=== PATIENT | male | born 1945 | race Caucasian/White ===

== ENCOUNTER → 2017-07-03 08:58 | Outpatient (CLI) | payer MEDICARE, OTHER, SELFPAY | PROVIDERS: Visit Provider Urology | DX: C61 Malignant neoplasm of prostate (principal) | CPT/HCPCS: 36415; 84153 ==

== ENCOUNTER → 2018-01-08 09:19 | Outpatient (CLI) | payer MEDICARE, OTHER, SELFPAY | PROVIDERS: Family Provider Family Medicine; PCP Family Medicine; Visit Provider Urology | DX: C61 Malignant neoplasm of prostate (principal) | CPT/HCPCS: 36415; 84153 ==

== ENCOUNTER → 2018-07-16 08:57 | Outpatient (CLI) | payer MEDICARE, OTHER, SELFPAY ==
[2018-07-16 11:37] LABS: Prostate Specific Antigen 10.9 ng/mL (0.10-4.00)
== END ==
PROVIDERS: Family Provider Family Medicine; PCP Family Medicine; Visit Provider Urology
DX: C61 Malignant neoplasm of prostate (principal)
CPT/HCPCS: 36415; 84153

== ENCOUNTER → 2018-08-25 14:41 | Outpatient (CLI) | payer MEDICARE, OTHER, SELFPAY ==
--- NOTE | 2018-08-25 14:43 | DI.RAD.S_ITS ---
PROCEDURE: XR HIP W PEL IF DONE RT 2V INDICATIONS: right hip/low back pain TECHNIQUE: AP pelvis with lateral view(s) of the right hip(s). COMPARISON: None. FINDINGS: Bones: No fractures or dislocations. Pelvic ring appears intact. No suspicious bony lesions. Scattered degenerative subchondral sclerosis and spurring. Lower lumbar spondylosis Soft tissues: The visualized bowel gas pattern is normal. No suspicious soft tissue calcifications. IMPRESSION: Bilateral mild hip joint degeneration. Lower lumbar spondylosis Dictated by: Misbah Guillaume M.D. on 08/25/2018 at 16:01 Approved by: Misbah Guillaume M.D. on 08/25/2018 at 16:03
--- NOTE | 2018-08-25 14:43 | DI.RAD.S_ITS ---
PROCEDURE: XR LUMBAR SPINE 2-3V INDICATIONS: right hip/low back pain TECHNIQUE: 3 views of the lumbar spine were acquired. COMPARISON: None. FINDINGS: Bones: No fracture or focal osseous destruction. Grade 1 retrolisthesis of L3 on L4. Multilevel degenerative endplate sclerosis and spurring. Diffuse facet arthropathy. Mild narrowing of the L3-L4 disc space. Remaining disc space is grossly preserved. Levocurvature centered at L3. Soft tissues: Overlying bowel gas pattern is normal. No suspicious soft tissue calcifications. IMPRESSION: Mild L3-L4 disc degeneration and diffuse facet arthropathy. Grade 1 retrolisthesis of L3 on L4. Dictated by: Misbah Guillaume M.D. on 08/25/2018 at 15:29 Approved by: Msibah Guilalume M.D. on 08/25/2018 at 15:31
== END ==
PROVIDERS: PCP Family Medicine; Visit Provider Family Medicine
DX: M54.5 Low back pain (principal); M25.551 Pain in right hip; M16.0 Bilateral primary osteoarthritis of hip; M51.36 Other intervertebral disc degeneration, lumbar region; M47.816 Spondylosis without myelopathy or radiculopathy, lumbar region; M43.16 Spondylolisthesis, lumbar region
CPT/HCPCS: 72100; 73502

== ENCOUNTER → 2019-01-13 08:48 | Outpatient (CLI) | payer MEDICARE, OTHER, SELFPAY ==
[2019-01-13 09:52] LABS: Cholesterol 230 mg/dL (140-199); Glucose 95 mg/dL (80-110); HDL Cholesterol 43 mg/dL (40-60); LDL Cholesterol Calculated 109 mg/dL (<100); Triglycerides 389 mg/dL (35-150)
[2019-01-14 14:05] LABS: Prostate Specific Antigen Scrn 13.5 ng/mL (0.1-4.0)
== END ==
PROVIDERS: PCP Family Medicine; Visit Provider Family Medicine
DX: Z13.1 Encounter for screening for diabetes mellitus (principal); Z13.220 Encounter for screening for lipoid disorders; C61 Malignant neoplasm of prostate; Z12.5 Encounter for screening for malignant neoplasm of prostate
CPT/HCPCS: 36415; 80061; 82947; G0103

== ENCOUNTER → 2019-02-05 08:54 | Outpatient (CLI) | payer MEDICARE, OTHER, SELFPAY ==
[2019-02-05 11:50] LABS: Prostate Specific Antigen 12.2 ng/mL (0.10-4.00)
== END ==
PROVIDERS: Family Provider Family Medicine; PCP Family Medicine; Visit Provider Urology
DX: C61 Malignant neoplasm of prostate (principal)
CPT/HCPCS: 36415; 84153

== ENCOUNTER 2019-03-30 09:00 | Outpatient (RCR) | payer MEDICARE, OTHER, SELFPAY ==
--- NOTE | 2018-09-27 17:35 | PT.OIE ---
Current Diagnoses Pain in right hip (09/27/18) Past Medical History (Last Reviewed 03/12/18 @ 17:19 by Jeane Boss MD) Sleep apnea (Chronic ~2007) Erectile dysfunction (Chronic ~2014) Prostate cancer (Chronic ~2014) Benign familial tremor (Chronic) Cataracts, bilateral (Chronic ~2006) Elevated PSA (Chronic ~2013) Folliculitis (Chronic ~2006) Hearing deficit (Chronic) Hearing loss (Chronic ~2001) Hemorrhoid (Chronic ~1966) Neuroma (Chronic ~1968) Post traumatic stress disorder (PTSD) (Chronic) Tinnitus (Chronic ~1968) Vision disorder (Chronic) Chicken pox (Resolved ~1953) Fractures (Resolved ~1992) Measles (Resolved ~1957) Past Surgical History (Last Reviewed 03/12/18 @ 17:19 by Jeane Boss MD) Anesthesia (Resolved) History of biopsy (Resolved) History of tonsillectomy (Resolved ~1949) History of vasectomy (Resolved ~1980) Male circumcision (Resolved ~1946) Plantar warts (Resolved ~1962) [place] teeth extracted (Resolved) Provider Visit Care Team Role Provider Type Jeane Boss MD Attending Provider Physician Primary Care Provider Specialty: [facility] Practice Address: [address] [place] [address] Email: [email or web address] Physical Therapy Initial Evaluation PT-OP-A Visit Information Start: 09/27/18 10:27 Freq: Status: Active Protocol: Document 09/27/18 17:21 EA (Rec: 09/27/18 17:34 EA [id number]) Out-Patient Physical Therapy Visit Information Visit Information Visit Type Initial Evaluation Visit Start Time 09:45 Visit Stop Time 10:30 Total Visit Minutes 40 Visit Number 1 Evaluation Information Evaluation Date 09/27/18 PT-OP-B Current Condition Start: 09/27/18 10:27 Freq: Status: Active Protocol: Document 09/27/18 17:21 EA (Rec: 09/27/18 17:34 EA [id number]) Current Condition History of Current Condition Onset Date 2 months ago History of Current Condition Pt reports right hip pain onset after actively worked on home renovation 2 months ago. Significant history of hip limitation with formal PT years ago per patient. 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 He reports weight bearing or single leg squat to right hip aggravated condition. He reports compliant with previous HEP and as well regular gym exercises prior to current condition but has to stop physical exercises due to increasing pain. Prior Treatments and Tests Formal PT with same hip years ago with good results X-rays to low back and hips a month ago. Future Testing and Treatments Planned None reported Treatment Goals Patient/Caregiver Goals 1. Daily 5-6 miles ambulation 2. 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 Current Functional Impairments (Reported) Functional Limitations- ADL's Independent with moderate difficulty Functional Limitations- Mobility/Gait Indep with moderate difficulty to > 1 mile distance Functional Limitations- Work/School Retired Functional Limitations- Recreation/ Moderate difficulty to all Hobbies previous physical activities PT-OP-C Subjective Start: 09/27/18 10:27 Freq: Status: Active Protocol: Document 09/27/18 17:35 EA (Rec: 09/28/18 10:06 EA [id number]) OP-PT Subjective Patient Comments Patient Comments Pt states some days worst than the others; states prolonged walks increased pain intensity. Patient Reported Progress Worse Patient Questionnaires Lower Extremity Functional Scale LEFS Score 56 LEFS Impairment 20 to 39% Impaired (Score 48- 62) OP-PT Pain Assessment Pain Assessment Grid Paper Pain Assessment Grid Completed Yes Home Pain Medication Use Pain Medications Used Yes Pain Behaviors Pain Behaviors Wincing PT-OP-G Mobility & Gait Start: 09/27/18 10:27 Freq: Status: Active Protocol: Document 09/27/18 17:35 EA (Rec: 09/28/18 10:02 EA [id number]) OP Gait Assessment Gait Gait Assistance Required: Independent Comments Gait Comments Ambulates indep with no AD; noted slight pelvic dropped to right with slight antalgic gait. PT-OP-J Posture/Palpation/Skin Start: 09/27/18 10:27 Freq: Status: Active Protocol: Document 09/27/18 17:35 EA (Rec: 09/28/18 10:02 EA [id number]) Posture Evaluation Comments Posture Comments Minimal fwd head with protruded abdominal and increased lumbar lordosis/ APT Palpation Assessment Location One Palpation Location Right hip ERotators, greater trochanter region, upper gluteals. Palpation Findings Soft Tissue Tightness Tenderness PT-OP-K Range of Motion Start: 09/27/18 10:27 Freq: Status: Active Protocol: Document 09/27/18 17:35 EA (Rec: 09/28/18 10:02 EA [id number]) Hip Goniometric Range of Motion Hip Left Active Hip ROM WFL Yes Testing Position Supine Right Active Hip ROM WFL Yes Testing Position Supine Knee Goniometric Range of Motion Knee Right Knee ROM WFL Yes Left Knee ROM WFL Yes PT-OP-L Special Tests Start: 09/27/18 10:27 Freq: Status: Active Protocol: Document 09/27/18 17:35 EA (Rec: 09/28/18 10:02 EA [id number]) Special Tests Hip Special Tests Trendelenberg Test Results - Scour Test Test Results - Rudy Test Results + Piriformis Test Results Sensitive Dolores's Test Test Results tightness + JENNIFER Test Results - Knee Special Tests Smitha's Test Test Results tight both ITB PT-OP-M Strength Start: 09/27/18 10:27 Freq: Status: Active Protocol: Document 09/27/18 17:35 EA (Rec: 09/28/18 10:02 EA [id number]) Hip Strength Hip Manual Muscle Testing Right Flexion (L2) 4 Good Extension (S1) 4 Good Abduction 4 Good Adduction 4 Good External Rotation 4 Good Internal Rotation 4 Good Left Flexion (L2) 5 Normal Extension (S1) 5 Normal Abduction 5 Normal Adduction 5 Normal External Rotation 5 Normal Internal Rotation 5 Normal Knee Strength Knee Manual Muscle Testing Right Reason Not Measured WFL Left Reason Not Measured WFL PT-OP-Q Treatments Start: 09/27/18 10:27 Freq: Status: Active Protocol: Document 09/27/18 17:21 EA (Rec: 09/27/18 17:34 EA [id number]) Therapeutic Exercises Supine Exercises 1 Supine Exercise Name Piriformis stretch Reps/Minutes x 30SH x 2 Sidelying Exercises 2 Sidelying Exercise Name Clamshell Reps/Minutes x 15 reps x 2 1 Sidelying Exercise Name hip ABD Side right Reps/Minutes x 125 reps x 2 Self-Care/Home Management Treatment Education Patient Education Home Exercise Program Pain Management PT-OP-T Assessment and Plan Start: 09/27/18 10:27 Freq: Status: Active Protocol: Document 09/27/18 17:21 RYAN (Rec: 09/27/18 17:34 EA [id number]) Physical Therapy Assessment Rehab Potential Rehabilitation Potential Good Evaluation Complexity Number of Personal Factors/Comorbidities 1-2 Number of Body Systems Impaired 1-2 Clinical Presentation at Evaluation Stable Impairments Impairments Activity Tolerance Functional Mobility Gait Posture Soft Tissue Mobility Goals Three Impairment Unable to get back to fitness exercises Fpc Goal (LTG) Patient will get back to previous level of fitness exercises in the gym safely 2- 3x/wk LTG Duration 5 wks Two Impairment Limited distance ambulation Icing Machine Operator Goal (LTG) Pt will walk > 3 miles per day with no increase of symptoms LTG Duration 4 wks One Impairment LEFS score 55/80 Icing Machine Operator Goal (LTG) LEFS score > 65 to enhance quality of life LTG Duration 5 wks Assessment Summary Assessment Pleasant 72/ y/o M patient with a referring diagnosis of right hip pain. Today patient presented with slight gait abnormality and tenderness to palpate at right mid posterior gluteal region and greater trochanter area. MMT and hip ROM reveals WFL except with functional single leg squat which patients shows very difficult to right side. Both hip and knees muscular excursion reveals tightness to both hip flexors, hamstrings, and quads. Other tests and assessment reveals an impression of right hip bursitis and right hip external rotators trigger points. Patient would benefit with skilled PT addressing above mentioned hip dysfunction. Patient showed high motivation and will likely reach functional goals. Physical Therapy Plan Frequency and Duration Frequency of Treatment 2x/Week Duration of Treatment 8 wks Plan of Care Start Date 09/27/18 Plan of Care End Date 11/22/18 Therapeutic Interventions Therapeutic Interventions Home Exercise Program Joint Mobilizations Manual Therapy Patient/Caregiver Education Self-Care/Home Management Taping Therapeutic Exercises Next Visit Focus/Plan Next Note Type Treatment Note Next Visit Plan Manual therapy, flexibility, functional RLE strengthening exercises.
--- NOTE | 2018-09-27 17:35 | PT.OPPOC ---
Current Diagnoses Pain in right hip (09/27/18) Provider Visit Care Team Role Provider Type Jeane Boss MD Attending Provider Physician Primary Care Provider Specialty: Family Practice Address: [address] [place] [address], [facility] Email: [email or web address] Plan Of Care PT-OP-T Assessment and Plan Start: 09/27/18 10:27 Freq: Status: Active Protocol: Document 09/27/18 17:21 EA (Rec: 09/27/18 17:34 EA [id number]) Physical Therapy Assessment Rehab Potential Rehabilitation Potential Good Evaluation Complexity Number of Personal Factors/Comorbidities 1-2 Number of Body Systems Impaired 1-2 Clinical Presentation at Evaluation Stable Impairments Impairments Activity Tolerance Functional Mobility Gait Posture Soft Tissue Mobility Goals Three Impairment Unable to get back to fitness exercises Gourmet Coffee Attendant Goal (LTG) Patient will get back to previous level of fitness exercises in the gym safely 2- 3x/wk LTG Duration 5 wks Two Impairment Limited distance ambulation Gourmet Coffee Attendant Goal (LTG) Pt will walk > 3 miles per day with no increase of symptoms LTG Duration 4 wks One Impairment LEFS score 55/80 Custodial Goal (LTG) LEFS score > 65 to enhance quality of life LTG Duration 5 wks Assessment Summary Assessment Pleasant 72/ y/o M patient with a referring diagnosis of right hip pain. Today patient presented with slight gait abnormality and tenderness to palpate at right mid posterior gluteal region and greater trochanter area. MMT and hip ROM reveals WFL except with functional single leg squat which patients shows very difficult to right side. Both hip and knees muscular excursion reveals tightness to both hip flexors, hamstrings, and quads. Other tests and assessment reveals an impression of right hip bursitis and right hip external rotators trigger points. Patient would benefit with skilled PT addressing above mentioned hip dysfunction. Patient showed high motivation and will likely reach functional goals. Physical Therapy Plan Frequency and Duration Frequency of Treatment 2x/Week Duration of Treatment 8 wks Plan of Care Start Date 09/27/18 Plan of Care End Date 11/22/18 Therapeutic Interventions Therapeutic Interventions Home Exercise Program Joint Mobilizations Manual Therapy Patient/Caregiver Education Self-Care/Home Management Taping Therapeutic Exercises Next Visit Focus/Plan Next Note Type Treatment Note Next Visit Plan Manual therapy, flexibility, functional RLE strengthening exercises. Plan of Care Dates Plan of Care Start Date 09/27/18 Plan of Care End Date 11/22/18 Please Sign and Return: I have reviewed this Plan of Care and certify that the skilled therapy services above are required to meet the patient?s needs. Physician Signature Date Printed Name and Credentials Clinical Instructor Signature Printed Name and Credentials
--- NOTE | 2018-09-29 16:01 | PT.OTN ---
Current Diagnoses Pain in right hip (09/29/18) Physical Therapy Treatment Note PT-OP-A Visit Information Start: 09/27/18 10:27 Freq: Status: Active Protocol: Document 09/29/18 15:54 EA (Rec: 09/29/18 16:00 EA [id number]) Out-Patient Physical Therapy Visit Information Visit Information Visit Type Treatment Note Visit Start Time 09:45 Visit Stop Time 10:30 Total Visit Minutes 45 Visit Number 2 PT-OP-B Current Condition Start: 09/27/18 10:27 Freq: Status: Active Protocol: Document 09/27/18 17:21 EA (Rec: 09/27/18 17:34 EA [id number]) Current Condition History of Current Condition Onset Date 2 months ago History of Current Condition Pt reports right hip pain onset after actively worked on home renovation 2 months ago. Significant history of hip limitation with formal PT years ago per patient. 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 He reports weight bearing or single leg squat to right hip aggravated condition. He reports compliant with previos HEP and as well regular gym exercises prior to current condition but has to stop physical exercises due to increasing pain. Prior Treatments and Tests Formal PT with same hip years ago with good results X-rays to low back and hips a month ago. Future Testing and Treatments Planned None reported Treatment Goals Patient/Caregiver Goals 1. Daily 5-6 miles ambulation 2. 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 Current Functional Impairments (Reported) Functional Limitations- ADL's Independent with moderate difficulty Functional Limitations- Mobility/Gait Indep with moderate difficulty to > 1 mile distance Functional Limitations- Work/School Retired Functional Limitations- Recreation/ Moderate difficulty to all Hobbies previous physical activities PT-OP-C Subjective Start: 09/27/18 10:27 Freq: Status: Active Protocol: Document 09/29/18 15:54 EA (Rec: 09/29/18 16:00 EA [id number]) OP-PT Subjective Patient Comments Patient Comments No new complaint; states compliant with HEP. PT-OP-G Mobility & Gait Start: 09/27/18 10:27 Freq: Status: Active Protocol: Document 09/27/18 17:35 EA (Rec: 09/28/18 10:02 EA [id number]) OP Gait Assessment Gait Gait Assistance Required: Independent Comments Gait Comments Ambulates indep with no AD; noted slight pelvic dropped to right with slight antalgic gait. PT-OP-J Posture/Palpation/Skin Start: 09/27/18 10:27 Freq: Status: Active Protocol: Document 09/27/18 17:35 EA (Rec: 09/28/18 10:02 EA [id number]) Posture Evaluation Comments Posture Comments Minimal fwd head with protruded abdominal and increased lumbar lordosis/ APT Palpation Assessment Location One Palpation Location Right hip ERotators, greater trochanter region, upper gluteals. Palpation Findings Soft Tissue Tightness Tenderness PT-OP-K Range of Motion Start: 09/27/18 10:27 Freq: Status: Active Protocol: Document 09/27/18 17:35 EA (Rec: 09/28/18 10:02 EA [id number]) Hip Goniometric Range of Motion Hip Left Active Hip ROM WFL Yes Testing Position Supine Right Active Hip ROM WFL Yes Testing Position Supine Knee Goniometric Range of Motion Knee Right Knee ROM WFL Yes Left Knee ROM WFL Yes PT-OP-L Special Tests Start: 09/27/18 10:27 Freq: Status: Active Protocol: Document 09/27/18 17:35 EA (Rec: 09/28/18 10:02 EA [id number]) Special Tests Hip Special Tests Trendelenberg Test Results - Scour Test Test Results - Rudy Test Results + Piriformis Test Results Sensitive Dolores's Test Test Results tightness + JENNIFER Test Results - Knee Special Tests Smitha's Test Test Results tight both ITB PT-OP-M Strength Start: 09/27/18 10:27 Freq: Status: Active Protocol: Document 09/27/18 17:35 EA (Rec: 09/28/18 10:02 EA [id number]) Hip Strength Hip Manual Muscle Testing Right Flexion (L2) 4 Good Extension (S1) 4 Good Abduction 4 Good Adduction 4 Good External Rotation 4 Good Internal Rotation 4 Good Left Flexion (L2) 5 Normal Extension (S1) 5 Normal Abduction 5 Normal Adduction 5 Normal External Rotation 5 Normal Internal Rotation 5 Normal Knee Strength Knee Manual Muscle Testing Right Reason Not Measured WFL Left Reason Not Measured WFL PT-OP-Q Treatments Start: 09/27/18 10:27 Freq: Status: Active Protocol: Document 09/29/18 15:54 EA (Rec: 09/29/18 16:00 EA [id number]) Cardio Equipment Recumbent Bicycle Duration (Minutes) 5 Resistance 2 Therapeutic Exercises Supine Exercises 1 Supine Exercise Name Piriformis stretch Reps/Minutes x 30SH x 2 Sidelying Exercises 3 Sidelying Exercise Name ITB stretch Reps/Minutes x30SH x 2 reps 2 Sidelying Exercise Name Clamshell Reps/Minutes x 15 reps x 2 1 Sidelying Exercise Name hip ABD Side right Reps/Minutes x 15 reps x 2 Manual Therapy Treatment Soft Tissue Mobilization 1 Body Location Right gluteals Mobilization Type Myofascial Release Strumming Sustained Pressure Trigger Point Release Intensity/Depth Moderate Body Position Sidelying PT-OP-R Modalities Start: 09/27/18 10:27 Freq: Status: Active Protocol: Document 09/29/18 16:00 EA (Rec: 09/29/18 16:01 EA [id number]) Electric Stimulation Electric Stimulation Interferential Current (IFC) Body Location right gluteals Duration (Minutes) 15 Intensity 15 Contraction Type Normal Combined With Heat/Cold Hot Pack PT-OP-T Assessment and Plan Start: 09/27/18 10:27 Freq: Status: Active Protocol: Document 09/29/18 15:54 EA (Rec: 09/29/18 16:00 EA [id number]) Physical Therapy Assessment Assessment Summary Assessment Tolerated treatment well. HEP with images given and showed good understanding. Physical Therapy Plan Next Visit Focus/Plan Next Note Type Treatment Note Next Visit Plan Manual therapy, flexibility, functional RLE strengthening exercises.
--- NOTE | 2018-10-04 16:00 | PT.OTN ---
Current Diagnoses Pain in right hip (10/04/18) Physical Therapy Treatment Note PT-OP-A Visit Information Start: 09/27/18 10:27 Freq: Status: Active Protocol: Document 10/04/18 15:57 EA (Rec: 10/04/18 16:01 EA [id number]) Out-Patient Physical Therapy Visit Information Visit Information Visit Type Treatment Note Visit Start Time 14:30 Visit Stop Time 15:20 Total Visit Minutes 50 PT-OP-B Current Condition Start: 09/27/18 10:27 Freq: Status: Active Protocol: Document 09/27/18 17:21 EA (Rec: 09/27/18 17:34 EA [id number]) Current Condition History of Current Condition Onset Date 2 months ago History of Current Condition Pt reports right hip pain onset after actively worked on home renovation 2 months ago. Significant history of hip limitation with formal PT years ago per patient. 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 He reports weight bearing or single leg squat to right hip aggravated condition. He reports compliant with previos HEP and as well regular gym exercises prior to current condition but has to stop physical exercises due to increasing pain. Prior Treatments and Tests Formal PT with same hip years ago with good results X-rays to low back and hips a month ago. Future Testing and Treatments Planned None reported Treatment Goals Patient/Caregiver Goals 1. Daily 5-6 miles ambulation 2. 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 Current Functional Impairments (Reported) Functional Limitations- ADL's Independent with moderate difficulty Functional Limitations- Mobility/Gait Indep with moderate difficulty to > 1 mile distance Functional Limitations- Work/School Retired Functional Limitations- Recreation/ Moderate difficulty to all Hobbies previous physical activities PT-OP-C Subjective Start: 09/27/18 10:27 Freq: Status: Active Protocol: Document 10/04/18 15:57 EA (Rec: 10/04/18 16:01 EA [id number]) OP-PT Subjective Patient Comments Patient Comments Pt reports very less frequent pain at this time; states he is progressing very compliant with HEP. PT-OP-G Mobility & Gait Start: 09/27/18 10:27 Freq: Status: Active Protocol: Document 09/27/18 17:35 EA (Rec: 09/28/18 10:02 EA [id number]) OP Gait Assessment Gait Gait Assistance Required: Independent Comments Gait Comments Ambulates indep with no AD; noted slight pelvic dropped to right with slight antalgic gait. PT-OP-J Posture/Palpation/Skin Start: 09/27/18 10:27 Freq: Status: Active Protocol: Document 09/27/18 17:35 EA (Rec: 09/28/18 10:02 EA [id number]) Posture Evaluation Comments Posture Comments Minimal fwd head with protruded abdominal and increased lumbar lordosis/ APT Palpation Assessment Location One Palpation Location Right hip ERotators, greater trochanter region, upper gluteals. Palpation Findings Soft Tissue Tightness Tenderness PT-OP-K Range of Motion Start: 09/27/18 10:27 Freq: Status: Active Protocol: Document 09/27/18 17:35 EA (Rec: 09/28/18 10:02 EA [id number]) Hip Goniometric Range of Motion Hip Left Active Hip ROM WFL Yes Testing Position Supine Right Active Hip ROM WFL Yes Testing Position Supine Knee Goniometric Range of Motion Knee Right Knee ROM WFL Yes Left Knee ROM WFL Yes PT-OP-L Special Tests Start: 09/27/18 10:27 Freq: Status: Active Protocol: Document 09/27/18 17:35 EA (Rec: 09/28/18 10:02 EA [id number]) Special Tests Hip Special Tests Trendelenberg Test Results - Scour Test Test Results - Rudy Test Results + Piriformis Test Results Sensitive Dolores's Test Test Results tightness + JENNIFER Test Results - Knee Special Tests Smitha's Test Test Results tight both ITB PT-OP-M Strength Start: 09/27/18 10:27 Freq: Status: Active Protocol: Document 09/27/18 17:35 EA (Rec: 09/28/18 10:02 EA [id number]) Hip Strength Hip Manual Muscle Testing Right Flexion (L2) 4 Good Extension (S1) 4 Good Abduction 4 Good Adduction 4 Good External Rotation 4 Good Internal Rotation 4 Good Left Flexion (L2) 5 Normal Extension (S1) 5 Normal Abduction 5 Normal Adduction 5 Normal External Rotation 5 Normal Internal Rotation 5 Normal Knee Strength Knee Manual Muscle Testing Right Reason Not Measured WFL Left Reason Not Measured WFL PT-OP-Q Treatments Start: 09/27/18 10:27 Freq: Status: Active Protocol: Document 10/04/18 15:57 EA (Rec: 10/04/18 16:01 EA [id number]) Cardio Equipment Recumbent Bicycle Duration (Minutes) 5 Resistance 2 Therapeutic Exercises Supine Exercises 2 Supine Exercise Name Bridge with isomet hip abd Reps/Minutes x 15 reps x 2 1 Supine Exercise Name Piriformis stretch Reps/Minutes x 30SH x 2 Sidelying Exercises 3 Sidelying Exercise Name ITB stretch Reps/Minutes x30SH x 2 reps 2 Sidelying Exercise Name Clamshell Reps/Minutes x 15 reps x 2 1 Sidelying Exercise Name hip ABD Side right Reps/Minutes x 15 reps x 2 Manual Therapy Treatment Soft Tissue Mobilization 1 Body Location Right gluteals Mobilization Type Myofascial Release Strumming Sustained Pressure Trigger Point Release Intensity/Depth Moderate Body Position Sidelying PT-OP-R Modalities Start: 09/27/18 10:27 Freq: Status: Active Protocol: Document 10/04/18 15:57 EA (Rec: 10/04/18 16:01 EA [id number]) Electric Stimulation Electric Stimulation Interferential Current (IFC) Body Location right gluteals Duration (Minutes) 15 Intensity 15 Contraction Type Normal Combined With Heat/Cold Hot Pack Ultrasound Therapy Treatment Right Lateral Hip Treatment Duration (minutes) 5 Patient Position Sidelying Frequency Setting (mHz) 1 Intensity Setting (w/cm2) 1.5 PT-OP-T Assessment and Plan Start: 09/27/18 10:27 Freq: Status: Active Protocol: Document 10/04/18 15:57 EA (Rec: 10/04/18 16:01 EA [id number]) Physical Therapy Assessment Assessment Summary Assessment Patient tolerated treament well; no discomfort noted during manual therapy. Patient is progressing well.
--- NOTE | 2018-10-07 17:20 | PT.OTN ---
Current Diagnoses Pain in right hip (10/07/18) Physical Therapy Treatment Note PT-OP-A Visit Information Start: 09/27/18 10:27 Freq: Status: Active Protocol: Document 10/07/18 15:59 EA (Rec: 10/07/18 16:02 EA [id number]) Out-Patient Physical Therapy Visit Information Visit Information Visit Type Treatment Note Visit Start Time 14:30 Visit Stop Time 15:23 Total Visit Minutes 53 PT-OP-B Current Condition Start: 09/27/18 10:27 Freq: Status: Active Protocol: Document 09/27/18 17:21 EA (Rec: 09/27/18 17:34 EA [id number]) Current Condition History of Current Condition Onset Date 2 months ago History of Current Condition Pt reports right hip pain onset after actively worked on home renovation 2 months ago. Significant history of hip limitation with formal PT years ago per patient. 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 He reports weight bearing or single leg squat to right hip aggravated condition. He reports compliant with previos HEP and as well regular gym exercises prior to current condition but has to stop physical exercises due to increasing pain. Prior Treatments and Tests Formal PT with same hip years ago with good results X-rays to low back and hips a month ago. Future Testing and Treatments Planned None reported Treatment Goals Patient/Caregiver Goals 1. Daily 5-6 miles ambulation 2. 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 Current Functional Impairments (Reported) Functional Limitations- ADL's Independent with moderate difficulty Functional Limitations- Mobility/Gait Indep with moderate difficulty to > 1 mile distance Functional Limitations- Work/School Retired Functional Limitations- Recreation/ Moderate difficulty to all Hobbies previous physical activities PT-OP-C Subjective Start: 09/27/18 10:27 Freq: Status: Active Protocol: Document 10/07/18 15:59 EA (Rec: 10/07/18 16:02 EA [id number]) OP-PT Subjective Patient Comments Patient Comments Pt reports he is much improved since before. Patient Reported Progress Improving PT-OP-G Mobility & Gait Start: 09/27/18 10:27 Freq: Status: Active Protocol: Document 09/27/18 17:35 EA (Rec: 09/28/18 10:02 EA [id number]) OP Gait Assessment Gait Gait Assistance Required: Independent Comments Gait Comments Ambulates indep with no AD; noted slight pelvic dropped to right with slight antalgic gait. PT-OP-J Posture/Palpation/Skin Start: 09/27/18 10:27 Freq: Status: Active Protocol: Document 09/27/18 17:35 EA (Rec: 09/28/18 10:02 EA [id number]) Posture Evaluation Comments Posture Comments Minimal fwd head with protruded abdominal and increased lumbar lordosis/ APT Palpation Assessment Location One Palpation Location Right hip ERotators, greater trochanter region, upper gluteals. Palpation Findings Soft Tissue Tightness Tenderness PT-OP-K Range of Motion Start: 09/27/18 10:27 Freq: Status: Active Protocol: Document 09/27/18 17:35 EA (Rec: 09/28/18 10:02 EA [id number]) Hip Goniometric Range of Motion Hip Left Active Hip ROM WFL Yes Testing Position Supine Right Active Hip ROM WFL Yes Testing Position Supine Knee Goniometric Range of Motion Knee Right Knee ROM WFL Yes Left Knee ROM WFL Yes PT-OP-L Special Tests Start: 09/27/18 10:27 Freq: Status: Active Protocol: Document 09/27/18 17:35 EA (Rec: 09/28/18 10:02 EA [id number]) Special Tests Hip Special Tests Trendelenberg Test Results - Scour Test Test Results - Rudy Test Results + Piriformis Test Results Sensitive Dolores's Test Test Results tightness + JENNIFER Test Results - Knee Special Tests Smitha's Test Test Results tight both ITB PT-OP-M Strength Start: 09/27/18 10:27 Freq: Status: Active Protocol: Document 09/27/18 17:35 EA (Rec: 09/28/18 10:02 EA [id number]) Hip Strength Hip Manual Muscle Testing Right Flexion (L2) 4 Good Extension (S1) 4 Good Abduction 4 Good Adduction 4 Good External Rotation 4 Good Internal Rotation 4 Good Left Flexion (L2) 5 Normal Extension (S1) 5 Normal Abduction 5 Normal Adduction 5 Normal External Rotation 5 Normal Internal Rotation 5 Normal Knee Strength Knee Manual Muscle Testing Right Reason Not Measured WFL Left Reason Not Measured WFL PT-OP-Q Treatments Start: 09/27/18 10:27 Freq: Status: Active Protocol: Document 10/07/18 15:59 EA (Rec: 10/07/18 16:02 EA [id number]) Gym Equipment Shuttle Recovery Unilateral Squats Resistance 3cords Reps/Time x15 reps x 2 Therapeutic Exercises Supine Exercises 2 Supine Exercise Name Bridge with isomet hip abd Reps/Minutes x 15 reps x 2 1 Supine Exercise Name Piriformis stretch Reps/Minutes x 30SH x 2 Sidelying Exercises 3 Sidelying Exercise Name ITB stretch Reps/Minutes x30SH x 2 reps 2 Sidelying Exercise Name Clamshell Reps/Minutes x 15 reps x 2 1 Sidelying Exercise Name hip ABD Side right Reps/Minutes x 15 reps x 2 Standing Exercises 1 Standing Exercise Name Side step squat Resistance YTB Reps/Minutes x 12 ft x 2 laps Manual Therapy Treatment Soft Tissue Mobilization 1 Body Location Right gluteals Mobilization Type Myofascial Release Strumming Sustained Pressure Trigger Point Release Intensity/Depth Moderate Body Position Sidelying PT-OP-R Modalities Start: 09/27/18 10:27 Freq: Status: Active Protocol: Document 10/07/18 15:59 EA (Rec: 10/07/18 16:02 EA [id number]) Electric Stimulation Electric Stimulation Interferential Current (IFC) Body Location right gluteals Duration (Minutes) 15 Intensity 15 Contraction Type Normal Combined With Heat/Cold Hot Pack PT-OP-T Assessment and Plan Start: 09/27/18 10:27 Freq: Status: Active Protocol: Document 10/07/18 15:59 EA (Rec: 10/07/18 16:02 EA [id number]) Physical Therapy Assessment Assessment Summary Assessment Improve exercises tolerance with no discomfort during and after. Overall patient is progressing well. Physical Therapy Plan Next Visit Focus/Plan Next Note Type Treatment Note Next Visit Plan Manual therapy, flexibility, functional RLE strengthening exercises.
--- NOTE | 2018-10-11 12:09 | PT.OTN ---
Current Diagnoses Pain in right hip (10/11/18) Physical Therapy Treatment Note PT-OP-A Visit Information Start: 09/27/18 10:27 Freq: Status: Active Protocol: Document 10/11/18 09:50 EA (Rec: 10/11/18 09:52 EA [id number]) Out-Patient Physical Therapy Visit Information Visit Information Visit Type Treatment Note Visit Start Time 09:45 Visit Stop Time 10:38 Total Visit Minutes 53 Visit Number 5 PT-OP-B Current Condition Start: 09/27/18 10:27 Freq: Status: Active Protocol: Document 09/27/18 17:21 EA (Rec: 09/27/18 17:34 EA [id number]) Current Condition History of Current Condition Onset Date 2 months ago History of Current Condition Pt reports right hip pain onset after actively worked on home renovation 2 months ago. Significant history of hip limitation with formal PT years ago per patient. 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 He reports weight bearing or single leg squat to right hip aggravated condition. He reports compliant with previos HEP and as well regular gym exercises prior to current condition but has to stop physical exercises due to increasing pain. Prior Treatments and Tests Formal PT with same hip years ago with good results X-rays to low back and hips a month ago. Future Testing and Treatments Planned None reported Treatment Goals Patient/Caregiver Goals 1. Daily 5-6 miles ambulation 2. 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 Current Functional Impairments (Reported) Functional Limitations- ADL's Independent with moderate difficulty Functional Limitations- Mobility/Gait Indep with moderate difficulty to > 1 mile distance Functional Limitations- Work/School Retired Functional Limitations- Recreation/ Moderate difficulty to all Hobbies previous physical activities PT-OP-C Subjective Start: 09/27/18 10:27 Freq: Status: Active Protocol: Document 10/11/18 09:50 EA (Rec: 10/11/18 09:52 EA [id number]) OP-PT Subjective Patient Comments Patient Comments Pt reports pain is getting better and better; states little ache but not as severe as it was. PT-OP-G Mobility & Gait Start: 09/27/18 10:27 Freq: Status: Active Protocol: Document 09/27/18 17:35 EA (Rec: 09/28/18 10:02 EA [id number]) OP Gait Assessment Gait Gait Assistance Required: Independent Comments Gait Comments Ambulates indep with no AD; noted slight pelvic dropped to right with slight antalgic gait. PT-OP-J Posture/Palpation/Skin Start: 09/27/18 10:27 Freq: Status: Active Protocol: Document 09/27/18 17:35 EA (Rec: 09/28/18 10:02 EA [id number]) Posture Evaluation Comments Posture Comments Minimal fwd head with protruded abdominal and increased lumbar lordosis/ APT Palpation Assessment Location One Palpation Location Right hip ERotators, greater trochanter region, upper gluteals. Palpation Findings Soft Tissue Tightness Tenderness PT-OP-K Range of Motion Start: 09/27/18 10:27 Freq: Status: Active Protocol: Document 09/27/18 17:35 EA (Rec: 09/28/18 10:02 EA [id number]) Hip Goniometric Range of Motion Hip Left Active Hip ROM WFL Yes Testing Position Supine Right Active Hip ROM WFL Yes Testing Position Supine Knee Goniometric Range of Motion Knee Right Knee ROM WFL Yes Left Knee ROM WFL Yes PT-OP-L Special Tests Start: 09/27/18 10:27 Freq: Status: Active Protocol: Document 09/27/18 17:35 EA (Rec: 09/28/18 10:02 EA [id number]) Special Tests Hip Special Tests Trendelenberg Test Results - Scour Test Test Results - Rudy Test Results + Piriformis Test Results Sensitive Dolores's Test Test Results tightness + JENNIFER Test Results - Knee Special Tests Smitha's Test Test Results tight both ITB PT-OP-M Strength Start: 09/27/18 10:27 Freq: Status: Active Protocol: Document 09/27/18 17:35 EA (Rec: 09/28/18 10:02 EA [id number]) Hip Strength Hip Manual Muscle Testing Right Flexion (L2) 4 Good Extension (S1) 4 Good Abduction 4 Good Adduction 4 Good External Rotation 4 Good Internal Rotation 4 Good Left Flexion (L2) 5 Normal Extension (S1) 5 Normal Abduction 5 Normal Adduction 5 Normal External Rotation 5 Normal Internal Rotation 5 Normal Knee Strength Knee Manual Muscle Testing Right Reason Not Measured WFL Left Reason Not Measured WFL PT-OP-Q Treatments Start: 09/27/18 10:27 Freq: Status: Active Protocol: Document 10/11/18 09:50 EA (Rec: 10/11/18 09:52 EA [id number]) Cardio Equipment Recumbent Bicycle Duration (Minutes) 5 Resistance 5 Gym Equipment Shuttle Recovery Unilateral Squats Resistance 3cords Reps/Time x15 reps x 2 Therapeutic Exercises Supine Exercises 2 Supine Exercise Name Bridge with isomet hip abd Reps/Minutes x 15 reps x 2 1 Supine Exercise Name Piriformis stretch Reps/Minutes x 30SH x 2 Sidelying Exercises 3 Sidelying Exercise Name ITB stretch Reps/Minutes x30SH x 2 reps 1 Sidelying Exercise Name hip ABD Side right Reps/Minutes x 15 reps x 2 Standing Exercises 1 Standing Exercise Name Side step squat Resistance YTB Reps/Minutes x 12 ft x 2 laps Manual Therapy Treatment Soft Tissue Mobilization 1 Body Location Right gluteals Mobilization Type Myofascial Release Strumming Sustained Pressure Trigger Point Release Intensity/Depth Moderate Body Position Sidelying PT-OP-R Modalities Start: 09/27/18 10:27 Freq: Status: Active Protocol: Document 10/11/18 11:13 EA (Rec: 10/11/18 11:14 EA [id number]) Electric Stimulation Electric Stimulation Interferential Current (IFC) Body Location right gluteals Duration (Minutes) 15 Intensity 15 Contraction Type Normal Combined With Heat/Cold Hot Pack PT-OP-T Assessment and Plan Start: 09/27/18 10:27 Freq: Status: Active Protocol: Document 10/11/18 11:13 EA (Rec: 10/11/18 11:14 EA [id number]) Physical Therapy Assessment Assessment Summary Assessment Patient shows functional mobility exercises very well with slight discomfort during fwd lunges. Advised patient to cont. HEP with addition of squatting and sitted stretch. Patient agreeable to reduce session to once a week. Physical Therapy Plan Next Visit Focus/Plan Next Note Type Treatment Note Next Visit Plan advance as tolerated
--- NOTE | 2018-10-13 12:10 | PT.OTN ---
Current Diagnoses Pain in right hip (10/13/18) Physical Therapy Treatment Note PT-OP-A Visit Information Start: 09/27/18 10:27 Freq: Status: Active Protocol: Document 10/13/18 12:05 EA (Rec: 10/13/18 12:09 EA [id number]) Out-Patient Physical Therapy Visit Information Visit Information Visit Type Treatment Note Visit Start Time 09:45 Visit Stop Time 10:38 Total Visit Minutes 53 Visit Number 6 PT-OP-B Current Condition Start: 09/27/18 10:27 Freq: Status: Active Protocol: Document 09/27/18 17:21 EA (Rec: 09/27/18 17:34 EA [id number]) Current Condition History of Current Condition Onset Date 2 months ago History of Current Condition Pt reports right hip pain onset after actively worked on home renovation 2 months ago. Significant history of hip limitation with formal PT years ago per patient. 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 He reports weight bearing or single leg squat to right hip aggravated condition. He reports compliant with previos HEP and as well regular gym exercises prior to current condition but has to stop physical exercises due to increasing pain. Prior Treatments and Tests Formal PT with same hip years ago with good results X-rays to low back and hips a month ago. Future Testing and Treatments Planned None reported Treatment Goals Patient/Caregiver Goals 1. Daily 5-6 miles ambulation 2. 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 Current Functional Impairments (Reported) Functional Limitations- ADL's Independent with moderate difficulty Functional Limitations- Mobility/Gait Indep with moderate difficulty to > 1 mile distance Functional Limitations- Work/School Retired Functional Limitations- Recreation/ Moderate difficulty to all Hobbies previous physical activities PT-OP-C Subjective Start: 09/27/18 10:27 Freq: Status: Active Protocol: Document 10/13/18 12:05 EA (Rec: 10/13/18 12:09 EA [id number]) OP-PT Subjective Patient Comments Patient Comments Patient reports right hip is sore after doing lots of home construction yesterday. Patient Reported Progress Improving PT-OP-G Mobility & Gait Start: 09/27/18 10:27 Freq: Status: Active Protocol: Document 09/27/18 17:35 EA (Rec: 09/28/18 10:02 EA [id number]) OP Gait Assessment Gait Gait Assistance Required: Independent Comments Gait Comments Ambulates indep with no AD; noted slight pelvic dropped to right with slight antalgic gait. PT-OP-J Posture/Palpation/Skin Start: 09/27/18 10:27 Freq: Status: Active Protocol: Document 09/27/18 17:35 EA (Rec: 09/28/18 10:02 EA [id number]) Posture Evaluation Comments Posture Comments Minimal fwd head with protruded abdominal and increased lumbar lordosis/ APT Palpation Assessment Location One Palpation Location Right hip ERotators, greater trochanter region, upper gluteals. Palpation Findings Soft Tissue Tightness Tenderness PT-OP-K Range of Motion Start: 09/27/18 10:27 Freq: Status: Active Protocol: Document 09/27/18 17:35 EA (Rec: 09/28/18 10:02 EA [id number]) Hip Goniometric Range of Motion Hip Left Active Hip ROM WFL Yes Testing Position Supine Right Active Hip ROM WFL Yes Testing Position Supine Knee Goniometric Range of Motion Knee Right Knee ROM WFL Yes Left Knee ROM WFL Yes PT-OP-L Special Tests Start: 09/27/18 10:27 Freq: Status: Active Protocol: Document 09/27/18 17:35 EA (Rec: 09/28/18 10:02 EA [id number]) Special Tests Hip Special Tests Trendelenberg Test Results - Scour Test Test Results - Rudy Test Results + Piriformis Test Results Sensitive Dolores's Test Test Results tightness + JENNIFER Test Results - Knee Special Tests Smitha's Test Test Results tight both ITB PT-OP-M Strength Start: 09/27/18 10:27 Freq: Status: Active Protocol: Document 09/27/18 17:35 EA (Rec: 09/28/18 10:02 EA [id number]) Hip Strength Hip Manual Muscle Testing Right Flexion (L2) 4 Good Extension (S1) 4 Good Abduction 4 Good Adduction 4 Good External Rotation 4 Good Internal Rotation 4 Good Left Flexion (L2) 5 Normal Extension (S1) 5 Normal Abduction 5 Normal Adduction 5 Normal External Rotation 5 Normal Internal Rotation 5 Normal Knee Strength Knee Manual Muscle Testing Right Reason Not Measured WFL Left Reason Not Measured WFL PT-OP-Q Treatments Start: 09/27/18 10:27 Freq: Status: Active Protocol: Document 10/13/18 12:05 EA (Rec: 10/13/18 12:09 EA [id number]) Cardio Equipment Recumbent Bicycle Duration (Minutes) 5 Resistance 5 Gym Equipment Shuttle Recovery Unilateral Squats Resistance 4.5 cords Reps/Time x15 reps x 2 Therapeutic Exercises Supine Exercises 2 Supine Exercise Name Bridge with isomet hip abd Reps/Minutes x 15 reps x 2 1 Supine Exercise Name Piriformis stretch Reps/Minutes x 30SH x 2 Sidelying Exercises 3 Sidelying Exercise Name ITB stretch Reps/Minutes x30SH x 2 reps 2 Sidelying Exercise Name Clamshell Resistance GTB Reps/Minutes x 15 reps x 2 1 Sidelying Exercise Name hip ABD Side right Reps/Minutes x 15 reps x 2 Sitting Exercises 1 Sitting Exercise Name hip ER Side right Equipment Used GTB Reps/Minutes x 12 reps x 2 Standing Exercises 1 Standing Exercise Name Side step squat Resistance YTB Reps/Minutes x 12 ft x 3 laps Manual Therapy Treatment Soft Tissue Mobilization 1 Body Location Right gluteals Mobilization Type Myofascial Release Strumming Sustained Pressure Trigger Point Release Intensity/Depth Moderate Body Position Sidelying PT-OP-R Modalities Start: 09/27/18 10:27 Freq: Status: Active Protocol: Document 10/13/18 12:05 EA (Rec: 10/13/18 12:09 EA [id number]) Electric Stimulation Electric Stimulation Interferential Current (IFC) Body Location right gluteals Duration (Minutes) 15 Intensity 15 Contraction Type Normal Combined With Heat/Cold Cold Pack PT-OP-T Assessment and Plan Start: 09/27/18 10:27 Freq: Status: Active Protocol: Document 10/13/18 12:05 EA (Rec: 10/13/18 12:09 EA [id number]) Physical Therapy Assessment Assessment Summary Assessment Tolerated treatment well with minor discomfort during side steps squat. Physical Therapy Plan Next Visit Focus/Plan Next Note Type Treatment Note Next Visit Plan advance as tolerated
--- NOTE | 2018-10-19 12:35 | PT.OTN ---
Current Diagnoses Pain in right hip (10/19/18) Physical Therapy Treatment Note PT-OP-A Visit Information Start: 09/27/18 10:27 Freq: Status: Active Protocol: Document 10/19/18 10:15 GGD (Rec: 10/19/18 12:35 GGD [id number]) Out-Patient Physical Therapy Visit Information Visit Information Visit Type Treatment Note Visit Start Time 11:15 Visit Stop Time 12:10 Total Visit Minutes 55 Visit Number 7 Number of DIRECTOR PROCESS Visits 1 PT-OP-B Current Condition Start: 09/27/18 10:27 Freq: Status: Active Protocol: Document 09/27/18 17:21 EA (Rec: 09/27/18 17:34 EA [id number]) Current Condition History of Current Condition Onset Date 2 months ago History of Current Condition Pt reports right hip pain onset after actively worked on home renovation 2 months ago. Significant history of hip limitation with formal PT years ago per patient. 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 He reports weight bearing or single leg squat to right hip aggravated condition. He reports compliant with previos HEP and as well regular gym exercises prior to current condition but has to stop physical exercises due to increasing pain. Prior Treatments and Tests Formal PT with same hip years ago with good results X-rays to low back and hips a month ago. Future Testing and Treatments Planned None reported Treatment Goals Patient/Caregiver Goals 1. Daily 5-6 miles ambulation 2. 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 Current Functional Impairments (Reported) Functional Limitations- ADL's Independent with moderate difficulty Functional Limitations- Mobility/Gait Indep with moderate difficulty to > 1 mile distance Functional Limitations- Work/School Retired Functional Limitations- Recreation/ Moderate difficulty to all Hobbies previous physical activities PT-OP-C Subjective Start: 09/27/18 10:27 Freq: Status: Active Protocol: Document 10/19/18 10:15 GGD (Rec: 10/19/18 12:35 GGD [id number]) OP-PT Subjective Patient Comments Patient Comments Pt states he was able to play golf without increase in pain. He does have pain with lifting leg in and out of car. PT-OP-G Mobility & Gait Start: 09/27/18 10:27 Freq: Status: Active Protocol: Document 09/27/18 17:35 EA (Rec: 09/28/18 10:02 EA [id number]) OP Gait Assessment Gait Gait Assistance Required: Independent Comments Gait Comments Ambulates indep with no AD; noted slight pelvic dropped to right with slight antalgic gait. PT-OP-J Posture/Palpation/Skin Start: 09/27/18 10:27 Freq: Status: Active Protocol: Document 09/27/18 17:35 EA (Rec: 09/28/18 10:02 EA [id number]) Posture Evaluation Comments Posture Comments Minimal fwd head with protruded abdominal and increased lumbar lordosis/ APT Palpation Assessment Location One Palpation Location Right hip ERotators, greater trochanter region, upper gluteals. Palpation Findings Soft Tissue Tightness Tenderness PT-OP-K Range of Motion Start: 09/27/18 10:27 Freq: Status: Active Protocol: Document 09/27/18 17:35 EA (Rec: 09/28/18 10:02 EA [id number]) Hip Goniometric Range of Motion Hip Left Active Hip ROM WFL Yes Testing Position Supine Right Active Hip ROM WFL Yes Testing Position Supine Knee Goniometric Range of Motion Knee Right Knee ROM WFL Yes Left Knee ROM WFL Yes PT-OP-L Special Tests Start: 09/27/18 10:27 Freq: Status: Active Protocol: Document 09/27/18 17:35 EA (Rec: 09/28/18 10:02 EA [id number]) Special Tests Hip Special Tests Trendelenberg Test Results - Scour Test Test Results - Rudy Test Results + Piriformis Test Results Sensitive Dolores's Test Test Results tightness + JENNIFER Test Results - Knee Special Tests Smitha's Test Test Results tight both ITB PT-OP-M Strength Start: 09/27/18 10:27 Freq: Status: Active Protocol: Document 09/27/18 17:35 EA (Rec: 09/28/18 10:02 EA [id number]) Hip Strength Hip Manual Muscle Testing Right Flexion (L2) 4 Good Extension (S1) 4 Good Abduction 4 Good Adduction 4 Good External Rotation 4 Good Internal Rotation 4 Good Left Flexion (L2) 5 Normal Extension (S1) 5 Normal Abduction 5 Normal Adduction 5 Normal External Rotation 5 Normal Internal Rotation 5 Normal Knee Strength Knee Manual Muscle Testing Right Reason Not Measured WFL Left Reason Not Measured WFL PT-OP-Q Treatments Start: 09/27/18 10:27 Freq: Status: Active Protocol: Document 10/19/18 10:15 GGD (Rec: 10/19/18 12:35 GGD [id number]) Gym Equipment Shuttle Recovery Unilateral Squats Resistance 4.5 cords Reps/Time x15 reps x 2 Therapeutic Exercises Supine Exercises 1 Supine Exercise Name Piriformis stretch Reps/Minutes x 30SH x 2 Sidelying Exercises 3 Sidelying Exercise Name ITB stretch Reps/Minutes x30SH x 2 reps Standing Exercises 2 Standing Exercise Name Lunges Side bilateral Reps/Minutes 10 1 Standing Exercise Name Side step squat Resistance YTB Reps/Minutes x 12 ft x 3 laps Manual Therapy Treatment Soft Tissue Mobilization 1 Body Location Right gluteals Mobilization Type Myofascial Release Strumming Sustained Pressure Trigger Point Release Intensity/Depth Moderate Body Position Sidelying PT-OP-R Modalities Start: 09/27/18 10:27 Freq: Status: Active Protocol: Document 10/19/18 10:15 GGD (Rec: 10/19/18 12:35 GGD [id number]) Electric Stimulation Electric Stimulation Interferential Current (IFC) Body Location right gluteals Duration (Minutes) 15 Intensity 15 Contraction Type Normal Combined With Heat/Cold Cold Pack PT-OP-T Assessment and Plan Start: 09/27/18 10:27 Freq: Status: Active Protocol: Document 10/19/18 10:15 GGD (Rec: 10/19/18 12:35 GGD [id number]) Physical Therapy Assessment Goals Three Impairment Unable to get back to fitness exercises Usp Goal (LTG) Patient will get back to previous level of fitness exercises in the gym safely 2- 3x/wk LTG Duration 5 wks Two Impairment Limited distance ambulation [employer] Goal (LTG) Pt will walk > 3 miles per day with no increase of symptoms LTG Duration 4 wks One Impairment LEFS score 55/80 Usp Goal (LTG) LEFS score > 65 to enhance quality of life LTG Duration 5 wks Assessment Summary Assessment Pt improved tolerance to squats. He had decrease tenderness with palpation to glutes. Physical Therapy Plan Next Visit Focus/Plan Next Note Type Treatment Note Next Visit Plan advance as tolerated
--- NOTE | 2018-10-26 15:15 | PT.OTN ---
Current Diagnoses Pain in right hip (10/26/18) Physical Therapy Treatment Note PT-OP-A Visit Information Start: 09/27/18 10:27 Freq: Status: Active Protocol: Document 10/26/18 15:07 EA (Rec: 10/26/18 15:15 EA [id number]) Out-Patient Physical Therapy Visit Information Visit Information Visit Type Treatment Note Visit Start Time 14:30 Visit Stop Time 15:15 Total Visit Minutes 45 Visit Number 8 Number of TECHNICAL SPECIALIST Visits 1 PT-OP-B Current Condition Start: 09/27/18 10:27 Freq: Status: Active Protocol: Document 09/27/18 17:21 EA (Rec: 09/27/18 17:34 EA [id number]) Current Condition History of Current Condition Onset Date 2 months ago History of Current Condition Pt reports right hip pain onset after actively worked on home renovation 2 months ago. Significant history of hip limitation with formal PT years ago per patient. 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 He reports weight bearing or single leg squat to right hip aggravated condition. He reports compliant with previos HEP and as well regular gym exercises prior to current condition but has to stop physical exercises due to increasing pain. Prior Treatments and Tests Formal PT with same hip years ago with good results X-rays to low back and hips a month ago. Future Testing and Treatments Planned None reported Treatment Goals Patient/Caregiver Goals 1. Daily 5-6 miles ambulation 2. 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 Current Functional Impairments (Reported) Functional Limitations- ADL's Independent with moderate difficulty Functional Limitations- Mobility/Gait Indep with moderate difficulty to > 1 mile distance Functional Limitations- Work/School Retired Functional Limitations- Recreation/ Moderate difficulty to all Hobbies previous physical activities PT-OP-C Subjective Start: 09/27/18 10:27 Freq: Status: Active Protocol: Document 10/26/18 15:07 EA (Rec: 10/26/18 15:15 EA [id number]) OP-PT Subjective Patient Comments Patient Comments Pt reports conditions is improving a lot; states playing golf and had no problem. He stated that very less frequent pain at this time and believes few more ssession he would be ready for discharge. PT-OP-G Mobility & Gait Start: 09/27/18 10:27 Freq: Status: Active Protocol: Document 09/27/18 17:35 EA (Rec: 09/28/18 10:02 EA [id number]) OP Gait Assessment Gait Gait Assistance Required: Independent Comments Gait Comments Ambulates indep with no AD; noted slight pelvic dropped to right with slight antalgic gait. PT-OP-J Posture/Palpation/Skin Start: 09/27/18 10:27 Freq: Status: Active Protocol: Document 09/27/18 17:35 EA (Rec: 09/28/18 10:02 EA [id number]) Posture Evaluation Comments Posture Comments Minimal fwd head with protruded abdominal and increased lumbar lordosis/ APT Palpation Assessment Location One Palpation Location Right hip ERotators, greater trochanter region, upper gluteals. Palpation Findings Soft Tissue Tightness Tenderness PT-OP-K Range of Motion Start: 09/27/18 10:27 Freq: Status: Active Protocol: Document 09/27/18 17:35 EA (Rec: 09/28/18 10:02 EA [id number]) Hip Goniometric Range of Motion Hip Left Active Hip ROM WFL Yes Testing Position Supine Right Active Hip ROM WFL Yes Testing Position Supine Knee Goniometric Range of Motion Knee Right Knee ROM WFL Yes Left Knee ROM WFL Yes PT-OP-L Special Tests Start: 09/27/18 10:27 Freq: Status: Active Protocol: Document 09/27/18 17:35 EA (Rec: 09/28/18 10:02 EA [id number]) Special Tests Hip Special Tests Trendelenberg Test Results - Scour Test Test Results - Rudy Test Results + Piriformis Test Results Sensitive Dolores's Test Test Results tightness + JENNIFER Test Results - Knee Special Tests Smitha's Test Test Results tight both ITB PT-OP-M Strength Start: 09/27/18 10:27 Freq: Status: Active Protocol: Document 09/27/18 17:35 EA (Rec: 09/28/18 10:02 EA [id number]) Hip Strength Hip Manual Muscle Testing Right Flexion (L2) 4 Good Extension (S1) 4 Good Abduction 4 Good Adduction 4 Good External Rotation 4 Good Internal Rotation 4 Good Left Flexion (L2) 5 Normal Extension (S1) 5 Normal Abduction 5 Normal Adduction 5 Normal External Rotation 5 Normal Internal Rotation 5 Normal Knee Strength Knee Manual Muscle Testing Right Reason Not Measured WFL Left Reason Not Measured WFL PT-OP-Q Treatments Start: 09/27/18 10:27 Freq: Status: Active Protocol: Document 10/26/18 15:07 EA (Rec: 10/26/18 15:15 EA [id number]) Cardio Equipment Recumbent Bicycle Duration (Minutes) 5 Resistance 5 Therapeutic Exercises Supine Exercises 2 Supine Exercise Name Bridge with isomet hip abd Reps/Minutes x 15 reps x 2 1 Supine Exercise Name Piriformis stretch Reps/Minutes x 30SH x 2 Sidelying Exercises 3 Sidelying Exercise Name ITB stretch Reps/Minutes x30SH x 2 reps 2 Sidelying Exercise Name Clamshell Resistance GTB Reps/Minutes x 15 reps x 2 1 Sidelying Exercise Name hip ABD Side right Reps/Minutes x 15 reps x 2 Standing Exercises 1 Standing Exercise Name Side step squat Resistance YTB Reps/Minutes x 12 ft x 3 laps Manual Therapy Treatment Soft Tissue Mobilization 1 Body Location Right gluteals Mobilization Type Myofascial Release Strumming Sustained Pressure Trigger Point Release Intensity/Depth Moderate Body Position Sidelying PT-OP-R Modalities Start: 09/27/18 10:27 Freq: Status: Active Protocol: Document 10/26/18 15:07 EA (Rec: 10/26/18 15:15 EA [id number]) Electric Stimulation Electric Stimulation Interferential Current (IFC) Body Location right gluteals Duration (Minutes) 15 Intensity 15 Contraction Type Normal Combined With Heat/Cold Cold Pack PT-OP-T Assessment and Plan Start: 09/27/18 10:27 Freq: Status: Active Protocol: Document 10/26/18 15:07 EA (Rec: 10/26/18 15:15 EA [id number]) Physical Therapy Assessment Assessment Summary Assessment Pt continue to show functional movement exercises improvement and discomfort and pain during stretch and manual is very less at this time. Patient cont. to benefit with skilled PT. Physical Therapy Plan Next Visit Focus/Plan Next Note Type Treatment Note Next Visit Plan advance as tolerated
--- NOTE | 2018-11-05 16:36 | PT.OTN ---
Current Diagnoses Pain in right hip (11/05/18) Physical Therapy Treatment Note PT-OP-A Visit Information Start: 09/27/18 10:27 Freq: Status: Active Protocol: Document 11/05/18 08:15 AMB (Rec: 11/05/18 08:21 AMB [id number]) Out-Patient Physical Therapy Visit Information Visit Information Visit Type Treatment Note Visit Start Time 08:15 Visit Stop Time 09:00 Total Visit Minutes 45 Visit Number 9 Number of LIVESTOCK AGENT Visits 0 PT-OP-B Current Condition Start: 09/27/18 10:27 Freq: Status: Active Protocol: Document 09/27/18 17:21 EA (Rec: 09/27/18 17:34 EA [id number]) Current Condition History of Current Condition Onset Date 2 months ago History of Current Condition Pt reports right hip pain onset after actively worked on home renovation 2 months ago. Significant history of hip limitation with formal PT years ago per patient. 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 He reports weight bearing or single leg squat to right hip aggravated condition. He reports compliant with previos HEP and as well regular gym exercises prior to current condition but has to stop physical exercises due to increasing pain. Prior Treatments and Tests Formal PT with same hip years ago with good results X-rays to low back and hips a month ago. Future Testing and Treatments Planned None reported Treatment Goals Patient/Caregiver Goals 1. Daily 5-6 miles ambulation 2. 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 Current Functional Impairments (Reported) Functional Limitations- ADL's Independent with moderate difficulty Functional Limitations- Mobility/Gait Indep with moderate difficulty to > 1 mile distance Functional Limitations- Work/School Retired Functional Limitations- Recreation/ Moderate difficulty to all Hobbies previous physical activities PT-OP-C Subjective Start: 09/27/18 10:27 Freq: Status: Active Protocol: Document 11/05/18 08:15 AMB (Rec: 11/05/18 08:21 AMB [id number]) OP-PT Subjective Patient Comments Patient Comments Pt feels pain is a lot better, but it is starting to platuea , rotating out is painful intermittently. PT-OP-G Mobility & Gait Start: 09/27/18 10:27 Freq: Status: Active Protocol: Document 09/27/18 17:35 EA (Rec: 09/28/18 10:02 EA [id number]) OP Gait Assessment Gait Gait Assistance Required: Independent Comments Gait Comments Ambulates indep with no AD; noted slight pelvic dropped to right with slight antalgic gait. PT-OP-J Posture/Palpation/Skin Start: 09/27/18 10:27 Freq: Status: Active Protocol: Document 09/27/18 17:35 EA (Rec: 09/28/18 10:02 EA [id number]) Posture Evaluation Comments Posture Comments Minimal fwd head with protruded abdominal and increased lumbar lordosis/ APT Palpation Assessment Location One Palpation Location Right hip ERotators, greater trochanter region, upper gluteals. Palpation Findings Soft Tissue Tightness, Tenderness PT-OP-K Range of Motion Start: 09/27/18 10:27 Freq: Status: Active Protocol: Document 09/27/18 17:35 EA (Rec: 09/28/18 10:02 EA [id number]) Hip Goniometric Range of Motion Hip Left Active Hip ROM WFL Yes Testing Position Supine Right Active Hip ROM WFL Yes Testing Position Supine Knee Goniometric Range of Motion Knee Right Knee ROM WFL Yes Left Knee ROM WFL Yes PT-OP-L Special Tests Start: 09/27/18 10:27 Freq: Status: Active Protocol: Document 09/27/18 17:35 EA (Rec: 09/28/18 10:02 EA [id number]) Special Tests Hip Special Tests Trendelenberg Test Results - Scour Test Test Results - Rudy Test Results + Piriformis Test Results Sensitive Dolores's Test Test Results tightness + JENNIFER Test Results - Knee Special Tests Smitha's Test Test Results tight both ITB PT-OP-M Strength Start: 09/27/18 10:27 Freq: Status: Active Protocol: Document 09/27/18 17:35 EA (Rec: 09/28/18 10:02 EA [id number]) Hip Strength Hip Manual Muscle Testing Right Flexion (L2) 4 Good Extension (S1) 4 Good Abduction 4 Good Adduction 4 Good External Rotation 4 Good Internal Rotation 4 Good Left Flexion (L2) 5 Normal Extension (S1) 5 Normal Abduction 5 Normal Adduction 5 Normal External Rotation 5 Normal Internal Rotation 5 Normal Knee Strength Knee Manual Muscle Testing Right Reason Not Measured WFL Left Reason Not Measured WFL PT-OP-Q Treatments Start: 09/27/18 10:27 Freq: Status: Active Protocol: Document 11/05/18 08:15 AMB (Rec: 11/05/18 16:35 AMB [id number]) Cardio Equipment Recumbent Bicycle Duration (Minutes) 5 Resistance 5 Therapeutic Exercises Supine Exercises 1 Supine Exercise Name Piriformis stretch Reps/Minutes x 30SH x 2 Sidelying Exercises 3 Sidelying Exercise Name ITB stretch Reps/Minutes x30SH x 2 reps 2 Sidelying Exercise Name Clamshell Resistance GTB Reps/Minutes x 15 reps x 2 1 Sidelying Exercise Name hip ABD Side right Reps/Minutes x 15 reps x 2 Standing Exercises 2 Standing Exercise Name Lunges Side bilateral Reps/Minutes 10 Comments fwd and lat 1 Standing Exercise Name Side step squat Resistance YTB Reps/Minutes x 12 ft x 3 laps Manual Therapy Treatment Soft Tissue Mobilization 1 Body Location Right gluteals Mobilization Type Myofascial Release,Strumming, Sustained Pressure,Trigger Point Release Intensity/Depth Moderate Body Position Sidelying PT-OP-R Modalities Start: 09/27/18 10:27 Freq: Status: Active Protocol: Document 11/05/18 08:15 AMB (Rec: 11/05/18 16:35 AMB [id number]) Electric Stimulation Electric Stimulation Interferential Current (IFC) Body Location right gluteals Duration (Minutes) 15 Intensity 15 Contraction Type Normal Combined With Heat/Cold Cold Pack PT-OP-T Assessment and Plan Start: 09/27/18 10:27 Freq: Status: Active Protocol: Document 11/05/18 08:15 AMB (Rec: 11/05/18 16:35 AMB [id number]) Physical Therapy Assessment Assessment Summary Assessment Pt with continued R piriformis pain with deep palpation but does appear to be improving. Will likely need to continue to strengthen for a few more weeks to really see maximum change. Physical Therapy Plan Next Visit Focus/Plan Next Note Type Treatment Note Next Visit Plan advance as tolerated
--- NOTE | 2018-11-09 10:13 | PT.OTN ---
Current Diagnoses Pain in right hip (11/09/18) Physical Therapy Treatment Note PT-OP-A Visit Information Start: 09/27/18 10:27 Freq: Status: Active Protocol: Document 11/09/18 09:06 SAK (Rec: 11/09/18 10:13 SAK [id number]) Out-Patient Physical Therapy Visit Information Visit Information Visit Type Treatment Note Visit Start Time 08:15 Visit Stop Time 09:08 Total Visit Minutes 53 Visit Number 9 Number of RUBBER BOOTS AND SHOES REPAIRER Visits 0 PT-OP-B Current Condition Start: 09/27/18 10:27 Freq: Status: Active Protocol: Document 09/27/18 17:21 EA (Rec: 09/27/18 17:34 EA [id number]) Current Condition History of Current Condition Onset Date 2 months ago History of Current Condition Pt reports right hip pain onset after actively worked on home renovation 2 months ago. Significant history of hip limitation with formal PT years ago per patient. 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 He reports weight bearing or single leg squat to right hip aggravated condition. He reports compliant with previos HEP and as well regular gym exercises prior to current condition but has to stop physical exercises due to increasing pain. Prior Treatments and Tests Formal PT with same hip years ago with good results X-rays to low back and hips a month ago. Future Testing and Treatments Planned None reported Treatment Goals Patient/Caregiver Goals 1. Daily 5-6 miles ambulation 2. 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 Current Functional Impairments (Reported) Functional Limitations- ADL's Independent with moderate difficulty Functional Limitations- Mobility/Gait Indep with moderate difficulty to > 1 mile distance Functional Limitations- Work/School Retired Functional Limitations- Recreation/ Moderate difficulty to all Hobbies previous physical activities PT-OP-C Subjective Start: 09/27/18 10:27 Freq: Status: Active Protocol: Document 11/09/18 09:06 SAK (Rec: 11/09/18 10:13 SAK [id number]) OP-PT Subjective Patient Comments Patient Comments Lifting and turning leg (ie in and out of truck) still painful; better than when he started PT Thinks he overdid it with clamshell ex a couple days ago , more soreness PT-OP-G Mobility & Gait Start: 09/27/18 10:27 Freq: Status: Active Protocol: Document 09/27/18 17:35 EA (Rec: 09/28/18 10:02 EA [id number]) OP Gait Assessment Gait Gait Assistance Required: Independent Comments Gait Comments Ambulates indep with no AD; noted slight pelvic dropped to right with slight antalgic gait. PT-OP-J Posture/Palpation/Skin Start: 09/27/18 10:27 Freq: Status: Active Protocol: Document 09/27/18 17:35 EA (Rec: 09/28/18 10:02 EA [id number]) Posture Evaluation Comments Posture Comments Minimal fwd head with protruded abdominal and increased lumbar lordosis/ APT Palpation Assessment Location One Palpation Location Right hip ERotators, greater trochanter region, upper gluteals. Palpation Findings Soft Tissue Tightness, Tenderness PT-OP-K Range of Motion Start: 09/27/18 10:27 Freq: Status: Active Protocol: Document 09/27/18 17:35 EA (Rec: 09/28/18 10:02 EA [id number]) Hip Goniometric Range of Motion Hip Left Active Hip ROM WFL Yes Testing Position Supine Right Active Hip ROM WFL Yes Testing Position Supine Knee Goniometric Range of Motion Knee Right Knee ROM WFL Yes Left Knee ROM WFL Yes PT-OP-L Special Tests Start: 09/27/18 10:27 Freq: Status: Active Protocol: Document 09/27/18 17:35 EA (Rec: 09/28/18 10:02 EA [id number]) Special Tests Hip Special Tests Trendelenberg Test Results - Scour Test Test Results - Rudy Test Results + Piriformis Test Results Sensitive Dolores's Test Test Results tightness + JENNIFER Test Results - Knee Special Tests Smitha's Test Test Results tight both ITB PT-OP-M Strength Start: 09/27/18 10:27 Freq: Status: Active Protocol: Document 09/27/18 17:35 EA (Rec: 09/28/18 10:02 EA [id number]) Hip Strength Hip Manual Muscle Testing Right Flexion (L2) 4 Good Extension (S1) 4 Good Abduction 4 Good Adduction 4 Good External Rotation 4 Good Internal Rotation 4 Good Left Flexion (L2) 5 Normal Extension (S1) 5 Normal Abduction 5 Normal Adduction 5 Normal External Rotation 5 Normal Internal Rotation 5 Normal Knee Strength Knee Manual Muscle Testing Right Reason Not Measured WFL Left Reason Not Measured WFL PT-OP-Q Treatments Start: 09/27/18 10:27 Freq: Status: Active Protocol: Document 11/09/18 09:06 [facility] (Rec: 11/09/18 10:13 [facility] [id number]) Cardio Equipment Recumbent Bicycle Duration (Minutes) 5 Resistance 5 Gym Equipment Shuttle Balance chains blue Details EO, EC balance Comments fwd, side Sport Cord side step-up Exercise Details 4 box Cord/Resistance green Reps/Duration 10x ea side Comments emphasis on LE positioning, hip stability forward Cord/Resistance green Reps/Duration 3x Comments emphasis on gluteal activation and hip stability Therapeutic Exercises Supine Exercises LTR Equipment Used 65 cm ball Reps/Minutes 5x Comments painful midrange of ER to right 2 Supine Exercise Name bridge Equipment Used 65 cm therapy ball Reps/Minutes 10x 1 Supine Exercise Name Piriformis stretch Reps/Minutes x 30SH x 2 Manual Therapy Treatment Soft Tissue Mobilization 1 Body Location Right gluteals Mobilization Type Myofascial Release,Strumming, Sustained Pressure,Trigger Point Release Intensity/Depth Moderate Body Position Sidelying Self-Care/Home Management Treatment Education Other Education use of tennis ball for self massage PT-OP-R Modalities Start: 09/27/18 10:27 Freq: Status: Active Protocol: Document 11/09/18 09:06 [facility] (Rec: 11/09/18 10:13 [facility] [id number]) Electric Stimulation Electric Stimulation Interferential Current (IFC) Body Location right gluteals Duration (Minutes) 15 Intensity 15 Contraction Type Normal Combined With Heat/Cold Cold Pack PT-OP-T Assessment and Plan Start: 09/27/18 10:27 Freq: Status: Active Protocol: Document 11/09/18 09:06 [facility] (Rec: 11/09/18 10:13 [facility] [id number]) Physical Therapy Assessment Goals Three Impairment Unable to get back to fitness exercises Intermediate Goal (LTG) Patient will get back to previous level of fitness exercises in the gym safely 2- 3x/wk LTG Duration 5 wks Two Impairment Limited distance ambulation Chain Hoist Operator Goal (LTG) Pt will walk > 3 miles per day with no increase of symptoms LTG Duration 4 wks One Impairment LEFS score 55/80 Chain Hoist Operator Goal (LTG) LEFS score > 65 to enhance quality of life LTG Duration 5 wks Assessment Summary Assessment Emphasis on neural LE alignment with functional sidestep exercise to simulate getting into truck; less pain with decreased ER. May want to problem-solve with patient next session at his truck. Shown use of tennis ball for deep tissue massage. Physical Therapy Plan Next Visit Focus/Plan Next Note Type Treatment Note Next Visit Plan Work on truck transfer. Assess pelvic alignment, continue PT for flexibility and strengthening, pain management.
--- NOTE | 2018-11-16 15:51 | PT.OTN ---
Current Diagnoses Pain in right hip (11/16/18) Physical Therapy Treatment Note PT-OP-A Visit Information Start: 09/27/18 10:27 Freq: Status: Active Protocol: Document 11/16/18 15:45 GGD (Rec: 11/16/18 15:51 GGD [id number]) Out-Patient Physical Therapy Visit Information Visit Information Visit Type Treatment Note Visit Start Time 08:15 Visit Stop Time 09:10 Total Visit Minutes 53 Visit Number 11 Number of AUDIO VISUAL PROJECT MANAGER Visits 1 PT-OP-B Current Condition Start: 09/27/18 10:27 Freq: Status: Active Protocol: Document 09/27/18 17:21 EA (Rec: 09/27/18 17:34 EA [id number]) Current Condition History of Current Condition Onset Date 2 months ago History of Current Condition Pt reports right hip pain onset after actively worked on home renovation 2 months ago. Significant history of hip limitation with formal PT years ago per patient. 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 He reports weight bearing or single leg squat to right hip aggravated condition. He reports compliant with previos HEP and as well regular gym exercises prior to current condition but has to stop physical exercises due to increasing pain. Prior Treatments and Tests Formal PT with same hip years ago with good results X-rays to low back and hips a month ago. Future Testing and Treatments Planned None reported Treatment Goals Patient/Caregiver Goals 1. Daily 5-6 miles ambulation 2. 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 Current Functional Impairments (Reported) Functional Limitations- ADL's Independent with moderate difficulty Functional Limitations- Mobility/Gait Indep with moderate difficulty to > 1 mile distance Functional Limitations- Work/School Retired Functional Limitations- Recreation/ Moderate difficulty to all Hobbies previous physical activities PT-OP-C Subjective Start: 09/27/18 10:27 Freq: Status: Active Protocol: Document 11/16/18 15:45 GGD (Rec: 11/16/18 15:51 GGD [id number]) OP-PT Subjective Patient Comments Patient Comments Pt states he having less pain, but still with turning. PT-OP-G Mobility & Gait Start: 07/29/19 10:27 Freq: Status: Active Protocol: Document 09/27/18 17:35 EA (Rec: 09/28/18 10:02 EA [id number]) OP Gait Assessment Gait Gait Assistance Required: Independent Comments Gait Comments Ambulates indep with no AD; noted slight pelvic dropped to right with slight antalgic gait. PT-OP-J Posture/Palpation/Skin Start: 09/27/18 10:27 Freq: Status: Active Protocol: Document 09/27/18 17:35 EA (Rec: 09/28/18 10:02 EA [id number]) Posture Evaluation Comments Posture Comments Minimal fwd head with protruded abdominal and increased lumbar lordosis/ APT Palpation Assessment Location One Palpation Location Right hip ERotators, greater trochanter region, upper gluteals. Palpation Findings Soft Tissue Tightness, Tenderness PT-OP-K Range of Motion Start: 09/27/18 10:27 Freq: Status: Active Protocol: Document 09/27/18 17:35 EA (Rec: 09/28/18 10:02 EA [id number]) Hip Goniometric Range of Motion Hip Left Active Hip ROM WFL Yes Testing Position Supine Right Active Hip ROM WFL Yes Testing Position Supine Knee Goniometric Range of Motion Knee Right Knee ROM WFL Yes Left Knee ROM WFL Yes PT-OP-L Special Tests Start: 09/27/18 10:27 Freq: Status: Active Protocol: Document 09/27/18 17:35 EA (Rec: 09/28/18 10:02 EA [id number]) Special Tests Hip Special Tests Trendelenberg Test Results - Scour Test Test Results - Rudy Test Results + Piriformis Test Results Sensitive Dolores's Test Test Results tightness + JENNIFER Test Results - Knee Special Tests Smitha's Test Test Results tight both ITB PT-OP-M Strength Start: 09/27/18 10:27 Freq: Status: Active Protocol: Document 09/27/18 17:35 EA (Rec: 09/28/18 10:02 EA [id number]) Hip Strength Hip Manual Muscle Testing Right Flexion (L2) 4 Good Extension (S1) 4 Good Abduction 4 Good Adduction 4 Good External Rotation 4 Good Internal Rotation 4 Good Left Flexion (L2) 5 Normal Extension (S1) 5 Normal Abduction 5 Normal Adduction 5 Normal External Rotation 5 Normal Internal Rotation 5 Normal Knee Strength Knee Manual Muscle Testing Right Reason Not Measured WFL Left Reason Not Measured WFL PT-OP-Q Treatments Start: 09/27/18 10:27 Freq: Status: Active Protocol: Document 11/16/18 15:45 GGD (Rec: 11/16/18 15:51 GGD [id number]) Therapeutic Exercises Supine Exercises LTR Equipment Used 65 cm ball Reps/Minutes 5x Comments painful midrange of ER to right 2 Supine Exercise Name bridge Equipment Used 65 cm therapy ball Reps/Minutes 10x 1 Supine Exercise Name Piriformis stretch Reps/Minutes x 30SH x 2 Manual Therapy Treatment Soft Tissue Mobilization 1 Body Location Right gluteals Mobilization Type Myofascial Release,Strumming, Sustained Pressure,Trigger Point Release Intensity/Depth Moderate Body Position Sidelying PT-OP-R Modalities Start: 09/27/18 10:27 Freq: Status: Active Protocol: Document 11/16/18 15:45 GGD (Rec: 11/16/18 15:51 GGD [email or web address]) Electric Stimulation Electric Stimulation Interferential Current (IFC) Body Location right gluteals Duration (Minutes) 15 Intensity 15 Contraction Type Normal Combined With Heat/Cold Cold Pack PT-OP-T Assessment and Plan Start: 09/27/18 10:27 Freq: Status: Active Protocol: Document 11/16/18 15:45 GGD (Rec: 11/16/18 15:51 GGD [id number]) Physical Therapy Assessment Goals Three Impairment Unable to get back to fitness exercises Life Consultant Goal (LTG) Patient will get back to previous level of fitness exercises in the gym safely 2- 3x/wk LTG Duration 5 wks Two Impairment Limited distance ambulation Life Consultant Goal (LTG) Pt will walk > 3 miles per day with no increase of symptoms LTG Duration 4 wks One Impairment LEFS score 55/80 Life Consultant Goal (LTG) LEFS score > 65 to enhance quality of life LTG Duration 5 wks Assessment Summary Assessment Pt had improved ER ROM with decrease in pain with treatment. He is improving overall with ROM and strength. Physical Therapy Plan Frequency and Duration Frequency of Treatment 2x/Week Duration of Treatment 8 wks Plan of Care Start Date 09/27/18 Plan of Care End Date 11/22/18 Next Visit Focus/Plan Next Note Type Progress Note Next Visit Plan Assess pelvic alignment, continue PT for flexibility and strengthening, pain management.
--- NOTE | 2018-11-23 14:31 | PT.OTN ---
Current Diagnoses Pain in right hip (11/23/18) Physical Therapy Treatment Note PT-OP-A Visit Information Start: 09/27/18 10:27 Freq: Status: Active Protocol: Document 11/23/18 13:31 GGD (Rec: 11/23/18 14:30 GGD [email or web address]) Out-Patient Physical Therapy Visit Information Visit Information Visit Type Treatment Note Visit Start Time 09:45 Visit Stop Time 10:37 Total Visit Minutes 53 Visit Number 12 Number of AUTO GLASS TECHNICIAN Visits 2 Evaluation Information Evaluation Date 09/27/18 PT-OP-B Current Condition Start: 09/27/18 10:27 Freq: Status: Active Protocol: Document 09/27/18 17:21 EA (Rec: 09/27/18 17:34 EA [id number]) Current Condition History of Current Condition Onset Date 2 months ago History of Current Condition Pt reports right hip pain onset after actively worked on home renovation 2 months ago. Significant history of hip limitation with formal PT years ago per patient. 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 He reports weight bearing or single leg squat to right hip aggravated condition. He reports compliant with previos HEP and as well regular gym exercises prior to current condition but has to stop physical exercises due to increasing pain. Prior Treatments and Tests Formal PT with same hip years ago with good results X-rays to low back and hips a month ago. Future Testing and Treatments Planned None reported Treatment Goals Patient/Caregiver Goals 1. Daily 5-6 miles ambulation 2. 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 Current Functional Impairments (Reported) Functional Limitations- ADL's Independent with moderate difficulty Functional Limitations- Mobility/Gait Indep with moderate difficulty to > 1 mile distance Functional Limitations- Work/School Retired Functional Limitations- Recreation/ Moderate difficulty to all Hobbies previous physical activities PT-OP-C Subjective Start: 09/27/18 10:27 Freq: Status: Active Protocol: Document 11/23/18 13:31 GGD (Rec: 11/23/18 14:30 GGD [email or web address]) OP-PT Subjective Patient Comments Patient Comments Pt states he still needs to work on balance, pain is slowly improving. He states he will be out of town for about three weeks. Patient Questionnaires Lower Extremity Functional Scale LEFS Score 62 LEFS Impairment 20 to 39% Impaired (Score 48- 62) PT-OP-G Mobility & Gait Start: 09/27/18 10:27 Freq: Status: Active Protocol: Document 09/27/18 17:35 EA (Rec: 09/28/18 10:02 EA [id number]) OP Gait Assessment Gait Gait Assistance Required: Independent Comments Gait Comments Ambulates indep with no AD; noted slight pelvic dropped to right with slight antalgic gait. PT-OP-J Posture/Palpation/Skin Start: 09/27/18 10:27 Freq: Status: Active Protocol: Document 09/27/18 17:35 EA (Rec: 09/28/18 10:02 EA [id number]) Posture Evaluation Comments Posture Comments Minimal fwd head with protruded abdominal and increased lumbar lordosis/ APT Palpation Assessment Location One Palpation Location Right hip ERotators, greater trochanter region, upper gluteals. Palpation Findings Soft Tissue Tightness, Tenderness PT-OP-K Range of Motion Start: 09/27/18 10:27 Freq: Status: Active Protocol: Document 09/27/18 17:35 EA (Rec: 09/28/18 10:02 EA [id number]) Hip Goniometric Range of Motion Hip Left Active Hip ROM WFL Yes Testing Position Supine Right Active Hip ROM WFL Yes Testing Position Supine Knee Goniometric Range of Motion Knee Right Knee ROM WFL Yes Left Knee ROM WFL Yes PT-OP-L Special Tests Start: 09/27/18 10:27 Freq: Status: Active Protocol: Document 09/27/18 17:35 EA (Rec: 09/28/18 10:02 EA [id number]) Special Tests Hip Special Tests Trendelenberg Test Results - Scour Test Test Results - Rudy Test Results + Piriformis Test Results Sensitive Dolores's Test Test Results tightness + JENNIFER Test Results - Knee Special Tests Smitha's Test Test Results tight both ITB PT-OP-M Strength Start: 09/27/18 10:27 Freq: Status: Active Protocol: Document 09/27/18 17:35 EA (Rec: 09/28/18 10:02 EA [id number]) Hip Strength Hip Manual Muscle Testing Right Flexion (L2) 4 Good Extension (S1) 4 Good Abduction 4 Good Adduction 4 Good External Rotation 4 Good Internal Rotation 4 Good Left Flexion (L2) 5 Normal Extension (S1) 5 Normal Abduction 5 Normal Adduction 5 Normal External Rotation 5 Normal Internal Rotation 5 Normal Knee Strength Knee Manual Muscle Testing Right Reason Not Measured WFL Left Reason Not Measured WFL PT-OP-Q Treatments Start: 09/27/18 10:27 Freq: Status: Active Protocol: Document 11/23/18 13:31 GGD (Rec: 11/23/18 14:30 GGD [email or web address]) Cardio Equipment Recumbent Bicycle Duration (Minutes) 5 Resistance 5 Gym Equipment Shuttle Balance chains blue Details EO, EC balance Comments fwd, side Therapeutic Exercises Supine Exercises LTR Equipment Used 65 cm ball Reps/Minutes 5x Comments painful midrange of ER to right 2 Supine Exercise Name bridge Equipment Used 65 cm therapy ball Reps/Minutes 10x 1 Supine Exercise Name Piriformis stretch Reps/Minutes x 30SH x 2 Manual Therapy Treatment Soft Tissue Mobilization 1 Body Location Right gluteals Mobilization Type Myofascial Release,Strumming, Sustained Pressure,Trigger Point Release Intensity/Depth Moderate Body Position Sidelying PT-OP-R Modalities Start: 09/27/18 10:27 Freq: Status: Active Protocol: Document 11/23/18 13:31 GGD (Rec: 11/23/18 14:30 GGD [email or web address]) Electric Stimulation Electric Stimulation Interferential Current (IFC) Body Location right gluteals Duration (Minutes) 15 Intensity 15 Contraction Type Normal Combined With Heat/Cold Cold Pack PT-OP-T Assessment and Plan Start: 09/27/18 10:27 Freq: Status: Active Protocol: Document 11/23/18 13:31 GGD (Rec: 11/23/18 14:30 GGD [email or web address]) Physical Therapy Assessment Goals Three Impairment Unable to get back to fitness exercises Supervisory Forester Goal (LTG) Patient will get back to previous level of fitness exercises in the gym safely 2- 3x/wk 11-23-18 Pt exercising at gym 2 -3x/week with modifications LTG Duration 5 wks Two Impairment Limited distance ambulation Assisted Goal (LTG) Pt will walk > 3 miles per day with no increase of symptoms LTG Duration 4 wks One Impairment LEFS score 55/80 Assisted Goal (LTG) LEFS score > 65 to enhance quality of life 11-23-18 62 LTG Duration 5 wks Assessment Summary Assessment Pt improving with ROM and decrease in pain. Decrease C/O tenderness with palpation to right hip. Physical Therapy Plan Frequency and Duration Frequency of Treatment 2x/Week Duration of Treatment 8 wks Plan of Care Start Date 11/23/18 Plan of Care End Date 01/22/19 Next Visit Focus/Plan Next Note Type Treatment Note Next Visit Plan Continue PT for flexibility and strengthening, pain management.
--- NOTE | 2018-11-23 16:48 | PT.OTRE ---
Current Diagnoses Pain in right hip (11/23/18) Past Medical History (Last Reviewed 03/12/18 @ 17:19 by Jeane Boss MD) Benign familial tremor (Chronic) Cataracts, bilateral (Chronic ~2006) Chicken pox (Resolved ~1953) Elevated PSA (Chronic ~2013) Erectile dysfunction (Chronic ~2014) Folliculitis (Chronic ~2006) Fractures (Resolved ~1992) Hearing deficit (Chronic) Hearing loss (Chronic ~2001) Hemorrhoid (Chronic ~1966) Measles (Resolved ~1957) Neuroma (Chronic ~1968) Post traumatic stress disorder (PTSD) (Chronic) Prostate cancer (Chronic ~2014) Sleep apnea (Chronic ~2007) Tinnitus (Chronic ~1968) Vision disorder (Chronic) Surgical History (Last Reviewed 03/12/18 @ 17:19 by Jeane Boss MD) Anesthesia (Resolved) History of biopsy (Resolved) History of tonsillectomy (Resolved ~1949) History of vasectomy (Resolved ~1980) Male circumcision (Resolved ~1946) Plantar warts (Resolved ~1962) [place] teeth extracted (Resolved) Visit Care Team Role Provider Type Jeane Boss MD Attending Provider Physician Primary Care Provider Specialty: [facility] Address: [address] [place] [address], [facility] Email: [email or web address] Physical Therapy Re-Evaluation PT-OP-A Visit Information Start: 09/27/18 10:27 Freq: Status: Active Protocol: Document 11/23/18 13:31 GGD (Rec: 11/23/18 14:30 GGD [email or web address]) Out-Patient Physical Therapy Visit Information Visit Information Visit Type Treatment Note Visit Start Time 09:45 Visit Stop Time 10:37 Total Visit Minutes 53 Visit Number 12 Number of MANAGER ADMINISTRATION Visits 2 Evaluation Information Evaluation Date 09/27/18 PT-OP-B Current Condition Start: 09/27/18 10:27 Freq: Status: Active Protocol: Document 09/27/18 17:21 EA (Rec: 09/27/18 17:34 EA [id number]) Current Condition History of Current Condition Onset Date 2 months ago History of Current Condition Pt reports right hip pain onset after actively worked on home renovation 2 months ago. Significant history of hip limitation with formal PT years ago per patient. 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 He reports weight bearing or single leg squat to right hip aggravated condition. He reports compliant with previos HEP and as well regular gym exercises prior to current condition but has to stop physical exercises due to increasing pain. Prior Treatments and Tests Formal PT with same hip years ago with good results X-rays to low back and hips a month ago. Future Testing and Treatments Planned None reported Treatment Goals Patient/Caregiver Goals 1. Daily 5-6 miles ambulation 2. 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 Current Functional Impairments (Reported) Functional Limitations- ADL's Independent with moderate difficulty Functional Limitations- Mobility/Gait Indep with moderate difficulty to > 1 mile distance Functional Limitations- Work/School Retired Functional Limitations- Recreation/ Moderate difficulty to all Hobbies previous physical activities PT-OP-C Subjective Start: 09/27/18 10:27 Freq: Status: Active Protocol: Document 11/23/18 13:31 GGD (Rec: 11/23/18 14:30 GGD [email or web address]) OP-PT Subjective Patient Comments Patient Comments Pt states he still needs to work on balance, pain is slowly improving. He states he will be out of town for about three weeks. Patient Questionnaires Lower Extremity Functional Scale LEFS Score 62 LEFS Impairment 20 to 39% Impaired (Score 48- 62) PT-OP-G Mobility & Gait Start: 09/27/18 10:27 Freq: Status: Active Protocol: Document 09/27/18 17:35 EA (Rec: 09/28/18 10:02 EA [id number]) OP Gait Assessment Gait Gait Assistance Required: Independent Comments Gait Comments Ambulates indep with no AD; noted slight pelvic dropped to right with slight antalgic gait. PT-OP-J Posture/Palpation/Skin Start: 09/27/18 10:27 Freq: Status: Active Protocol: Document 09/27/18 17:35 EA (Rec: 09/28/18 10:02 EA [id number]) Posture Evaluation Comments Posture Comments Minimal fwd head with protruded abdominal and increased lumbar lordosis/ APT Palpation Assessment Location One Palpation Location Right hip ERotators, greater trochanter region, upper gluteals. Palpation Findings Soft Tissue Tightness, Tenderness PT-OP-K Range of Motion Start: 09/27/18 10:27 Freq: Status: Active Protocol: Document 09/27/18 17:35 EA (Rec: 09/28/18 10:02 EA [id number]) Hip Goniometric Range of Motion Hip Measured in Degrees Left Active Hip ROM WFL Yes Testing Position Supine Right Active Hip ROM WFL Yes Testing Position Supine Knee Goniometric Range of Motion Knee Measured in Degrees Right Knee ROM WFL Yes Left Knee ROM WFL Yes PT-OP-L Special Tests Start: 09/27/18 10:27 Freq: Status: Active Protocol: Document 09/27/18 17:35 EA (Rec: 09/28/18 10:02 EA [id number]) Special Tests Hip Special Tests Trendelenberg Test Results - Scour Test Test Results - Rudy Test Results + Piriformis Test Results Sensitive Dolores's Test Test Results tightness + JENNIFER Test Results - Knee Special Tests Smitha's Test Test Results tight both ITB PT-OP-M Strength Start: 09/27/18 10:27 Freq: Status: Active Protocol: Document 09/27/18 17:35 EA (Rec: 09/28/18 10:02 EA [id number]) Hip Strength Hip Manual Muscle Testing Right Flexion (L2) 4 Good Extension (S1) 4 Good Abduction 4 Good Adduction 4 Good External Rotation 4 Good Internal Rotation 4 Good Left Flexion (L2) 5 Normal Extension (S1) 5 Normal Abduction 5 Normal Adduction 5 Normal External Rotation 5 Normal Internal Rotation 5 Normal Knee Strength Knee Manual Muscle Testing Right Reason Not Measured WFL Left Reason Not Measured WFL PT-OP-Q Treatments Start: 09/27/18 10:27 Freq: Status: Active Protocol: Document 11/23/18 13:31 GGD (Rec: 11/23/18 14:30 GGD [email or web address]) Cardio Equipment Recumbent Bicycle Duration (Minutes) 5 Resistance 5 Gym Equipment Shuttle Balance chains blue Details EO, EC balance Comments fwd, side Therapeutic Exercises Supine Exercises LTR Equipment Used 65 cm ball Reps/Minutes 5x Comments painful midrange of ER to right 2 Supine Exercise Name bridge Equipment Used 65 cm therapy ball Reps/Minutes 10x 1 Supine Exercise Name Piriformis stretch Reps/Minutes x 30SH x 2 Manual Therapy Treatment Soft Tissue Mobilization 1 Body Location Right gluteals Mobilization Type Myofascial Release,Strumming, Sustained Pressure,Trigger Point Release Intensity/Depth Moderate Body Position Sidelying PT-OP-R Modalities Start: 09/27/18 10:27 Freq: Status: Active Protocol: Document 11/23/18 13:31 GGD (Rec: 11/23/18 14:30 GGD [email or web address]) Electric Stimulation Electric Stimulation Interferential Current (IFC) Body Location right gluteals Duration (Minutes) 15 Intensity 15 Contraction Type Normal Combined With Heat/Cold Cold Pack PT-OP-T Assessment and Plan Start: 09/27/18 10:27 Freq: Status: Active Protocol: Document 11/23/18 13:31 GGD (Rec: 11/23/18 14:30 GGD [email or web address]) Physical Therapy Assessment Goals Three Impairment Unable to get back to fitness exercises Health Psychologist Goal (LTG) Patient will get back to previous level of fitness exercises in the gym safely 2- 3x/wk 11-23-18 Pt exercising at gym 2 -3x/week with modifications LTG Duration 5 wks Two Impairment Limited distance ambulation Usp Goal (LTG) Pt will walk > 3 miles per day with no increase of symptoms LTG Duration 4 wks One Impairment LEFS score 55/80 Usp Goal (LTG) LEFS score > 65 to enhance quality of life 11-23-18 62 LTG Duration 5 wks Assessment Summary Assessment Pt improving with ROM and decrease in pain. Decrease C/O tenderness with palpation to right hip. Physical Therapy Plan Frequency and Duration Frequency of Treatment 2x/Week Duration of Treatment 8 wks Plan of Care Start Date 11/23/18 Plan of Care End Date 01/22/19 Next Visit Focus/Plan Next Note Type Treatment Note Next Visit Plan Continue PT for flexibility and strengthening, pain management.
--- NOTE | 2018-11-23 16:49 | PT.OPPOC ---
Current Diagnoses Pain in right hip (11/23/18) Visit Care Team Role Provider Type Jeane Boss MD Attending Provider Physician Primary Care Provider Specialty: [facility] Address: [facility], [place], [address] Email: [email or web address] Plan Of Care PT-OP-T Assessment and Plan Start: 09/27/18 10:27 Freq: Status: Active Protocol: Document 11/23/18 13:31 GGD (Rec: 11/23/18 14:30 GGD [email or web address]) Physical Therapy Assessment Goals Three Impairment Unable to get back to fitness exercises Detention Goal (LTG) Patient will get back to previous level of fitness exercises in the gym safely 2- 3x/wk 11-23-18 Pt exercising at gym 2 -3x/week with modifications LTG Duration 5 wks Two Impairment Limited distance ambulation Detention Goal (LTG) Pt will walk > 3 miles per day with no increase of symptoms LTG Duration 4 wks One Impairment LEFS score 55/80 Warehouse Handler Goal (LTG) LEFS score > 65 to enhance quality of life 11-23-18 62 LTG Duration 5 wks Assessment Summary Assessment Pt improving with ROM and decrease in pain. Decrease C/O tenderness with palpation to right hip. Physical Therapy Plan Frequency and Duration Frequency of Treatment 2x/Week Duration of Treatment 8 wks Plan of Care Start Date 11/23/18 Plan of Care End Date 01/22/19 Next Visit Focus/Plan Next Note Type Treatment Note Next Visit Plan Continue PT for flexibility and strengthening, pain management. Plan of Care Dates Plan of Care Start Date 11/23/18 Plan of Care End Date 01/22/19
--- NOTE | 2018-12-14 15:10 | PT.OTN ---
Current Diagnoses Pain in right hip (12/14/18) Physical Therapy Treatment Note PT-OP-A Visit Information Start: 09/27/18 10:27 Freq: Status: Active Protocol: Document 12/14/18 15:02 GGD (Rec: 12/14/18 15:10 GGD [email or web address]) Out-Patient Physical Therapy Visit Information Visit Information Visit Type Treatment Note Visit Start Time 09:00 Visit Stop Time 09:45 Total Visit Minutes 45 Visit Number 13 Number of RADIATION THERAPIST Visits 3 Evaluation Information Evaluation Date 09/27/18 PT-OP-B Current Condition Start: 09/27/18 10:27 Freq: Status: Active Protocol: Document 09/27/18 17:21 EA (Rec: 09/27/18 17:34 EA [id number]) Current Condition History of Current Condition Onset Date 2 months ago History of Current Condition Pt reports right hip pain onset after actively worked on home renovation 2 months ago. Significant history of hip limitation with formal PT years ago per patient. 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 He reports weight bearing or single leg squat to right hip aggravated condition. He reports compliant with previos HEP and as well regular gym exercises prior to current condition but has to stop physical exercises due to increasing pain. Prior Treatments and Tests Formal PT with same hip years ago with good results X-rays to low back and hips a month ago. Future Testing and Treatments Planned None reported Treatment Goals Patient/Caregiver Goals 1. Daily 5-6 miles ambulation 2. 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 Current Functional Impairments (Reported) Functional Limitations- ADL's Independent with moderate difficulty Functional Limitations- Mobility/Gait Indep with moderate difficulty to > 1 mile distance Functional Limitations- Work/School Retired Functional Limitations- Recreation/ Moderate difficulty to all Hobbies previous physical activities PT-OP-C Subjective Start: 09/27/18 10:27 Freq: Status: Active Protocol: Document 12/14/18 15:02 GGD (Rec: 12/14/18 15:10 GGD [email or web address]) OP-PT Subjective Patient Comments Patient Comments Pt states he had decrease in pain. PT-OP-G Mobility & Gait Start: 09/27/18 10:27 Freq: Status: Active Protocol: Document 09/27/18 17:35 EA (Rec: 09/28/18 10:02 EA [id number]) OP Gait Assessment Gait Gait Assistance Required: Independent Comments Gait Comments Ambulates indep with no AD; noted slight pelvic dropped to right with slight antalgic gait. PT-OP-J Posture/Palpation/Skin Start: 09/27/18 10:27 Freq: Status: Active Protocol: Document 09/27/18 17:35 EA (Rec: 09/28/18 10:02 EA [id number]) Posture Evaluation Comments Posture Comments Minimal fwd head with protruded abdominal and increased lumbar lordosis/ APT Palpation Assessment Location One Palpation Location Right hip ERotators, greater trochanter region, upper gluteals. Palpation Findings Soft Tissue Tightness, Tenderness PT-OP-K Range of Motion Start: 09/27/18 10:27 Freq: Status: Active Protocol: Document 09/27/18 17:35 EA (Rec: 09/28/18 10:02 EA [id number]) Hip Goniometric Range of Motion Hip Left Active Hip ROM WFL Yes Testing Position Supine Right Active Hip ROM WFL Yes Testing Position Supine Knee Goniometric Range of Motion Knee Right Knee ROM WFL Yes Left Knee ROM WFL Yes PT-OP-L Special Tests Start: 09/27/18 10:27 Freq: Status: Active Protocol: Document 09/27/18 17:35 EA (Rec: 09/28/18 10:02 EA [id number]) Special Tests Hip Special Tests Trendelenberg Test Results - Scour Test Test Results - Rudy Test Results + Piriformis Test Results Sensitive Dolores's Test Test Results tightness + JENNIFER Test Results - Knee Special Tests Smitha's Test Test Results tight both ITB PT-OP-M Strength Start: 09/27/18 10:27 Freq: Status: Active Protocol: Document 09/27/18 17:35 EA (Rec: 09/28/18 10:02 EA [id number]) Hip Strength Hip Manual Muscle Testing Right Flexion (L2) 4 Good Extension (S1) 4 Good Abduction 4 Good Adduction 4 Good External Rotation 4 Good Internal Rotation 4 Good Left Flexion (L2) 5 Normal Extension (S1) 5 Normal Abduction 5 Normal Adduction 5 Normal External Rotation 5 Normal Internal Rotation 5 Normal Knee Strength Knee Manual Muscle Testing Right Reason Not Measured WFL Left Reason Not Measured WFL PT-OP-Q Treatments Start: 09/27/18 10:27 Freq: Status: Active Protocol: Document 12/14/18 15:02 GGD (Rec: 12/14/18 15:10 GGD [email or web address]) Cardio Equipment Recumbent Bicycle Duration (Minutes) 5 Resistance 5 Gym Equipment Shuttle Balance chains blue Details EO, EC balance Reps/Duration Red chains. Comments fwd, side Therapeutic Exercises Supine Exercises LTR Equipment Used 65 cm ball Reps/Minutes 5x 2 Supine Exercise Name bridge Equipment Used 65 cm therapy ball Reps/Minutes 10x 1 Supine Exercise Name Piriformis stretch Reps/Minutes x 30SH x 2 Manual Therapy Treatment Soft Tissue Mobilization 1 Body Location Right gluteals/ QL Mobilization Type Myofascial Release,Strumming, Sustained Pressure,Trigger Point Release Intensity/Depth Moderate Body Position Sidelying PT-OP-T Assessment and Plan Start: 09/27/18 10:27 Freq: Status: Active Protocol: Document 12/14/18 15:02 GGD (Rec: 12/14/18 15:10 GGD [email or web address]) Physical Therapy Assessment Assessment Summary Assessment Pt improving with ROM and decrease in pain. He had improved ROM with no C/O pain after manual treatment. Physical Therapy Plan Frequency and Duration Frequency of Treatment 2x/Week Duration of Treatment 8 wks Plan of Care Start Date 11/23/18 Plan of Care End Date 01/22/19 Next Visit Focus/Plan Next Note Type Treatment Note Next Visit Plan Continue PT for flexibility and strengthening, pain management.
--- NOTE | 2018-12-16 15:03 | PT.OTN ---
Current Diagnoses Pain in right hip (12/16/18) Physical Therapy Treatment Note PT-OP-A Visit Information Start: 09/27/18 10:27 Freq: Status: Active Protocol: Document 12/16/18 14:56 GGD (Rec: 12/16/18 15:03 GGD [email or web address]) Out-Patient Physical Therapy Visit Information Visit Information Visit Type Treatment Note Visit Start Time 09:00 Visit Stop Time 09:45 Total Visit Minutes 45 Visit Number 14 Number of MESH MAN Visits 4 Evaluation Information Evaluation Date 09/27/18 PT-OP-B Current Condition Start: 09/27/18 10:27 Freq: Status: Active Protocol: Document 09/27/18 17:21 EA (Rec: 09/27/18 17:34 EA [id number]) Current Condition History of Current Condition Onset Date 2 months ago History of Current Condition Pt reports right hip pain onset after actively worked on home renovation 2 months ago. Significant history of hip limitation with formal PT years ago per patient. 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 He reports weight bearing or single leg squat to right hip aggravated condition. He reports compliant with previos HEP and as well regular gym exercises prior to current condition but has to stop physical exercises due to increasing pain. Prior Treatments and Tests Formal PT with same hip years ago with good results X-rays to low back and hips a month ago. Future Testing and Treatments Planned None reported Treatment Goals Patient/Caregiver Goals 1. Daily 5-6 miles ambulation 2. 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 Current Functional Impairments (Reported) Functional Limitations- ADL's Independent with moderate difficulty Functional Limitations- Mobility/Gait Indep with moderate difficulty to > 1 mile distance Functional Limitations- Work/School Retired Functional Limitations- Recreation/ Moderate difficulty to all Hobbies previous physical activities PT-OP-C Subjective Start: 09/27/18 10:27 Freq: Status: Active Protocol: Document 12/16/18 14:56 GGD (Rec: 12/16/18 15:03 GGD [email or web address]) OP-PT Subjective Patient Comments Patient Comments Pt states pain decreasing, mild ache with moving leg in and out of car. PT-OP-G Mobility & Gait Start: 09/27/18 10:27 Freq: Status: Active Protocol: Document 09/27/18 17:35 EA (Rec: 09/28/18 10:02 EA [id number]) OP Gait Assessment Gait Gait Assistance Required: Independent Comments Gait Comments Ambulates indep with no AD; noted slight pelvic dropped to right with slight antalgic gait. PT-OP-J Posture/Palpation/Skin Start: 09/27/18 10:27 Freq: Status: Active Protocol: Document 09/27/18 17:35 EA (Rec: 09/28/18 10:02 EA [id number]) Posture Evaluation Comments Posture Comments Minimal fwd head with protruded abdominal and increased lumbar lordosis/ APT Palpation Assessment Location One Palpation Location Right hip ERotators, greater trochanter region, upper gluteals. Palpation Findings Soft Tissue Tightness, Tenderness PT-OP-K Range of Motion Start: 09/27/18 10:27 Freq: Status: Active Protocol: Document 09/27/18 17:35 EA (Rec: 09/28/18 10:02 EA [id number]) Hip Goniometric Range of Motion Hip Left Active Hip ROM WFL Yes Testing Position Supine Right Active Hip ROM WFL Yes Testing Position Supine Knee Goniometric Range of Motion Knee Right Knee ROM WFL Yes Left Knee ROM WFL Yes PT-OP-L Special Tests Start: 09/27/18 10:27 Freq: Status: Active Protocol: Document 09/27/18 17:35 EA (Rec: 09/28/18 10:02 EA [id number]) Special Tests Hip Special Tests Trendelenberg Test Results - Scour Test Test Results - Rudy Test Results + Piriformis Test Results Sensitive Dolores's Test Test Results tightness + JENNIFER Test Results - Knee Special Tests Smitha's Test Test Results tight both ITB PT-OP-M Strength Start: 09/27/18 10:27 Freq: Status: Active Protocol: Document 09/27/18 17:35 EA (Rec: 09/28/18 10:02 EA [id number]) Hip Strength Hip Manual Muscle Testing Right Flexion (L2) 4 Good Extension (S1) 4 Good Abduction 4 Good Adduction 4 Good External Rotation 4 Good Internal Rotation 4 Good Left Flexion (L2) 5 Normal Extension (S1) 5 Normal Abduction 5 Normal Adduction 5 Normal External Rotation 5 Normal Internal Rotation 5 Normal Knee Strength Knee Manual Muscle Testing Right Reason Not Measured WFL Left Reason Not Measured WFL PT-OP-Q Treatments Start: 09/27/18 10:27 Freq: Status: Active Protocol: Document 12/16/18 14:56 GGD (Rec: 12/16/18 15:03 GGD [email or web address]) Cardio Equipment Recumbent Bicycle Duration (Minutes) 5 Resistance 5 Gym Equipment Shuttle Balance chains blue Details EO, EC balance Reps/Duration Red chains. Comments fwd, side Therapeutic Exercises Supine Exercises LTR Equipment Used 65 cm ball Reps/Minutes 5x 1 Supine Exercise Name Piriformis stretch Reps/Minutes x 30SH x 2 Standing Exercises 2 Standing Exercise Name Lunges Side bilateral Reps/Minutes 10 1 Standing Exercise Name squat Reps/Minutes 15 Manual Therapy Treatment Soft Tissue Mobilization 1 Body Location Right gluteals/ QL Mobilization Type Myofascial Release,Strumming, Sustained Pressure,Trigger Point Release Intensity/Depth Moderate Body Position Sidelying Joint Mobilizations 1 Joint right hip Direction distration, lat Grade III Body Position Hooklying PT-OP-R Modalities Start: 09/27/18 10:27 Freq: Status: Active Protocol: Document 11/23/18 13:31 GGD (Rec: 11/23/18 14:30 GGD [email or web address]) Electric Stimulation Electric Stimulation Interferential Current (IFC) Body Location right gluteals Duration (Minutes) 15 Intensity 15 Contraction Type Normal Combined With Heat/Cold Cold Pack PT-OP-T Assessment and Plan Start: 09/27/18 10:27 Freq: Status: Active Protocol: Document 12/16/18 14:56 GGD (Rec: 12/16/18 15:03 GGD [email or web address]) Physical Therapy Assessment Goals Three Impairment Unable to get back to fitness exercises [employer] Principal Goal (LTG) Patient will get back to previous level of fitness exercises in the gym safely 2- 3x/wk 11-23-18 Pt exercising at gym 2 -3x/week with modifications LTG Duration 5 wks Two Impairment Limited distance ambulation Detention Goal (LTG) Pt will walk > 3 miles per day with no increase of symptoms LTG Duration 4 wks One Impairment LEFS score 55/80 Detention Goal (LTG) LEFS score > 65 to enhance quality of life 11-23-18 62 LTG Duration 5 wks Assessment Summary Assessment Pt improving with decrease pain after manual treatment. He fatigued quickly with strengthening. Physical Therapy Plan Frequency and Duration Frequency of Treatment 2x/Week Duration of Treatment 8 wks Plan of Care Start Date 11/23/18 Plan of Care End Date 01/22/19 Next Visit Focus/Plan Next Note Type Treatment Note Next Visit Plan Continue PT for flexibility and hip extension strengthening, pain management .
--- NOTE | 2018-12-20 16:59 | PT.OTN ---
Current Diagnoses Pain in right hip (12/20/18) Physical Therapy Treatment Note PT-OP-A Visit Information Start: 09/27/18 10:27 Freq: Status: Active Protocol: Document 12/20/18 13:00 AW (Rec: 12/20/18 16:58 AW [email or web address]) Out-Patient Physical Therapy Visit Information Visit Information Visit Type Treatment Note Visit Start Time 10:32 Visit Stop Time 11:13 Total Visit Minutes 41 Visit Number 15 Number of DISTRIBUTION LINEMAN Visits 0 PT-OP-B Current Condition Start: 09/27/18 10:27 Freq: Status: Active Protocol: Document 09/27/18 17:21 EA (Rec: 09/27/18 17:34 EA [id number]) Current Condition History of Current Condition Onset Date 2 months ago History of Current Condition Pt reports right hip pain onset after actively worked on home renovation 2 months ago. Significant history of hip limitation with formal PT years ago per patient. 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 He reports weight bearing or single leg squat to right hip aggravated condition. He reports compliant with previos HEP and as well regular gym exercises prior to current condition but has to stop physical exercises due to increasing pain. Prior Treatments and Tests Formal PT with same hip years ago with good results X-rays to low back and hips a month ago. Future Testing and Treatments Planned None reported Treatment Goals Patient/Caregiver Goals 1. Daily 5-6 miles ambulation 2. 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 Current Functional Impairments (Reported) Functional Limitations- ADL's Independent with moderate difficulty Functional Limitations- Mobility/Gait Indep with moderate difficulty to > 1 mile distance Functional Limitations- Work/School Retired Functional Limitations- Recreation/ Moderate difficulty to all Hobbies previous physical activities PT-OP-C Subjective Start: 09/27/18 10:27 Freq: Status: Active Protocol: Document 12/20/18 13:00 AW (Rec: 12/20/18 16:58 AW [email or web address]) OP-PT Subjective Patient Comments Patient Comments Pt reports his hip feels achier than usual today, but overall has made good progress . PT-OP-G Mobility & Gait Start: 09/27/18 10:27 Freq: Status: Active Protocol: Document 09/27/18 17:35 EA (Rec: 09/28/18 10:02 EA [id number]) OP Gait Assessment Gait Gait Assistance Required: Independent Comments Gait Comments Ambulates indep with no AD; noted slight pelvic dropped to right with slight antalgic gait. PT-OP-J Posture/Palpation/Skin Start: 09/27/18 10:27 Freq: Status: Active Protocol: Document 09/27/18 17:35 EA (Rec: 09/28/18 10:02 EA [id number]) Posture Evaluation Comments Posture Comments Minimal fwd head with protruded abdominal and increased lumbar lordosis/ APT Palpation Assessment Location One Palpation Location Right hip ERotators, greater trochanter region, upper gluteals. Palpation Findings Soft Tissue Tightness, Tenderness PT-OP-K Range of Motion Start: 09/27/18 10:27 Freq: Status: Active Protocol: Document 09/27/18 17:35 EA (Rec: 09/28/18 10:02 EA [id number]) Hip Goniometric Range of Motion Hip Left Active Hip ROM WFL Yes Testing Position Supine Right Active Hip ROM WFL Yes Testing Position Supine Knee Goniometric Range of Motion Knee Right Knee ROM WFL Yes Left Knee ROM WFL Yes PT-OP-L Special Tests Start: 09/27/18 10:27 Freq: Status: Active Protocol: Document 09/27/18 17:35 EA (Rec: 09/28/18 10:02 EA [id number]) Special Tests Hip Special Tests Trendelenberg Test Results - Scour Test Test Results - Rudy Test Results + Piriformis Test Results Sensitive Dolores's Test Test Results tightness + JENNIFER Test Results - Knee Special Tests Smitha's Test Test Results tight both ITB PT-OP-M Strength Start: 09/27/18 10:27 Freq: Status: Active Protocol: Document 09/27/18 17:35 EA (Rec: 09/28/18 10:02 EA [id number]) Hip Strength Hip Manual Muscle Testing Right Flexion (L2) 4 Good Extension (S1) 4 Good Abduction 4 Good Adduction 4 Good External Rotation 4 Good Internal Rotation 4 Good Left Flexion (L2) 5 Normal Extension (S1) 5 Normal Abduction 5 Normal Adduction 5 Normal External Rotation 5 Normal Internal Rotation 5 Normal Knee Strength Knee Manual Muscle Testing Right Reason Not Measured WFL Left Reason Not Measured WFL PT-OP-Q Treatments Start: 09/27/18 10:27 Freq: Status: Active Protocol: Document 12/20/18 13:00 AW (Rec: 12/20/18 16:58 AW [email or web address]) Cardio Equipment Recumbent Bicycle Duration (Minutes) 5 Resistance 5 Gym Equipment Shuttle Balance chains blue Details EO, EC, narrow stance, staggered stance Reps/Duration blue chains Comments Fwd, side. Pt unable to stand unsupported with red chains. Changed to blue and pt improved performance - able to stand without UE support ~20 seconds at a time. Sport Cord lateral Exercise Details lateral Cord/Resistance red Reps/Duration 3x each direction Comments emphasis on avoiding pelvic rotation for improved stability forward Exercise Details fwd/bwd Cord/Resistance red Reps/Duration 3x Comments emphasis on gluteal activation , hip stability, increasing step length, backward under control Therapeutic Exercises Standing Exercises 4 Standing Exercise Name forward T Side bilateral Equipment Used bilateral Clear Story Systemsing poles Reps/Minutes 3x10 each side Comments [address]. 1 set walking 3 Standing Exercise Name single leg squat Side bilateral Equipment Used // bars for support Reps/Minutes 2x8 reps 1 Standing Exercise Name squat Reps/Minutes 2x10 reps Manual Therapy Treatment Joint Mobilizations 1 Joint right hip Direction distration, lat, inferior Grade III Body Position Hooklying Reps/Duration 8 minutes Comments tolerated well PT-OP-R Modalities Start: 09/27/18 10:27 Freq: Status: Active Protocol: Document 11/23/18 13:31 GGD (Rec: 11/23/18 14:30 GGD [email or web address]) Electric Stimulation Electric Stimulation Interferential Current (IFC) Body Location right gluteals Duration (Minutes) 15 Intensity 15 Contraction Type Normal Combined With Heat/Cold Cold Pack PT-OP-T Assessment and Plan Start: 09/27/18 10:27 Freq: Status: Active Protocol: Document 12/20/18 13:00 AW (Rec: 12/20/18 16:58 AW [email or web address]) Physical Therapy Assessment Goals Three Impairment Unable to get back to fitness exercises Educational Assistant Goal (LTG) Patient will get back to previous level of fitness exercises in the gym safely 2- 3x/wk 11-23-18 Pt exercising at gym 2 -3x/week with modifications LTG Duration 5 wks Two Impairment Limited distance ambulation Educational Assistant Goal (LTG) Pt will walk > 3 miles per day with no increase of symptoms LTG Duration 4 wks One Impairment LEFS score 55/80 Educational Assistant Goal (LTG) LEFS score > 65 to enhance quality of life 11-23-18 62 LTG Duration 5 wks Assessment Summary Assessment Pt continues to report decreased pain. Improved tolerance with strengthening, even with increaed challenge in single-leg support Physical Therapy Plan Frequency and Duration Frequency of Treatment 2x/Week Duration of Treatment 8 wks Plan of Care Start Date 11/23/18 Plan of Care End Date 01/22/19 Next Visit Focus/Plan Next Note Type Treatment Note Next Visit Plan Continue PT for flexibility and hip extension strengthening, pain management .
--- NOTE | 2018-12-27 14:47 | PT.OTN ---
Current Diagnoses Pain in right hip (12/27/18) Physical Therapy Treatment Note PT-OP-A Visit Information Start: 09/27/18 10:27 Freq: Status: Active Protocol: Document 12/27/18 12:50 AW (Rec: 12/27/18 14:47 AW [email or web address]) Out-Patient Physical Therapy Visit Information Visit Information Visit Type Treatment Note Visit Start Time 10:31 Visit Stop Time 11:15 Total Visit Minutes 44 Visit Number 16 Number of CUT OUT MACHINE OPERATOR Visits 0 PT-OP-B Current Condition Start: 09/27/18 10:27 Freq: Status: Active Protocol: Document 09/27/18 17:21 EA (Rec: 09/27/18 17:34 EA [id number]) Current Condition History of Current Condition Onset Date 2 months ago History of Current Condition Pt reports right hip pain onset after actively worked on home renovation 2 months ago. Significant history of hip limitation with formal PT years ago per patient. 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 He reports weight bearing or single leg squat to right hip aggravated condition. He reports compliant with previos HEP and as well regular gym exercises prior to current condition but has to stop physical exercises due to increasing pain. Prior Treatments and Tests Formal PT with same hip years ago with good results X-rays to low back and hips a month ago. Future Testing and Treatments Planned None reported Treatment Goals Patient/Caregiver Goals 1. Daily 5-6 miles ambulation 2. 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 Patient Reported Progress Improving PT-OP-G Mobility & Gait Start: 09/27/18 10:27 Freq: Status: Active Protocol: Document 09/27/18 17:35 EA (Rec: 09/28/18 10:02 EA [id number]) OP Gait Assessment Gait Gait Assistance Required: Independent Comments Gait Comments Ambulates indep with no AD; noted slight pelvic dropped to right with slight antalgic gait. PT-OP-J Posture/Palpation/Skin Start: 09/27/18 10:27 Freq: Status: Active Protocol: Document 09/27/18 17:35 EA (Rec: 09/28/18 10:02 EA [id number]) Posture Evaluation Comments Posture Comments Minimal fwd head with protruded abdominal and increased lumbar lordosis/ APT Palpation Assessment Location One Palpation Location Right hip ERotators, greater trochanter region, upper gluteals. Palpation Findings Soft Tissue Tightness, Tenderness PT-OP-K Range of Motion Start: 09/27/18 10:27 Freq: Status: Active Protocol: Document 09/27/18 17:35 EA (Rec: 09/28/18 10:02 EA [id number]) Hip Goniometric Range of Motion Hip Left Active Hip ROM WFL Yes Testing Position Supine Right Active Hip ROM WFL Yes Testing Position Supine Knee Goniometric Range of Motion Knee Right Knee ROM WFL Yes Left Knee ROM WFL Yes PT-OP-L Special Tests Start: 09/27/18 10:27 Freq: Status: Active Protocol: Document 09/27/18 17:35 EA (Rec: 09/28/18 10:02 EA [id number]) Special Tests Hip Special Tests Trendelenberg Test Results - Scour Test Test Results - Rudy Test Results + Piriformis Test Results Sensitive Dolores's Test Test Results tightness + JENNIFER Test Results - Knee Special Tests Smitha's Test Test Results tight both ITB PT-OP-M Strength Start: 09/27/18 10:27 Freq: Status: Active Protocol: Document 09/27/18 17:35 EA (Rec: 09/28/18 10:02 EA [id number]) Hip Strength Hip Manual Muscle Testing Right Flexion (L2) 4 Good Extension (S1) 4 Good Abduction 4 Good Adduction 4 Good External Rotation 4 Good Internal Rotation 4 Good Left Flexion (L2) 5 Normal Extension (S1) 5 Normal Abduction 5 Normal Adduction 5 Normal External Rotation 5 Normal Internal Rotation 5 Normal Knee Strength Knee Manual Muscle Testing Right Reason Not Measured WFL Left Reason Not Measured WFL PT-OP-Q Treatments Start: 09/27/18 10:27 Freq: Status: Active Protocol: Document 12/27/18 12:50 AW (Rec: 12/27/18 14:47 AW [email or web address]) Cardio Equipment Recumbent Bicycle Duration (Minutes) 5 Resistance 5 Gym Equipment Shuttle Balance chains blue Details EO, mini squat Reps/Duration red chains Comments Fwd, side. Sideways to improve equal weightbearing. Mini squats in sideways position. Sport Cord forward Exercise Details fwd/bwd Cord/Resistance blue Reps/Duration 3x Comments emphasis on gluteal activation , hip stability, increasing step length, backward under control Therapeutic Exercises Supine Exercises 4 Supine Exercise Name HS stretch Side right Resistance manual Reps/Minutes 30 sec x 4 2 Supine Exercise Name bridge Side bilateral Reps/Minutes 2x10 reps 1 Supine Exercise Name Piriformis stretch Side right Resistance manual Reps/Minutes 30 sec x 3 Sidelying Exercises 2 Sidelying Exercise Name reverse clamshell Side bilateral Resistance level 1 Equipment Used Tb Reps/Minutes 1x10 reps bilat Standing Exercises 5 Standing Exercise Name deadlift Side bilateral Resistance 5# dumbbells Reps/Minutes 2x10 reps Comments cues for hip hinge, glute engagement 4 Standing Exercise Name forward T Side right Equipment Used unilateral trekking pole Reps/Minutes 2x10 Comments right stance; cues for level pelvis Manual Therapy Treatment Soft Tissue Mobilization 1 Body Location Right gluteals/ QL Mobilization Type Myofascial Release,Strumming, Sustained Pressure,Trigger Point Release Intensity/Depth Moderate Body Position Sidelying PT-OP-R Modalities Start: 09/27/18 10:27 Freq: Status: Active Protocol: Document 11/23/18 13:31 GGD (Rec: 11/23/18 14:30 GGD [email or web address]) Electric Stimulation Electric Stimulation Interferential Current (IFC) Body Location right gluteals Duration (Minutes) 15 Intensity 15 Contraction Type Normal Combined With Heat/Cold Cold Pack PT-OP-T Assessment and Plan Start: 09/27/18 10:27 Freq: Status: Active Protocol: Document 12/27/18 12:50 AW (Rec: 12/27/18 14:47 AW [email or web address]) Physical Therapy Assessment Goals Three Impairment Unable to get back to fitness exercises Principal Quality Engineer Goal (LTG) Patient will get back to previous level of fitness exercises in the gym safely 2- 3x/wk 11-23-18 Pt exercising at gym 2 -3x/week with modifications LTG Duration 5 wks Two Impairment Limited distance ambulation [facility] Goal (LTG) Pt will walk > 3 miles per day with no increase of symptoms LTG Duration 4 wks One Impairment LEFS score 55/80 [facility] Goal (LTG) LEFS score > 65 to enhance quality of life 11-23-18 62 LTG Duration 5 wks Assessment Summary Assessment Pt had increased achiness last week after moving heavy furniture. His irritability is low, however, with symptoms lasting less than a day. He continues to improve with right hip pain symptoms. Pt will benefit from further PT to improve hip stability and functional movements. Physical Therapy Plan Frequency and Duration Frequency of Treatment 2x/Week Duration of Treatment 8 wks Plan of Care Start Date 11/23/18 Plan of Care End Date 01/22/19 Next Visit Focus/Plan Next Note Type Treatment Note Next Visit Plan Continue PT for flexibility and hip extension strengthening, pain management . Introduce more functional movement/therapeutic activity.
--- NOTE | 2019-01-10 10:44 | PT.OTN ---
Current Diagnoses Pain in right hip (01/10/19) Physical Therapy Treatment Note PT-OP-A Visit Information Start: 09/27/18 10:27 Freq: Status: Active Protocol: Document 01/10/19 10:34 AW (Rec: 01/10/19 10:43 AW [email or web address]) Out-Patient Physical Therapy Visit Information Visit Information Visit Type Treatment Note Visit Start Time 09:45 Visit Stop Time 10:30 Total Visit Minutes 45 Visit Number 17 Number of POT PUSHER Visits 0 PT-OP-B Current Condition Start: 09/27/18 10:27 Freq: Status: Active Protocol: Document 09/27/18 17:21 EA (Rec: 09/27/18 17:34 EA [id number]) Current Condition History of Current Condition Onset Date 2 months ago History of Current Condition Pt reports right hip pain onset after actively worked on home renovation 2 months ago. Significant history of hip limitation with formal PT years ago per patient. 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 He reports weight bearing or single leg squat to right hip aggravated condition. He reports compliant with previos HEP and as well regular gym exercises prior to current condition but has to stop physical exercises due to increasing pain. Prior Treatments and Tests Formal PT with same hip years ago with good results X-rays to low back and hips a month ago. Future Testing and Treatments Planned None reported Treatment Goals Patient/Caregiver Goals 1. Daily 5-6 miles ambulation 2. 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 Current Functional Impairments (Reported) Functional Limitations- ADL's Independent with moderate difficulty Functional Limitations- Mobility/Gait Indep with moderate difficulty to > 1 mile distance Functional Limitations- Work/School Retired Functional Limitations- Recreation/ Moderate difficulty to all Hobbies previous physical activities PT-OP-C Subjective Start: 09/27/18 10:27 Freq: Status: Active Protocol: Document 01/10/19 10:34 AW (Rec: 01/10/19 10:43 AW [email or web address]) OP-PT Subjective Patient Comments Patient Comments Pt reports he still gets a slight twinge in his right hip occasioanally, but is happy with his progress so far . Patient Reported Progress Improving PT-OP-G Mobility & Gait Start: 09/27/18 10:27 Freq: Status: Active Protocol: Document 09/27/18 17:35 EA (Rec: 09/28/18 10:02 EA [id number]) OP Gait Assessment Gait Gait Assistance Required: Independent Comments Gait Comments Ambulates indep with no AD; noted slight pelvic dropped to right with slight antalgic gait. PT-OP-J Posture/Palpation/Skin Start: 09/27/18 10:27 Freq: Status: Active Protocol: Document 09/27/18 17:35 EA (Rec: 09/28/18 10:02 EA [id number]) Posture Evaluation Comments Posture Comments Minimal fwd head with protruded abdominal and increased lumbar lordosis/ APT Palpation Assessment Location One Palpation Location Right hip ERotators, greater trochanter region, upper gluteals. Palpation Findings Soft Tissue Tightness, Tenderness PT-OP-K Range of Motion Start: 09/27/18 10:27 Freq: Status: Active Protocol: Document 09/27/18 17:35 EA (Rec: 09/28/18 10:02 EA [id number]) Hip Goniometric Range of Motion Hip Left Active Hip ROM WFL Yes Testing Position Supine Right Active Hip ROM WFL Yes Testing Position Supine Knee Goniometric Range of Motion Knee Right Knee ROM WFL Yes Left Knee ROM WFL Yes PT-OP-L Special Tests Start: 09/27/18 10:27 Freq: Status: Active Protocol: Document 09/27/18 17:35 EA (Rec: 09/28/18 10:02 EA [id number]) Special Tests Hip Special Tests Trendelenberg Test Results - Scour Test Test Results - Rudy Test Results + Piriformis Test Results Sensitive Dolores's Test Test Results tightness + JENNIFER Test Results - Knee Special Tests Smitha's Test Test Results tight both ITB PT-OP-M Strength Start: 09/27/18 10:27 Freq: Status: Active Protocol: Document 09/27/18 17:35 EA (Rec: 09/28/18 10:02 EA [id number]) Hip Strength Hip Manual Muscle Testing Right Flexion (L2) 4 Good Extension (S1) 4 Good Abduction 4 Good Adduction 4 Good External Rotation 4 Good Internal Rotation 4 Good Left Flexion (L2) 5 Normal Extension (S1) 5 Normal Abduction 5 Normal Adduction 5 Normal External Rotation 5 Normal Internal Rotation 5 Normal Knee Strength Knee Manual Muscle Testing Right Reason Not Measured WFL Left Reason Not Measured WFL PT-OP-Q Treatments Start: 09/27/18 10:27 Freq: Status: Active Protocol: Document 01/10/19 10:34 AW (Rec: 01/10/19 10:43 AW [email or web address]) Cardio Equipment Recumbent Bicycle Duration (Minutes) 5 Resistance 5 Gym Equipment Shuttle Balance chains blue Details EO, EC, mini squat - RED chains Reps/Duration 12 minutes Comments Fwd, side. Sideways to improve equal weightbearing. Mini squats in sideways position. Sport Cord lateral Exercise Details lateral, fwd/bwd Cord/Resistance blue Reps/Duration 3x each direction Comments emphasis on gluteal activation , hip stability, increasing step length, backward under control Therapeutic Exercises Supine Exercises 4 Supine Exercise Name HS stretch Side right Resistance manual Reps/Minutes 30 sec x 4 1 Supine Exercise Name Piriformis stretch Side right Resistance manual Reps/Minutes 1 min x 2 Standing Exercises 9 Standing Exercise Name monster walk Side bilateral Resistance green Equipment Used T band Reps/Minutes length of rail x 2 Comments fwd/bwd 8 Standing Exercise Name backward step down Side bilateral Equipment Used 6 step Reps/Minutes 1x15 reps 7 Standing Exercise Name 3-way hip Side bilateral Equipment Used 6 step Reps/Minutes 1x15 Comments fwd,side,bwd 6 Standing Exercise Name hip hike Side bilateral Equipment Used 6 step Reps/Minutes 1x10 PT-OP-R Modalities Start: 09/27/18 10:27 Freq: Status: Active Protocol: Document 11/23/18 13:31 GGD (Rec: 11/23/18 14:30 GGD [email or web address]) Electric Stimulation Electric Stimulation Interferential Current (IFC) Body Location right gluteals Duration (Minutes) 15 Intensity 15 Contraction Type Normal Combined With Heat/Cold Cold Pack PT-OP-T Assessment and Plan Start: 09/27/18 10:27 Freq: Status: Active Protocol: Document 01/10/19 10:34 AW (Rec: 01/10/19 10:43 AW [email or web address]) Physical Therapy Assessment Goals Three Impairment Unable to get back to fitness exercises Conduit Installer Goal (LTG) Patient will get back to previous level of fitness exercises in the gym safely 2- 3x/wk 11-23-18 Pt exercising at gym 2 -3x/week with modifications LTG Duration 5 wks Two Impairment Limited distance ambulation Conduit Installer Goal (LTG) Pt will walk > 3 miles per day with no increase of symptoms LTG Duration 4 wks One Impairment LEFS score 55/80 Conduit Installer Goal (LTG) LEFS score > 65 to enhance quality of life 11-23-18 62 LTG Duration 5 wks Assessment Summary Assessment Pt approaching end of plan of care. He feels he has made good progress. Plan to assess goals and pt perception at next visit. Physical Therapy Plan Frequency and Duration Frequency of Treatment 2x/Week Duration of Treatment 8 wks Plan of Care Start Date 11/23/18 Plan of Care End Date 01/22/19 Next Visit Focus/Plan Next Note Type Treatment Note Next Visit Plan Introduce more functional movement/therapeutic activity. Assess goals and readiness for discharge.
--- NOTE | 2019-01-17 17:46 | PT.OPPN ---
Current Diagnoses Pain in right hip (01/17/19) Physical Therapy Progress Note PT-OP-A Visit Information Start: 09/27/18 10:27 Freq: Status: Active Protocol: Document 01/17/19 17:34 AW (Rec: 01/17/19 17:46 AW [email or web address]) Out-Patient Physical Therapy Visit Information Visit Information Visit Type Progress Note Visit Start Time 09:45 Visit Stop Time 10:30 Total Visit Minutes 45 Visit Number 18 PT-OP-B Current Condition Start: 09/27/18 10:27 Freq: Status: Active Protocol: Document 09/27/18 17:21 EA (Rec: 09/27/18 17:34 EA [id number]) Current Condition History of Current Condition Onset Date 2 months ago History of Current Condition Pt reports right hip pain onset after actively worked on home renovation 2 months ago. Significant history of hip limitation with formal PT years ago per patient. 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 He reports weight bearing or single leg squat to right hip aggravated condition. He reports compliant with previos HEP and as well regular gym exercises prior to current condition but has to stop physical exercises due to increasing pain. Prior Treatments and Tests Formal PT with same hip years ago with good results X-rays to low back and hips a month ago. Future Testing and Treatments Planned None reported Treatment Goals Patient/Caregiver Goals 1. Daily 5-6 miles ambulation 2. 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 Current Functional Impairments (Reported) Functional Limitations- ADL's Independent with moderate difficulty Functional Limitations- Mobility/Gait Indep with moderate difficulty to > 1 mile distance Functional Limitations- Work/School Retired Functional Limitations- Recreation/ Moderate difficulty to all Hobbies previous physical activities PT-OP-C Subjective Start: 09/27/18 10:27 Freq: Status: Active Protocol: Document 01/17/19 17:34 AW (Rec: 01/17/19 17:46 AW [email or web address]) OP-PT Subjective Patient Comments Patient Comments Pt has increased soreness today after tripping up a curb 4 days ago. He states he caught his right toe going up the curb and immediately felt increased pain in the right hip Patient Reported Progress Worse Patient Questionnaires Lower Extremity Functional Scale LEFS Score 66 LEFS Impairment 1 to 19% Impaired (Score 63-79 ) PT-OP-G Mobility & Gait Start: 09/27/18 10:27 Freq: Status: Active Protocol: Document 09/27/18 17:35 EA (Rec: 09/28/18 10:02 EA [id number]) OP Gait Assessment Gait Gait Assistance Required: Independent Comments Gait Comments Ambulates indep with no AD; noted slight pelvic dropped to right with slight antalgic gait. PT-OP-J Posture/Palpation/Skin Start: 09/27/18 10:27 Freq: Status: Active Protocol: Document 09/27/18 17:35 EA (Rec: 09/28/18 10:02 EA [id number]) Posture Evaluation Comments Posture Comments Minimal fwd head with protruded abdominal and increased lumbar lordosis/ APT Palpation Assessment Location One Palpation Location Right hip ERotators, greater trochanter region, upper gluteals. Palpation Findings Soft Tissue Tightness, Tenderness PT-OP-K Range of Motion Start: 09/27/18 10:27 Freq: Status: Active Protocol: Document 09/27/18 17:35 EA (Rec: 09/28/18 10:02 EA [id number]) Hip Goniometric Range of Motion Hip Measured in Degrees Left Active Hip ROM WFL Yes Testing Position Supine Right Active Hip ROM WFL Yes Testing Position Supine Knee Goniometric Range of Motion Knee Measured in Degrees Right Knee ROM WFL Yes Left Knee ROM WFL Yes PT-OP-L Special Tests Start: 09/27/18 10:27 Freq: Status: Active Protocol: Document 09/27/18 17:35 EA (Rec: 09/28/18 10:02 EA [id number]) Special Tests Hip Special Tests Trendelenberg Test Results - Scour Test Test Results - Rudy Test Results + Piriformis Test Results Sensitive Dolores's Test Test Results tightness + JENNIFER Test Results - Knee Special Tests Smitha's Test Test Results tight both ITB PT-OP-M Strength Start: 09/27/18 10:27 Freq: Status: Active Protocol: Document 09/27/18 17:35 EA (Rec: 09/28/18 10:02 EA [id number]) Hip Strength Hip Manual Muscle Testing Right Flexion (L2) 4 Good Extension (S1) 4 Good Abduction 4 Good Adduction 4 Good External Rotation 4 Good Internal Rotation 4 Good Left Flexion (L2) 5 Normal Extension (S1) 5 Normal Abduction 5 Normal Adduction 5 Normal External Rotation 5 Normal Internal Rotation 5 Normal Knee Strength Knee Manual Muscle Testing Right Reason Not Measured WFL Left Reason Not Measured WFL PT-OP-T Assessment and Plan Start: 09/27/18 10:27 Freq: Status: Active Protocol: Document 01/17/19 17:34 AW (Rec: 01/17/19 17:46 AW [email or web address]) Physical Therapy Assessment Rehab Potential Rehabilitation Potential Good Impairments Impairments Activity Tolerance,Functional Mobility,Gait,Posture,Soft Tissue Mobility Goals Three Impairment Unable to get back to fitness exercises Group Home Goal (LTG) Patient will get back to previous level of fitness exercises in the gym safely 2- 3x/wk 11-23-18 Pt exercising at gym 2 -3x/week with modifications LTG Duration 02/28/19 Two Impairment Limited distance ambulation Airframe Technical Officer Goal (LTG) Pt will walk > 3 miles per day with no increase of symptoms LTG Duration 02/28/19 One Impairment LEFS score 66/80 Group Home Goal (LTG) LEFS score > 72 to enhance quality of life LTG Duration 02/28/19 Assessment Summary Assessment Pt with increased hip pain today after near fall last week. Treatment today focused on manual therapy/STM of right upper gluteals and QL as well as gentle strengthening of right hip. Will extend plan of care to continue addressing global stability and balance. Physical Therapy Plan Frequency and Duration Frequency of Treatment 1-2 times per week Duration of Treatment 6 weeks Plan of Care Start Date 01/19/19 Plan of Care End Date 02/28/19 Next Visit Focus/Plan Next Note Type Treatment Note Next Visit Plan Introduce more functional movement/therapeutic activity. Assess DGI or FGA
--- NOTE | 2019-01-17 17:47 | PT.OPPOC ---
Current Diagnoses Pain in right hip (01/17/19) Visit Care Team Role Provider Type Jeane Boss MD Attending Provider Physician Primary Care Provider Specialty: Family Practice Address: [address] [place] [address], [facility], [place], [address] Email: [email or web address] Plan Of Care PT-OP-T Assessment and Plan Start: 09/27/18 10:27 Freq: Status: Active Protocol: Document 01/17/19 17:34 AW (Rec: 01/17/19 17:46 AW [email or web address]) Physical Therapy Assessment Rehab Potential Rehabilitation Potential Good Impairments Impairments Activity Tolerance,Functional Mobility,Gait,Posture,Soft Tissue Mobility Goals Three Impairment Unable to get back to fitness exercises [facility] Goal (LTG) Patient will get back to previous level of fitness exercises in the gym safely 2- 3x/wk 11-23-18 Pt exercising at gym 2 -3x/week with modifications LTG Duration 02/28/19 Two Impairment Limited distance ambulation [facility] Goal (LTG) Pt will walk > 3 miles per day with no increase of symptoms LTG Duration 02/28/19 One Impairment LEFS score 66/80 Protection Specialist Goal (LTG) LEFS score > 72 to enhance quality of life LTG Duration 02/28/19 Assessment Summary Assessment Pt with increased hip pain today after near fall last week. Treatment today focused on manual therapy/STM of right upper gluteals and QL as well as gentle strengthening of right hip. Will extend plan of care to continue addressing global stability and balance. Physical Therapy Plan Frequency and Duration Frequency of Treatment 1-2 times per week Duration of Treatment 6 weeks Plan of Care Start Date 01/19/19 Plan of Care End Date 02/28/19 Next Visit Focus/Plan Next Note Type Treatment Note Next Visit Plan Introduce more functional movement/therapeutic activity. Assess DGI or FGA Plan of Care Dates Plan of Care Start Date 01/19/19 Plan of Care End Date 02/28/19
--- NOTE | 2019-01-19 09:15 | PT.OTN ---
Current Diagnoses Pain in right hip (01/19/19) Physical Therapy Treatment Note PT-OP-A Visit Information Start: 09/27/18 10:27 Freq: Status: Active Protocol: Document 01/19/19 08:35 SP (Rec: 01/19/19 09:16 SP [id number]) Out-Patient Physical Therapy Visit Information Visit Information Visit Type Treatment Note Visit Start Time 08:35 Visit Stop Time 09:15 Total Visit Minutes 40 Visit Number 19 Number of AGENT TELEGRAPHER Visits 1 PT-OP-B Current Condition Start: 09/27/18 10:27 Freq: Status: Active Protocol: Document 09/27/18 17:21 EA (Rec: 09/27/18 17:34 EA [id number]) Current Condition History of Current Condition Onset Date 2 months ago History of Current Condition Pt reports right hip pain onset after actively worked on home renovation 2 months ago. Significant history of hip limitation with formal PT years ago per patient. 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 He reports weight bearing or single leg squat to right hip aggravated condition. He reports compliant with previos HEP and as well regular gym exercises prior to current condition but has to stop physical exercises due to increasing pain. Prior Treatments and Tests Formal PT with same hip years ago with good results X-rays to low back and hips a month ago. Future Testing and Treatments Planned None reported Treatment Goals Patient/Caregiver Goals 1. Daily 5-6 miles ambulation 2. 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 Current Functional Impairments (Reported) Functional Limitations- ADL's Independent with moderate difficulty Functional Limitations- Mobility/Gait Indep with moderate difficulty to > 1 mile distance Functional Limitations- Work/School Retired Functional Limitations- Recreation/ Moderate difficulty to all Hobbies previous physical activities PT-OP-C Subjective Start: 09/27/18 10:27 Freq: Status: Active Protocol: Document 01/19/19 08:35 SP (Rec: 01/19/19 09:16 SP [id number]) OP-PT Subjective Patient Comments Patient Comments Pt reported feeling pretty good today, no pain like had last tx. Was able to attend gym yesterday and perform recumbent bike warm up, hip abd/add/crunch/ LB machines and stretching with positive results. PT-OP-G Mobility & Gait Start: 09/27/18 10:27 Freq: Status: Active Protocol: Document 09/27/18 17:35 EA (Rec: 09/28/18 10:02 EA [id number]) OP Gait Assessment Gait Gait Assistance Required: Independent Comments Gait Comments Ambulates indep with no AD; noted slight pelvic dropped to right with slight antalgic gait. PT-OP-J Posture/Palpation/Skin Start: 09/27/18 10:27 Freq: Status: Active Protocol: Document 09/27/18 17:35 EA (Rec: 09/28/18 10:02 EA [id number]) Posture Evaluation Comments Posture Comments Minimal fwd head with protruded abdominal and increased lumbar lordosis/ APT Palpation Assessment Location One Palpation Location Right hip ERotators, greater trochanter region, upper gluteals. Palpation Findings Soft Tissue Tightness, Tenderness PT-OP-K Range of Motion Start: 09/27/18 10:27 Freq: Status: Active Protocol: Document 09/27/18 17:35 EA (Rec: 09/28/18 10:02 EA [id number]) Hip Goniometric Range of Motion Hip Left Active Hip ROM WFL Yes Testing Position Supine Right Active Hip ROM WFL Yes Testing Position Supine Knee Goniometric Range of Motion Knee Right Knee ROM WFL Yes Left Knee ROM WFL Yes PT-OP-L Special Tests Start: 09/27/18 10:27 Freq: Status: Active Protocol: Document 09/27/18 17:35 EA (Rec: 09/28/18 10:02 EA [id number]) Special Tests Hip Special Tests Trendelenberg Test Results - Scour Test Test Results - Rudy Test Results + Piriformis Test Results Sensitive Dolores's Test Test Results tightness + JENNIFER Test Results - Knee Special Tests Smitha's Test Test Results tight both ITB PT-OP-M Strength Start: 09/27/18 10:27 Freq: Status: Active Protocol: Document 09/27/18 17:35 EA (Rec: 09/28/18 10:02 EA [id number]) Hip Strength Hip Manual Muscle Testing Right Flexion (L2) 4 Good Extension (S1) 4 Good Abduction 4 Good Adduction 4 Good External Rotation 4 Good Internal Rotation 4 Good Left Flexion (L2) 5 Normal Extension (S1) 5 Normal Abduction 5 Normal Adduction 5 Normal External Rotation 5 Normal Internal Rotation 5 Normal Knee Strength Knee Manual Muscle Testing Right Reason Not Measured WFL Left Reason Not Measured WFL PT-OP-Q Treatments Start: 09/27/18 10:27 Freq: Status: Active Protocol: Document 01/19/19 08:35 SP (Rec: 01/19/19 09:16 SP [id number]) Cardio Equipment Recumbent Bicycle Duration (Minutes) 6 Resistance 6 Gym Equipment Cable Column (Body Solid) squat row Resistance 20# Reps/Time 2x8 hip abd/add Resistance 30# add, 40# add Reps/Time 3x10 each hs curls Details alternate BLE Resistance 30# Reps/Time 2x10 LE ext Details alternate BLE eccentric pace Resistance 50# x10, 40# x10 Shuttle Recovery Unilateral Squats Resistance 100 Shuttle Recovery Platform Stable Reps/Time 3x10 Therapeutic Exercises Supine Exercises 4 Supine Exercise Name HS stretch Side right Resistance manual Reps/Minutes 30 sec x 4 1 Supine Exercise Name Piriformis stretch Side right Resistance manual Reps/Minutes 1 min x 2 PT-OP-R Modalities Start: 09/27/18 10:27 Freq: Status: Active Protocol: Document 11/23/18 13:31 GGD (Rec: 11/23/18 14:30 GGD [email or web address]) Electric Stimulation Electric Stimulation Interferential Current (IFC) Body Location right gluteals Duration (Minutes) 15 Intensity 15 Contraction Type Normal Combined With Heat/Cold Cold Pack PT-OP-T Assessment and Plan Start: 09/27/18 10:27 Freq: Status: Active Protocol: Document 01/19/19 08:35 SP (Rec: 01/19/19 09:16 SP [id number]) Physical Therapy Assessment Goals Three Impairment Unable to get back to fitness exercises [facility] Goal (LTG) Patient will get back to previous level of fitness exercises in the gym safely 2- 3x/wk 11-23-18 Pt exercising at gym 2 -3x/week with modifications LTG Duration 02/28/19 Two Impairment Limited distance ambulation Grill Prep Cook Goal (LTG) Pt will walk > 3 miles per day with no increase of symptoms LTG Duration 02/28/19 One Impairment LEFS score 66/80 Grill Prep Cook Goal (LTG) LEFS score > 72 to enhance quality of life LTG Duration 02/28/19 Assessment Summary Assessment Tx today focused on gym equipment to set up gym HEP with positive feedback. Cued as needed for PPT core activation to provide support for LS stability. Cued and provided hand out for proper form hip hinge and COG over WILLY during squat row with improved demonstration. No adverse affects to tx today. Continue functional activities during tx, see Plan next tx. Physical Therapy Plan Frequency and Duration Frequency of Treatment 1-2 times per week Duration of Treatment 6 weeks Plan of Care Start Date 01/19/19 Plan of Care End Date 02/28/19 Therapeutic Interventions Therapeutic Interventions Home Exercise Program,Joint Mobilizations,Manual Therapy, Patient/Caregiver Education, Self-Care/Home Management, Taping,Therapeutic Exercises Next Visit Focus/Plan Next Note Type Treatment Note Next Visit Plan Assess added hs curl, leg ext, squat row added last tx, complete DGI and FGA. PT POC recommendations: Introduce more functional movement/ therapeutic activity. Assess DGI or FGA
--- NOTE | 2019-01-25 09:45 | PT.OTN ---
Current Diagnoses Pain in right hip (01/25/19) Physical Therapy Treatment Note PT-OP-A Visit Information Start: 09/27/18 10:27 Freq: Status: Active Protocol: Document 01/25/19 09:00 SP (Rec: 01/25/19 11:13 SP [id number]) Out-Patient Physical Therapy Visit Information Visit Information Visit Type Treatment Note Visit Start Time 09:00 Visit Stop Time 09:45 Total Visit Minutes 45 Visit Number 20 Number of DIGITAL MARKETING ASSOCIATE Visits 2 PT-OP-B Current Condition Start: 09/27/18 10:27 Freq: Status: Active Protocol: Document 09/27/18 17:21 EA (Rec: 09/27/18 17:34 EA [id number]) Current Condition History of Current Condition Onset Date 2 months ago History of Current Condition Pt reports right hip pain onset after actively worked on home renovation 2 months ago. Significant history of hip limitation with formal PT years ago per patient. 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 He reports weight bearing or single leg squat to right hip aggravated condition. He reports compliant with previos HEP and as well regular gym exercises prior to current condition but has to stop physical exercises due to increasing pain. Prior Treatments and Tests Formal PT with same hip years ago with good results X-rays to low back and hips a month ago. Future Testing and Treatments Planned None reported Treatment Goals Patient/Caregiver Goals 1. Daily 5-6 miles ambulation 2. 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 Current Functional Impairments (Reported) Functional Limitations- ADL's Independent with moderate difficulty Functional Limitations- Mobility/Gait Indep with moderate difficulty to > 1 mile distance Functional Limitations- Work/School Retired Functional Limitations- Recreation/ Moderate difficulty to all Hobbies previous physical activities PT-OP-C Subjective Start: 09/27/18 10:27 Freq: Status: Active Protocol: Document 01/25/19 09:00 SP (Rec: 01/25/19 11:13 SP [id number]) OP-PT Subjective Patient Comments Patient Comments Pt reported has been out of town but did go to the gym x1 prior to leaving last week and noted doing well. He stated little discomfort end range ABD on machine and going upstairs and eccentric knee flexion approx 70* but otherwise feels making gains. Discomfort isn't consistant, alot better than when first started. PT-OP-E Functional Tests Start: 09/27/18 10:27 Freq: Status: Active Protocol: Document 01/25/19 09:45 SP (Rec: 01/25/19 11:29 SP [id number]) Functional Tests Dynamic Gait Index (DGI) Score 24/24 DGI Impairment Rating 0% Impaired (Score 24) Functional Gait Assessment Score 29/30 Functional Gait Assessment Impairment 1 to <20% Impaired (Score 25- Rating 29) PT-OP-G Mobility & Gait Start: 09/27/18 10:27 Freq: Status: Active Protocol: Document 09/27/18 17:35 EA (Rec: 09/28/18 10:02 EA [id number]) OP Gait Assessment Gait Gait Assistance Required: Independent Comments Gait Comments Ambulates indep with no AD; noted slight pelvic dropped to right with slight antalgic gait. PT-OP-J Posture/Palpation/Skin Start: 09/27/18 10:27 Freq: Status: Active Protocol: Document 09/27/18 17:35 EA (Rec: 09/28/18 10:02 EA [id number]) Posture Evaluation Comments Posture Comments Minimal fwd head with protruded abdominal and increased lumbar lordosis/ APT Palpation Assessment Location One Palpation Location Right hip ERotators, greater trochanter region, upper gluteals. Palpation Findings Soft Tissue Tightness, Tenderness PT-OP-K Range of Motion Start: 09/27/18 10:27 Freq: Status: Active Protocol: Document 09/27/18 17:35 EA (Rec: 09/28/18 10:02 EA [id number]) Hip Goniometric Range of Motion Hip Left Active Hip ROM WFL Yes Testing Position Supine Right Active Hip ROM WFL Yes Testing Position Supine Knee Goniometric Range of Motion Knee Right Knee ROM WFL Yes Left Knee ROM WFL Yes PT-OP-L Special Tests Start: 09/27/18 10:27 Freq: Status: Active Protocol: Document 09/27/18 17:35 EA (Rec: 09/28/18 10:02 EA [id number]) Special Tests Hip Special Tests Trendelenberg Test Results - Scour Test Test Results - Rudy Test Results + Piriformis Test Results Sensitive Dolores's Test Test Results tightness + JENNIFER Test Results - Knee Special Tests Smitha's Test Test Results tight both ITB PT-OP-M Strength Start: 09/27/18 10:27 Freq: Status: Active Protocol: Document 09/27/18 17:35 EA (Rec: 09/28/18 10:02 EA [id number]) Hip Strength Hip Manual Muscle Testing Right Flexion (L2) 4 Good Extension (S1) 4 Good Abduction 4 Good Adduction 4 Good External Rotation 4 Good Internal Rotation 4 Good Left Flexion (L2) 5 Normal Extension (S1) 5 Normal Abduction 5 Normal Adduction 5 Normal External Rotation 5 Normal Internal Rotation 5 Normal Knee Strength Knee Manual Muscle Testing Right Reason Not Measured WFL Left Reason Not Measured WFL PT-OP-Q Treatments Start: 09/27/18 10:27 Freq: Status: Active Protocol: Document 01/25/19 09:00 SP (Rec: 01/25/19 11:13 SP [id number]) Cardio Equipment Recumbent Bicycle Duration (Minutes) 8 Resistance 7 Gym Equipment Cable Column (Body Solid) squat row Resistance 20# Reps/Time 2x8 hip abd/add Resistance 30# abd, 40# add Reps/Time 3x10 each hs curls Details single HS curl alternate BLE Resistance 30# Reps/Time 2x10 LE ext Details alternate BLE eccentric pace Resistance 50# x10, 40# x10 Reps/Time 3x10 Therapeutic Exercises Supine Exercises 2 Supine Exercise Name Rudy stretch Side bilateral Reps/Minutes 30 x3 Standing Exercises 1 Standing Exercise Name adductor stretch Side right Reps/Minutes 30 x3 Manual Therapy Treatment Soft Tissue Mobilization foam roll Body Location ITB, lateral and distal quad Mobilization Type Rolling Intensity/Depth Moderate Body Position Prone Comments self instructed foam roll R>L ITB, lateral and distal quad prone/sidelying over foam roller: cued BUE and opposite LE support to provide tolerance to decrease tightness ball roll hip Body Location Glut med/PF ball roll Mobilization Type Rolling Intensity/Depth Moderate Body Position Standing Comments at wall quad/ITB Body Location L distal lateral quad Mobilization Type Rolling,Strumming Intensity/Depth Moderate Body Position Sitting Joint Mobilizations 1 Joint L Patella mobe Direction inf/sup/med Grade III Body Position Sitting Reps/Duration several reps PT-OP-R Modalities Start: 09/27/18 10:27 Freq: Status: Active Protocol: Document 11/23/18 13:31 GGD (Rec: 11/23/18 14:30 GGD [id number]) Electric Stimulation Electric Stimulation Interferential Current (IFC) Body Location right gluteals Duration (Minutes) 15 Intensity 15 Contraction Type Normal Combined With Heat/Cold Cold Pack PT-OP-T Assessment and Plan Start: 09/27/18 10:27 Freq: Status: Active Protocol: Document 01/25/19 09:00 SP (Rec: 01/25/19 11:13 SP [id number]) Physical Therapy Assessment Goals Three Impairment Unable to get back to fitness exercises Hub Lead Goal (LTG) Patient will get back to previous level of fitness exercises in the gym safely 2- 3x/wk 11-23-18 Pt exercising at gym 2 -3x/week with modifications LTG Duration 02/28/19 Two Impairment Limited distance ambulation Hub Lead Goal (LTG) Pt will walk > 3 miles per day with no increase of symptoms LTG Duration 02/28/19 One Impairment LEFS score 66/80 Hub Lead Goal (LTG) LEFS score > 72 to enhance quality of life LTG Duration 02/28/19 Assessment Summary Assessment Tx today focused on gym HEP with report of 1-2/10 pain superior and lateral L patella (distal quad) during eccentric k nee flexion on machine, tolerable but annoying sometimes improves at gym with reps but not today. Cued for limiting ROM to 70* but minimal improvement. PT stated foam rolling and ball rolling posterolateral hip and distal quad was a helpful tool. Provided hand outs for recall and proper form. Cued for proper sequencing review of squat rows (UE foward during squat and row cable into standing) with improvement demonstrated. Completed DGI and FGA. Physical Therapy Plan Frequency and Duration Frequency of Treatment 1-2 times per week Duration of Treatment 6 weeks Plan of Care Start Date 01/19/19 Plan of Care End Date 02/28/19 Therapeutic Interventions Therapeutic Interventions Home Exercise Program,Joint Mobilizations,Manual Therapy, Patient/Caregiver Education, Self-Care/Home Management, Taping,Therapeutic Exercises Next Visit Focus/Plan Next Note Type Treatment Note Next Visit Plan Review squat row with cables for proper form and response after tx with added Adductor and rudy stretch to assist ABD discomfort end range. PT POC recommendations: Introduce more functional movement/ therapeutic activity. Assess DGI or FGA
--- NOTE | 2019-01-25 09:45 | PT.OTN ---
Current Diagnoses Pain in right hip (01/25/19) Physical Therapy Treatment Note PT-OP-A Visit Information Start: 09/27/18 10:27 Freq: Status: Active Protocol: Document 01/25/19 09:00 SP (Rec: 01/25/19 11:13 SP [id number]) Out-Patient Physical Therapy Visit Information Visit Information Visit Type Treatment Note Visit Start Time 09:00 Visit Stop Time 09:45 Total Visit Minutes 45 Visit Number 20 Number of VARNISH SUPERVISOR Visits 2 PT-OP-B Current Condition Start: 09/27/18 10:27 Freq: Status: Active Protocol: Document 09/27/18 17:21 EA (Rec: 09/27/18 17:34 EA [id number]) Current Condition History of Current Condition Onset Date 2 months ago History of Current Condition Pt reports right hip pain onset after actively worked on home renovation 2 months ago. Significant history of hip limitation with formal PT years ago per patient. 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 He reports weight bearing or single leg squat to right hip aggravated condition. He reports compliant with previos HEP and as well regular gym exercises prior to current condition but has to stop physical exercises due to increasing pain. Prior Treatments and Tests Formal PT with same hip years ago with good results X-rays to low back and hips a month ago. Future Testing and Treatments Planned None reported Treatment Goals Patient/Caregiver Goals 1. Daily 5-6 miles ambulation 2. 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 Current Functional Impairments (Reported) Functional Limitations- ADL's Independent with moderate difficulty Functional Limitations- Mobility/Gait Indep with moderate difficulty to > 1 mile distance Functional Limitations- Work/School Retired Functional Limitations- Recreation/ Moderate difficulty to all Hobbies previous physical activities PT-OP-C Subjective Start: 09/27/18 10:27 Freq: Status: Active Protocol: Document 01/25/19 09:00 SP (Rec: 01/25/19 11:13 SP [id number]) OP-PT Subjective Patient Comments Patient Comments Pt reported has been out of town but did go to the gym x1 prior to leaving last week and noted doing well. He stated little discomfort end range ABD on machine and going upstairs and eccentric knee flexion approx 70* but otherwise feels making gains. Discomfort isn't consistant, alot better than when first started. PT-OP-G Mobility & Gait Start: 09/27/18 10:27 Freq: Status: Active Protocol: Document 09/27/18 17:35 EA (Rec: 09/28/18 10:02 EA [id number]) OP Gait Assessment Gait Gait Assistance Required: Independent Comments Gait Comments Ambulates indep with no AD; noted slight pelvic dropped to right with slight antalgic gait. PT-OP-J Posture/Palpation/Skin Start: 09/27/18 10:27 Freq: Status: Active Protocol: Document 09/27/18 17:35 EA (Rec: 09/28/18 10:02 EA [id number]) Posture Evaluation Comments Posture Comments Minimal fwd head with protruded abdominal and increased lumbar lordosis/ APT Palpation Assessment Location One Palpation Location Right hip ERotators, greater trochanter region, upper gluteals. Palpation Findings Soft Tissue Tightness, Tenderness PT-OP-K Range of Motion Start: 09/27/18 10:27 Freq: Status: Active Protocol: Document 09/27/18 17:35 EA (Rec: 09/28/18 10:02 EA [id number]) Hip Goniometric Range of Motion Hip Left Active Hip ROM WFL Yes Testing Position Supine Right Active Hip ROM WFL Yes Testing Position Supine Knee Goniometric Range of Motion Knee Right Knee ROM WFL Yes Left Knee ROM WFL Yes PT-OP-L Special Tests Start: 09/27/18 10:27 Freq: Status: Active Protocol: Document 09/27/18 17:35 EA (Rec: 09/28/18 10:02 EA [id number]) Special Tests Hip Special Tests Trendelenberg Test Results - Scour Test Test Results - Rudy Test Results + Piriformis Test Results Sensitive Dolores's Test Test Results tightness + JENNIFER Test Results - Knee Special Tests Smitha's Test Test Results tight both ITB PT-OP-M Strength Start: 09/27/18 10:27 Freq: Status: Active Protocol: Document 09/27/18 17:35 EA (Rec: 09/28/18 10:02 EA [id number]) Hip Strength Hip Manual Muscle Testing Right Flexion (L2) 4 Good Extension (S1) 4 Good Abduction 4 Good Adduction 4 Good External Rotation 4 Good Internal Rotation 4 Good Left Flexion (L2) 5 Normal Extension (S1) 5 Normal Abduction 5 Normal Adduction 5 Normal External Rotation 5 Normal Internal Rotation 5 Normal Knee Strength Knee Manual Muscle Testing Right Reason Not Measured WFL Left Reason Not Measured WFL PT-OP-Q Treatments Start: 09/27/18 10:27 Freq: Status: Active Protocol: Document 01/25/19 09:00 SP (Rec: 01/25/19 11:13 SP [id number]) Cardio Equipment Recumbent Bicycle Duration (Minutes) 8 Resistance 7 Gym Equipment Cable Column (Body Solid) squat row Resistance 20# Reps/Time 2x8 hip abd/add Resistance 30# abd, 40# add Reps/Time 3x10 each hs curls Details single HS curl alternate BLE Resistance 30# Reps/Time 2x10 LE ext Details alternate BLE eccentric pace Resistance 50# x10, 40# x10 Reps/Time 3x10 Therapeutic Exercises Supine Exercises 2 Supine Exercise Name Rudy stretch Side bilateral Reps/Minutes 30 x3 Standing Exercises 1 Standing Exercise Name adductor stretch Side right Reps/Minutes 30 x3 Manual Therapy Treatment Soft Tissue Mobilization foam roll Body Location ITB, lateral and distal quad Mobilization Type Rolling Intensity/Depth Moderate Body Position Prone Comments self instructed foam roll R>L ITB, lateral and distal quad prone/sidelying over foam roller: cued BUE and opposite LE support to provide tolerance to decrease tightness ball roll hip Body Location Glut med/PF ball roll Mobilization Type Rolling Intensity/Depth Moderate Body Position Standing Comments at wall quad/ITB Body Location L distal lateral quad Mobilization Type Rolling,Strumming Intensity/Depth Moderate Body Position Sitting Joint Mobilizations 1 Joint L Patella mobe Direction inf/sup/med Grade III Body Position Sitting Reps/Duration several reps PT-OP-R Modalities Start: 09/27/18 10:27 Freq: Status: Active Protocol: Document 11/23/18 13:31 GGD (Rec: 11/23/18 14:30 GGD [id number]) Electric Stimulation Electric Stimulation Interferential Current (IFC) Body Location right gluteals Duration (Minutes) 15 Intensity 15 Contraction Type Normal Combined With Heat/Cold Cold Pack PT-OP-T Assessment and Plan Start: 09/27/18 10:27 Freq: Status: Active Protocol: Document 01/25/19 09:00 SP (Rec: 01/25/19 11:13 SP [id number]) Physical Therapy Assessment Goals Three Impairment Unable to get back to fitness exercises Skilled Nursing Goal (LTG) Patient will get back to previous level of fitness exercises in the gym safely 2- 3x/wk 11-23-18 Pt exercising at gym 2 -3x/week with modifications LTG Duration 02/28/19 Two Impairment Limited distance ambulation Audio Visual Facilities Engineer Goal (LTG) Pt will walk > 3 miles per day with no increase of symptoms LTG Duration 02/28/19 One Impairment LEFS score 66/80 Skilled Nursing Goal (LTG) LEFS score > 72 to enhance quality of life LTG Duration 02/28/19 Assessment Summary Assessment Tx today focused on gym HEP with report of 1-2/10 pain superior and lateral L patella (distal quad) during eccentric k nee flexion on machine, tolerable but annoying sometimes improves at gym with reps but not today. Cued for limiting ROM to 70* but minimal improvement. PT stated foam rolling and ball rolling posterolateral hip and distal quad was a helpful tool. Provided hand outs for recall and proper form. Cued for proper sequencing review of squat rows (UE foward during squat and row cable into standing) with improvement demonstrated. Completed DGI and FGA. Physical Therapy Plan Frequency and Duration Frequency of Treatment 1-2 times per week Duration of Treatment 6 weeks Plan of Care Start Date 01/19/19 Plan of Care End Date 02/28/19 Therapeutic Interventions Therapeutic Interventions Home Exercise Program,Joint Mobilizations,Manual Therapy, Patient/Caregiver Education, Self-Care/Home Management, Taping,Therapeutic Exercises Next Visit Focus/Plan Next Note Type Treatment Note Next Visit Plan Review squat row with cables for proper form and response after tx with added Adductor and rudy stretch to assist ABD discomfort end range. PT POC recommendations: Introduce more functional movement/ therapeutic activity. Assess DGI or FGA
--- NOTE | 2019-02-04 09:00 | PT.OTN ---
Current Diagnoses Pain in right hip (02/04/19) Physical Therapy Treatment Note PT-OP-A Visit Information Start: 09/27/18 10:27 Freq: Status: Active Protocol: Document 02/04/19 08:18 SP (Rec: 02/04/19 09:06 SP [id number]) Out-Patient Physical Therapy Visit Information Visit Information Visit Type Treatment Note Visit Start Time 08:18 Visit Stop Time 09:00 Total Visit Minutes 42 Visit Number 21 Number of PROFESSOR OF PUBLIC ADMINISTRATION Visits 3 PT-OP-B Current Condition Start: 09/27/18 10:27 Freq: Status: Active Protocol: Document 09/27/18 17:21 EA (Rec: 09/27/18 17:34 EA [id number]) Current Condition History of Current Condition Onset Date 2 months ago History of Current Condition Pt reports right hip pain onset after actively worked on home renovation 2 months ago. Significant history of hip limitation with formal PT years ago per patient. 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 He reports weight bearing or single leg squat to right hip aggravated condition. He reports compliant with previos HEP and as well regular gym exercises prior to current condition but has to stop physical exercises due to increasing pain. Prior Treatments and Tests Formal PT with same hip years ago with good results X-rays to low back and hips a month ago. Future Testing and Treatments Planned None reported Treatment Goals Patient/Caregiver Goals 1. Daily 5-6 miles ambulation 2. 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 Current Functional Impairments (Reported) Functional Limitations- ADL's Independent with moderate difficulty Functional Limitations- Mobility/Gait Indep with moderate difficulty to > 1 mile distance Functional Limitations- Work/School Retired Functional Limitations- Recreation/ Moderate difficulty to all Hobbies previous physical activities PT-OP-C Subjective Start: 09/27/18 10:27 Freq: Status: Active Protocol: Document 02/04/19 08:18 SP (Rec: 02/04/19 09:06 SP [id number]) OP-PT Subjective Patient Comments Patient Comments Pt stated no pain pre PT but still end range hip abd on machine and hip abd TB bridge. Sometimes hard to tell if its pain or increased stretch tolerated. Little stiff/ tightness R lateral waist area . PT-OP-E Functional Tests Start: 09/27/18 10:27 Freq: Status: Active Protocol: Document 01/25/19 09:45 SP (Rec: 01/25/19 11:29 SP [id number]) Functional Tests Dynamic Gait Index (DGI) Score 24/24 DGI Impairment Rating 0% Impaired (Score 24) Functional Gait Assessment Score 29/30 Functional Gait Assessment Impairment 1 to <20% Impaired (Score 25- Rating 29) PT-OP-G Mobility & Gait Start: 09/27/18 10:27 Freq: Status: Active Protocol: Document 09/27/18 17:35 EA (Rec: 09/28/18 10:02 EA [id number]) OP Gait Assessment Gait Gait Assistance Required: Independent Comments Gait Comments Ambulates indep with no AD; noted slight pelvic dropped to right with slight antalgic gait. PT-OP-J Posture/Palpation/Skin Start: 09/27/18 10:27 Freq: Status: Active Protocol: Document 09/27/18 17:35 EA (Rec: 09/28/18 10:02 EA [id number]) Posture Evaluation Comments Posture Comments Minimal fwd head with protruded abdominal and increased lumbar lordosis/ APT Palpation Assessment Location One Palpation Location Right hip ERotators, greater trochanter region, upper gluteals. Palpation Findings Soft Tissue Tightness, Tenderness PT-OP-K Range of Motion Start: 09/27/18 10:27 Freq: Status: Active Protocol: Document 09/27/18 17:35 EA (Rec: 09/28/18 10:02 EA [id number]) Hip Goniometric Range of Motion Hip Left Active Hip ROM WFL Yes Testing Position Supine Right Active Hip ROM WFL Yes Testing Position Supine Knee Goniometric Range of Motion Knee Right Knee ROM WFL Yes Left Knee ROM WFL Yes PT-OP-L Special Tests Start: 09/27/18 10:27 Freq: Status: Active Protocol: Document 09/27/18 17:35 EA (Rec: 09/28/18 10:02 EA [id number]) Special Tests Hip Special Tests Trendelenberg Test Results - Scour Test Test Results - Rudy Test Results + Piriformis Test Results Sensitive Dolores's Test Test Results tightness + JENNIFER Test Results - Knee Special Tests Smitha's Test Test Results tight both ITB PT-OP-M Strength Start: 09/27/18 10:27 Freq: Status: Active Protocol: Document 09/27/18 17:35 EA (Rec: 09/28/18 10:02 EA [id number]) Hip Strength Hip Manual Muscle Testing Right Flexion (L2) 4 Good Extension (S1) 4 Good Abduction 4 Good Adduction 4 Good External Rotation 4 Good Internal Rotation 4 Good Left Flexion (L2) 5 Normal Extension (S1) 5 Normal Abduction 5 Normal Adduction 5 Normal External Rotation 5 Normal Internal Rotation 5 Normal Knee Strength Knee Manual Muscle Testing Right Reason Not Measured WFL Left Reason Not Measured WFL PT-OP-Q Treatments Start: 09/27/18 10:27 Freq: Status: Active Protocol: Document 02/04/19 08:18 SP (Rec: 02/04/19 09:06 SP [id number]) Cardio Equipment Bicycle (Upright) Duration (Minutes) 10 Resistance 8 Seat Position 5 Therapeutic Exercises Sitting Exercises 1 Sitting Exercise Name Ql stretch Side right Reps/Minutes 30 x3 Standing Exercises [address] hip (ext, flex, abd, add ) Side bilateral Equipment Used Tb #1 Reps/Minutes 2x10 each direction Comments slow pacing mid range 4 Standing Exercise Name eccentric step down Reps/Minutes 2x10 Comments glut activation, cued posterior chain emphasis Knee with and behind toes PT-OP-R Modalities Start: 09/27/18 10:27 Freq: Status: Active Protocol: Document 11/23/18 13:31 GGD (Rec: 11/23/18 14:30 GGD [id number]) Electric Stimulation Electric Stimulation Interferential Current (IFC) Body Location right gluteals Duration (Minutes) 15 Intensity 15 Contraction Type Normal Combined With Heat/Cold Cold Pack PT-OP-T Assessment and Plan Start: 09/27/18 10:27 Freq: Status: Active Protocol: Document 02/04/19 08:18 SP (Rec: 02/04/19 09:06 SP [id number]) Physical Therapy Assessment Goals Three Impairment Unable to get back to fitness exercises Residential Goal (LTG) Patient will get back to previous level of fitness exercises in the gym safely 2- 3x/wk 11-23-18 Pt exercising at gym 2 -3x/week with modifications LTG Duration 02/28/19 Two Impairment Limited distance ambulation Web Support Engineer Goal (LTG) Pt will walk > 3 miles per day with no increase of symptoms LTG Duration 02/28/19 One Impairment LEFS score 66/80 Web Support Engineer Goal (LTG) LEFS score > 72 to enhance quality of life LTG Duration 02/28/19 Assessment Summary Assessment Tx focused on added standing hip strengthening can perform at gym using cable/TB as substite to ab/add machine with positive tiring feedback. Cued for small mid range duirng 4 way hip muscle tiring . Cued for proper form with hip ext, patient reported challenging bal on L stationary leg when RLe hip ext but improved with slow pace small range. Added R QL stretch to assist Lateral tightness when arrived with feeling alot better end of tx. Continued to incorporate functional ther ex to use at gym for HEP with cuing as needed for proper form. Physical Therapy Plan Frequency and Duration Frequency of Treatment 1-2 times per week Duration of Treatment 6 weeks Plan of Care Start Date 01/19/19 Plan of Care End Date 02/28/19 Therapeutic Interventions Therapeutic Interventions Home Exercise Program,Joint Mobilizations,Manual Therapy, Patient/Caregiver Education, Self-Care/Home Management, Taping,Therapeutic Exercises Next Visit Focus/Plan Next Note Type Treatment Note Next Visit Plan Review squat row with cables for proper from continue and response to added 4 way hip low resistance TB added last tx. PT POC recommendations: Introduce more functional movement/therapeutic activity. Assess DGI or FGA
--- NOTE | 2019-02-07 10:30 | PT.OTN ---
Current Diagnoses Pain in right hip (02/07/19) Physical Therapy Treatment Note PT-OP-A Visit Information Start: 09/27/18 10:27 Freq: Status: Active Protocol: Document 02/07/19 09:51 SP (Rec: 02/07/19 11:39 SP [id number]) Out-Patient Physical Therapy Visit Information Visit Information Visit Type Treatment Note Visit Start Time 09:51 Visit Stop Time 10:30 Total Visit Minutes 39 Visit Number 22 Number of EATING DISORDER SPECIALIST Visits 4 PT-OP-B Current Condition Start: 09/27/18 10:27 Freq: Status: Active Protocol: Document 09/27/18 17:21 EA (Rec: 09/27/18 17:34 EA [id number]) Current Condition History of Current Condition Onset Date 2 months ago History of Current Condition Pt reports right hip pain onset after actively worked on home renovation 2 months ago. Significant history of hip limitation with formal PT years ago per patient. 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 He reports weight bearing or single leg squat to right hip aggravated condition. He reports compliant with previos HEP and as well regular gym exercises prior to current condition but has to stop physical exercises due to increasing pain. Prior Treatments and Tests Formal PT with same hip years ago with good results X-rays to low back and hips a month ago. Future Testing and Treatments Planned None reported Treatment Goals Patient/Caregiver Goals 1. Daily 5-6 miles ambulation 2. 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 Current Functional Impairments (Reported) Functional Limitations- ADL's Independent with moderate difficulty Functional Limitations- Mobility/Gait Indep with moderate difficulty to > 1 mile distance Functional Limitations- Work/School Retired Functional Limitations- Recreation/ Moderate difficulty to all Hobbies previous physical activities PT-OP-C Subjective Start: 09/27/18 10:27 Freq: Status: Active Protocol: Document 02/07/19 09:51 SP (Rec: 02/07/19 11:39 SP [id number]) OP-PT Subjective Patient Comments Patient Comments Pt stated no adverse affects to last tx, stationary LE during 4 way hip felt more of a work out needing rest breaks , incorporated at gym. PT-OP-E Functional Tests Start: 09/27/18 10:27 Freq: Status: Active Protocol: Document 01/25/19 09:45 SP (Rec: 01/25/19 11:29 SP [id number]) Functional Tests Dynamic Gait Index (DGI) Score 24/24 DGI Impairment Rating 0% Impaired (Score 24) Functional Gait Assessment Score 29/30 Functional Gait Assessment Impairment 1 to <20% Impaired (Score 25- Rating 29) PT-OP-G Mobility & Gait Start: 09/27/18 10:27 Freq: Status: Active Protocol: Document 09/27/18 17:35 EA (Rec: 09/28/18 10:02 EA [id number]) OP Gait Assessment Gait Gait Assistance Required: Independent Comments Gait Comments Ambulates indep with no AD; noted slight pelvic dropped to right with slight antalgic gait. PT-OP-J Posture/Palpation/Skin Start: 09/27/18 10:27 Freq: Status: Active Protocol: Document 09/27/18 17:35 EA (Rec: 09/28/18 10:02 EA [id number]) Posture Evaluation Comments Posture Comments Minimal fwd head with protruded abdominal and increased lumbar lordosis/ APT Palpation Assessment Location One Palpation Location Right hip ERotators, greater trochanter region, upper gluteals. Palpation Findings Soft Tissue Tightness, Tenderness PT-OP-K Range of Motion Start: 09/27/18 10:27 Freq: Status: Active Protocol: Document 09/27/18 17:35 EA (Rec: 09/28/18 10:02 EA [id number]) Hip Goniometric Range of Motion Hip Left Active Hip ROM WFL Yes Testing Position Supine Right Active Hip ROM WFL Yes Testing Position Supine Knee Goniometric Range of Motion Knee Right Knee ROM WFL Yes Left Knee ROM WFL Yes PT-OP-L Special Tests Start: 09/27/18 10:27 Freq: Status: Active Protocol: Document 09/27/18 17:35 EA (Rec: 09/28/18 10:02 EA [id number]) Special Tests Hip Special Tests Trendelenberg Test Results - Scour Test Test Results - Rudy Test Results + Piriformis Test Results Sensitive Dolores's Test Test Results tightness + JENNIFER Test Results - Knee Special Tests Smitha's Test Test Results tight both ITB PT-OP-M Strength Start: 09/27/18 10:27 Freq: Status: Active Protocol: Document 09/27/18 17:35 EA (Rec: 09/28/18 10:02 EA [id number]) Hip Strength Hip Manual Muscle Testing Right Flexion (L2) 4 Good Extension (S1) 4 Good Abduction 4 Good Adduction 4 Good External Rotation 4 Good Internal Rotation 4 Good Left Flexion (L2) 5 Normal Extension (S1) 5 Normal Abduction 5 Normal Adduction 5 Normal External Rotation 5 Normal Internal Rotation 5 Normal Knee Strength Knee Manual Muscle Testing Right Reason Not Measured WFL Left Reason Not Measured WFL PT-OP-Q Treatments Start: 09/27/18 10:27 Freq: Status: Active Protocol: Document 02/07/19 09:51 SP (Rec: 02/07/19 11:39 SP [id number]) Cardio Equipment Recumbent Bicycle Duration (Minutes) 8 Resistance 8 Gym Equipment Cable Column (Body Solid) squat row Resistance 20# Reps/Time 2x8 hs curls Details single HS curl alternate BLE Resistance 30# Reps/Time 2x10 LE ext Details alternate single LE eccentric pace Resistance 40# 2x10, 50 # x10 Reps/Time 3x10 Shuttle Recovery Unilateral Squats Resistance 75# Shuttle Recovery Platform Stable Reps/Time 2x15 Therapeutic Exercises Standing Exercises [address] hip (ext, flex, abd, add ) Side bilateral Equipment Used [place] tubing Reps/Minutes x10 each direction Comments slow pacing small range with COg over foot triangle PT-OP-R Modalities Start: 09/27/18 10:27 Freq: Status: Active Protocol: Document 11/23/18 13:31 GGD (Rec: 11/23/18 14:30 GGD [id number]) Electric Stimulation Electric Stimulation Interferential Current (IFC) Body Location right gluteals Duration (Minutes) 15 Intensity 15 Contraction Type Normal Combined With Heat/Cold Cold Pack PT-OP-T Assessment and Plan Start: 09/27/18 10:27 Freq: Status: Active Protocol: Document 02/07/19 09:51 SP (Rec: 02/07/19 11:39 SP [id number]) Physical Therapy Assessment Goals Three Impairment Unable to get back to fitness exercises Fdc Goal (LTG) Patient will get back to previous level of fitness exercises in the gym safely 2- 3x/wk 11-23-18 Pt exercising at gym 2 -3x/week with modifications LTG Duration 02/28/19 Two Impairment Limited distance ambulation Fdc Goal (LTG) Pt will walk > 3 miles per day with no increase of symptoms LTG Duration 02/28/19 One Impairment LEFS score 66/80 Coastal Tug Mate Goal (LTG) LEFS score > 72 to enhance quality of life LTG Duration 02/28/19 Assessment Summary Assessment Pt was able to tolerate increased resistance with machines today, reported little lateral and superior patella L knee discomfort 1.5/ 10 during shuttle press and squat rows but improved as reps progressed, cued for mindful of decreased end range flexion for tolerance and stability. Challenged with 4 way hip, noted WB over lateral foot improvement with cuing for hip hinge trunk over foot triangle with slow pacing. NO pain end of tx, cued >90* knee flexion with positive feedback. Physical Therapy Plan Frequency and Duration Frequency of Treatment 1-2 times per week Duration of Treatment 6 weeks Plan of Care Start Date 01/19/19 Plan of Care End Date 02/28/19 Therapeutic Interventions Therapeutic Interventions Home Exercise Program,Joint Mobilizations,Manual Therapy, Patient/Caregiver Education, Self-Care/Home Management, Taping,Therapeutic Exercises Next Visit Focus/Plan Next Note Type Treatment Note Next Visit Plan Assess response to increase resistance to leg extension and tubing for 4 way. Continued cue x1 for proper form with squat row. PT POC recommendations: Introduce more functional movement/therapeutic activity.
--- NOTE | 2019-02-11 15:46 | PT.OTN ---
Current Diagnoses Pain in right hip (02/11/19) Physical Therapy Treatment Note PT-OP-A Visit Information Start: 09/27/18 10:27 Freq: Status: Active Protocol: Document 02/11/19 08:15 AMB (Rec: 02/11/19 08:49 AMB [id number]) Out-Patient Physical Therapy Visit Information Visit Information Visit Type Treatment Note Visit Start Time 08:17 Visit Stop Time 09:00 Total Visit Minutes 43 Visit Number 23 Number of DIRECTOR OF ACCOUNTING Visits 0 PT-OP-B Current Condition Start: 09/27/18 10:27 Freq: Status: Active Protocol: Document 09/27/18 17:21 EA (Rec: 09/27/18 17:34 EA [id number]) Current Condition History of Current Condition Onset Date 2 months ago History of Current Condition Pt reports right hip pain onset after actively worked on home renovation 2 months ago. Significant history of hip limitation with formal PT years ago per patient. 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 He reports weight bearing or single leg squat to right hip aggravated condition. He reports compliant with previos HEP and as well regular gym exercises prior to current condition but has to stop physical exercises due to increasing pain. Prior Treatments and Tests Formal PT with same hip years ago with good results X-rays to low back and hips a month ago. Future Testing and Treatments Planned None reported Treatment Goals Patient/Caregiver Goals 1. Daily 5-6 miles ambulation 2. 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 Current Functional Impairments (Reported) Functional Limitations- ADL's Independent with moderate difficulty Functional Limitations- Mobility/Gait Indep with moderate difficulty to > 1 mile distance Functional Limitations- Work/School Retired Functional Limitations- Recreation/ Moderate difficulty to all Hobbies previous physical activities PT-OP-C Subjective Start: 09/27/18 10:27 Freq: Status: Active Protocol: Document 02/11/19 08:15 AMB (Rec: 02/11/19 08:49 AMB [id number]) OP-PT Subjective Patient Comments Patient Comments Pt states tolerated increase in resistance from last session well, no increase in soreness. Did do the rowing machine at the gym for 20 minutes for the first time since his injury and that went well. PT-OP-E Functional Tests Start: 09/27/18 10:27 Freq: Status: Active Protocol: Document 01/25/19 09:45 SP (Rec: 01/25/19 11:29 SP [email or web address]) Functional Tests Dynamic Gait Index (DGI) Score 24/24 DGI Impairment Rating 0% Impaired (Score 24) Functional Gait Assessment Score 29/30 Functional Gait Assessment Impairment 1 to <20% Impaired (Score 25- Rating 29) PT-OP-G Mobility & Gait Start: 09/27/18 10:27 Freq: Status: Active Protocol: Document 09/27/18 17:35 EA (Rec: 09/28/18 10:02 EA [id number]) OP Gait Assessment Gait Gait Assistance Required: Independent Comments Gait Comments Ambulates indep with no AD; noted slight pelvic dropped to right with slight antalgic gait. PT-OP-J Posture/Palpation/Skin Start: 09/27/18 10:27 Freq: Status: Active Protocol: Document 09/27/18 17:35 EA (Rec: 09/28/18 10:02 EA [id number]) Posture Evaluation Comments Posture Comments Minimal fwd head with protruded abdominal and increased lumbar lordosis/ APT Palpation Assessment Location One Palpation Location Right hip ERotators, greater trochanter region, upper gluteals. Palpation Findings Soft Tissue Tightness, Tenderness PT-OP-K Range of Motion Start: 09/27/18 10:27 Freq: Status: Active Protocol: Document 09/27/18 17:35 EA (Rec: 09/28/18 10:02 EA [id number]) Hip Goniometric Range of Motion Hip Left Active Hip ROM WFL Yes Testing Position Supine Right Active Hip ROM WFL Yes Testing Position Supine Knee Goniometric Range of Motion Knee Right Knee ROM WFL Yes Left Knee ROM WFL Yes PT-OP-L Special Tests Start: 09/27/18 10:27 Freq: Status: Active Protocol: Document 09/27/18 17:35 EA (Rec: 09/28/18 10:02 EA [id number]) Special Tests Hip Special Tests Trendelenberg Test Results - Scour Test Test Results - Rudy Test Results + Piriformis Test Results Sensitive Dolores's Test Test Results tightness + JENNIFER Test Results - Knee Special Tests Smitha's Test Test Results tight both ITB PT-OP-M Strength Start: 09/27/18 10:27 Freq: Status: Active Protocol: Document 09/27/18 17:35 EA (Rec: 09/28/18 10:02 EA [id number]) Hip Strength Hip Manual Muscle Testing Right Flexion (L2) 4 Good Extension (S1) 4 Good Abduction 4 Good Adduction 4 Good External Rotation 4 Good Internal Rotation 4 Good Left Flexion (L2) 5 Normal Extension (S1) 5 Normal Abduction 5 Normal Adduction 5 Normal External Rotation 5 Normal Internal Rotation 5 Normal Knee Strength Knee Manual Muscle Testing Right Reason Not Measured WFL Left Reason Not Measured WFL PT-OP-Q Treatments Start: 09/27/18 10:27 Freq: Status: Active Protocol: Document 02/11/19 08:15 AMB (Rec: 02/11/19 13:01 AMB [id number]) Cardio Equipment Recumbent Bicycle Duration (Minutes) 8 Resistance 8 Gym Equipment Cable Column (Body Solid) squat row Resistance 20# Reps/Time 2x10 LE ext Details alternate single LE eccentric pace Resistance 40# 1x10, 50 # 2x10 Reps/Time 3x10 Shuttle Recovery Unilateral Squats Resistance 75# Shuttle Recovery Platform Stable Reps/Time 2x15 Therapeutic Exercises Standing Exercises 5 [address] Exercise Name 4 [address] hip (ext, flex, abd, add ) Side bilateral Equipment Used [place] tubing Reps/Minutes x10 each direction Comments slow pacing small range with COg over foot triangle 4 Standing Exercise Name eccentric step down/ fwd, lateral Reps/Minutes 2x10 Comments glut activation, cued posterior chain emphasis Knee with and behind toes PT-OP-R Modalities Start: 09/27/18 10:27 Freq: Status: Active Protocol: Document 11/23/18 13:31 GGD (Rec: 11/23/18 14:30 GGD [email or web address]) Electric Stimulation Electric Stimulation Interferential Current (IFC) Body Location right gluteals Duration (Minutes) 15 Intensity 15 Contraction Type Normal Combined With Heat/Cold Cold Pack PT-OP-T Assessment and Plan Start: 09/27/18 10:27 Freq: Status: Active Protocol: Document 02/11/19 08:15 AMB (Rec: 02/11/19 08:49 AMB [id number]) Physical Therapy Assessment Goals Three Impairment Unable to get back to fitness exercises Skilled Nursing Goal (LTG) Patient will get back to previous level of fitness exercises in the gym safely 2- 3x/wk 11-23-18 Pt exercising at gym 2 -3x/week with modifications LTG Duration 02/28/19 Two Impairment Limited distance ambulation Coconut Candy Maker Goal (LTG) Pt will walk > 3 miles per day with no increase of symptoms LTG Duration 02/28/19 One Impairment LEFS score 66/80 Coconut Candy Maker Goal (LTG) LEFS score > 72 to enhance quality of life LTG Duration 02/28/19 Assessment Summary Assessment Pt tolerated exercises well, does have a little left knee discomfort with squats at times, but reports it was not bad today. Physical Therapy Plan Next Visit Focus/Plan Next Note Type Treatment Note Next Visit Plan Follow up on stair exercises, encourage continued improvement in squat form.
--- NOTE | 2019-02-14 10:30 | PT.OTN ---
Current Diagnoses Pain in right hip (02/14/19) Physical Therapy Treatment Note PT-OP-A Visit Information Start: 09/27/18 10:27 Freq: Status: Active Protocol: Document 02/14/19 09:46 SP (Rec: 02/14/19 10:34 SP [id number]) Out-Patient Physical Therapy Visit Information Visit Information Visit Type Treatment Note Visit Start Time 09:45 Visit Stop Time 10:30 Total Visit Minutes 45 Visit Number 24 Number of DAG SPRAYER Visits 1 PT-OP-B Current Condition Start: 09/27/18 10:27 Freq: Status: Active Protocol: Document 09/27/18 17:21 EA (Rec: 09/27/18 17:34 EA [id number]) Current Condition History of Current Condition Onset Date 2 months ago History of Current Condition Pt reports right hip pain onset after actively worked on home renovation 2 months ago. Significant history of hip limitation with formal PT years ago per patient. 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 He reports weight bearing or single leg squat to right hip aggravated condition. He reports compliant with previos HEP and as well regular gym exercises prior to current condition but has to stop physical exercises due to increasing pain. Prior Treatments and Tests Formal PT with same hip years ago with good results X-rays to low back and hips a month ago. Future Testing and Treatments Planned None reported Treatment Goals Patient/Caregiver Goals 1. Daily 5-6 miles ambulation 2. 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 Current Functional Impairments (Reported) Functional Limitations- ADL's Independent with moderate difficulty Functional Limitations- Mobility/Gait Indep with moderate difficulty to > 1 mile distance Functional Limitations- Work/School Retired Functional Limitations- Recreation/ Moderate difficulty to all Hobbies previous physical activities PT-OP-C Subjective Start: 09/27/18 10:27 Freq: Status: Active Protocol: Document 02/14/19 09:46 SP (Rec: 02/14/19 10:34 SP [id number]) OP-PT Subjective Patient Comments Patient Comments Pt reported doing well, haven 't performed end range hip abd of which was an irritant before. Has been incorporating gym equip but not doing weight on leg press did prior, just the weight doing in PT at gym. PT-OP-E Functional Tests Start: 09/27/18 10:27 Freq: Status: Active Protocol: Document 01/25/19 09:45 SP (Rec: 01/25/19 11:29 SP [id number]) Functional Tests Dynamic Gait Index (DGI) Score 24/24 DGI Impairment Rating 0% Impaired (Score 24) Functional Gait Assessment Score 29/30 Functional Gait Assessment Impairment 1 to <20% Impaired (Score 25- Rating 29) PT-OP-G Mobility & Gait Start: 09/27/18 10:27 Freq: Status: Active Protocol: Document 09/27/18 17:35 EA (Rec: 09/28/18 10:02 EA [id number]) OP Gait Assessment Gait Gait Assistance Required: Independent Comments Gait Comments Ambulates indep with no AD; noted slight pelvic dropped to right with slight antalgic gait. PT-OP-J Posture/Palpation/Skin Start: 09/27/18 10:27 Freq: Status: Active Protocol: Document 09/27/18 17:35 EA (Rec: 09/28/18 10:02 EA [id number]) Posture Evaluation Comments Posture Comments Minimal fwd head with protruded abdominal and increased lumbar lordosis/ APT Palpation Assessment Location One Palpation Location Right hip ERotators, greater trochanter region, upper gluteals. Palpation Findings Soft Tissue Tightness, Tenderness PT-OP-K Range of Motion Start: 09/27/18 10:27 Freq: Status: Active Protocol: Document 09/27/18 17:35 EA (Rec: 09/28/18 10:02 EA [id number]) Hip Goniometric Range of Motion Hip Left Active Hip ROM WFL Yes Testing Position Supine Right Active Hip ROM WFL Yes Testing Position Supine Knee Goniometric Range of Motion Knee Right Knee ROM WFL Yes Left Knee ROM WFL Yes PT-OP-L Special Tests Start: 09/27/18 10:27 Freq: Status: Active Protocol: Document 09/27/18 17:35 EA (Rec: 09/28/18 10:02 EA [id number]) Special Tests Hip Special Tests Trendelenberg Test Results - Scour Test Test Results - Rudy Test Results + Piriformis Test Results Sensitive Dolores's Test Test Results tightness + JENNIFER Test Results - Knee Special Tests Smitha's Test Test Results tight both ITB PT-OP-M Strength Start: 09/27/18 10:27 Freq: Status: Active Protocol: Document 09/27/18 17:35 EA (Rec: 09/28/18 10:02 EA [id number]) Hip Strength Hip Manual Muscle Testing Right Flexion (L2) 4 Good Extension (S1) 4 Good Abduction 4 Good Adduction 4 Good External Rotation 4 Good Internal Rotation 4 Good Left Flexion (L2) 5 Normal Extension (S1) 5 Normal Abduction 5 Normal Adduction 5 Normal External Rotation 5 Normal Internal Rotation 5 Normal Knee Strength Knee Manual Muscle Testing Right Reason Not Measured WFL Left Reason Not Measured WFL PT-OP-Q Treatments Start: 09/27/18 10:27 Freq: Status: Active Protocol: Document 02/14/19 09:46 SP (Rec: 02/14/19 10:34 SP [id number]) Cardio Equipment Bicycle (Upright) Duration (Minutes) 10 Resistance 8 Seat Position 5 Gym Equipment Shuttle Recovery Unilateral Squats Resistance 100# Shuttle Recovery Platform Stable Reps/Time 2x15 Therapeutic Exercises Sitting Exercises 1 Sitting Exercise Name glut, QL, HS Reps/Minutes 30 x2 Standing Exercises 9 Standing Exercise Name calf stretch Reps/Minutes 30x2 4 Standing Exercise Name eccentric step down lateral and retro Side bilateral Equipment Used 4 step x10, BOSU 2x10 Reps/Minutes 2x10 Comments glut activation, cued posterior chain emphasis Knee with and behind toes 3 Standing Exercise Name lift Resistance 10# DB 2x10, 30# DB Equipment Used mirror PT-OP-R Modalities Start: 09/27/18 10:27 Freq: Status: Active Protocol: Document 11/23/18 13:31 GGD (Rec: 11/23/18 14:30 GGD [email or web address]) Electric Stimulation Electric Stimulation Interferential Current (IFC) Body Location right gluteals Duration (Minutes) 15 Intensity 15 Contraction Type Normal Combined With Heat/Cold Cold Pack PT-OP-T Assessment and Plan Start: 09/27/18 10:27 Freq: Status: Active Protocol: Document 02/14/19 09:46 SP (Rec: 02/14/19 10:34 SP [id number]) Physical Therapy Assessment Goals Three Impairment Unable to get back to fitness exercises Detention Goal (LTG) Patient will get back to previous level of fitness exercises in the gym safely 2- 3x/wk 11-23-18 Pt exercising at gym 2 -3x/week with modifications LTG Duration 02/28/19 Two Impairment Limited distance ambulation Filament Shaper Goal (LTG) Pt will walk > 3 miles per day with no increase of symptoms LTG Duration 02/28/19 One Impairment LEFS score 66/80 Detention Goal (LTG) LEFS score > 72 to enhance quality of life LTG Duration 02/28/19 Assessment Summary Assessment Trialed increased weight during SL shuttle recovery to assess tolerance for progressing to weight prior at gym and lift with DBs positive results, little LB tension but improved post cue for PPT awarness and core activation. introduced BOSU durign step down today with no adverse affect, cued for knee alignment behind and with toes and awareness of heel press to facilitation glut activation strengthening positive results. GOod form with LE stretching. Physical Therapy Plan Frequency and Duration Frequency of Treatment 1-2 times per week Duration of Treatment 6 weeks Plan of Care Start Date 01/19/19 Plan of Care End Date 02/28/19 Therapeutic Interventions Therapeutic Interventions Home Exercise Program,Joint Mobilizations,Manual Therapy, Patient/Caregiver Education, Self-Care/Home Management, Taping,Therapeutic Exercises Next Visit Focus/Plan Next Note Type Treatment Note Next Visit Plan Assess later day respose to added increased 100# SL squat shuttle recovery and deadlift DBs after last tx. Add foam rolling LE next appt. Follow up on stair exercises, encourage continued improvement in squat form.
--- NOTE | 2019-02-16 17:24 | PT.OTN ---
Current Diagnoses Pain in right hip (02/16/19) Physical Therapy Treatment Note PT-OP-A Visit Information Start: 09/27/18 10:27 Freq: Status: Active Protocol: Document 02/16/19 17:14 AW (Rec: 02/16/19 17:24 AW [email or web address]) Out-Patient Physical Therapy Visit Information Visit Information Visit Type Treatment Note Visit Start Time 11:17 Visit Stop Time 11:59 Total Visit Minutes 42 Visit Number 25 Number of PROFESSIONAL DEVELOPMENT DIRECTOR Visits 0 PT-OP-B Current Condition Start: 09/27/18 10:27 Freq: Status: Active Protocol: Document 09/27/18 17:21 EA (Rec: 09/27/18 17:34 EA [id number]) Current Condition History of Current Condition Onset Date 2 months ago History of Current Condition Pt reports right hip pain onset after actively worked on home renovation 2 months ago. Significant history of hip limitation with formal PT years ago per patient. 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 He reports weight bearing or single leg squat to right hip aggravated condition. He reports compliant with previos HEP and as well regular gym exercises prior to current condition but has to stop physical exercises due to increasing pain. Prior Treatments and Tests Formal PT with same hip years ago with good results X-rays to low back and hips a month ago. Future Testing and Treatments Planned None reported Treatment Goals Patient/Caregiver Goals 1. Daily 5-6 miles ambulation 2. 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 Current Functional Impairments (Reported) Functional Limitations- ADL's Independent with moderate difficulty Functional Limitations- Mobility/Gait Indep with moderate difficulty to > 1 mile distance Functional Limitations- Work/School Retired Functional Limitations- Recreation/ Moderate difficulty to all Hobbies previous physical activities PT-OP-C Subjective Start: 09/27/18 10:27 Freq: Status: Active Protocol: Document 02/16/19 17:14 AW (Rec: 02/16/19 17:24 AW [email or web address]) OP-PT Subjective Patient Comments Patient Comments Pt continues to avoid end- range hip abduction but clarified that simple abduction is not painful; rather, pain is provoked during abduction with hip flexion >90 degrees PT-OP-E Functional Tests Start: 09/27/18 10:27 Freq: Status: Active Protocol: Document 01/25/19 09:45 SP (Rec: 01/25/19 11:29 SP [email or web address]) Functional Tests Dynamic Gait Index (DGI) Score 24/24 DGI Impairment Rating 0% Impaired (Score 24) Functional Gait Assessment Score 29/30 Functional Gait Assessment Impairment 1 to <20% Impaired (Score 25- Rating 29) PT-OP-G Mobility & Gait Start: 09/27/18 10:27 Freq: Status: Active Protocol: Document 09/27/18 17:35 EA (Rec: 09/28/18 10:02 EA [id number]) OP Gait Assessment Gait Gait Assistance Required: Independent Comments Gait Comments Ambulates indep with no AD; noted slight pelvic dropped to right with slight antalgic gait. PT-OP-J Posture/Palpation/Skin Start: 09/27/18 10:27 Freq: Status: Active Protocol: Document 09/27/18 17:35 EA (Rec: 09/28/18 10:02 EA [id number]) Posture Evaluation Comments Posture Comments Minimal fwd head with protruded abdominal and increased lumbar lordosis/ APT Palpation Assessment Location One Palpation Location Right hip ERotators, greater trochanter region, upper gluteals. Palpation Findings Soft Tissue Tightness, Tenderness PT-OP-K Range of Motion Start: 09/27/18 10:27 Freq: Status: Active Protocol: Document 09/27/18 17:35 EA (Rec: 09/28/18 10:02 EA [id number]) Hip Goniometric Range of Motion Hip Left Active Hip ROM WFL Yes Testing Position Supine Right Active Hip ROM WFL Yes Testing Position Supine Knee Goniometric Range of Motion Knee Right Knee ROM WFL Yes Left Knee ROM WFL Yes PT-OP-L Special Tests Start: 09/27/18 10:27 Freq: Status: Active Protocol: Document 09/27/18 17:35 EA (Rec: 09/28/18 10:02 EA [id number]) Special Tests Hip Special Tests Trendelenberg Test Results - Scour Test Test Results - Rudy Test Results + Piriformis Test Results Sensitive Dolores's Test Test Results tightness + JENNIFER Test Results - Knee Special Tests Smitha's Test Test Results tight both ITB PT-OP-M Strength Start: 09/27/18 10:27 Freq: Status: Active Protocol: Document 09/27/18 17:35 EA (Rec: 09/28/18 10:02 EA [id number]) Hip Strength Hip Manual Muscle Testing Right Flexion (L2) 4 Good Extension (S1) 4 Good Abduction 4 Good Adduction 4 Good External Rotation 4 Good Internal Rotation 4 Good Left Flexion (L2) 5 Normal Extension (S1) 5 Normal Abduction 5 Normal Adduction 5 Normal External Rotation 5 Normal Internal Rotation 5 Normal Knee Strength Knee Manual Muscle Testing Right Reason Not Measured WFL Left Reason Not Measured WFL PT-OP-Q Treatments Start: 09/27/18 10:27 Freq: Status: Active Protocol: Document 02/16/19 17:14 AW (Rec: 02/16/19 17:24 AW [email or web address]) Cardio Equipment Bicycle (Upright) Duration (Minutes) 7 Resistance 8 Seat Position 5 Gym Equipment Shuttle Recovery unilateral squats unstable Details right leg Resistance 87 Shuttle Recovery Platform Unstable Reps/Time 2x10 reps Unilateral Squats Resistance 100# Shuttle Recovery Platform Stable Reps/Time 2x15 Therapeutic Exercises Supine Exercises 1 Supine Exercise Name Piriformis stretch Side right Resistance manual Reps/Minutes 1 min x 2 Standing Exercises 9 Standing Exercise Name calf stretch Reps/Minutes 30x2 [address] 4 [address] hip (ext, flex, abd, add ) Side bilateral Equipment Used Hayes tubing Reps/Minutes x10 each direction Comments slow pacing small range with COG over foot triangle 3 Standing Exercise Name lift Resistance 10# DB 2x20 Equipment Used mirror Comments cues for hip hinge/glut drive; cues for neutral cervical posture Manual Therapy Treatment Joint Mobilizations hip Joint hip Direction lateral and inferior Grade III Body Position Hooklying Reps/Duration 10 minutes PT-OP-R Modalities Start: 09/27/18 10:27 Freq: Status: Active Protocol: Document 11/23/18 13:31 GGD (Rec: 11/23/18 14:30 GGD [email or web address]) Electric Stimulation Electric Stimulation Interferential Current (IFC) Body Location right gluteals Duration (Minutes) 15 Intensity 15 Contraction Type Normal Combined With Heat/Cold Cold Pack PT-OP-T Assessment and Plan Start: 09/27/18 10:27 Freq: Status: Active Protocol: Document 02/16/19 17:14 AW (Rec: 12/18/19 17:24 AW [email or web address]) Physical Therapy Assessment Goals Three Impairment Unable to get back to fitness exercises Custodial Goal (LTG) Patient will get back to previous level of fitness exercises in the gym safely 2- 3x/wk 11-23-18 Pt exercising at gym 2 -3x/week with modifications LTG Duration 02/28/19 Two Impairment Limited distance ambulation Assembler Fluorescent Lights Goal (LTG) Pt will walk > 3 miles per day with no increase of symptoms LTG Duration 02/28/19 One Impairment LEFS score 66/80 Custodial Goal (LTG) LEFS score > 72 to enhance quality of life LTG Duration 02/28/19 Assessment Summary Assessment Pt tolerated increased weight for shuttle balance during last session. Maintained weight this date with addition of unstable surface. Deadlift form is good with proper glute drive in response to cues for weight through heels. Physical Therapy Plan Frequency and Duration Frequency of Treatment 1-2 times per week Duration of Treatment 6 weeks Plan of Care Start Date 01/19/19 Plan of Care End Date 02/28/19 Therapeutic Interventions Therapeutic Interventions Home Exercise Program,Joint Mobilizations,Manual Therapy, Patient/Caregiver Education, Self-Care/Home Management, Taping,Therapeutic Exercises Next Visit Focus/Plan Next Note Type Treatment Note Next Visit Plan Add foam rolling LE next appt. Follow up on stair exercises, encourage continued improvement in squat form.
--- NOTE | 2019-02-21 11:20 | PT.OTN ---
Current Diagnoses Pain in right hip (02/21/19) Physical Therapy Treatment Note PT-OP-A Visit Information Start: 09/27/18 10:27 Freq: Status: Active Protocol: Document 02/21/19 10:35 SP (Rec: 02/21/19 11:50 SP [id number]) Out-Patient Physical Therapy Visit Information Visit Information Visit Type Treatment Note Visit Start Time 10:35 Visit Stop Time 11:20 Total Visit Minutes 45 Visit Number 26 Number of FIELD REPRESENTATIVE Visits 1 PT-OP-B Current Condition Start: 09/27/18 10:27 Freq: Status: Active Protocol: Document 09/27/18 17:21 EA (Rec: 09/27/18 17:34 EA [id number]) Current Condition History of Current Condition Onset Date 2 months ago History of Current Condition Pt reports right hip pain onset after actively worked on home renovation 2 months ago. Significant history of hip limitation with formal PT years ago per patient. 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 He reports weight bearing or single leg squat to right hip aggravated condition. He reports compliant with previos HEP and as well regular gym exercises prior to current condition but has to stop physical exercises due to increasing pain. Prior Treatments and Tests Formal PT with same hip years ago with good results X-rays to low back and hips a month ago. Future Testing and Treatments Planned None reported Treatment Goals Patient/Caregiver Goals 1. Daily 5-6 miles ambulation 2. 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 Current Functional Impairments (Reported) Functional Limitations- ADL's Independent with moderate difficulty Functional Limitations- Mobility/Gait Indep with moderate difficulty to > 1 mile distance Functional Limitations- Work/School Retired Functional Limitations- Recreation/ Moderate difficulty to all Hobbies previous physical activities PT-OP-C Subjective Start: 09/27/18 10:27 Freq: Status: Active Protocol: Document 02/21/19 10:35 SP (Rec: 02/21/19 11:50 SP [id number]) OP-PT Subjective Patient Comments Patient Comments Pt reported R hip still discomfort at end range flexion and ER motion. The manual did last tx did help but not long lasting. Overall is alot better than when started. PT-OP-E Functional Tests Start: 09/27/18 10:27 Freq: Status: Active Protocol: Document 01/25/19 09:45 SP (Rec: 01/25/19 11:29 SP [id number]) Functional Tests Dynamic Gait Index (DGI) Score 24/24 DGI Impairment Rating 0% Impaired (Score 24) Functional Gait Assessment Score 29/30 Functional Gait Assessment Impairment 1 to <20% Impaired (Score 25- Rating 29) PT-OP-G Mobility & Gait Start: 09/27/18 10:27 Freq: Status: Active Protocol: Document 09/27/18 17:35 EA (Rec: 09/28/18 10:02 EA [id number]) OP Gait Assessment Gait Gait Assistance Required: Independent Comments Gait Comments Ambulates indep with no AD; noted slight pelvic dropped to right with slight antalgic gait. PT-OP-J Posture/Palpation/Skin Start: 09/27/18 10:27 Freq: Status: Active Protocol: Document 09/27/18 17:35 EA (Rec: 09/28/18 10:02 EA [id number]) Posture Evaluation Comments Posture Comments Minimal fwd head with protruded abdominal and increased lumbar lordosis/ APT Palpation Assessment Location One Palpation Location Right hip ERotators, greater trochanter region, upper gluteals. Palpation Findings Soft Tissue Tightness, Tenderness PT-OP-K Range of Motion Start: 09/27/18 10:27 Freq: Status: Active Protocol: Document 09/27/18 17:35 EA (Rec: 09/28/18 10:02 EA [id number]) Hip Goniometric Range of Motion Hip Left Active Hip ROM WFL Yes Testing Position Supine Right Active Hip ROM WFL Yes Testing Position Supine Knee Goniometric Range of Motion Knee Right Knee ROM WFL Yes Left Knee ROM WFL Yes PT-OP-L Special Tests Start: 09/27/18 10:27 Freq: Status: Active Protocol: Document 09/27/18 17:35 EA (Rec: 09/28/18 10:02 EA [id number]) Special Tests Hip Special Tests Trendelenberg Test Results - Scour Test Test Results - Rudy Test Results + Piriformis Test Results Sensitive Dolores's Test Test Results tightness + JENNIFER Test Results - Knee Special Tests Smitha's Test Test Results tight both ITB PT-OP-M Strength Start: 09/27/18 10:27 Freq: Status: Active Protocol: Document 09/27/18 17:35 EA (Rec: 09/28/18 10:02 EA [id number]) Hip Strength Hip Manual Muscle Testing Right Flexion (L2) 4 Good Extension (S1) 4 Good Abduction 4 Good Adduction 4 Good External Rotation 4 Good Internal Rotation 4 Good Left Flexion (L2) 5 Normal Extension (S1) 5 Normal Abduction 5 Normal Adduction 5 Normal External Rotation 5 Normal Internal Rotation 5 Normal Knee Strength Knee Manual Muscle Testing Right Reason Not Measured WFL Left Reason Not Measured WFL PT-OP-Q Treatments Start: 09/27/18 10:27 Freq: Status: Active Protocol: Document 02/21/19 10:35 SP (Rec: 02/21/19 11:50 SP [id number]) Therapeutic Exercises Supine Exercises 4 Supine Exercise Name Rudy stretch Side right Reps/Minutes 30 x2 Standing Exercises lunge OH raise Reps/Minutes 10 ft x2 laps 3# DB Comments cued upright posture glut facilitation 7 Standing Exercise Name TFL stretch Side right Reps/Minutes 30 x2 Comments cued allow heel lift and neutral pelvis 6 Standing Exercise Name step ups with opposite hip abd Side bilateral Resistance ROM Reps/Minutes x10 Comments cued posterior chain to decrease anterior knee discomfort recruitment 3 Standing Exercise Name lift Resistance 10# DB 2x20 Equipment Used mirror, 20 box target Comments cues for hip hinge/glut drive; cues for neutral cervical posture Manual Therapy Treatment Soft Tissue Mobilization foam roll Body Location self ITB, PF/glut Comments cued sustain pressure and tolerable small range rolls 1 Body Location R PF (prone), TFL & prox quad (supine) Mobilization Type Cross-Friction,Myofascial Release,Sustained Pressure, Trigger Point Release Intensity/Depth Moderate Body Position Supine Joint Mobilizations hip Joint hip Direction lateral and inferior Grade III Body Position Hooklying Reps/Duration 10 minutes PT-OP-R Modalities Start: 09/27/18 10:27 Freq: Status: Active Protocol: Document 11/23/18 13:31 GGD (Rec: 11/23/18 14:30 GGD [id number]) Electric Stimulation Electric Stimulation Interferential Current (IFC) Body Location right gluteals Duration (Minutes) 15 Intensity 15 Contraction Type Normal Combined With Heat/Cold Cold Pack PT-OP-T Assessment and Plan Start: 09/27/18 10:27 Freq: Status: Active Protocol: Document 02/21/19 10:35 SP (Rec: 02/21/19 11:50 SP [id number]) Physical Therapy Assessment Goals Three Impairment Unable to get back to fitness exercises Skilled Nursing Goal (LTG) Patient will get back to previous level of fitness exercises in the gym safely 2- 3x/wk 11-23-18 Pt exercising at gym 2 -3x/week with modifications LTG Duration 02/28/19 Two Impairment Limited distance ambulation Skilled Nursing Goal (LTG) Pt will walk > 3 miles per day with no increase of symptoms LTG Duration 02/28/19 One Impairment LEFS score 66/80 Potato Chip Maker Goal (LTG) LEFS score > 72 to enhance quality of life LTG Duration 02/28/19 Assessment Summary Assessment Pt tolerated ther ex well, no increased pain but still tension anterior R hip. Responded well to manual STMs and was able to perform self using foam roller and ball, self stretches supine and standing found beneficial to R hip tightness. Cued for proper form during added lunge ex and TFL stretch today. Added more appts including POC reassessment with PTs feedback decrease to 1x/wk in Mar. Physical Therapy Plan Frequency and Duration Frequency of Treatment 1-2 times per week Duration of Treatment 6 weeks Plan of Care Start Date 01/19/19 Plan of Care End Date 02/28/19 Therapeutic Interventions Therapeutic Interventions Home Exercise Program,Joint Mobilizations,Manual Therapy, Patient/Caregiver Education, Self-Care/Home Management, Taping,Therapeutic Exercises Next Visit Focus/Plan Next Note Type Treatment Note Next Visit Plan Assess tolerance to foam roller R ITB and glut for benefits of flexibility for hip ROM and decreased tightness experiences. Added lunges last tx. Continue per POC: Introduce more functional movement/therapeutic activity, stair exercises, encourage continued improvement in squat form.
--- NOTE | 2019-02-25 13:00 | PT.OTN ---
Current Diagnoses Pain in right hip (02/25/19) Physical Therapy Treatment Note PT-OP-A Visit Information Start: 09/27/18 10:27 Freq: Status: Active Protocol: Document 02/25/19 12:17 SP (Rec: 02/25/19 13:03 SP [id number]) Out-Patient Physical Therapy Visit Information Visit Information Visit Type Treatment Note Visit Start Time 12:17 Visit Stop Time 13:00 Total Visit Minutes 43 Visit Number 27 Number of MOBILE GAME ENGINEER Visits 2 PT-OP-B Current Condition Start: 09/27/18 10:27 Freq: Status: Active Protocol: Document 09/27/18 17:21 EA (Rec: 09/27/18 17:34 EA [id number]) Current Condition History of Current Condition Onset Date 2 months ago History of Current Condition Pt reports right hip pain onset after actively worked on home renovation 2 months ago. Significant history of hip limitation with formal PT years ago per patient. 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 He reports weight bearing or single leg squat to right hip aggravated condition. He reports compliant with previos HEP and as well regular gym exercises prior to current condition but has to stop physical exercises due to increasing pain. Prior Treatments and Tests Formal PT with same hip years ago with good results X-rays to low back and hips a month ago. Future Testing and Treatments Planned None reported Treatment Goals Patient/Caregiver Goals 1. Daily 5-6 miles ambulation 2. 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 Current Functional Impairments (Reported) Functional Limitations- ADL's Independent with moderate difficulty Functional Limitations- Mobility/Gait Indep with moderate difficulty to > 1 mile distance Functional Limitations- Work/School Retired Functional Limitations- Recreation/ Moderate difficulty to all Hobbies previous physical activities PT-OP-C Subjective Start: 09/27/18 10:27 Freq: Status: Active Protocol: Document 02/25/19 12:17 SP (Rec: 02/25/19 13:03 SP [id number]) OP-PT Subjective Patient Comments Patient Comments Pt reported R hip tightness over TFL anterior R hip during hip flexion/abd still, the pain orginially over R posterior hip gone. Was able lift leg press same weight use to double leg 3-45# plates both sides at gym. PT-OP-E Functional Tests Start: 09/27/18 10:27 Freq: Status: Active Protocol: Document 01/25/19 09:45 SP (Rec: 01/25/19 11:29 SP [email or web address]) Functional Tests Dynamic Gait Index (DGI) Score 24/24 DGI Impairment Rating 0% Impaired (Score 24) Functional Gait Assessment Score 29/30 Functional Gait Assessment Impairment 1 to <20% Impaired (Score 25- Rating 29) PT-OP-G Mobility & Gait Start: 09/27/18 10:27 Freq: Status: Active Protocol: Document 09/27/18 17:35 EA (Rec: 09/28/18 10:02 EA [id number]) OP Gait Assessment Gait Gait Assistance Required: Independent Comments Gait Comments Ambulates indep with no AD; noted slight pelvic dropped to right with slight antalgic gait. PT-OP-J Posture/Palpation/Skin Start: 09/27/18 10:27 Freq: Status: Active Protocol: Document 09/27/18 17:35 EA (Rec: 09/28/18 10:02 EA [id number]) Posture Evaluation Comments Posture Comments Minimal fwd head with protruded abdominal and increased lumbar lordosis/ APT Palpation Assessment Location One Palpation Location Right hip ERotators, greater trochanter region, upper gluteals. Palpation Findings Soft Tissue Tightness, Tenderness PT-OP-K Range of Motion Start: 09/27/18 10:27 Freq: Status: Active Protocol: Document 09/27/18 17:35 EA (Rec: 09/28/18 10:02 EA [id number]) Hip Goniometric Range of Motion Hip Left Active Hip ROM WFL Yes Testing Position Supine Right Active Hip ROM WFL Yes Testing Position Supine Knee Goniometric Range of Motion Knee Right Knee ROM WFL Yes Left Knee ROM WFL Yes PT-OP-L Special Tests Start: 09/27/18 10:27 Freq: Status: Active Protocol: Document 09/27/18 17:35 EA (Rec: 09/28/18 10:02 EA [id number]) Special Tests Hip Special Tests Trendelenberg Test Results - Scour Test Test Results - Rudy Test Results + Piriformis Test Results Sensitive Dolores's Test Test Results tightness + JENNIFER Test Results - Knee Special Tests Smitha's Test Test Results tight both ITB PT-OP-M Strength Start: 09/27/18 10:27 Freq: Status: Active Protocol: Document 09/27/18 17:35 EA (Rec: 09/28/18 10:02 EA [id number]) Hip Strength Hip Manual Muscle Testing Right Flexion (L2) 4 Good Extension (S1) 4 Good Abduction 4 Good Adduction 4 Good External Rotation 4 Good Internal Rotation 4 Good Left Flexion (L2) 5 Normal Extension (S1) 5 Normal Abduction 5 Normal Adduction 5 Normal External Rotation 5 Normal Internal Rotation 5 Normal Knee Strength Knee Manual Muscle Testing Right Reason Not Measured WFL Left Reason Not Measured WFL PT-OP-Q Treatments Start: 09/27/18 10:27 Freq: Status: Active Protocol: Document 02/25/19 12:17 SP (Rec: 02/25/19 13:03 SP [id number]) Therapeutic Exercises Standing Exercises 5 Standing Exercise Name R hip add, ext, abd, added hip flex with eccentric ext Side bilateral Equipment Used orange, foam roller contact support Reps/Minutes x15 each direction Comments cued slow pacing to allow for stability and level pelvis 3 Standing Exercise Name lift Resistance 10# DB 2x20 Equipment Used 18 chair Comments cues for hip hinge/glut drive; cues for neutral cervical posture Other Exercises bridge over SB Hip abd Other Exercise Name bridge (upper body on ball) hip abd TB Resistance green theraloop Equipment Used tajik ball Reps/Minutes 2x10 Manual Therapy Treatment Soft Tissue Mobilization 1 Body Location R glut medTFL & prox quad ( supine) Mobilization Type Cross-Friction,Myofascial Release,Sustained Pressure, Trigger Point Release Intensity/Depth Moderate Body Position Supine Joint Mobilizations hip Joint hip Direction lateral and inferior Grade III Body Position Hooklying Reps/Duration 10 minutes PT-OP-R Modalities Start: 09/27/18 10:27 Freq: Status: Active Protocol: Document 11/23/18 13:31 GGD (Rec: 11/23/18 14:30 GGD [email or web address]) Electric Stimulation Electric Stimulation Interferential Current (IFC) Body Location right gluteals Duration (Minutes) 15 Intensity 15 Contraction Type Normal Combined With Heat/Cold Cold Pack PT-OP-T Assessment and Plan Start: 09/27/18 10:27 Freq: Status: Active Protocol: Document 02/25/19 12:17 SP (Rec: 02/25/19 13:03 SP [id number]) Physical Therapy Assessment Goals Three Impairment Unable to get back to fitness exercises Data Support Analyst Goal (LTG) Patient will get back to previous level of fitness exercises in the gym safely 2- 3x/wk 11-23-18 Pt exercising at gym 2 -3x/week with modifications LTG Duration 02/28/19 Two Impairment Limited distance ambulation Fdc Goal (LTG) Pt will walk > 3 miles per day with no increase of symptoms LTG Duration 02/28/19 One Impairment LEFS score 66/80 Data Support Analyst Goal (LTG) LEFS score > 72 to enhance quality of life LTG Duration 02/28/19 Assessment Summary Assessment Tx focused on hip ext and abd to decrease anterior hip tightness reports during hip flex/abd exercises. Responded well to ther ex today muscle tiring in hips. No significant improvement post manual in anterior hip during lift squat with DBs. Physical Therapy Plan Frequency and Duration Frequency of Treatment 1-2 times per week Duration of Treatment 6 weeks Plan of Care Start Date 01/19/19 Plan of Care End Date 02/28/19 Therapeutic Interventions Therapeutic Interventions Home Exercise Program,Joint Mobilizations,Manual Therapy, Patient/Caregiver Education, Self-Care/Home Management, Taping,Therapeutic Exercises Next Visit Focus/Plan Next Note Type Treatment Note Next Visit Plan Assess response to manual and eccentric hip flexion ex last tx for decreased anterior tightness experiences. Continue per POC: Introduce more functional movement/therapeutic activity, stair exercises, encourage continued improvement in squat form.
--- NOTE | 2019-02-28 16:28 | PT.OTRE ---
Current Diagnoses Pain in right hip (02/28/19) Past Medical History (Last Reviewed 03/12/18 @ 17:19 by Jeane Boss MD) Benign familial tremor (Chronic) Cataracts, bilateral (Chronic ~2006) Chicken pox (Resolved ~1953) Elevated PSA (Chronic ~2013) Erectile dysfunction (Chronic ~2014) Folliculitis (Chronic ~2006) Fractures (Resolved ~1992) Hearing deficit (Chronic) Hearing loss (Chronic ~2001) Hemorrhoid (Chronic ~1966) Measles (Resolved ~1957) Neuroma (Chronic ~1968) Post traumatic stress disorder (PTSD) (Chronic) Prostate cancer (Chronic ~2014) Sleep apnea (Chronic ~2007) Tinnitus (Chronic ~1968) Vision disorder (Chronic) Surgical History (Last Reviewed 03/12/18 @ 17:19 by Jeane Boss MD) Anesthesia (Resolved) History of biopsy (Resolved) History of tonsillectomy (Resolved ~1949) History of vasectomy (Resolved ~1980) Male circumcision (Resolved ~1946) Plantar warts (Resolved ~1962) [place] teeth extracted (Resolved) Visit Care Team Role Provider Type Jeane Boss MD Attending Provider Physician Primary Care Provider Specialty: [facility] Address: [address] [place] [address], [facility] Email: [email or web address] Physical Therapy Re-Evaluation PT-OP-A Visit Information Start: 09/27/18 10:27 Freq: Status: Active Protocol: Document 02/28/19 15:15 SAK (Rec: 02/28/19 16:14 SAK [id number]) Out-Patient Physical Therapy Visit Information Visit Information Visit Type Re-Evaluation Visit Start Time 15:15 Visit Stop Time 16:00 Total Visit Minutes 45 Visit Number 28 Number of TRIM OPERATOR Visits 0 PT-OP-B Current Condition Start: 09/27/18 10:27 Freq: Status: Active Protocol: Document 09/27/18 17:21 EA (Rec: 09/27/18 17:34 EA [id number]) Current Condition History of Current Condition Onset Date 2 months ago History of Current Condition Pt reports right hip pain onset after actively worked on home renovation 2 months ago. Significant history of hip limitation with formal PT years ago per patient. 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 He reports weight bearing or single leg squat to right hip aggravated condition. He reports compliant with previos HEP and as well regular gym exercises prior to current condition but has to stop physical exercises due to increasing pain. Prior Treatments and Tests Formal PT with same hip years ago with good results X-rays to low back and hips a month ago. Future Testing and Treatments Planned None reported Treatment Goals Patient/Caregiver Goals 1. Daily 5-6 miles ambulation 2. 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 Current Functional Impairments (Reported) Functional Limitations- ADL's Independent with moderate difficulty Functional Limitations- Mobility/Gait Indep with moderate difficulty to > 1 mile distance Functional Limitations- Work/School Retired Functional Limitations- Recreation/ Moderate difficulty to all Hobbies previous physical activities PT-OP-C Subjective Start: 09/27/18 10:27 Freq: Status: Active Protocol: Document 02/28/19 15:15 SAK (Rec: 02/28/19 16:14 SAK [id number]) OP-PT Subjective Patient Comments Patient Comments 90% better, seem to take 2 steps forward, one back. States therapy helpful. Doing HEP, using foam roller, tennis ball. Feels manual therapy most helpful for him at this time. Stiff and sore in am if sleeps on right side not if sleeps on left. Too restless to keep pillow between knees. Thinks he needs a new mattress. Not able to do full workout on rowing machine because starts to feel pain right posterior hip. Still feels more tightness right anterior and lateral hip , pain with hip ER stretch. Patient Reported Progress Improving PT-OP-E Functional Tests Start: 09/27/18 10:27 Freq: Status: Active Protocol: Document 01/25/19 09:45 SP (Rec: 01/25/19 11:29 SP [id number]) Functional Tests Dynamic Gait Index (DGI) Score 24/24 DGI Impairment Rating 0% Impaired (Score 24) Functional Gait Assessment Score 29/30 Functional Gait Assessment Impairment 1 to <20% Impaired (Score 25- Rating 29) PT-OP-G Mobility & Gait Start: 09/27/18 10:27 Freq: Status: Active Protocol: Document 09/27/18 17:35 EA (Rec: 09/28/18 10:02 EA [id number]) OP Gait Assessment Gait Gait Assistance Required: Independent Comments Gait Comments Ambulates indep with no AD; noted slight pelvic dropped to right with slight antalgic gait. PT-OP-J Posture/Palpation/Skin Start: 09/27/18 10:27 Freq: Status: Active Protocol: Document 09/27/18 17:35 EA (Rec: 09/28/18 10:02 EA [id number]) Posture Evaluation Comments Posture Comments Minimal fwd head with protruded abdominal and increased lumbar lordosis/ APT Palpation Assessment Location One Palpation Location Right hip ERotators, greater trochanter region, upper gluteals. Palpation Findings Soft Tissue Tightness, Tenderness PT-OP-K Range of Motion Start: 09/27/18 10:27 Freq: Status: Active Protocol: Document 09/27/18 17:35 EA (Rec: 09/28/18 10:02 EA [id number]) Hip Goniometric Range of Motion Hip Measured in Degrees Left Active Hip ROM WFL Yes Testing Position Supine Right Active Hip ROM WFL Yes Testing Position Supine Knee Goniometric Range of Motion Knee Measured in Degrees Right Knee ROM WFL Yes Left Knee ROM WFL Yes PT-OP-L Special Tests Start: 09/27/18 10:27 Freq: Status: Active Protocol: Document 09/27/18 17:35 EA (Rec: 09/28/18 10:02 EA [id number]) Special Tests Hip Special Tests Trendelenberg Test Results - Scour Test Test Results - Rudy Test Results + Piriformis Test Results Sensitive Dolores's Test Test Results tightness + JENNIFER Test Results - Knee Special Tests Smitha's Test Test Results tight both ITB PT-OP-M Strength Start: 09/27/18 10:27 Freq: Status: Active Protocol: Document 09/27/18 17:35 EA (Rec: 09/28/18 10:02 EA [id number]) Hip Strength Hip Manual Muscle Testing Right Flexion (L2) 4 Good Extension (S1) 4 Good Abduction 4 Good Adduction 4 Good External Rotation 4 Good Internal Rotation 4 Good Left Flexion (L2) 5 Normal Extension (S1) 5 Normal Abduction 5 Normal Adduction 5 Normal External Rotation 5 Normal Internal Rotation 5 Normal Knee Strength Knee Manual Muscle Testing Right Reason Not Measured WFL Left Reason Not Measured WFL PT-OP-Q Treatments Start: 09/27/18 10:27 Freq: Status: Active Protocol: Document 02/28/19 15:15 SAK (Rec: 02/28/19 16:14 SAK [id number]) Cardio Equipment Bicycle (Upright) Duration (Minutes) 7 Resistance 8 Seat Position 5 Therapeutic Exercises Supine Exercises 4 Supine Exercise Name Rudy stretch Side right Reps/Minutes 30 x2 Comments end of table, manual correction of LE alignment Manual Therapy Treatment Soft Tissue Mobilization 1 Body Location R glut medTFL & prox quad ( supine) Mobilization Type Cross-Friction,Myofascial Release,Sustained Pressure, Trigger Point Release Intensity/Depth Moderate Body Position Supine Joint Mobilizations hip Joint hip Direction lateral and inferior Grade III Body Position Hooklying Reps/Duration 5 minutes Other Other Manual Treatments reassessment, ROM and strength LE's Neuro Re-Education Treatment Movement Re-Education Movement Re-education Activities gluteal activation with walking level and on stairs Self-Care/Home Management Treatment Education Other Education self-assessment for habitual positions and movements resume doing clamshells due to hip ER weakness right tape left bunion as previosly shown by transition advisor but not recently done PT-OP-R Modalities Start: 09/27/18 10:27 Freq: Status: Active Protocol: Document 11/23/18 13:31 GGD (Rec: 11/23/18 14:30 GGD [id number]) Electric Stimulation Electric Stimulation Interferential Current (IFC) Body Location right gluteals Duration (Minutes) 15 Intensity 15 Contraction Type Normal Combined With Heat/Cold Cold Pack PT-OP-T Assessment and Plan Start: 09/27/18 10:27 Freq: Status: Active Protocol: Document 02/28/19 15:15 [id number] (Rec: 02/28/19 16:14 SAK [id number]) Physical Therapy Assessment Goals Five Impairment Squatting causes increase in pain right hip Documentation Clerk Goal (LTG) Patient able to do squatting movement for activities in the home and with gym exercises without an increase in pain LTG Duration 03/30/19 Four Impairment weakness right hip ER 4-/5 Documentation Clerk Goal (LTG) Improve right hip ER to 4+/5 LTG Duration 03/30/19 Three Impairment Unable to get back to fitness exercises Detention Goal (LTG) Patient will get back to previous level of fitness exercises in the gym safely 2- 3x/wk 11-23-18 Pt exercising at gym 2 -3x/week with modifications 02/28/19: continues to improve but still some modifications LTG Duration 03/30/19 Two Impairment Limited distance ambulation Detention Goal (LTG) Pt will walk > 3 miles per day with no increase of symptoms 02/28/19: still some increase in symptoms, though improving LTG Duration 03/30/19 One Impairment LEFS score 66/80 Documentation Clerk Goal (LTG) LEFS score > 72 to enhance quality of life 02/28/19: score increased to 80 LTG Duration MET Assessment Summary Assessment Reassessment today reveals weakness right hip rotators ER >IR, weakness left hip abductors, hip tightness throughout including rectus femoris. Feel left great toe bunion may be contributing to biomechanical asymmetry and encouraged him to tape toe as previously shown by transition advisor . Would benefit from 4 more PT visits to help him to fully regain his prior function as above. Physical Therapy Plan Frequency and Duration Frequency of Treatment 1 times per week Duration of Treatment 4 wks Plan of Care Start Date 02/28/19 Plan of Care End Date 03/30/19 Therapeutic Interventions Therapeutic Interventions Home Exercise Program,Joint Mobilizations,Manual Therapy, Patient/Caregiver Education, Self-Care/Home Management, Taping,Therapeutic Exercises Next Visit Focus/Plan Next Note Type Treatment Note Next Visit Plan Review clamshell for proper performance at home. Discuss any habitual positioning or movements patient may have self-assessed. Ask if has tried taping left bunion as discussed today for improved LE mechanics. Further work on squat form. Continue per POC: Introduce more functional movement/therapeutic activity, stair exercises, encourage continued improvement in squat form.
--- NOTE | 2019-02-28 16:28 | PT.OPPOC ---
Current Diagnoses Pain in right hip (02/28/19) Visit Care Team Role Provider Type Jeane Boss MD Attending Provider Physician Primary Care Provider Specialty: [facility] Address: [address] [place] [address], [facility], [place], [address] Email: [email or web address] Plan Of Care PT-OP-T Assessment and Plan Start: 09/27/18 10:27 Freq: Status: Active Protocol: Document 02/28/19 15:15 SAK (Rec: 02/28/19 16:14 SAK [id number]) Physical Therapy Assessment Goals Five Impairment Squatting causes increase in pain right hip Jail Goal (LTG) Patient able to do squatting movement for activities in the home and with gym exercises without an increase in pain LTG Duration 03/30/19 Four Impairment weakness right hip ER 4-/5 Jail Goal (LTG) Improve right hip ER to 4+/5 LTG Duration 03/30/19 Three Impairment Unable to get back to fitness exercises Packing Machine Can Feeder Goal (LTG) Patient will get back to previous level of fitness exercises in the gym safely 2- 3x/wk 11-23-18 Pt exercising at gym 2 -3x/week with modifications 02/28/19: continues to improve but still some modifications LTG Duration 03/30/19 Two Impairment Limited distance ambulation Packing Machine Can Feeder Goal (LTG) Pt will walk > 3 miles per day with no increase of symptoms 02/28/19: still some increase in symptoms, though improving LTG Duration 03/30/19 One Impairment LEFS score 66/80 Packing Machine Can Feeder Goal (LTG) LEFS score > 72 to enhance quality of life 02/28/19: score increased to 80 LTG Duration MET Assessment Summary Assessment Reassessment today reveals weakness right hip rotators ER >IR, weakness left hip abductors, hip tightness throughout including rectus femoris. Feel left great toe bunion may be contributing to biomechanical asymmetry and encouraged him to tape toe as previously shown by circle beveler . Would benefit from 4 more PT visits to help him to fully regain his prior function as above. Physical Therapy Plan Frequency and Duration Frequency of Treatment 1 times per week Duration of Treatment 4 wks Plan of Care Start Date 02/28/19 Plan of Care End Date 03/30/19 Therapeutic Interventions Therapeutic Interventions Home Exercise Program,Joint Mobilizations,Manual Therapy, Patient/Caregiver Education, Self-Care/Home Management, Taping,Therapeutic Exercises Next Visit Focus/Plan Next Note Type Treatment Note Next Visit Plan Review clamshell for proper performance at home. Discuss any habitual positioning or movements patient may have self-assessed. Ask if has tried taping left bunion as discussed today for improved LE mechanics. Further work on squat form. Continue per POC: Introduce more functional movement/therapeutic activity, stair exercises, encourage continued improvement in squat form. Plan of Care Dates Plan of Care Start Date 02/28/19 Plan of Care End Date 03/30/19
--- NOTE | 2019-03-04 09:57 | PT.OTN ---
Current Diagnoses Pain in right hip (03/04/19) Physical Therapy Treatment Note PT-OP-A Visit Information Start: 09/27/18 10:27 Freq: Status: Active Protocol: Document 03/04/19 09:12 SP (Rec: 03/04/19 10:14 SP [id number]) Out-Patient Physical Therapy Visit Information Visit Information Visit Type Treatment Note Visit Start Time 09:12 Visit Stop Time 09:57 Total Visit Minutes 45 Visit Number 28 Number of CLERK SUPERVISOR Visits 1 PT-OP-B Current Condition Start: 09/27/18 10:27 Freq: Status: Active Protocol: Document 09/27/18 17:21 EA (Rec: 09/27/18 17:34 EA [id number]) Current Condition History of Current Condition Onset Date 2 months ago History of Current Condition Pt reports right hip pain onset after actively worked on home renovation 2 months ago. Significant history of hip limitation with formal PT years ago per patient. 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 He reports weight bearing or single leg squat to right hip aggravated condition. He reports compliant with previos HEP and as well regular gym exercises prior to current condition but has to stop physical exercises due to increasing pain. Prior Treatments and Tests Formal PT with same hip years ago with good results X-rays to low back and hips a month ago. Future Testing and Treatments Planned None reported Treatment Goals Patient/Caregiver Goals 1. Daily 5-6 miles ambulation 2. 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 Current Functional Impairments (Reported) Functional Limitations- ADL's Independent with moderate difficulty Functional Limitations- Mobility/Gait Indep with moderate difficulty to > 1 mile distance Functional Limitations- Work/School Retired Functional Limitations- Recreation/ Moderate difficulty to all Hobbies previous physical activities PT-OP-C Subjective Start: 09/27/18 10:27 Freq: Status: Active Protocol: Document 03/04/19 09:12 SP (Rec: 03/04/19 10:14 SP [id number]) OP-PT Subjective Patient Comments Patient Comments Pt sore after last tx over posterolateral R hip, still getting pain over anterolateral R hip with flexion/abd. Pt stated noticed hip flexor recruitment during seated ab flexion ex at gym, how can I do more core focused and less anterior R hip. Patient Reported Progress Improving PT-OP-E Functional Tests Start: 09/27/18 10:27 Freq: Status: Active Protocol: Document 01/25/19 09:45 SP (Rec: 01/25/19 11:29 SP [id number]) Functional Tests Dynamic Gait Index (DGI) Score 24/24 DGI Impairment Rating 0% Impaired (Score 24) Functional Gait Assessment Score 29/30 Functional Gait Assessment Impairment 1 to <20% Impaired (Score 25- Rating 29) PT-OP-G Mobility & Gait Start: 09/27/18 10:27 Freq: Status: Active Protocol: Document 09/27/18 17:35 EA (Rec: 09/28/18 10:02 EA [id number]) OP Gait Assessment Gait Gait Assistance Required: Independent Comments Gait Comments Ambulates indep with no AD; noted slight pelvic dropped to right with slight antalgic gait. PT-OP-J Posture/Palpation/Skin Start: 09/27/18 10:27 Freq: Status: Active Protocol: Document 09/27/18 17:35 EA (Rec: 09/28/18 10:02 EA [id number]) Posture Evaluation Comments Posture Comments Minimal fwd head with protruded abdominal and increased lumbar lordosis/ APT Palpation Assessment Location One Palpation Location Right hip ERotators, greater trochanter region, upper gluteals. Palpation Findings Soft Tissue Tightness, Tenderness PT-OP-K Range of Motion Start: 09/27/18 10:27 Freq: Status: Active Protocol: Document 09/27/18 17:35 EA (Rec: 09/28/18 10:02 EA [id number]) Hip Goniometric Range of Motion Hip Left Active Hip ROM WFL Yes Testing Position Supine Right Active Hip ROM WFL Yes Testing Position Supine Knee Goniometric Range of Motion Knee Right Knee ROM WFL Yes Left Knee ROM WFL Yes PT-OP-L Special Tests Start: 09/27/18 10:27 Freq: Status: Active Protocol: Document 09/27/18 17:35 EA (Rec: 09/28/18 10:02 EA [id number]) Special Tests Hip Special Tests Trendelenberg Test Results - Scour Test Test Results - Rudy Test Results + Piriformis Test Results Sensitive Dolores's Test Test Results tightness + JENNIFER Test Results - Knee Special Tests Smitha's Test Test Results tight both ITB PT-OP-M Strength Start: 09/27/18 10:27 Freq: Status: Active Protocol: Document 09/27/18 17:35 EA (Rec: 09/28/18 10:02 EA [id number]) Hip Strength Hip Manual Muscle Testing Right Flexion (L2) 4 Good Extension (S1) 4 Good Abduction 4 Good Adduction 4 Good External Rotation 4 Good Internal Rotation 4 Good Left Flexion (L2) 5 Normal Extension (S1) 5 Normal Abduction 5 Normal Adduction 5 Normal External Rotation 5 Normal Internal Rotation 5 Normal Knee Strength Knee Manual Muscle Testing Right Reason Not Measured WFL Left Reason Not Measured WFL PT-OP-Q Treatments Start: 09/27/18 10:27 Freq: Status: Active Protocol: Document 03/04/19 09:12 SP (Rec: 03/04/19 10:14 SP [id number]) Therapeutic Exercises Supine Exercises single leg bridge Side bilateral Reps/Minutes 3x10 Comments cued PPT and allowable range and glut facilitation Sidelying Exercises clamshell Side bilateral Resistance red TB loop (# 2 HEP) Reps/Minutes 3x10 R and L Sitting Exercises core pull down Sitting Exercise Name reclined seated SB pull down ( upper ab facilitation) Resistance somali ball Equipment Used Tb #2 Reps/Minutes 3x10 Comments cued chest lift, wt into heel to decrease hip flexor recruitment Other Exercises 1/2 knee TFL/Quad stretch Other Exercise Name 1/2 knee OH raise (see chart HO) Side right Equipment Used foam pad/bench Reps/Minutes 30-60 x3 Comments to isolate TFL: back leg/ hip IR and pelvic press foward PT-OP-R Modalities Start: 09/27/18 10:27 Freq: Status: Active Protocol: Document 03/04/19 09:12 SP (Rec: 03/04/19 10:14 SP [id number]) Hot Pack/Cold Pack Treatment MHP Location R anterolateral hip Patient Position Sidelying Treatment Duration (minutes) 10 Patient Tolerance Good PT-OP-T Assessment and Plan Start: 09/27/18 10:27 Freq: Status: Active Protocol: Document 03/04/19 09:12 SP (Rec: 03/04/19 10:14 SP [id number]) Physical Therapy Assessment Goals Five Impairment Squatting causes increase in pain right hip Air Crew Supervisor Goal (LTG) Patient able to do squatting movement for activities in the home and with gym exercises without an increase in pain LTG Duration 03/30/19 Four Impairment weakness right hip ER 4-/5 Air Crew Supervisor Goal (LTG) Improve right hip ER to 4+/5 LTG Duration 03/30/19 Three Impairment Unable to get back to fitness exercises Air Crew Supervisor Goal (LTG) Patient will get back to previous level of fitness exercises in the gym safely 2- 3x/wk 11-23-18 Pt exercising at gym 2 -3x/week with modifications 02/28/19: continues to improve but still some modifications LTG Duration 03/30/19 Two Impairment Limited distance ambulation Air Crew Supervisor Goal (LTG) Pt will walk > 3 miles per day with no increase of symptoms 02/28/19: still some increase in symptoms, though improving LTG Duration 03/30/19 One Impairment LEFS score 66/80 Air Crew Supervisor Goal (LTG) LEFS score > 72 to enhance quality of life 02/28/19: score increased to 80 LTG Duration MET Assessment Summary Assessment Tx focused on hip ERs, glut med strengthening. HEP review clamshell form sidelying, added single leg bridge and isolated 1/2 kneel psoas/ prox quad/TFL stretch to decrease tightness gets when tries figure 4 hip ER pinching anterior R hip. Encouraged balll of TFL at wall as given previous tx. Physical Therapy Plan Frequency and Duration Frequency of Treatment 1 times per week Duration of Treatment 4 wks Plan of Care Start Date 02/28/19 Plan of Care End Date 03/30/19 Therapeutic Interventions Therapeutic Interventions Home Exercise Program,Joint Mobilizations,Manual Therapy, Patient/Caregiver Education, Self-Care/Home Management, Taping,Therapeutic Exercises Next Visit Focus/Plan Next Note Type Treatment Note Next Visit Plan Assess hip ER and glut exercises and TFL/Quad stretching last tx. Continue per PT POC: Discuss any habitual positioning or movements patient may have self-assessed. Ask if has tried taping left bunion as discussed today for improved LE mechanics. Further work on squat form. Continue per POC: Introduce more functional movement/therapeutic activity, stair exercises, encourage continued improvement in squat form.
--- NOTE | 2019-03-13 13:31 | PT.OTN ---
Current Diagnoses Pain in right hip (03/09/19) Physical Therapy Treatment Note PT-OP-A Visit Information Start: 09/27/18 10:27 Freq: Status: Active Protocol: Document 03/13/19 13:01 AW (Rec: 03/13/19 13:31 AW [id number]) Out-Patient Physical Therapy Visit Information Visit Information Visit Type Treatment Note Visit Start Time 09:00 Visit Stop Time 09:45 Total Visit Minutes 45 Visit Number 30 Number of BEAM DYER RECESSED VAT Visits 0 Evaluation Information Evaluation Date 09/27/18 PT-OP-B Current Condition Start: 09/27/18 10:27 Freq: Status: Active Protocol: Document 09/27/18 17:21 EA (Rec: 09/27/18 17:34 EA [id number]) Current Condition History of Current Condition Onset Date 2 months ago History of Current Condition Pt reports right hip pain onset after actively worked on home renovation 2 months ago. Significant history of hip limitation with formal PT years ago per patient. 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 He reports weight bearing or single leg squat to right hip aggravated condition. He reports compliant with previos HEP and as well regular gym exercises prior to current condition but has to stop physical exercises due to increasing pain. Prior Treatments and Tests Formal PT with same hip years ago with good results X-rays to low back and hips a month ago. Future Testing and Treatments Planned None reported Treatment Goals Patient/Caregiver Goals 1. Daily 5-6 miles ambulation 2. 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 Current Functional Impairments (Reported) Functional Limitations- ADL's Independent with moderate difficulty Functional Limitations- Mobility/Gait Indep with moderate difficulty to > 1 mile distance Functional Limitations- Work/School Retired Functional Limitations- Recreation/ Moderate difficulty to all Hobbies previous physical activities PT-OP-C Subjective Start: 09/27/18 10:27 Freq: Status: Active Protocol: Document 03/13/19 13:01 AW (Rec: 03/13/19 13:31 AW [id number]) OP-PT Subjective Patient Comments Patient Comments Pt reports less pain with flexion + abduction, stating pain is localizing more to his groin. He has been able to increase his rowing and biking time at the gym to 30 minutes , but starts to experience hip pain around the 20th minute. He is using less ibuprofen than before. Patient Reported Progress Improving PT-OP-E Functional Tests Start: 09/27/18 10:27 Freq: Status: Active Protocol: Document 01/25/19 09:45 SP (Rec: 01/25/19 11:29 SP [id number]) Functional Tests Dynamic Gait Index (DGI) Score 24/24 DGI Impairment Rating 0% Impaired (Score 24) Functional Gait Assessment Score 29/30 Functional Gait Assessment Impairment 1 to <20% Impaired (Score 25- Rating 29) PT-OP-G Mobility & Gait Start: 09/27/18 10:27 Freq: Status: Active Protocol: Document 09/27/18 17:35 EA (Rec: 09/28/18 10:02 EA [id number]) OP Gait Assessment Gait Gait Assistance Required: Independent Comments Gait Comments Ambulates indep with no AD; noted slight pelvic dropped to right with slight antalgic gait. PT-OP-J Posture/Palpation/Skin Start: 09/27/18 10:27 Freq: Status: Active Protocol: Document 09/27/18 17:35 EA (Rec: 09/28/18 10:02 EA [id number]) Posture Evaluation Comments Posture Comments Minimal fwd head with protruded abdominal and increased lumbar lordosis/ APT Palpation Assessment Location One Palpation Location Right hip ERotators, greater trochanter region, upper gluteals. Palpation Findings Soft Tissue Tightness, Tenderness PT-OP-K Range of Motion Start: 09/27/18 10:27 Freq: Status: Active Protocol: Document 09/27/18 17:35 EA (Rec: 09/28/18 10:02 EA [id number]) Hip Goniometric Range of Motion Hip Left Active Hip ROM WFL Yes Testing Position Supine Right Active Hip ROM WFL Yes Testing Position Supine Knee Goniometric Range of Motion Knee Right Knee ROM WFL Yes Left Knee ROM WFL Yes PT-OP-L Special Tests Start: 09/27/18 10:27 Freq: Status: Active Protocol: Document 09/27/18 17:35 EA (Rec: 09/28/18 10:02 EA [id number]) Special Tests Hip Special Tests Trendelenberg Test Results - Scour Test Test Results - Rudy Test Results + Piriformis Test Results Sensitive Dolores's Test Test Results tightness + JENNIFER Test Results - Knee Special Tests Smitha's Test Test Results tight both ITB PT-OP-M Strength Start: 09/27/18 10:27 Freq: Status: Active Protocol: Document 09/27/18 17:35 EA (Rec: 09/28/18 10:02 EA [id number]) Hip Strength Hip Manual Muscle Testing Right Flexion (L2) 4 Good Extension (S1) 4 Good Abduction 4 Good Adduction 4 Good External Rotation 4 Good Internal Rotation 4 Good Left Flexion (L2) 5 Normal Extension (S1) 5 Normal Abduction 5 Normal Adduction 5 Normal External Rotation 5 Normal Internal Rotation 5 Normal Knee Strength Knee Manual Muscle Testing Right Reason Not Measured WFL Left Reason Not Measured WFL PT-OP-Q Treatments Start: 09/27/18 10:27 Freq: Status: Active Protocol: Document 03/13/19 13:01 AW (Rec: 03/13/19 13:31 AW [id number]) Therapeutic Exercises Supine Exercises HS stretch Supine Exercise Name HS stretch Side bilateral Resistance manual Reps/Minutes 60 sec x 2 bilat Comments contract/relax single leg bridge Supine Exercise Name SL bridge Side bilateral Reps/Minutes 3x10 Comments cued PPT and allowable range and glut facilitation 4 Supine Exercise Name Rudy stretch Side right Reps/Minutes 30 x2 Comments end of table, manual correction of LE alignment Sidelying Exercises reverse clamshell Sidelying Exercise Name reverse clamshell Side bilateral Resistance level 2 TB clamshell Side bilateral Resistance Level 2 TB Reps/Minutes 2x10 R and L Sitting Exercises seated eccentric abd lean back Sitting Exercise Name seated eccentric abd lean back Reps/Minutes 2x10 reps Comments seated edge of chair, cued slow controlled lean back seated abd press into mongolian ball Sitting Exercise Name seated abd press into mongolian ball Equipment Used 45 cm ball Reps/Minutes 2x10 reps Standing Exercises squat with weighted press Standing Exercise Name squat with weighted press Equipment Used 10# ball Reps/Minutes 4x10 reps Comments 2 sets OH press; 2 sets fwd press isometric glute med wall push Standing Exercise Name isometric glute med wall push Side bilateral Reps/Minutes 10 reps bilat Comments cues for neutral trunk alignment hip hike Standing Exercise Name hip hike Side bilateral Equipment Used 6 step, rail for support Reps/Minutes 2x10 reps bilat Comments cued for frontal plane movement only 9 Standing Exercise Name calf stretch Reps/Minutes 30x2 PT-OP-R Modalities Start: 09/27/18 10:27 Freq: Status: Active Protocol: Document 03/04/19 09:12 SP (Rec: 03/04/19 10:14 SP [id number]) Hot Pack/Cold Pack Treatment MHP Location R anterolateral hip Patient Position Sidelying Treatment Duration (minutes) 10 Patient Tolerance Good PT-OP-T Assessment and Plan Start: 09/27/18 10:27 Freq: Status: Active Protocol: Document 03/13/19 13:01 AW (Rec: 03/13/19 13:31 AW [id number]) Physical Therapy Assessment Goals Five Impairment Squatting causes increase in pain right hip Shelter Goal (LTG) Patient able to do squatting movement for activities in the home and with gym exercises without an increase in pain LTG Duration 03/30/19 Four Impairment weakness right hip ER 4-/5 Shelter Goal (LTG) Improve right hip ER to 4+/5 LTG Duration 03/30/19 Three Impairment Unable to get back to fitness exercises Shelter Goal (LTG) Patient will get back to previous level of fitness exercises in the gym safely 2- 3x/wk 11-23-18 Pt exercising at gym 2 -3x/week with modifications 02/28/19: continues to improve but still some modifications LTG Duration 03/30/19 Two Impairment Limited distance ambulation Meat Butcher Goal (LTG) Pt will walk > 3 miles per day with no increase of symptoms 02/28/19: still some increase in symptoms, though improving LTG Duration 03/30/19 One Impairment LEFS score 66/80 Shelter Goal (LTG) LEFS score > 72 to enhance quality of life 02/28/19: score increased to 80 LTG Duration MET Progress Towards Goals Progress Towards Goals Progressing Toward Goals Assessment Summary Assessment Focused treatment on hip strengthening, hip flexor length, and squat form. Pt tolerated deep squats with internal perturbations without report of increased pain. Physical Therapy Plan Frequency and Duration Frequency of Treatment 1 times per week Duration of Treatment 4 wks Plan of Care Start Date 02/28/19 Plan of Care End Date 03/30/19 Therapeutic Interventions Therapeutic Interventions Home Exercise Program,Joint Mobilizations,Manual Therapy, Patient/Caregiver Education, Self-Care/Home Management, Taping,Therapeutic Exercises Next Visit Focus/Plan Next Note Type Treatment Note Next Visit Plan Continue per PT POC: Discuss any habitual positioning or movements patient may have self-assessed. Ask if has tried taping left bunion as discussed today for improved LE mechanics. Further work on squat form. Continue per POC: Introduce more functional movement/therapeutic activity, stair exercises, encourage continued improvement in squat form.
--- NOTE | 2019-03-23 09:56 | PT.OTN ---
Current Diagnoses Pain in right hip (03/23/19) Physical Therapy Treatment Note PT-OP-A Visit Information Start: 09/27/18 10:27 Freq: Status: Active Protocol: Document 03/23/19 09:44 AW (Rec: 03/23/19 09:56 AW [email or web address]) Out-Patient Physical Therapy Visit Information Visit Information Visit Type Treatment Note Visit Start Time 09:00 Visit Stop Time 09:55 Total Visit Minutes 55 Visit Number 31 Number of CHARTER DRIVER Visits 0 Evaluation Information Evaluation Date 09/27/18 PT-OP-B Current Condition Start: 09/27/18 10:27 Freq: Status: Active Protocol: Document 09/27/18 17:21 EA (Rec: 09/27/18 17:34 EA [id number]) Current Condition History of Current Condition Onset Date 2 months ago History of Current Condition Pt reports right hip pain onset after actively worked on home renovation 2 months ago. Significant history of hip limitation with formal PT years ago per patient. 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 He reports weight bearing or single leg squat to right hip aggravated condition. He reports compliant with previos HEP and as well regular gym exercises prior to current condition but has to stop physical exercises due to increasing pain. Prior Treatments and Tests Formal PT with same hip years ago with good results X-rays to low back and hips a month ago. Future Testing and Treatments Planned None reported Treatment Goals Patient/Caregiver Goals 1. Daily 5-6 miles ambulation 2. 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 Current Functional Impairments (Reported) Functional Limitations- ADL's Independent with moderate difficulty Functional Limitations- Mobility/Gait Indep with moderate difficulty to > 1 mile distance Functional Limitations- Work/School Retired Functional Limitations- Recreation/ Moderate difficulty to all Hobbies previous physical activities PT-OP-C Subjective Start: 09/27/18 10:27 Freq: Status: Active Protocol: Document 03/23/19 09:44 AW (Rec: 03/23/19 09:56 AW [id number]) OP-PT Subjective Patient Comments Patient Comments Pt notices much less pain getting in and out of his truck. He feels fatigue is more of a deficit than strength at this point. Patient Reported Progress Improving PT-OP-E Functional Tests Start: 09/27/18 10:27 Freq: Status: Active Protocol: Document 01/25/19 09:45 SP (Rec: 01/25/19 11:29 SP [email or web address]) Functional Tests Dynamic Gait Index (DGI) Score 24/24 DGI Impairment Rating 0% Impaired (Score 24) Functional Gait Assessment Score 29/30 Functional Gait Assessment Impairment 1 to <20% Impaired (Score 25- Rating 29) PT-OP-G Mobility & Gait Start: 09/27/18 10:27 Freq: Status: Active Protocol: Document 09/27/18 17:35 EA (Rec: 09/28/18 10:02 EA [id number]) OP Gait Assessment Gait Gait Assistance Required: Independent Comments Gait Comments Ambulates indep with no AD; noted slight pelvic dropped to right with slight antalgic gait. PT-OP-J Posture/Palpation/Skin Start: 09/27/18 10:27 Freq: Status: Active Protocol: Document 09/27/18 17:35 EA (Rec: 09/28/18 10:02 EA [id number]) Posture Evaluation Comments Posture Comments Minimal fwd head with protruded abdominal and increased lumbar lordosis/ APT Palpation Assessment Location One Palpation Location Right hip ERotators, greater trochanter region, upper gluteals. Palpation Findings Soft Tissue Tightness, Tenderness PT-OP-K Range of Motion Start: 09/27/18 10:27 Freq: Status: Active Protocol: Document 09/27/18 17:35 EA (Rec: 09/28/18 10:02 EA [id number]) Hip Goniometric Range of Motion Hip Left Active Hip ROM WFL Yes Testing Position Supine Right Active Hip ROM WFL Yes Testing Position Supine Knee Goniometric Range of Motion Knee Right Knee ROM WFL Yes Left Knee ROM WFL Yes PT-OP-L Special Tests Start: 09/27/18 10:27 Freq: Status: Active Protocol: Document 09/27/18 17:35 EA (Rec: 09/28/18 10:02 EA [id number]) Special Tests Hip Special Tests Trendelenberg Test Results - Scour Test Test Results - Rudy Test Results + Piriformis Test Results Sensitive Dolores's Test Test Results tightness + JENNIFER Test Results - Knee Special Tests Smitha's Test Test Results tight both ITB PT-OP-M Strength Start: 09/27/18 10:27 Freq: Status: Active Protocol: Document 09/27/18 17:35 EA (Rec: 09/28/18 10:02 EA [id number]) Hip Strength Hip Manual Muscle Testing Right Flexion (L2) 4 Good Extension (S1) 4 Good Abduction 4 Good Adduction 4 Good External Rotation 4 Good Internal Rotation 4 Good Left Flexion (L2) 5 Normal Extension (S1) 5 Normal Abduction 5 Normal Adduction 5 Normal External Rotation 5 Normal Internal Rotation 5 Normal Knee Strength Knee Manual Muscle Testing Right Reason Not Measured WFL Left Reason Not Measured WFL PT-OP-Q Treatments Start: 09/27/18 10:27 Freq: Status: Active Protocol: Document 03/23/19 09:44 AW (Rec: 03/23/19 09:56 AW [id number]) Cardio Equipment Bicycle (Upright) Duration (Minutes) 5 Resistance 8 Seat Position 5 Gym Equipment Shuttle Balance chains blue Details red chains Reps/Duration 5 minutes Comments NBOS, single-leg stance, 1/4 squats Therapeutic Exercises Supine Exercises 4 Supine Exercise Name Rudy stretch Side bilateral Reps/Minutes 30 x2 Comments end of table; right rec fem and psoas, left rec fem involvement Sidelying Exercises reverse clamshell Sidelying Exercise Name reverse clamshell Side bilateral Resistance level 4 TB Reps/Minutes x20 reps clamshell Side bilateral Resistance Level 4 TB Reps/Minutes x20 reps Comments cues for stable pelvis Standing Exercises lateral step up Standing Exercise Name lateral step up Side bilateral Equipment Used 8 step Reps/Minutes x15 reps bilat Comments wide steps squat with weighted press Standing Exercise Name squat with weighted press Equipment Used 10# ball Reps/Minutes 2x15 reps Comments 1 set with alternating rotation; one set with chest press isometric glute med wall push Standing Exercise Name isometric glute med wall push Side bilateral Reps/Minutes 10 reps bilat Comments cues for neutral trunk alignment/level pelvis hip hike Standing Exercise Name hip hike Side bilateral Equipment Used 6 step, rail for support Reps/Minutes 2x10 reps bilat Comments cued for frontal plane movement only PT-OP-R Modalities Start: 09/27/18 10:27 Freq: Status: Active Protocol: Document 03/23/19 09:44 AW (Rec: 03/23/19 09:56 AW [id number]) Hot Pack/Cold Pack Treatment MHP Location R anterolateral hip Patient Position Sidelying Treatment Duration (minutes) 10 Patient Tolerance Good PT-OP-T Assessment and Plan Start: 09/27/18 10:27 Freq: Status: Active Protocol: Document 03/23/19 09:44 AW (Rec: 03/23/19 09:56 AW [id number]) Physical Therapy Assessment Goals Five Impairment Squatting causes increase in pain right hip Thread Singer Goal (LTG) Patient able to do squatting movement for activities in the home and with gym exercises without an increase in pain LTG Duration 03/30/19 Four Impairment weakness right hip ER 4-/5 Thread Singer Goal (LTG) Improve right hip ER to 4+/5 LTG Duration 03/30/19 Three Impairment Unable to get back to fitness exercises Thread Singer Goal (LTG) Patient will get back to previous level of fitness exercises in the gym safely 2- 3x/wk 11-23-18 Pt exercising at gym 2 -3x/week with modifications 02/28/19: continues to improve but still some modifications LTG Duration 03/30/19 Two Impairment Limited distance ambulation Thread Singer Goal (LTG) Pt will walk > 3 miles per day with no increase of symptoms 02/28/19: still some increase in symptoms, though improving LTG Duration 03/30/19 One Impairment LEFS score 66/80 Thread Singer Goal (LTG) LEFS score > 72 to enhance quality of life 02/28/19: score increased to 80 LTG Duration MET Progress Towards Goals Progress Towards Goals Progressing Toward Goals Assessment Summary Assessment Continued focus on hip strength with added focus on endurance. Squat form is improving with pt able to perform multiple sets without report of hip irritation. Discussed avoidance of extreme flexion + abduction positioning in daily activities with pt expressing good understanding. Pt will be seen for one more visit and then likely discharge. Physical Therapy Plan Frequency and Duration Frequency of Treatment 1 times per week Duration of Treatment 4 wks Plan of Care Start Date 02/28/19 Plan of Care End Date 03/30/19 Therapeutic Interventions Therapeutic Interventions Home Exercise Program,Joint Mobilizations,Manual Therapy, Patient/Caregiver Education, Self-Care/Home Management, Taping,Therapeutic Exercises Modalities Cold Pack/Ice Massage Next Visit Focus/Plan Next Note Type Discharge Summary Next Visit Plan Assess goals
--- NOTE | 2019-03-30 10:44 | PT.OTN ---
Current Diagnoses Pain in right hip (03/30/19) Physical Therapy Treatment Note PT-OP-A Visit Information Start: 09/27/18 10:27 Freq: Status: Active Protocol: Document 03/30/19 10:28 AW (Rec: 03/30/19 10:44 AW [id number]) Out-Patient Physical Therapy Visit Information Visit Information Visit Type Discharge Summary Visit Start Time 09:00 Visit Stop Time 09:45 Total Visit Minutes 45 Visit Number 32 Evaluation Information Evaluation Date 09/27/18 PT-OP-B Current Condition Start: 09/27/18 10:27 Freq: Status: Active Protocol: Document 09/27/18 17:21 EA (Rec: 09/27/18 17:34 EA [id number]) Current Condition History of Current Condition Onset Date 2 months ago History of Current Condition Pt reports right hip pain onset after actively worked on home renovation 2 months ago. Significant history of hip limitation with formal PT years ago per patient. 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 He reports weight bearing or single leg squat to right hip aggravated condition. He reports compliant with previos HEP and as well regular gym exercises prior to current condition but has to stop physical exercises due to increasing pain. Prior Treatments and Tests Formal PT with same hip years ago with good results X-rays to low back and hips a month ago. Future Testing and Treatments Planned None reported Treatment Goals Patient/Caregiver Goals 1. Daily 5-6 miles ambulation 2. 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 Current Functional Impairments (Reported) Functional Limitations- ADL's Independent with moderate difficulty Functional Limitations- Mobility/Gait Indep with moderate difficulty to > 1 mile distance Functional Limitations- Work/School Retired Functional Limitations- Recreation/ Moderate difficulty to all Hobbies previous physical activities PT-OP-C Subjective Start: 09/27/18 10:27 Freq: Status: Active Protocol: Document 03/30/19 10:28 AW (Rec: 03/30/19 10:44 AW [id number]) OP-PT Subjective Patient Comments Patient Comments Pt is back to the gym with fewer modifications to his routine and has increased confidence in his right hip. Patient Reported Progress Improving Patient Questionnaires Lower Extremity Functional Scale LEFS Score 74 LEFS Impairment 1 to 19% Impaired (Score 63-79 ) PT-OP-E Functional Tests Start: 09/27/18 10:27 Freq: Status: Active Protocol: Document 01/25/19 09:45 SP (Rec: 01/25/19 11:29 SP [email or web address]) Functional Tests Dynamic Gait Index (DGI) Score 24/24 DGI Impairment Rating 0% Impaired (Score 24) Functional Gait Assessment Score 29/30 Functional Gait Assessment Impairment 1 to <20% Impaired (Score 25- Rating 29) PT-OP-G Mobility & Gait Start: 09/27/18 10:27 Freq: Status: Active Protocol: Document 09/27/18 17:35 EA (Rec: 09/28/18 10:02 EA [id number]) OP Gait Assessment Gait Gait Assistance Required: Independent Comments Gait Comments Ambulates indep with no AD; noted slight pelvic dropped to right with slight antalgic gait. PT-OP-J Posture/Palpation/Skin Start: 09/27/18 10:27 Freq: Status: Active Protocol: Document 09/27/18 17:35 EA (Rec: 09/28/18 10:02 EA [id number]) Posture Evaluation Comments Posture Comments Minimal fwd head with protruded abdominal and increased lumbar lordosis/ APT Palpation Assessment Location One Palpation Location Right hip ERotators, greater trochanter region, upper gluteals. Palpation Findings Soft Tissue Tightness, Tenderness PT-OP-K Range of Motion Start: 09/27/18 10:27 Freq: Status: Active Protocol: Document 09/27/18 17:35 EA (Rec: 09/28/18 10:02 EA [id number]) Hip Goniometric Range of Motion Hip Left Active Hip ROM WFL Yes Testing Position Supine Right Active Hip ROM WFL Yes Testing Position Supine Knee Goniometric Range of Motion Knee Right Knee ROM WFL Yes Left Knee ROM WFL Yes PT-OP-L Special Tests Start: 09/27/18 10:27 Freq: Status: Active Protocol: Document 09/27/18 17:35 EA (Rec: 09/28/18 10:02 EA [id number]) Special Tests Hip Special Tests Trendelenberg Test Results - Scour Test Test Results - Rudy Test Results + Piriformis Test Results Sensitive Dolores's Test Test Results tightness + JENNIFER Test Results - Knee Special Tests Smitha's Test Test Results tight both ITB PT-OP-M Strength Start: 09/27/18 10:27 Freq: Status: Active Protocol: Document 09/27/18 17:35 EA (Rec: 09/28/18 10:02 EA [id number]) Hip Strength Hip Manual Muscle Testing Right Flexion (L2) 4 Good Extension (S1) 4 Good Abduction 4 Good Adduction 4 Good External Rotation 4 Good Internal Rotation 4 Good Left Flexion (L2) 5 Normal Extension (S1) 5 Normal Abduction 5 Normal Adduction 5 Normal External Rotation 5 Normal Internal Rotation 5 Normal Knee Strength Knee Manual Muscle Testing Right Reason Not Measured WFL Left Reason Not Measured WFL PT-OP-Q Treatments Start: 09/27/18 10:27 Freq: Status: Active Protocol: Document 03/30/19 10:28 AW (Rec: 03/30/19 10:44 AW [id number]) Cardio Equipment Bicycle (Upright) Duration (Minutes) 5 Resistance 8 Seat Position 5 Therapeutic Exercises Sidelying Exercises reverse clamshell Sidelying Exercise Name reverse clamshell Side bilateral Resistance level 4 TB Reps/Minutes x20 reps clamshell Side bilateral Resistance Level 4 TB Reps/Minutes x20 reps Comments cues for stable pelvis Standing Exercises anti-rotation press Standing Exercise Name anti-rotation press Side bilateral Resistance level 4 Equipment Used TB Reps/Minutes 2x12 reps Comments cues for core engagement eccentric heel raise Standing Exercise Name eccentric heel raise Side bilateral Equipment Used 6 step Reps/Minutes 2x15 reps Comments cues for slow lowering squat jump Standing Exercise Name squat jump Reps/Minutes 2x10 reps Comments 1st set up to toes; 2nd set with controlled jump, cues for bent-knee warner bosu squat Standing Exercise Name bosu squat Equipment Used flat and round Reps/Minutes 2x15 reps Comments cues for decreased depth to maintain form lateral step up Standing Exercise Name lateral step up Side bilateral Equipment Used 12 step Reps/Minutes x15 reps bilat Comments wide steps squat with weighted press Standing Exercise Name squat with weighted press Equipment Used 10# ball Reps/Minutes 2x15 reps Comments with chest press hip hike Standing Exercise Name hip hike Side bilateral Equipment Used 6 step, rail for support Reps/Minutes 2x10 reps bilat Comments cued for frontal plane movement only 9 Standing Exercise Name calf stretch Equipment Used JENNIFER Reps/Minutes 30x4 Comments with active PF (contract/relax ) PT-OP-R Modalities Start: 09/27/18 10:27 Freq: Status: Active Protocol: Document 03/23/19 09:44 AW (Rec: 03/23/19 09:56 AW [email or web address]) Hot Pack/Cold Pack Treatment MHP Location R anterolateral hip Patient Position Sidelying Treatment Duration (minutes) 10 Patient Tolerance Good PT-OP-T Assessment and Plan Start: 09/27/18 10:27 Freq: Status: Active Protocol: Document 03/30/19 10:28 AW (Rec: 03/30/19 10:44 AW [id number]) Physical Therapy Assessment Goals Five Impairment Squatting causes increase in pain right hip Seat Installer Goal (LTG) Patient able to do squatting movement for activities in the home and with gym exercises without an increase in pain 03/30/19: MET LTG Duration 03/30/19 Four Impairment weakness right hip ER 4-/5 Seat Installer Goal (LTG) Improve right hip ER to 4+/5 03/30/19: MET LTG Duration 03/30/19 Three Impairment Unable to get back to fitness exercises Seat Installer Goal (LTG) Patient will get back to previous level of fitness exercises in the gym safely 2- 3x/wk 11-23-18 Pt exercising at gym 2 -3x/week with modifications 02/28/19: continues to improve but still some modifications 03/30/19: with fewer modifications, no sense of restriction LTG Duration 03/30/19 Two Impairment Limited distance ambulation Residential Goal (LTG) Pt will walk > 3 miles per day with no increase of symptoms 02/28/19: still some increase in symptoms, though improving 03/30/19: Pt has chosen to focus on rowing and cycling at the gym; has not attempted longer walks LTG Duration 03/30/19 One Impairment LEFS score 66/80 Residential Goal (LTG) LEFS score > 72 to enhance quality of life 03/30/19: MET LEFS 74/80 LTG Duration MET Progress Towards Goals Progress Towards Goals Goals Met Assessment Summary Assessment Harrison has met the goals of this plan of care and has increased confidence in his hip, reporting no pain with level of activity back to baseline. PT advised Harrison to continue his exercise program and to consider adding some plyometric activity as tolerated. He is appropriate for discharge. Physical Therapy Plan Discharge Physical Therapy Discharge Reasons Goals Met Discharge Comments Harrison has met the goals of this plan of care and has increased confidence in his hip, reporting no pain with level of activity back to baseline. PT advised Harrison to continue his exercise program and to consider adding some plyometric activity as tolerated. He is appropriate for discharge.
== END 2019-03-30 11:48 | disposition home or self-care (01) ==
LOC: PHYS 09:00
PROVIDERS: PCP Family Medicine; Visit Provider Family Medicine
DX: M25.551 Pain in right hip (principal)
CPT/HCPCS: 97010; 97014; 97110; 97112; 97116; 97140; 97161; 97535; G0283

== ENCOUNTER → 2019-08-05 09:31 | Outpatient (CLI) | payer MEDICARE, OTHER, SELFPAY ==
[2019-08-05 11:57] LABS: Prostate Specific Antigen 12.7 ng/mL (0.10-4.00)
== END ==
PROVIDERS: Family Provider Family Medicine; PCP Family Medicine; Referring Provider Family Medicine; Visit Provider Urology
DX: C61 Malignant neoplasm of prostate (principal)
CPT/HCPCS: 36415; 84153

== ENCOUNTER → 2019-08-25 08:30 | Outpatient (CLI) | payer MEDICARE, OTHER, SELFPAY ==
[2019-08-25 09:11] LABS: Cholesterol 197 mg/dL (140-199); HDL Cholesterol 51 mg/dL (40-60); LDL Cholesterol Calculated 103 mg/dL (<100); Triglycerides 213 mg/dL (35-150)
== END ==
PROVIDERS: Family Provider Family Medicine; PCP Family Medicine; Referring Provider Family Medicine; Visit Provider Family Medicine
DX: E78.5 Hyperlipidemia, unspecified (principal)
CPT/HCPCS: 36415; 80061

== ENCOUNTER 2019-11-17 08:15 | Outpatient (RCR) | payer MEDICARE, OTHER, SELFPAY ==
--- NOTE | 2019-09-08 18:24 | PT.OIE ---
Current Diagnoses Enthesopathy, unspecified (09/08/19) Past Medical History (Last Reviewed 03/28/19 @ 10:32 by Emery Jalloh MD) Benign familial tremor (Chronic) Cataracts, bilateral (Chronic ~2006) Chicken pox (Resolved ~1953) Elevated PSA (Chronic ~2013) Erectile dysfunction (Chronic ~2014) Folliculitis (Chronic ~2006) Fractures (Resolved ~1992) Hearing deficit (Chronic) Hearing loss (Chronic ~2001) Hemorrhoid (Chronic ~1966) Measles (Resolved ~1957) Neuroma (Chronic ~1968) Post traumatic stress disorder (PTSD) (Chronic) Prostate cancer (Chronic ~2014) Sleep apnea (Chronic ~2007) Tinnitus (Chronic ~1968) Vision disorder (Chronic) Past Surgical History (Last Reviewed 03/28/19 @ 10:32 by Emery Jalloh MD) Anesthesia (Resolved) History of biopsy (Resolved) History of tonsillectomy (Resolved ~1949) History of vasectomy (Resolved ~1980) Male circumcision (Resolved ~1946) Plantar warts (Resolved ~1962) [place] teeth extracted (Resolved) Visit Care Team Role Provider Type Jeane Boss MD Attending Provider Physician Family Provider Primary Care Provider Referring Provider Specialty: Family Practice Address: [address] [place] [address], [facility] Email: [email or web address] Physical Therapy Initial Evaluation PT-OP-A Visit Information Start: 09/08/19 17:33 Freq: Status: Active Protocol: Document 09/08/19 17:34 (Rec: 09/08/19 18:24 [email or web address]) Out-Patient Physical Therapy Visit Information Visit Information Visit Type Initial Evaluation Visit Start Time 09:45 Visit Stop Time 10:30 Total Visit Minutes 45 Visit Number 03/20 Number of SITE PROJECT MANAGER Visits 0 Evaluation Information Evaluation Date 09/08/19 PT-OP-B Current Condition Start: 09/08/19 17:33 Freq: Status: Active Protocol: Document 09/08/19 17:34 HH (Rec: 09/08/19 18:24 [email or web address]) Current Condition History of Current Condition Onset Date Since April, Current Complaints L elbow pain medial> lateral, difficulty with gripping motion History of Current Condition This is a 73yo active male here for persistent elbow pain . Pt reports having a hx of epicondylitis around 20 years ago and was treated with PT and Ot. Pt was able to fully recovered but did have recurrent episodes 2-3 times. He said ice and ibuprofen tends to help quickly. However , Pt has been having signifciant pain at the medial elbow but also new onset of pain at extensor muscles at the lateral elbow. He stated that his 4th and 5th fingers will go numb and tingly sometimes espeically holding the steering wheel while driving. Pt noticed weakness in the hand and symptoms tend to get worse when he moves hig arms after holding in one position for too long. He also noticed making a fist with supination also cause pain. Pt has been wearing an elbow brace which gives him stability, along with ice treatment and ibuprofen. Pt likes to play golf 1-2x/week and riding a bicyle regularly to keep himself physically active. Prior Treatments and Tests had PT for epicondylitis and received ultra sound tx which helps. Treatment Goals Patient/Caregiver Goals 1. to strengthen his forearm and compensation intern 2. to be pain free during sleep driving and exercises. PT-OP-C Subjective Start: 09/08/19 17:33 Freq: Status: Active Protocol: Document 09/08/19 17:34 (Rec: 09/08/19 18:24 [email or web address]) Patient Questionnaires Quick Dash- Upper Extremity Quick Dash UE Score 20.45 Quick Dash UE Impairment 20 to 39% Impaired (Score 20- 39) OP-PT Pain Assessment Location lateral epicondyle Intensity 1 Scale Used Numeric (0 - 10) Description Aching Frequency Frequent Pain Aggravating Factors ADL's,Activity,Exercise Pain Alleviating Factors Cold,Medication,Inactivity medial elbow Pain Location Details medial common flexor tendon Intensity 2 Scale Used Numeric (0 - 10) Description Aching Frequency Frequent Pain Aggravating Factors ADL's,Activity,Exercise Pain Alleviating Factors Cold,Medication,Inactivity PT-OP-E Functional Tests Start: 09/08/19 17:33 Freq: Status: Active Protocol: Document 09/08/19 17:34 HH (Rec: 09/08/19 18:24 [email or web address]) Functional Tests Apley's Scratch Test Action 3- Left center of T6 Action 3- Right center of T4 with pain at medial elbow PT-OP-F Manual Assessment Start: 09/08/19 17:33 Freq: Status: Active Protocol: Document 09/08/19 17:34 HH (Rec: 09/08/19 18:24 HH [email or web address]) Manual Assessments Soft Tissue Assessment Soft Tissue Mobility Assessment tenderness to pressure at common extensor tendon and medial epicondyle and common flexor tendon radiating tingling and numbness reproduced with pressure at medial epicondyle PT-OP-H Neuro Start: 09/08/19 17:33 Freq: Status: Active Protocol: Document 09/08/19 17:34 HH (Rec: 09/08/19 18:24 HH [email or web address]) Deep Tendon Reflex & Clonus Assessment Deep Tendon Reflex Bilateral Brachioradialis Deep Tendon Reflex 2+ Normal Bilateral Tricep Deep Tendon Reflex 2+ Normal Bilateral Bicep Deep Tendon Reflex 2+ Normal PT-OP-K Range of Motion Start: 09/08/19 17:33 Freq: Status: Active Protocol: Document 09/08/19 17:34 HH (Rec: 09/08/19 18:24 HH [email or web address]) Shoulder Goniometric Range of Motion Shoulder Right Active Shoulder ROM WFL Yes Left Active Shoulder ROM WFL Yes Elbow/Forearm Range of Motion Elbow/Forearm Right Active Elbow/Forearm ROM WFL Yes Left Active Elbow/Forearm ROM WFL Yes Elbow/Forearm ROM Limitations Elbow/Forearm ROM Limitations Pain Comments pain noted at end range supination on L Wrist Goniometric Range of Motion Wrist Left Wrist ROM WFL Yes ROM Limitations Wrist Limitations of Range of Motion Pain Comments pain noted with end range wrist extensor PT-OP-L Special Tests Start: 09/08/19 17:33 Freq: Status: Active Protocol: Document 09/08/19 17:34 HH (Rec: 09/08/19 18:24 HH [email or web address]) Special Tests Elbow Special Tests Varus- 25 Degrees Test Results +ve L Comments stretching pain at lateral epicondyle Valgus- 25 Degrees Test Results +Ve L Comments stretching pain at medial epicondyle Medial Epicondylitis Test Results +ve L Comments pain with end range supination Lateral Epicondylitis Flexed Test Results -ve L Lateral Epicondylitis Extended Test Results +ve L Comments pain at end range on wrist extension PT-OP-M Strength Start: 09/08/19 17:33 Freq: Status: Active Protocol: Document 09/08/19 17:34 HH (Rec: 09/08/19 18:24 HH [email or web address]) Shoulder Strength Shoulder Manual Muscle Testing Left Flexion 5 Normal Extension 5 Normal Abduction (C5) 5 Normal Adduction 5 Normal Right Flexion 5 Normal Extension 5 Normal Abduction (C5) 5 Normal Adduction 5 Normal Elbow/Forearm Strength Elbow and Forearm Manual Muscle Testing Right Flexion (C6) 5 Normal Extension (C7) 5 Normal Pronation 5 Normal Supination 5 Normal Left Flexion (C6) 5 Normal Extension (C7) 5 Normal Pronation 4+ Good+ Supination 4+ Good+ Reason Not Measured Pain Comments pain with pronation and supination Hand Director [facility]/Pinch Strength Hand Dominance Hand Dominance Right Hand Strength Left Comments Dynanometer L compensation intern: postion 1= 52lbs, position 2= 60lbs (pain started at 20), position 3= 64lbs (pain started at 20) R compensation intern: postion 1= 65lbs, position 2= 90lbs , position 3 = 80lbs PT-OP-Q Treatments Start: 09/08/19 17:33 Freq: Status: Active Protocol: Document 09/08/19 17:34 (Rec: 09/08/19 18:24 [email or web address]) Therapeutic Exercises Sitting Exercises wrist stretch Sitting Exercise Name full wrist flexion and extension Side left Equipment Used tennis ball Comments for HEP tennis ball release Sitting Exercise Name at common flexor tendon and extensor tendon Side left Equipment Used tennis ball Comments for HEP Manual Therapy Treatment Soft Tissue Mobilization common extensor tendon Mobilization Type Myofascial Release,Sustained Pressure,Trigger Point Release Body Position Sitting common flexor tendon Mobilization Type Myofascial Release,Sustained Pressure,Trigger Point Release Intensity/Depth Moderate Body Position Sitting PT-OP-T Assessment and Plan Start: 09/08/19 17:33 Freq: Status: Active Protocol: Document 09/08/19 17:34 (Rec: 09/08/19 18:24 [email or web address]) Physical Therapy Assessment Rehab Potential Rehabilitation Potential Excellent Evaluation Complexity Number of Personal Factors/Comorbidities 1-2 Number of Body Systems Impaired 1-2 Clinical Presentation at Evaluation Stable Impairments Impairments Functional Activities, Functional Mobility,Pain,Soft Tissue Mobility,Strength Goals activity tolerance Impairment tingling and numbness reported while driving Shelter Goal (LTG) pt will have no discomfort/ neuro signs while driving >1 hour LTG Duration 6 weeks compensation intern strength Impairment pt shows 20-30lbs less in compensation intern strength compared to R compensation intern Chisel Grinder Goal (LTG) Pt will reach 90% of R compensation intern strength from dynanometer for all positions so patient can play golf and ride his bicycle without discomfort LTG Duration 6 weeks Quickdash Impairment pt scores 20.45 for quickdash Chisel Grinder Goal (LTG) pt will score less than 10 on quickdash to improve his quality of life such as sleep quality and opening a tight jar without discomfort. LTG Duration 6 weeks Assessment Summary Assessment This is a low complexity evaluation for this 73yo active male here for persistent elbow pain. Pt presents both medial and lateral epicondylitis/ tendonopathy whose pain is consistent with active and resisted pronation, supination , extension and gripping motion. His compensation intern strength is approx 20-30 lbs less than R side but have full shoulder, elbow and wrist ROM with WFL strength. Pt also has possible ulnar nerve entrapment with reports of tingling and numbness to 4th and 5th finger upon pressure at common flexor tendon. Pt will benefit from skilled therapy to address aforementioned symptoms in order for him to sleep and participate his recreational activities in pain free. Physical Therapy Plan Frequency and Duration Frequency of Treatment 1x/Week Duration of Treatment 6 weeks Plan of Care Start Date 09/08/19 Plan of Care End Date 10/23/19 Therapeutic Interventions Therapeutic Interventions Home Exercise Program,Joint Mobilizations,Manual Therapy, Neuromuscular Re-education, Patient/Caregiver Education, Self-Care/Home Management,Soft Tissue Mobilization,Taping, Therapeutic Activities, Therapeutic Exercises Modalities Cold Pack/Ice Massage,Hot Packs,Infrared Therapy, Ultrasound Next Visit Focus/Plan Next Note Type Treatment Note Next Visit Plan antonio on both flexor and extensor tendon, can teach pt to use butter knife for home use wrist flexion and extension stretch, isometric compensation intern and wrist flexion extension strengthening concentric/ eccentric strength if pt can rhea
--- NOTE | 2019-09-08 18:24 | PT.OPPOC ---
Physical, Occupational & Speech Therapy At [facility] Current Diagnoses Enthesopathy, unspecified (09/08/19) Visit Care Team Role Provider Type Jeane Boss MD Attending Provider Physician Family Provider Primary Care Provider Referring Provider Specialty: Family Practice Address: [address] [place] [address], [place], [address] Email: [email or web address] Plan Of Care PT-OP-T Assessment and Plan Start: 09/08/19 17:33 Freq: Status: Active Protocol: Document 09/08/19 17:34 HH (Rec: 09/08/19 18:24 HH [email or web address]) Physical Therapy Assessment Rehab Potential Rehabilitation Potential Excellent Evaluation Complexity Number of Personal Factors/Comorbidities 1-2 Number of Body Systems Impaired 1-2 Clinical Presentation at Evaluation Stable Impairments Impairments Functional Activities, Functional Mobility,Pain,Soft Tissue Mobility,Strength Goals activity tolerance Impairment tingling and numbness reported while driving Halfway Goal (LTG) pt will have no discomfort/ neuro signs while driving >1 hour LTG Duration 6 weeks sail finisher hand strength Impairment pt shows 20-30lbs less in sail finisher hand strength compared to R sail finisher hand Atg Architect Goal (LTG) Pt will reach 90% of R sail finisher hand strength from dynanometer for all positions so patient can play golf and ride his bicycle without discomfort LTG Duration 6 weeks Quickdash Impairment pt scores 20.45 for quickdash Halfway Goal (LTG) pt will score less than 10 on quickdash to improve his quality of life such as sleep quality and opening a tight jar without discomfort. LTG Duration 6 weeks Assessment Summary Assessment This is a low complexity evaluation for this 73yo active male here for persistent elbow pain. Pt presents both medial and lateral epicondylitis/ tendonopathy whose pain is consistent with active and resisted pronation, supination , extension and gripping motion. His sail finisher hand strength is approx 20-30 lbs less than R side but have full shoulder, elbow and wrist ROM with WFL strength. Pt also has possible ulnar nerve entrapment with reports of tingling and numbness to 4th and 5th finger upon pressure at common flexor tendon. Pt will benefit from skilled therapy to address aforementioned symptoms in order for him to sleep and participate his recreational activities in pain free. Physical Therapy Plan Frequency and Duration Frequency of Treatment 1x/Week Duration of Treatment 6 weeks Plan of Care Start Date 09/08/19 Plan of Care End Date 10/23/19 Therapeutic Interventions Therapeutic Interventions Home Exercise Program,Joint Mobilizations,Manual Therapy, Neuromuscular Re-education, Patient/Caregiver Education, Self-Care/Home Management,Soft Tissue Mobilization,Taping, Therapeutic Activities, Therapeutic Exercises Modalities Cold Pack/Ice Massage,Hot Packs,Infrared Therapy, Ultrasound Next Visit Focus/Plan Next Note Type Treatment Note Next Visit Plan [place] on both flexor and extensor tendon, can teach pt to use butter knife for home use wrist flexion and extension stretch, isometric sail finisher hand and wrist flexion extension strengthening concentric/ eccentric strength if pt can rhea Plan of Care Dates Plan of Care Start Date 09/08/19 Plan of Care End Date 10/23/19 Electronically Signed by: Naz Abdalla, PT 09/08/19 [id number] Please Sign and Return: I have reviewed this Plan of Care and certify that the skilled therapy services above are required to meet the patient?s needs. Physician Signature Date Printed Name and Credentials Clinical Instructor Signature Printed Name and Credentials
--- NOTE | 2019-09-12 13:00 | PT.OTN ---
Current Diagnoses Enthesopathy, unspecified (09/12/19) Physical Therapy Treatment Note PT-OP-A Visit Information Start: 09/08/19 17:33 Freq: Status: Active Protocol: Document 09/12/19 12:09 SP (Rec: 09/12/19 13:13 SP [id number]) Out-Patient Physical Therapy Visit Information Visit Information Visit Type Treatment Note Visit Start Time 12:13 Visit Stop Time 13:00 Total Visit Minutes 47 Visit Number 2/ Number of BACK PAD INSPECTOR Visits 1 PT-OP-B Current Condition Start: 09/08/19 17:33 Freq: Status: Active Protocol: Document 09/08/19 17:34 HH (Rec: 09/08/19 18:24 HH [email or web address]) Current Condition History of Current Condition Onset Date Since April, Current Complaints L elbow pain medial> lateral, difficulty with gripping motion History of Current Condition This is a 73yo active male here for persistent elbow pain . Pt reports having a hx of epicondylitis around 20 years ago and was treated with PT and Ot. Pt was able to fully recovered but did have recurrent episodes 2-3 times. He said ice and ibuprofen tends to help quickly. However , Pt has been having signifciant pain at the medial elbow but also new onset of pain at extensor muscles at the lateral elbow. He stated that his 4th and 5th fingers will go numb and tingly sometimes espeically holding the steering wheel while driving. Pt noticed weakness in the hand and symptoms tend to get worse when he moves hig arms after holding in one position for too long. He also noticed making a fist with supination also cause pain. Pt has been wearing an elbow brace which gives him stability, along with ice treatment and ibuprofen. Pt likes to play golf 1-2x/week and riding a bicyle regularly to keep himself physically active. Prior Treatments and Tests had PT for epicondylitis and received ultra sound tx which helps. Treatment Goals Patient/Caregiver Goals 1. to strengthen his forearm and paunch trimmer 2. to be pain free during sleep driving and exercises. PT-OP-C Subjective Start: 09/08/19 17:33 Freq: Status: Active Protocol: Document 09/12/19 12:09 SP (Rec: 09/12/19 13:13 SP [id number]) OP-PT Subjective Patient Comments Patient Comments Pt stated L medial/lateral felt better abotu 2 days after last tx. Is ok if stretching taught and brace wearing but if leaves still for long period of time hurts with mobility. PT-OP-E Functional Tests Start: 09/08/19 17:33 Freq: Status: Active Protocol: Document 09/08/19 17:34 HH (Rec: 09/08/19 18:24 [email or web address]) Functional Tests Apley's Scratch Test Action 3- Left center of T6 Action 3- Right center of T4 with pain at medial elbow PT-OP-F Manual Assessment Start: 09/08/19 17:33 Freq: Status: Active Protocol: Document 09/08/19 17:34 HH (Rec: 09/08/19 18:24 [email or web address]) Manual Assessments Soft Tissue Assessment Soft Tissue Mobility Assessment tenderness to pressure at common extensor tendon and medial epicondyle and common flexor tendon radiating tingling and numbness reproduced with pressure at medial epicondyle PT-OP-H Neuro Start: 09/08/19 17:33 Freq: Status: Active Protocol: Document 09/08/19 17:34 HH (Rec: 09/08/19 18:24 [email or web address]) Deep Tendon Reflex & Clonus Assessment Deep Tendon Reflex Bilateral Brachioradialis Deep Tendon Reflex 2+ Normal Bilateral Tricep Deep Tendon Reflex 2+ Normal Bilateral Bicep Deep Tendon Reflex 2+ Normal PT-OP-K Range of Motion Start: 09/08/19 17:33 Freq: Status: Active Protocol: Document 09/08/19 17:34 HH (Rec: 09/08/19 18:24 [email or web address]) Shoulder Goniometric Range of Motion Shoulder Right Active Shoulder ROM WFL Yes Left Active Shoulder ROM WFL Yes Elbow/Forearm Range of Motion Elbow/Forearm Right Active Elbow/Forearm ROM WFL Yes Left Active Elbow/Forearm ROM WFL Yes Elbow/Forearm ROM Limitations Elbow/Forearm ROM Limitations Pain Comments pain noted at end range supination on L Wrist Goniometric Range of Motion Wrist Left Wrist ROM WFL Yes ROM Limitations Wrist Limitations of Range of Motion Pain Comments pain noted with end range wrist extensor PT-OP-L Special Tests Start: 09/08/19 17:33 Freq: Status: Active Protocol: Document 09/08/19 17:34 HH (Rec: 09/08/19 18:24 [email or web address]) Special Tests Elbow Special Tests Varus- 25 Degrees Test Results +ve L Comments stretching pain at lateral epicondyle Valgus- 25 Degrees Test Results +Ve L Comments stretching pain at medial epicondyle Medial Epicondylitis Test Results +ve L Comments pain with end range supination Lateral Epicondylitis Flexed Test Results -ve L Lateral Epicondylitis Extended Test Results +ve L Comments pain at end range on wrist extension PT-OP-M Strength Start: 09/08/19 17:33 Freq: Status: Active Protocol: Document 09/08/19 17:34 HH (Rec: 09/08/19 18:24 HH [email or web address]) Shoulder Strength Shoulder Manual Muscle Testing Left Flexion 5 Normal Extension 5 Normal Abduction (C5) 5 Normal Adduction 5 Normal Right Flexion 5 Normal Extension 5 Normal Abduction (C5) 5 Normal Adduction 5 Normal Elbow/Forearm Strength Elbow and Forearm Manual Muscle Testing Right Flexion (C6) 5 Normal Extension (C7) 5 Normal Pronation 5 Normal Supination 5 Normal Left Flexion (C6) 5 Normal Extension (C7) 5 Normal Pronation 4+ Good+ Supination 4+ Good+ Reason Not Measured Pain Comments pain with pronation and supination Hand Retrimmer/Pinch Strength Hand Dominance Hand Dominance Right Hand Strength Left Comments Dynanometer L paunch trimmer: postion 1= 52lbs, position 2= 60lbs (pain started at 20), position 3= 64lbs (pain started at 20) R paunch trimmer: postion 1= 65lbs, position 2= 90lbs , position 3 = 80lbs PT-OP-Q Treatments Start: 09/08/19 17:33 Freq: Status: Active Protocol: Document 09/12/19 12:09 SP (Rec: 09/12/19 13:13 SP [id number]) Therapeutic Exercises Sitting Exercises resisted wrist Sitting Exercise Name with eccentric Flex, ext, UD, RD, pron, sup Resistance L1 TB Reps/Minutes 10 each wrist stretch Sitting Exercise Name full wrist flexion and extension Side left Equipment Used tennis ball Comments for HEP tennis ball release Sitting Exercise Name pin with finger or tool w/ eccentric with eccentric Flex, ext, UD, RD, pron Side left Equipment Used finger/ tool Comments HEP Manual Therapy Treatment Soft Tissue Mobilization common extensor tendon Mobilization Type Cross-Friction,Strumming, Sustained Pressure Intensity/Depth Moderate Body Position Sitting common flexor tendon Mobilization Type Cross-Friction,Rolling, Sustained Pressure Intensity/Depth Moderate Body Position Sitting Nerve Glides ulnar nerve glide Details L Body Position Standing Reps/Duration \ PT-OP-T Assessment and Plan Start: 09/08/19 17:33 Freq: Status: Active Protocol: Document 09/12/19 12:09 SP (Rec: 09/12/19 13:13 SP [id number]) Physical Therapy Assessment Goals activity tolerance Impairment tingling and numbness reported while driving Farm Manager Goal (LTG) pt will have no discomfort/ neuro signs while driving >1 hour LTG Duration 6 weeks paunch trimmer strength Impairment pt shows 20-30lbs less in paunch trimmer strength compared to R paunch trimmer Farm Manager Goal (LTG) Pt will reach 90% of R paunch trimmer strength from dynanometer for all positions so patient can play golf and ride his bicycle without discomfort LTG Duration 6 weeks Quickdash Impairment pt scores 20.45 for quickdash Farm Manager Goal (LTG) pt will score less than 10 on quickdash to improve his quality of life such as sleep quality and opening a tight jar without discomfort. LTG Duration 6 weeks Five Impairment Squatting causes increase in pain right hip Alf Goal (LTG) Patient able to do squatting movement for activities in the home and with gym exercises without an increase in pain 03/30/19: MET LTG Duration 03/30/19 Four Impairment weakness right hip ER 4-/5 Farm Manager Goal (LTG) Improve right hip ER to 4+/5 03/30/19: MET LTG Duration 03/30/19 Three Impairment Unable to get back to fitness exercises Alf Goal (LTG) Patient will get back to previous level of fitness exercises in the gym safely 2- 3x/wk 11-23-18 Pt exercising at gym 2 -3x/week with modifications 02/28/19: continues to improve but still some modifications 03/30/19: with fewer modifications, no sense of restriction LTG Duration 03/30/19 Two Impairment Limited distance ambulation Alf Goal (LTG) Pt will walk > 3 miles per day with no increase of symptoms 02/28/19: still some increase in symptoms, though improving 03/30/19: Pt has chosen to focus on rowing and cycling at the gym; has not attempted longer walks LTG Duration 03/30/19 One Impairment LEFS score 66/80 Farm Manager Goal (LTG) LEFS score > 72 to enhance quality of life 03/30/19: MET LEFS 74/80 LTG Duration MET Assessment Summary Assessment Pt tolerated tx well, focused on manual and self STMs, intruduced eccentric wrist flex/ext with manual pinning muscle and TB lengthening with good feedback and continue stretching, added to HEP. Physical Therapy Plan Frequency and Duration Frequency of Treatment 1x/Week Duration of Treatment 6 weeks Plan of Care Start Date 09/08/19 Plan of Care End Date 10/23/19 Therapeutic Interventions Therapeutic Interventions Home Exercise Program,Joint Mobilizations,Manual Therapy, Neuromuscular Re-education, Patient/Caregiver Education, Self-Care/Home Management,Soft Tissue Mobilization,Taping, Therapeutic Activities, Therapeutic Exercises Modalities Cold Pack/Ice Massage,Hot Packs,Infrared Therapy, Ultrasound Next Visit Focus/Plan Next Note Type Treatment Note Next Visit Plan Next tx add standing eccentric wrist/elbow flex/ext. Continue per PT: wrist flexion and extension stretch, isometric paunch trimmer and wrist flexion extension strengthening concentric/ eccentric strength if pt can rhea
--- NOTE | 2019-09-22 08:15 | PT.OTN ---
Current Diagnoses Enthesopathy, unspecified (09/22/19) Physical Therapy Treatment Note PT-OP-A Visit Information Start: 09/08/19 17:33 Freq: Status: Active Protocol: Document 09/22/19 07:37 MB (Rec: 09/22/19 08:14 MB [id number]) Out-Patient Physical Therapy Visit Information Visit Information Visit Type Treatment Note Visit Note Pt arrives late to appointment Visit Start Time 07:37 Visit Stop Time 08:15 Total Visit Minutes 38 Visit Number 3 Number of DIRECTOR OF PHYSIOTHERAPY SERVICES Visits 0 PT-OP-B Current Condition Start: 09/08/19 17:33 Freq: Status: Active Protocol: Document 09/08/19 17:34 HH (Rec: 09/08/19 18:24 HH [email or web address]) Current Condition History of Current Condition Onset Date Since April, Current Complaints L elbow pain medial> lateral, difficulty with gripping motion History of Current Condition This is a 73yo active male here for persistent elbow pain . Pt reports having a hx of epicondylitis around 20 years ago and was treated with PT and Ot. Pt was able to fully recovered but did have recurrent episodes 2-3 times. He said ice and ibuprofen tends to help quickly. However , Pt has been having signifciant pain at the medial elbow but also new onset of pain at extensor muscles at the lateral elbow. He stated that his 4th and 5th fingers will go numb and tingly sometimes espeically holding the steering wheel while driving. Pt noticed weakness in the hand and symptoms tend to get worse when he moves hig arms after holding in one position for too long. He also noticed making a fist with supination also cause pain. Pt has been wearing an elbow brace which gives him stability, along with ice treatment and ibuprofen. Pt likes to play golf 1-2x/week and riding a bicyle regularly to keep himself physically active. Prior Treatments and Tests had PT for epicondylitis and received ultra sound tx which helps. Treatment Goals Patient/Caregiver Goals 1. to strengthen his forearm and warp hauler 2. to be pain free during sleep driving and exercises. PT-OP-C Subjective Start: 09/08/19 17:33 Freq: Status: Active Protocol: Document 09/22/19 07:37 MB (Rec: 09/22/19 08:14 MB [id number]) OP-PT Subjective Patient Comments Patient Comments Pt states that he still has some pain with turning exercises and demonstrates supination and pronation. He is taking ibuprofen. He is icing. He is performing ice massage. PT-OP-E Functional Tests Start: 09/08/19 17:33 Freq: Status: Active Protocol: Document 09/08/19 17:34 HH (Rec: 09/08/19 18:24 [email or web address]) Functional Tests Apley's Scratch Test Action 3- Left center of T6 Action 3- Right center of T4 with pain at medial elbow PT-OP-F Manual Assessment Start: 09/08/19 17:33 Freq: Status: Active Protocol: Document 09/08/19 17:34 HH (Rec: 09/08/19 18:24 [email or web address]) Manual Assessments Soft Tissue Assessment Soft Tissue Mobility Assessment tenderness to pressure at common extensor tendon and medial epicondyle and common flexor tendon radiating tingling and numbness reproduced with pressure at medial epicondyle PT-OP-H Neuro Start: 09/08/19 17:33 Freq: Status: Active Protocol: Document 09/08/19 17:34 HH (Rec: 09/08/19 18:24 [email or web address]) Deep Tendon Reflex & Clonus Assessment Deep Tendon Reflex Bilateral Brachioradialis Deep Tendon Reflex 2+ Normal Bilateral Tricep Deep Tendon Reflex 2+ Normal Bilateral Bicep Deep Tendon Reflex 2+ Normal PT-OP-K Range of Motion Start: 09/08/19 17:33 Freq: Status: Active Protocol: Document 09/08/19 17:34 HH (Rec: 09/08/19 18:24 [email or web address]) Shoulder Goniometric Range of Motion Shoulder Right Active Shoulder ROM WFL Yes Left Active Shoulder ROM WFL Yes Elbow/Forearm Range of Motion Elbow/Forearm Right Active Elbow/Forearm ROM WFL Yes Left Active Elbow/Forearm ROM WFL Yes Elbow/Forearm ROM Limitations Elbow/Forearm ROM Limitations Pain Comments pain noted at end range supination on L Wrist Goniometric Range of Motion Wrist Left Wrist ROM WFL Yes ROM Limitations Wrist Limitations of Range of Motion Pain Comments pain noted with end range wrist extensor PT-OP-L Special Tests Start: 09/08/19 17:33 Freq: Status: Active Protocol: Document 09/08/19 17:34 HH (Rec: 09/08/19 18:24 [email or web address]) Special Tests Elbow Special Tests Varus- 25 Degrees Test Results +ve L Comments stretching pain at lateral epicondyle Valgus- 25 Degrees Test Results +Ve L Comments stretching pain at medial epicondyle Medial Epicondylitis Test Results +ve L Comments pain with end range supination Lateral Epicondylitis Flexed Test Results -ve L Lateral Epicondylitis Extended Test Results +ve L Comments pain at end range on wrist extension PT-OP-M Strength Start: 09/08/19 17:33 Freq: Status: Active Protocol: Document 09/08/19 17:34 HH (Rec: 09/08/19 18:24 HH [email or web address]) Shoulder Strength Shoulder Manual Muscle Testing Left Flexion 5 Normal Extension 5 Normal Abduction (C5) 5 Normal Adduction 5 Normal Right Flexion 5 Normal Extension 5 Normal Abduction (C5) 5 Normal Adduction 5 Normal Elbow/Forearm Strength Elbow and Forearm Manual Muscle Testing Right Flexion (C6) 5 Normal Extension (C7) 5 Normal Pronation 5 Normal Supination 5 Normal Left Flexion (C6) 5 Normal Extension (C7) 5 Normal Pronation 4+ Good+ Supination 4+ Good+ Reason Not Measured Pain Comments pain with pronation and supination Hand Product Strategy Director/Pinch Strength Hand Dominance Hand Dominance Right Hand Strength Left Comments Dynanometer L warp hauler: postion 1= 52lbs, position 2= 60lbs (pain started at 20), position 3= 64lbs (pain started at 20) R warp hauler: postion 1= 65lbs, position 2= 90lbs , position 3 = 80lbs PT-OP-Q Treatments Start: 09/08/19 17:33 Freq: Status: Active Protocol: Document 09/22/19 07:37 MB (Rec: 09/22/19 08:14 MB [id number]) Therapeutic Exercises Standing Exercises 9 Standing Exercise Name Wax on and wax off with level 1 band Reps/Minutes 5 reps Comments 5 reps each side against wall, made video 8 Standing Exercise Name Instrascapular STM with racquet ball Comments B, against wall 7 Standing Exercise Name Triceps STM with racquet ball Comments MWM with arm extension, trigger point, video made 6 Standing Exercise Name STM and MWM for infraspinatus Comments Active shoulder ER and IR, left shoulder, added for HEP Self-Care/Home Management Treatment Activities Self-Care/Home Management Activities Proper sleeping position with pillow support between arms and use of brace, quick icing and PT quick ices pt and pt finishes up with it today, only perform exercises in pain -free range and reduce frequency PT-OP-T Assessment and Plan Start: 09/08/19 17:33 Freq: Status: Active Protocol: Document 09/22/19 07:37 MB (Rec: 09/22/19 08:14 MB [id number]) Physical Therapy Assessment Goals activity tolerance Impairment tingling and numbness reported while driving Longterm Goal (LTG) pt will have no discomfort/ neuro signs while driving >1 hour LTG Duration 6 weeks warp hauler strength Impairment pt shows 20-30lbs less in warp hauler strength compared to R warp hauler Websphere Developer Goal (LTG) Pt will reach 90% of R warp hauler strength from dynanometer for all positions so patient can play golf and ride his bicycle without discomfort LTG Duration 6 weeks Quickdash Impairment pt scores 20.45 for quickdash Websphere Developer Goal (LTG) pt will score less than 10 on quickdash to improve his quality of life such as sleep quality and opening a tight jar without discomfort. LTG Duration 6 weeks Five Impairment Squatting causes increase in pain right hip Longterm Goal (LTG) Patient able to do squatting movement for activities in the home and with gym exercises without an increase in pain 03/30/19: MET LTG Duration 03/30/19 Four Impairment weakness right hip ER 4-/5 Websphere Developer Goal (LTG) Improve right hip ER to 4+/5 03/30/19: MET LTG Duration 03/30/19 Three Impairment Unable to get back to fitness exercises Longterm Goal (LTG) Patient will get back to previous level of fitness exercises in the gym safely 2- 3x/wk 11-23-18 Pt exercising at gym 2 -3x/week with modifications 02/28/19: continues to improve but still some modifications 03/30/19: with fewer modifications, no sense of restriction LTG Duration 03/30/19 Two Impairment Limited distance ambulation Websphere Developer Goal (LTG) Pt will walk > 3 miles per day with no increase of symptoms 02/28/19: still some increase in symptoms, though improving 03/30/19: Pt has chosen to focus on rowing and cycling at the gym; has not attempted longer walks LTG Duration 03/30/19 One Impairment LEFS score 66/80 Longterm Goal (LTG) LEFS score > 72 to enhance quality of life 03/30/19: MET LEFS 74/80 LTG Duration MET Assessment Summary Assessment PT ed pt to only perform strengthening exercises every other day or 3x/wk, especially ones that caused pain. Initiated scapular and shoulder exercises today and self-STM with racquet ball to promote thoracic and fascial mobility. Con't thoracic mobility and shoulder and scapular strengthening. Physical Therapy Plan Frequency and Duration Frequency of Treatment 1x/Week Duration of Treatment 6 weeks Plan of Care Start Date 09/08/19 Plan of Care End Date 10/23/19 Therapeutic Interventions Therapeutic Interventions Home Exercise Program,Joint Mobilizations,Manual Therapy, Neuromuscular Re-education, Patient/Caregiver Education, Self-Care/Home Management,Soft Tissue Mobilization,Taping, Therapeutic Activities, Therapeutic Exercises Modalities Cold Pack/Ice Massage,Hot Packs,Infrared Therapy, Ultrasound Next Visit Focus/Plan Next Note Type Treatment Note Next Visit Plan Progress thoracic mobility and shoulder strengthening Continue per PT: wrist flexion and extension stretch, isometric warp hauler and wrist flexion extension strengthening concentric/ eccentric strength if pt can rhea
--- NOTE | 2019-09-30 10:33 | PT.OTN ---
Current Diagnoses Enthesopathy, unspecified (09/30/19) Physical Therapy Treatment Note PT-OP-A Visit Information Start: 09/08/19 17:33 Freq: Status: Active Protocol: Document 09/30/19 09:50 SP (Rec: 09/30/19 11:42 SP [id number]) Out-Patient Physical Therapy Visit Information Visit Information Visit Type Treatment Note Visit Start Time 09:50 Visit Stop Time 10:33 Total Visit Minutes 43 Visit Number 4 Number of RECORDIST CHIEF Visits 1 PT-OP-B Current Condition Start: 09/08/19 17:33 Freq: Status: Active Protocol: Document 09/08/19 17:34 HH (Rec: 09/08/19 18:24 HH [email or web address]) Current Condition History of Current Condition Onset Date Since April, Current Complaints L elbow pain medial> lateral, difficulty with gripping motion History of Current Condition This is a 73yo active male here for persistent elbow pain . Pt reports having a hx of epicondylitis around 20 years ago and was treated with PT and Ot. Pt was able to fully recovered but did have recurrent episodes 2-3 times. He said ice and ibuprofen tends to help quickly. However , Pt has been having signifciant pain at the medial elbow but also new onset of pain at extensor muscles at the lateral elbow. He stated that his 4th and 5th fingers will go numb and tingly sometimes espeically holding the steering wheel while driving. Pt noticed weakness in the hand and symptoms tend to get worse when he moves hig arms after holding in one position for too long. He also noticed making a fist with supination also cause pain. Pt has been wearing an elbow brace which gives him stability, along with ice treatment and ibuprofen. Pt likes to play golf 1-2x/week and riding a bicyle regularly to keep himself physically active. Prior Treatments and Tests had PT for epicondylitis and received ultra sound tx which helps. Treatment Goals Patient/Caregiver Goals 1. to strengthen his forearm and impregnator helper 2. to be pain free during sleep driving and exercises. PT-OP-C Subjective Start: 09/08/19 17:33 Freq: Status: Active Protocol: Document 09/30/19 09:50 SP (Rec: 09/30/19 11:42 SP [id number]) OP-PT Subjective Patient Comments Patient Comments Pt stated seeing improvement in decreased pain in L elbow. Still bothersome picking up and with twist objects, wrist supination end range and flexion end range over medial epicondyle. Ball rolling instructions for self STMs helped alot and noted no pain over distal tricep and less lateral scap. PT-OP-E Functional Tests Start: 09/08/19 17:33 Freq: Status: Active Protocol: Document 09/08/19 17:34 HH (Rec: 09/08/19 18:24 [email or web address]) Functional Tests Apley's Scratch Test Action 3- Left center of T6 Action 3- Right center of T4 with pain at medial elbow PT-OP-F Manual Assessment Start: 09/08/19 17:33 Freq: Status: Active Protocol: Document 09/08/19 17:34 HH (Rec: 09/08/19 18:24 [email or web address]) Manual Assessments Soft Tissue Assessment Soft Tissue Mobility Assessment tenderness to pressure at common extensor tendon and medial epicondyle and common flexor tendon radiating tingling and numbness reproduced with pressure at medial epicondyle PT-OP-H Neuro Start: 09/08/19 17:33 Freq: Status: Active Protocol: Document 09/08/19 17:34 HH (Rec: 09/08/19 18:24 [email or web address]) Deep Tendon Reflex & Clonus Assessment Deep Tendon Reflex Bilateral Brachioradialis Deep Tendon Reflex 2+ Normal Bilateral Tricep Deep Tendon Reflex 2+ Normal Bilateral Bicep Deep Tendon Reflex 2+ Normal PT-OP-K Range of Motion Start: 09/08/19 17:33 Freq: Status: Active Protocol: Document 09/08/19 17:34 HH (Rec: 09/08/19 18:24 [email or web address]) Shoulder Goniometric Range of Motion Shoulder Right Active Shoulder ROM WFL Yes Left Active Shoulder ROM WFL Yes Elbow/Forearm Range of Motion Elbow/Forearm Right Active Elbow/Forearm ROM WFL Yes Left Active Elbow/Forearm ROM WFL Yes Elbow/Forearm ROM Limitations Elbow/Forearm ROM Limitations Pain Comments pain noted at end range supination on L Wrist Goniometric Range of Motion Wrist Left Wrist ROM WFL Yes ROM Limitations Wrist Limitations of Range of Motion Pain Comments pain noted with end range wrist extensor PT-OP-L Special Tests Start: 09/08/19 17:33 Freq: Status: Active Protocol: Document 09/08/19 17:34 HH (Rec: 09/08/19 18:24 [email or web address]) Special Tests Elbow Special Tests Varus- 25 Degrees Test Results +ve L Comments stretching pain at lateral epicondyle Valgus- 25 Degrees Test Results +Ve L Comments stretching pain at medial epicondyle Medial Epicondylitis Test Results +ve L Comments pain with end range supination Lateral Epicondylitis Flexed Test Results -ve L Lateral Epicondylitis Extended Test Results +ve L Comments pain at end range on wrist extension PT-OP-M Strength Start: 09/08/19 17:33 Freq: Status: Active Protocol: Document 09/08/19 17:34 (Rec: 09/08/19 18:24 [email or web address]) Shoulder Strength Shoulder Manual Muscle Testing Left Flexion 5 Normal Extension 5 Normal Abduction (C5) 5 Normal Adduction 5 Normal Right Flexion 5 Normal Extension 5 Normal Abduction (C5) 5 Normal Adduction 5 Normal Elbow/Forearm Strength Elbow and Forearm Manual Muscle Testing Right Flexion (C6) 5 Normal Extension (C7) 5 Normal Pronation 5 Normal Supination 5 Normal Left Flexion (C6) 5 Normal Extension (C7) 5 Normal Pronation 4+ Good+ Supination 4+ Good+ Reason Not Measured Pain Comments pain with pronation and supination Hand Manager Core/Pinch Strength Hand Dominance Hand Dominance Right Hand Strength Left Comments Dynanometer L impregnator helper: postion 1= 52lbs, position 2= 60lbs (pain started at 20), position 3= 64lbs (pain started at 20) R impregnator helper: postion 1= 65lbs, position 2= 90lbs , position 3 = 80lbs PT-OP-Q Treatments Start: 09/08/19 17:33 Freq: Status: Active Protocol: Document 09/30/19 09:50 SP (Rec: 09/30/19 11:42 SP [id number]) Therapeutic Exercises Standing Exercises 9 Standing Exercise Name Wax on and wax off with level 1 band Equipment Used lv 1 band Reps/Minutes 5 repsx2 Comments 5 reps each side against wall, made video 7 Standing Exercise Name Triceps and latissimus STM with racquet ball Comments no more pain now, gone so not needing to do 6 Standing Exercise Name STM and MWM for infraspinatus Comments Active shoulder ER and IR, left shoulder, added for HEP Manual Therapy Treatment Joint Mobilizations medial/ lateral elbow glide Joint L humeral ulnar jt Direction med/ lat/ distraction inf glide Grade II Body Position Supine Comments 8 min PT-OP-T Assessment and Plan Start: 09/08/19 17:33 Freq: Status: Active Protocol: Document 09/30/19 09:50 SP (Rec: 09/30/19 11:42 SP [id number]) Physical Therapy Assessment Goals activity tolerance Impairment tingling and numbness reported while driving Residential Goal (LTG) pt will have no discomfort/ neuro signs while driving >1 hour LTG Duration 6 weeks impregnator helper strength Impairment pt shows 20-30lbs less in impregnator helper strength compared to R impregnator helper Pad Cutter Goal (LTG) Pt will reach 90% of R impregnator helper strength from dynanometer for all positions so patient can play golf and ride his bicycle without discomfort LTG Duration 6 weeks Quickdash Impairment pt scores 20.45 for quickdash Residential Goal (LTG) pt will score less than 10 on quickdash to improve his quality of life such as sleep quality and opening a tight jar without discomfort. LTG Duration 6 weeks Five Impairment Squatting causes increase in pain right hip Residential Goal (LTG) Patient able to do squatting movement for activities in the home and with gym exercises without an increase in pain 03/30/19: MET LTG Duration 03/30/19 Four Impairment weakness right hip ER 4-/5 Pad Cutter Goal (LTG) Improve right hip ER to 4+/5 03/30/19: MET LTG Duration 03/30/19 Three Impairment Unable to get back to fitness exercises Pad Cutter Goal (LTG) Patient will get back to previous level of fitness exercises in the gym safely 2- 3x/wk 11-23-18 Pt exercising at gym 2 -3x/week with modifications 02/28/19: continues to improve but still some modifications 03/30/19: with fewer modifications, no sense of restriction LTG Duration 03/30/19 Two Impairment Limited distance ambulation Residential Goal (LTG) Pt will walk > 3 miles per day with no increase of symptoms 02/28/19: still some increase in symptoms, though improving 03/30/19: Pt has chosen to focus on rowing and cycling at the gym; has not attempted longer walks LTG Duration 03/30/19 One Impairment LEFS score 66/80 Residential Goal (LTG) LEFS score > 72 to enhance quality of life 03/30/19: MET LEFS 74/80 LTG Duration MET Assessment Summary Assessment Tx focused on L elbow flexibility/ STMs of L scapula ,elbow/forearm and HEP review. Initiated manual L humeral- ulnar jt mob (mulligan techniques) with no significant improvement reported better. STMs performed primarily over L common extensor tendon per patient area of still discomfort with feedback is helpful- discussed and demonstrated self STMs hands, opposite end utensils or his tools if good results decresaed pain. Pt responded well little looser. Cued requiring for windshield wiper ex was given last tx, decreased range and hands little higher on wall (limited Wrist ext range so heels hands coming off wall) improved increase range as reps progresed and good self awareness of scap depression/ retraction stabilization demonstrated and self corrections. Physical Therapy Plan Frequency and Duration Frequency of Treatment 1x/Week Duration of Treatment 6 weeks Plan of Care Start Date 09/08/19 Plan of Care End Date 10/23/19 Therapeutic Interventions Therapeutic Interventions Home Exercise Program,Joint Mobilizations,Manual Therapy, Neuromuscular Re-education, Patient/Caregiver Education, Self-Care/Home Management,Soft Tissue Mobilization,Taping, Therapeutic Activities, Therapeutic Exercises Modalities Cold Pack/Ice Massage,Hot Packs,Infrared Therapy, Ultrasound Next Visit Focus/Plan Next Note Type Treatment Note Next Visit Plan Assess response to elbow med/ lat/inf mobs on L and MWM self STMs common extensor tendon and confidence with HEP PT Stacey initiated last tx. Assess elbow stretching next tx.Suggested possibly wearing elbow wrap with pillow over CFT to decrease pull while doing supinated/wrist flexion activities? Continue per PT POC: Progress thoracic mobility and shoulder strengthening, work into standing eccentric wrist/ elbow flex/ext. Continue per PT: isometric impregnator helper and wrist flexion extension strengthening concentric/ eccentric strength if pt can rhea
--- NOTE | 2019-10-06 15:09 | PT.OTN ---
Current Diagnoses Enthesopathy, unspecified (10/06/19) Physical Therapy Treatment Note PT-OP-A Visit Information Start: 09/08/19 17:33 Freq: Status: Active Protocol: Document 10/06/19 13:48 HH (Rec: 10/06/19 15:09 [id number]) Out-Patient Physical Therapy Visit Information Visit Information Visit Type Treatment Note Visit Start Time 13:48 Visit Stop Time 14:30 Total Visit Minutes 42 Visit Number 5 Number of EDGING MACHINE OPERATOR Visits 0 PT-OP-B Current Condition Start: 09/08/19 17:33 Freq: Status: Active Protocol: Document 09/08/19 17:34 HH (Rec: 09/08/19 18:24 HH [email or web address]) Current Condition History of Current Condition Onset Date Since April, Current Complaints L elbow pain medial> lateral, difficulty with gripping motion History of Current Condition This is a 73yo active male here for persistent elbow pain . Pt reports having a hx of epicondylitis around 20 years ago and was treated with PT and Ot. Pt was able to fully recovered but did have recurrent episodes 2-3 times. He said ice and ibuprofen tends to help quickly. However , Pt has been having signifciant pain at the medial elbow but also new onset of pain at extensor muscles at the lateral elbow. He stated that his 4th and 5th fingers will go numb and tingly sometimes espeically holding the steering wheel while driving. Pt noticed weakness in the hand and symptoms tend to get worse when he moves hig arms after holding in one position for too long. He also noticed making a fist with supination also cause pain. Pt has been wearing an elbow brace which gives him stability, along with ice treatment and ibuprofen. Pt likes to play golf 1-2x/week and riding a bicyle regularly to keep himself physically active. Prior Treatments and Tests had PT for epicondylitis and received ultra sound tx which helps. Treatment Goals Patient/Caregiver Goals 1. to strengthen his forearm and back padder 2. to be pain free during sleep driving and exercises. PT-OP-C Subjective Start: 09/08/19 17:33 Freq: Status: Active Protocol: Document 10/06/19 13:48 HH (Rec: 10/06/19 15:09 HH [id number]) OP-PT Subjective Patient Comments Patient Comments Pt still has discomfort on common extensor tendon and olecranon at end range active supination and flexion. He stated he is getting better with low grade 1/10 pain and able to play golf Patient Reported Progress Improving PT-OP-E Functional Tests Start: 09/08/19 17:33 Freq: Status: Active Protocol: Document 09/08/19 17:34 HH (Rec: 09/08/19 18:24 [email or web address]) Functional Tests Apley's Scratch Test Action 3- Left center of T6 Action 3- Right center of T4 with pain at medial elbow PT-OP-F Manual Assessment Start: 09/08/19 17:33 Freq: Status: Active Protocol: Document 09/08/19 17:34 HH (Rec: 09/08/19 18:24 [email or web address]) Manual Assessments Soft Tissue Assessment Soft Tissue Mobility Assessment tenderness to pressure at common extensor tendon and medial epicondyle and common flexor tendon radiating tingling and numbness reproduced with pressure at medial epicondyle PT-OP-H Neuro Start: 09/08/19 17:33 Freq: Status: Active Protocol: Document 09/08/19 17:34 HH (Rec: 09/08/19 18:24 [email or web address]) Deep Tendon Reflex & Clonus Assessment Deep Tendon Reflex Bilateral Brachioradialis Deep Tendon Reflex 2+ Normal Bilateral Tricep Deep Tendon Reflex 2+ Normal Bilateral Bicep Deep Tendon Reflex 2+ Normal PT-OP-K Range of Motion Start: 09/08/19 17:33 Freq: Status: Active Protocol: Document 09/08/19 17:34 HH (Rec: 09/08/19 18:24 [email or web address]) Shoulder Goniometric Range of Motion Shoulder Right Active Shoulder ROM WFL Yes Left Active Shoulder ROM WFL Yes Elbow/Forearm Range of Motion Elbow/Forearm Right Active Elbow/Forearm ROM WFL Yes Left Active Elbow/Forearm ROM WFL Yes Elbow/Forearm ROM Limitations Elbow/Forearm ROM Limitations Pain Comments pain noted at end range supination on L Wrist Goniometric Range of Motion Wrist Left Wrist ROM WFL Yes ROM Limitations Wrist Limitations of Range of Motion Pain Comments pain noted with end range wrist extensor PT-OP-L Special Tests Start: 09/08/19 17:33 Freq: Status: Active Protocol: Document 09/08/19 17:34 HH (Rec: 09/08/19 18:24 [email or web address]) Special Tests Elbow Special Tests Varus- 25 Degrees Test Results +ve L Comments stretching pain at lateral epicondyle Valgus- 25 Degrees Test Results +Ve L Comments stretching pain at medial epicondyle Medial Epicondylitis Test Results +ve L Comments pain with end range supination Lateral Epicondylitis Flexed Test Results -ve L Lateral Epicondylitis Extended Test Results +ve L Comments pain at end range on wrist extension PT-OP-M Strength Start: 09/08/19 17:33 Freq: Status: Active Protocol: Document 09/08/19 17:34 HH (Rec: 09/08/19 18:24 [email or web address]) Shoulder Strength Shoulder Manual Muscle Testing Left Flexion 5 Normal Extension 5 Normal Abduction (C5) 5 Normal Adduction 5 Normal Right Flexion 5 Normal Extension 5 Normal Abduction (C5) 5 Normal Adduction 5 Normal Elbow/Forearm Strength Elbow and Forearm Manual Muscle Testing Right Flexion (C6) 5 Normal Extension (C7) 5 Normal Pronation 5 Normal Supination 5 Normal Left Flexion (C6) 5 Normal Extension (C7) 5 Normal Pronation 4+ Good+ Supination 4+ Good+ Reason Not Measured Pain Comments pain with pronation and supination Hand Compo Caster/Pinch Strength Hand Dominance Hand Dominance Right Hand Strength Left Comments Dynanometer L back padder: postion 1= 52lbs, position 2= 60lbs (pain started at 20), position 3= 64lbs (pain started at 20) R back padder: postion 1= 65lbs, position 2= 90lbs , position 3 = 80lbs PT-OP-Q Treatments Start: 09/08/19 17:33 Freq: Status: Active Protocol: Document 10/06/19 13:48 HH (Rec: 10/06/19 15:09 [id number]) Therapeutic Exercises Sitting Exercises towel twisting Sitting Exercise Name towel in vertical position Side bilateral Reps/Minutes 8 x2 Comments for HEP wrist flexion and extension TB twisting bar Sitting Exercise Name for both flexion and extension Side bilateral Equipment Used TB red twisting bar Reps/Minutes 5 x 2for HEP Comments no discomfort with elbow at 90 degrees, but pain with arms straight out hammer Sitting Exercise Name start at the top of hammer then down to bottom Reps/Minutes 8x2, for HEP Comments focus on eccentric lowering, has pain initially but went away Standing Exercises self ball toss Standing Exercise Name yellow 2lbs ball Side left Reps/Minutes 1 mins Comments discomfort noted at common extensor tendon, ball toss Standing Exercise Name tennis ball, green and red weighted ball Side left Reps/Minutes 4 mins Comments ball toss with PT, (upper hand ) no discomfort noted Manual Therapy Treatment Soft Tissue Mobilization common extensor tendon Body Location common extensor tendon Mobilization Type Sustained Pressure,Trigger Point Release Intensity/Depth Moderate Body Position Supine Comments minimal discomfort noted. PT-OP-T Assessment and Plan Start: 09/08/19 17:33 Freq: Status: Active Protocol: Document 10/06/19 13:48 HH (Rec: 10/06/19 15:09 HH [id number]) Physical Therapy Assessment Goals activity tolerance Impairment tingling and numbness reported while driving Data Reduction Technician Goal (LTG) pt will have no discomfort/ neuro signs while driving >1 hour LTG Duration 6 weeks back padder strength Impairment pt shows 20-30lbs less in back padder strength compared to R back padder Longterm Goal (LTG) Pt will reach 90% of R back padder strength from dynanometer for all positions so patient can play golf and ride his bicycle without discomfort LTG Duration 6 weeks Quickdash Impairment pt scores 20.45 for quickdash Data Reduction Technician Goal (LTG) pt will score less than 10 on quickdash to improve his quality of life such as sleep quality and opening a tight jar without discomfort. LTG Duration 6 weeks Progress Towards Goals Progress Towards Goals Progressing Toward Goals Assessment Summary Assessment Pt progress very well with low grade 1/10 pain only. pt only has discomfort with end range active supination and wrist flexion. His discomfort decreased with repetition of his new ex including, hammer for sup and pronation, towel twisting for flexion extension , and self ball toss. Physical Therapy Plan Therapeutic Interventions Therapeutic Interventions Home Exercise Program,Joint Mobilizations,Manual Therapy, Neuromuscular Re-education, Patient/Caregiver Education, Self-Care/Home Management,Soft Tissue Mobilization,Taping, Therapeutic Activities, Therapeutic Exercises Modalities Cold Pack/Ice Massage,Hot Packs,Infrared Therapy, Ultrasound Next Visit Focus/Plan Next Note Type Treatment Note Next Visit Plan Assess response to elbow med/ lat/inf mobs on L and MWM self STMs common extensor tendon and confidence with HEP PT Stacey initiated last tx. Assess elbow stretching next tx. Continue per PT POC: Progress thoracic mobility and shoulder strengthening, work into standing eccentric wrist/ elbow flex/ext. Continue per PT: isometric back padder and wrist flexion extension strengthening concentric/ eccentric strength if pt can rhea
--- NOTE | 2019-10-13 14:32 | PT.OTN ---
Current Diagnoses Enthesopathy, unspecified (10/13/19) Physical Therapy Treatment Note PT-OP-A Visit Information Start: 09/08/19 17:33 Freq: Status: Active Protocol: Document 10/13/19 13:52 HH (Rec: 10/13/19 14:32 [id number]) Out-Patient Physical Therapy Visit Information Visit Information Visit Type Treatment Note Visit Start Time 13:47 Visit Stop Time 14:30 Total Visit Minutes 43 Visit Number 6 Number of PEDIGREE RESEARCHER Visits 0 PT-OP-B Current Condition Start: 09/08/19 17:33 Freq: Status: Active Protocol: Document 09/08/19 17:34 HH (Rec: 09/08/19 18:24 HH [email or web address]) Current Condition History of Current Condition Onset Date Since April, Current Complaints L elbow pain medial> lateral, difficulty with gripping motion History of Current Condition This is a 73yo active male here for persistent elbow pain . Pt reports having a hx of epicondylitis around 20 years ago and was treated with PT and Ot. Pt was able to fully recovered but did have recurrent episodes 2-3 times. He said ice and ibuprofen tends to help quickly. However , Pt has been having signifciant pain at the medial elbow but also new onset of pain at extensor muscles at the lateral elbow. He stated that his 4th and 5th fingers will go numb and tingly sometimes espeically holding the steering wheel while driving. Pt noticed weakness in the hand and symptoms tend to get worse when he moves hig arms after holding in one position for too long. He also noticed making a fist with supination also cause pain. Pt has been wearing an elbow brace which gives him stability, along with ice treatment and ibuprofen. Pt likes to play golf 1-2x/week and riding a bicyle regularly to keep himself physically active. Prior Treatments and Tests had PT for epicondylitis and received ultra sound tx which helps. Treatment Goals Patient/Caregiver Goals 1. to strengthen his forearm and manager data warehousing 2. to be pain free during sleep driving and exercises. PT-OP-C Subjective Start: 09/08/19 17:33 Freq: Status: Active Protocol: Document 10/13/19 13:52 HH (Rec: 10/13/19 14:32 HH [id number]) OP-PT Subjective Patient Comments Patient Comments I feel pretty good overall and i ve been doing all my exercises. And I mostly feel soreness but not pain. I did a lot of yard work lately so it did give me some soreness. Patient Reported Progress Improving PT-OP-E Functional Tests Start: 09/08/19 17:33 Freq: Status: Active Protocol: Document 09/08/19 17:34 HH (Rec: 09/08/19 18:24 [email or web address]) Functional Tests Apley's Scratch Test Action 3- Left center of T6 Action 3- Right center of T4 with pain at medial elbow PT-OP-F Manual Assessment Start: 09/08/19 17:33 Freq: Status: Active Protocol: Document 09/08/19 17:34 HH (Rec: 09/08/19 18:24 [email or web address]) Manual Assessments Soft Tissue Assessment Soft Tissue Mobility Assessment tenderness to pressure at common extensor tendon and medial epicondyle and common flexor tendon radiating tingling and numbness reproduced with pressure at medial epicondyle PT-OP-H Neuro Start: 09/08/19 17:33 Freq: Status: Active Protocol: Document 09/08/19 17:34 HH (Rec: 09/08/19 18:24 [email or web address]) Deep Tendon Reflex & Clonus Assessment Deep Tendon Reflex Bilateral Brachioradialis Deep Tendon Reflex 2+ Normal Bilateral Tricep Deep Tendon Reflex 2+ Normal Bilateral Bicep Deep Tendon Reflex 2+ Normal PT-OP-K Range of Motion Start: 09/08/19 17:33 Freq: Status: Active Protocol: Document 09/08/19 17:34 HH (Rec: 09/08/19 18:24 [email or web address]) Shoulder Goniometric Range of Motion Shoulder Right Active Shoulder ROM WFL Yes Left Active Shoulder ROM WFL Yes Elbow/Forearm Range of Motion Elbow/Forearm Right Active Elbow/Forearm ROM WFL Yes Left Active Elbow/Forearm ROM WFL Yes Elbow/Forearm ROM Limitations Elbow/Forearm ROM Limitations Pain Comments pain noted at end range supination on L Wrist Goniometric Range of Motion Wrist Left Wrist ROM WFL Yes ROM Limitations Wrist Limitations of Range of Motion Pain Comments pain noted with end range wrist extensor PT-OP-L Special Tests Start: 09/08/19 17:33 Freq: Status: Active Protocol: Document 09/08/19 17:34 HH (Rec: 09/08/19 18:24 [email or web address]) Special Tests Elbow Special Tests Varus- 25 Degrees Test Results +ve L Comments stretching pain at lateral epicondyle Valgus- 25 Degrees Test Results +Ve L Comments stretching pain at medial epicondyle Medial Epicondylitis Test Results +ve L Comments pain with end range supination Lateral Epicondylitis Flexed Test Results -ve L Lateral Epicondylitis Extended Test Results +ve L Comments pain at end range on wrist extension PT-OP-M Strength Start: 09/08/19 17:33 Freq: Status: Active Protocol: Document 09/08/19 17:34 HH (Rec: 09/08/19 18:24 [email or web address]) Shoulder Strength Shoulder Manual Muscle Testing Left Flexion 5 Normal Extension 5 Normal Abduction (C5) 5 Normal Adduction 5 Normal Right Flexion 5 Normal Extension 5 Normal Abduction (C5) 5 Normal Adduction 5 Normal Elbow/Forearm Strength Elbow and Forearm Manual Muscle Testing Right Flexion (C6) 5 Normal Extension (C7) 5 Normal Pronation 5 Normal Supination 5 Normal Left Flexion (C6) 5 Normal Extension (C7) 5 Normal Pronation 4+ Good+ Supination 4+ Good+ Reason Not Measured Pain Comments pain with pronation and supination Hand Senior Property Manager/Pinch Strength Hand Dominance Hand Dominance Right Hand Strength Left Comments Dynanometer L manager data warehousing: postion 1= 52lbs, position 2= 60lbs (pain started at 20), position 3= 64lbs (pain started at 20) R manager data warehousing: postion 1= 65lbs, position 2= 90lbs , position 3 = 80lbs PT-OP-Q Treatments Start: 09/08/19 17:33 Freq: Status: Active Protocol: Document 10/13/19 13:52 (Rec: 10/13/19 14:32 [id number]) Therapeutic Exercises Sitting Exercises shoulder fly Sitting Exercise Name with golf club Side left Reps/Minutes 8 x2 Comments minimal pain at shd abd 90 degrees scap row Sitting Exercise Name with supination Side bilateral Equipment Used yellow band Reps/Minutes 10 x2 Comments no discomfort shoulder pull apart Sitting Exercise Name supination and scap row Side bilateral Equipment Used yellow band Reps/Minutes 10 x2 towel twisting Sitting Exercise Name towel in vertical position Side bilateral Reps/Minutes 8 x2 Comments for HEP wrist flexion and extension TB twisting bar Sitting Exercise Name for both flexion and extension Side bilateral Equipment Used TB red twisting bar Reps/Minutes 5 x 2for HEP Comments no discomfort with elbow at 90 degrees, but pain with arms straight out hammer Sitting Exercise Name start at the top of hammer then down to bottom Side bilateral Reps/Minutes 10x2, for HEP Comments minimal discomfort at supination end range Standing Exercises self ball toss Standing Exercise Name yellow 2lbs ball Side left Reps/Minutes 1 mins Comments discomfort noted at common extensor tendon, PT-OP-T Assessment and Plan Start: 09/08/19 17:33 Freq: Status: Active Protocol: Document 10/13/19 13:52 HH (Rec: 10/13/19 14:32 [id number]) Physical Therapy Assessment Goals activity tolerance Impairment tingling and numbness reported while driving Mcfp Goal (LTG) pt will have no discomfort/ neuro signs while driving >1 hour LTG Duration 6 weeks manager data warehousing strength Impairment pt shows 20-30lbs less in manager data warehousing strength compared to R manager data warehousing Short Term Goal (STG) 10/13/19 L manager data warehousing strength: position 1= 65lbs, position 2= 84 lbs, 3= 76 lbs Mcfp Goal (LTG) Pt will reach 90% of R manager data warehousing strength from dynanometer for all positions so patient can play golf and ride his bicycle without discomfort LTG Duration 6 weeks Quickdash Impairment pt scores 20.45 for quickdash Cleaning And Maintenance Worker Goal (LTG) pt will score less than 10 on quickdash to improve his quality of life such as sleep quality and opening a tight jar without discomfort. LTG Duration 6 weeks Assessment Summary Assessment Pt shows close to baseline manager data warehousing strength with 5lbs less than R for positions 1-3. Pt only has minimal discomfort for end range supination strenthening. Physical Therapy Plan Next Visit Focus/Plan Next Note Type Treatment Note Next Visit Plan Assess response to elbow med/ lat/inf mobs on L and MWM self STMs common extensor tendon and confidence with HEP PT Stacey initiated last tx. Assess elbow stretching next tx. Continue per PT POC: Progress thoracic mobility and shoulder strengthening, work into standing eccentric wrist/ elbow flex/ext. Continue per PT: isometric manager data warehousing and wrist flexion extension strengthening concentric/ eccentric strength if pt can rhea
--- NOTE | 2019-10-18 16:32 | PT.OPPOC ---
Physical, Occupational & Speech Therapy At [facility] Current Diagnoses Enthesopathy, unspecified (10/18/19) Visit Care Team Role Provider Type Jeane Boss MD Attending Provider Physician Family Provider Primary Care Provider Referring Provider Specialty: Family Practice Address: [address] [place] [address], [id number] Email: [email or web address] Plan Of Care PT-OP-T Assessment and Plan Start: 09/08/19 17:33 Freq: Status: Active Protocol: Document 10/18/19 08:17 (Rec: 10/18/19 09:02 [id number]) Physical Therapy Assessment Goals activity tolerance Impairment tingling and numbness reported while driving Bench Manager Goal (LTG) pt will have no discomfort/ neuro signs while driving >1 hour LTG Duration 6 weeks youth support worker strength Impairment pt shows 20-30lbs less in youth support worker strength compared to R youth support worker Short Term Goal (STG) 10/13/19 L youth support worker strength: position 1= 65lbs, position 2= 84 lbs, 3= 76 lbs Bench Manager Goal (LTG) Pt will reach 90% of R youth support worker strength from dynanometer for all positions so patient can play golf and ride his bicycle without discomfort LTG Duration 6 weeks Quickdash Impairment pt scores 20.45 for quickdash Mcc Goal (LTG) pt will score less than 10 on quickdash to improve his quality of life such as sleep quality and opening a tight jar without discomfort. LTG Duration 6 weeks Assessment Summary Assessment Pt had a flare up after he woke up two days ago but subside after. Pt has good mobility but strength and endurance are progressing. Pt tends to have min discomfort with full youth support worker + supination. Pt will have one more visit in 2 weeks for f/u. Physical Therapy Plan Frequency and Duration Frequency of Treatment 1x/Week Duration of Treatment 4 weeks Plan of Care Start Date 10/18/19 Plan of Care End Date 11/18/19 Therapeutic Interventions Therapeutic Interventions Home Exercise Program,Joint Mobilizations,Manual Therapy, Neuromuscular Re-education, Patient/Caregiver Education, Self-Care/Home Management,Soft Tissue Mobilization,Taping, Therapeutic Activities, Therapeutic Exercises Modalities Cold Pack/Ice Massage,Electric Stimulation,Hot Packs, Infrared Therapy,Ultrasound Next Visit Focus/Plan Next Note Type Treatment Note Next Visit Plan Assess response to elbow med/ lat/inf mobs on L and MWM self STMs common extensor tendon and confidence with HEP PT Stacey initiated last tx. Assess elbow stretching next tx. Continue per PT POC: Progress thoracic mobility and shoulder strengthening, work into standing eccentric wrist/ elbow flex/ext. Continue per PT: isometric youth support worker and wrist flexion extension strengthening concentric/ eccentric strength if pt can rhea Plan of Care Dates Plan of Care Start Date 10/18/19 Plan of Care End Date 11/18/19 Electronically Signed by: Naz Abdalla, PT 10/18/19 [id number] Please Sign and Return: I have reviewed this Plan of Care and certify that the skilled therapy services above are required to meet the patient?s needs. Physician Signature Date Printed Name and Credentials Clinical Instructor Signature Printed Name and Credentials
--- NOTE | 2019-10-18 16:32 | PT.OTN ---
Current Diagnoses Enthesopathy, unspecified (10/18/19) Physical Therapy Treatment Note PT-OP-A Visit Information Start: 09/08/19 17:33 Freq: Status: Active Protocol: Document 10/18/19 08:17 HH (Rec: 10/18/19 09:02 [id number]) Out-Patient Physical Therapy Visit Information Visit Information Visit Type Treatment Note Visit Start Time 08:16 Visit Stop Time 09:00 Total Visit Minutes 44 Visit Number 7 Number of LOCOMOTIVE ELECTRICIAN Visits 0 PT-OP-B Current Condition Start: 09/08/19 17:33 Freq: Status: Active Protocol: Document 09/08/19 17:34 HH (Rec: 09/08/19 18:24 HH [email or web address]) Current Condition History of Current Condition Onset Date Since April, Current Complaints L elbow pain medial> lateral, difficulty with gripping motion History of Current Condition This is a 73yo active male here for persistent elbow pain . Pt reports having a hx of epicondylitis around 20 years ago and was treated with PT and Ot. Pt was able to fully recovered but did have recurrent episodes 2-3 times. He said ice and ibuprofen tends to help quickly. However , Pt has been having signifciant pain at the medial elbow but also new onset of pain at extensor muscles at the lateral elbow. He stated that his 4th and 5th fingers will go numb and tingly sometimes espeically holding the steering wheel while driving. Pt noticed weakness in the hand and symptoms tend to get worse when he moves hig arms after holding in one position for too long. He also noticed making a fist with supination also cause pain. Pt has been wearing an elbow brace which gives him stability, along with ice treatment and ibuprofen. Pt likes to play golf 1-2x/week and riding a bicyle regularly to keep himself physically active. Prior Treatments and Tests had PT for epicondylitis and received ultra sound tx which helps. Treatment Goals Patient/Caregiver Goals 1. to strengthen his forearm and owner consulting engineer 2. to be pain free during sleep driving and exercises. PT-OP-C Subjective Start: 09/08/19 17:33 Freq: Status: Active Protocol: Document 10/18/19 08:17 HH (Rec: 10/18/19 09:02 [id number]) OP-PT Subjective Patient Comments Patient Comments Im doing pretty good but i had a set back for a day during the weekend after i woke up one day. Patient Reported Progress Same PT-OP-E Functional Tests Start: 09/08/19 17:33 Freq: Status: Active Protocol: Document 09/08/19 17:34 HH (Rec: 09/08/19 18:24 [email or web address]) Functional Tests Apley's Scratch Test Action 3- Left center of T6 Action 3- Right center of T4 with pain at medial elbow PT-OP-F Manual Assessment Start: 09/08/19 17:33 Freq: Status: Active Protocol: Document 09/08/19 17:34 HH (Rec: 09/08/19 18:24 [email or web address]) Manual Assessments Soft Tissue Assessment Soft Tissue Mobility Assessment tenderness to pressure at common extensor tendon and medial epicondyle and common flexor tendon radiating tingling and numbness reproduced with pressure at medial epicondyle PT-OP-H Neuro Start: 09/08/19 17:33 Freq: Status: Active Protocol: Document 09/08/19 17:34 HH (Rec: 09/08/19 18:24 [email or web address]) Deep Tendon Reflex & Clonus Assessment Deep Tendon Reflex Bilateral Brachioradialis Deep Tendon Reflex 2+ Normal Bilateral Tricep Deep Tendon Reflex 2+ Normal Bilateral Bicep Deep Tendon Reflex 2+ Normal PT-OP-K Range of Motion Start: 09/08/19 17:33 Freq: Status: Active Protocol: Document 09/08/19 17:34 HH (Rec: 09/08/19 18:24 [email or web address]) Shoulder Goniometric Range of Motion Shoulder Right Active Shoulder ROM WFL Yes Left Active Shoulder ROM WFL Yes Elbow/Forearm Range of Motion Elbow/Forearm Right Active Elbow/Forearm ROM WFL Yes Left Active Elbow/Forearm ROM WFL Yes Elbow/Forearm ROM Limitations Elbow/Forearm ROM Limitations Pain Comments pain noted at end range supination on L Wrist Goniometric Range of Motion Wrist Left Wrist ROM WFL Yes ROM Limitations Wrist Limitations of Range of Motion Pain Comments pain noted with end range wrist extensor PT-OP-L Special Tests Start: 09/08/19 17:33 Freq: Status: Active Protocol: Document 09/08/19 17:34 HH (Rec: 09/08/19 18:24 [email or web address]) Special Tests Elbow Special Tests Varus- 25 Degrees Test Results +ve L Comments stretching pain at lateral epicondyle Valgus- 25 Degrees Test Results +Ve L Comments stretching pain at medial epicondyle Medial Epicondylitis Test Results +ve L Comments pain with end range supination Lateral Epicondylitis Flexed Test Results -ve L Lateral Epicondylitis Extended Test Results +ve L Comments pain at end range on wrist extension PT-OP-M Strength Start: 09/08/19 17:33 Freq: Status: Active Protocol: Document 09/08/19 17:34 (Rec: 09/08/19 18:24 [email or web address]) Shoulder Strength Shoulder Manual Muscle Testing Left Flexion 5 Normal Extension 5 Normal Abduction (C5) 5 Normal Adduction 5 Normal Right Flexion 5 Normal Extension 5 Normal Abduction (C5) 5 Normal Adduction 5 Normal Elbow/Forearm Strength Elbow and Forearm Manual Muscle Testing Right Flexion (C6) 5 Normal Extension (C7) 5 Normal Pronation 5 Normal Supination 5 Normal Left Flexion (C6) 5 Normal Extension (C7) 5 Normal Pronation 4+ Good+ Supination 4+ Good+ Reason Not Measured Pain Comments pain with pronation and supination Hand Audio Narrator/Pinch Strength Hand Dominance Hand Dominance Right Hand Strength Left Comments Dynanometer L owner consulting engineer: postion 1= 52lbs, position 2= 60lbs (pain started at 20), position 3= 64lbs (pain started at 20) R owner consulting engineer: postion 1= 65lbs, position 2= 90lbs , position 3 = 80lbs PT-OP-Q Treatments Start: 09/08/19 17:33 Freq: Status: Active Protocol: Document 10/18/19 08:17 (Rec: 10/18/19 09:02 [id number]) Cardio Equipment Upper Body Ergometer (UBE) Duration (Minutes) 5 Seat Position 14 Height 4 Other 30 s fwd then 30s bwd Therapeutic Exercises Sitting Exercises owner consulting engineer bar with sup/ pron Side bilateral Equipment Used oragne owner consulting engineer bar Reps/Minutes 10 sec x 3 sets Comments with sup and pron, pain with full owner consulting engineer and full supination, subside with owner consulting engineer bar Side bilateral Equipment Used orange owner consulting engineer bar Reps/Minutes 10 sec x3 sets scap row Sitting Exercise Name with supination and pronation Side bilateral Equipment Used pink Reps/Minutes 10 x2 Comments no discomfort TB twisting bar Sitting Exercise Name for both flexion and extension Side bilateral Equipment Used TB red & blue twisting bar Reps/Minutes 5 x 2for HEP Comments no discomfort with elbow at 90 degrees, but pain with arms straight out hammer Sitting Exercise Name start at the top of hammer then down to bottom Side bilateral Reps/Minutes 10x2, for HEP Comments no discomfort with loose owner consulting engineer, slight discomfort with full owner consulting engineer wrist stretch Sitting Exercise Name end range flexion and extension Side left Comments for warm up. Manual Therapy Treatment Soft Tissue Mobilization common extensor tendon Body Location common extensor tendon Mobilization Type Sustained Pressure,Trigger Point Release Intensity/Depth Deep Body Position Sitting Comments minimal discomfort noted. PT-OP-T Assessment and Plan Start: 09/08/19 17:33 Freq: Status: Active Protocol: Document 10/18/19 08:17 (Rec: 10/18/19 09:02 [id number]) Physical Therapy Assessment Goals activity tolerance Impairment tingling and numbness reported while driving Herb Digger Goal (LTG) pt will have no discomfort/ neuro signs while driving >1 hour LTG Duration 6 weeks owner consulting engineer strength Impairment pt shows 20-30lbs less in owner consulting engineer strength compared to R owner consulting engineer Short Term Goal (STG) 10/13/19 L owner consulting engineer strength: position 1= 65lbs, position 2= 84 lbs, 3= 76 lbs Herb Digger Goal (LTG) Pt will reach 90% of R owner consulting engineer strength from dynanometer for all positions so patient can play golf and ride his bicycle without discomfort LTG Duration 6 weeks Quickdash Impairment pt scores 20.45 for quickdash Herb Digger Goal (LTG) pt will score less than 10 on quickdash to improve his quality of life such as sleep quality and opening a tight jar without discomfort. LTG Duration 6 weeks Assessment Summary Assessment Pt had a flare up after he woke up two days ago but subside after. Pt has good mobility but strength and endurance are progressing. Pt tends to have min discomfort with full owner consulting engineer + supination. Pt will have one more visit in 2 weeks for f/u. Physical Therapy Plan Frequency and Duration Frequency of Treatment 1x/Week Duration of Treatment 4 weeks Plan of Care Start Date 10/18/19 Plan of Care End Date 11/18/19 Therapeutic Interventions Therapeutic Interventions Home Exercise Program,Joint Mobilizations,Manual Therapy, Neuromuscular Re-education, Patient/Caregiver Education, Self-Care/Home Management,Soft Tissue Mobilization,Taping, Therapeutic Activities, Therapeutic Exercises Modalities Cold Pack/Ice Massage,Electric Stimulation,Hot Packs, Infrared Therapy,Ultrasound Next Visit Focus/Plan Next Note Type Treatment Note Next Visit Plan Assess response to elbow med/ lat/inf mobs on L and MWM self STMs common extensor tendon and confidence with HEP PT Stacey initiated last tx. Assess elbow stretching next tx. Continue per PT POC: Progress thoracic mobility and shoulder strengthening, work into standing eccentric wrist/ elbow flex/ext. Continue per PT: isometric owner consulting engineer and wrist flexion extension strengthening concentric/ eccentric strength if pt can rhea
--- NOTE | 2019-11-17 09:01 | PT.OTN ---
Current Diagnoses Enthesopathy, unspecified (11/17/19) Physical Therapy Treatment Note PT-OP-A Visit Information Start: 09/08/19 17:33 Freq: Status: Active Protocol: Document 11/17/19 08:16 HH (Rec: 11/17/19 09:00 [id number]) Out-Patient Physical Therapy Visit Information Visit Information Visit Type Progress Note Visit Start Time 08:18 Visit Stop Time 08:58 Total Visit Minutes 40 Visit Number 8 Number of REVENUE INVESTIGATOR Visits 0 PT-OP-B Current Condition Start: 09/08/19 17:33 Freq: Status: Active Protocol: Document 09/08/19 17:34 HH (Rec: 09/08/19 18:24 HH [email or web address]) Current Condition History of Current Condition Onset Date Since April, Current Complaints L elbow pain medial> lateral, difficulty with gripping motion History of Current Condition This is a 73yo active male here for persistent elbow pain . Pt reports having a hx of epicondylitis around 20 years ago and was treated with PT and Ot. Pt was able to fully recovered but did have recurrent episodes 2-3 times. He said ice and ibuprofen tends to help quickly. However , Pt has been having signifciant pain at the medial elbow but also new onset of pain at extensor muscles at the lateral elbow. He stated that his 4th and 5th fingers will go numb and tingly sometimes espeically holding the steering wheel while driving. Pt noticed weakness in the hand and symptoms tend to get worse when he moves hig arms after holding in one position for too long. He also noticed making a fist with supination also cause pain. Pt has been wearing an elbow brace which gives him stability, along with ice treatment and ibuprofen. Pt likes to play golf 1-2x/week and riding a bicyle regularly to keep himself physically active. Prior Treatments and Tests had PT for epicondylitis and received ultra sound tx which helps. 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 to be pain free during sleep driving and exercises. PT-OP-C Subjective Start: 09/08/19 17:33 Freq: Status: Active Protocol: Document 11/17/19 08:16 HH (Rec: 11/17/19 09:00 HH [id number]) OP-PT Subjective Patient Comments Patient Comments Overall is getting better and the discomfort is very occasional. I noticed shoveling activity with constant lifting and rotating my forearm bothers me Patient Reported Progress Improving Patient Questionnaires Quick Dash- Upper Extremity Quick Dash UE Score 4.54 Quick Dash UE Impairment 1 to 19% Impaired (Score 1-19) PT-OP-E Functional Tests Start: 09/08/19 17:33 Freq: Status: Active Protocol: Document 09/08/19 17:34 HH (Rec: 09/08/19 18:24 [email or web address]) Functional Tests Apley's Scratch Test Action 3- Left center of T6 Action 3- Right center of T4 with pain at medial elbow PT-OP-F Manual Assessment Start: 09/08/19 17:33 Freq: Status: Active Protocol: Document 09/08/19 17:34 HH (Rec: 09/08/19 18:24 [email or web address]) Manual Assessments Soft Tissue Assessment Soft Tissue Mobility Assessment tenderness to pressure at common extensor tendon and medial epicondyle and common flexor tendon radiating tingling and numbness reproduced with pressure at medial epicondyle PT-OP-H Neuro Start: 09/08/19 17:33 Freq: Status: Active Protocol: Document 09/08/19 17:34 HH (Rec: 09/08/19 18:24 [email or web address]) Deep Tendon Reflex & Clonus Assessment Deep Tendon Reflex Bilateral Brachioradialis Deep Tendon Reflex 2+ Normal Bilateral Tricep Deep Tendon Reflex 2+ Normal Bilateral Bicep Deep Tendon Reflex 2+ Normal PT-OP-K Range of Motion Start: 09/08/19 17:33 Freq: Status: Active Protocol: Document 09/08/19 17:34 HH (Rec: 09/08/19 18:24 [email or web address]) Shoulder Goniometric Range of Motion Shoulder Right Active Shoulder ROM WFL Yes Left Active Shoulder ROM WFL Yes Elbow/Forearm Range of Motion Elbow/Forearm Right Active Elbow/Forearm ROM WFL Yes Left Active Elbow/Forearm ROM WFL Yes Elbow/Forearm ROM Limitations Elbow/Forearm ROM Limitations Pain Comments pain noted at end range supination on L Wrist Goniometric Range of Motion Wrist Left Wrist ROM WFL Yes ROM Limitations Wrist Limitations of Range of Motion Pain Comments pain noted with end range wrist extensor PT-OP-L Special Tests Start: 09/08/19 17:33 Freq: Status: Active Protocol: Document 09/08/19 17:34 HH (Rec: 09/08/19 18:24 [email or web address]) Special Tests Elbow Special Tests Varus- 25 Degrees Test Results +ve L Comments stretching pain at lateral epicondyle Valgus- 25 Degrees Test Results +Ve L Comments stretching pain at medial epicondyle Medial Epicondylitis Test Results +ve L Comments pain with end range supination Lateral Epicondylitis Flexed Test Results -ve L Lateral Epicondylitis Extended Test Results +ve L Comments pain at end range on wrist extension PT-OP-M Strength Start: 09/08/19 17:33 Freq: Status: Active Protocol: Document 09/08/19 17:34 HH (Rec: 09/08/19 18:24 [email or web address]) Shoulder Strength Shoulder Manual Muscle Testing Left Flexion 5 Normal Extension 5 Normal Abduction (C5) 5 Normal Adduction 5 Normal Right Flexion 5 Normal Extension 5 Normal Abduction (C5) 5 Normal Adduction 5 Normal Elbow/Forearm Strength Elbow and Forearm Manual Muscle Testing Right Flexion (C6) 5 Normal Extension (C7) 5 Normal Pronation 5 Normal Supination 5 Normal Left Flexion (C6) 5 Normal Extension (C7) 5 Normal Pronation 4+ Good+ Supination 4+ Good+ Reason Not Measured Pain Comments pain with pronation and supination Hand Speech Therapy Assistant/Pinch Strength Hand Dominance Hand Dominance Right Hand Strength Left Comments Dynanometer L bakery and deli sales manager: postion 1= 52lbs, position 2= 60lbs (pain started at 20), position 3= 64lbs (pain started at 20) R bakery and deli sales manager: postion 1= 65lbs, position 2= 90lbs , position 3 = 80lbs PT-OP-Q Treatments Start: 09/08/19 17:33 Freq: Status: Active Protocol: Document 11/17/19 08:16 (Rec: 11/17/19 09:00 [id number]) Therapeutic Exercises Sitting Exercises trap stretch Side left Comments for HEP TB twisting bar Sitting Exercise Name for both flexion and extension Side bilateral Equipment Used TB red & blue twisting bar Reps/Minutes 5 x 2for HEP Comments min discomfort with extended elbows. Standing Exercises D2 Standing Exercise Name for HEP Side left Equipment Used with level 2 band Comments R side is 20 % easier as he stated. Manual Therapy Treatment Nerve Glides ulnar nerve glide Nerve with full range , full median nerve stretch Body Position Standing Comments for HEP PT-OP-T Assessment and Plan Start: 09/08/19 17:33 Freq: Status: Active Protocol: Document 11/17/19 08:16 (Rec: 11/17/19 09:00 [id number]) Physical Therapy Assessment Goals activity tolerance Impairment tingling and numbness reported while driving Short Term Goal (STG) pt still has minimal discomfort by driving more than 1 hour Assisted Goal (LTG) pt will have no discomfort/ neuro signs while driving >1 hour LTG Duration 6 weeks bakery and deli sales manager strength Impairment pt shows 20-30lbs less in bakery and deli sales manager strength compared to R bakery and deli sales manager Short Term Goal (STG) 10/13/19 L bakery and deli sales manager strength: position 1= 65lbs, position 2= 84 lbs, 3= 76 lbs Assisted Goal (LTG) 11/16 bakery and deli sales manager 1=70lbs bakery and deli sales manager 2= 78lbs bakery and deli sales manager 3= 88 lbs pt reached full bakery and deli sales manager strength compared to R bakery and deli sales manager LTG Duration 6 weeks Quickdash Impairment pt scores 20.45 for quickdash Communications Planner Goal (LTG) 11/16 pt scores 4.54 on quickdash and only with discomfort on shoveling and recreational activities LTG Duration 6 weeks Progress Towards Goals Progress Towards Goals Progressing Toward Goals Assessment Summary Assessment Pt regained his full L bakery and deli sales manager strength but still have minimal discomfort with maximal exertion with supination, along with slight neural tension at L ulnar nerve. Added D2 resistive ex, ulnar nerve glide, trap stretch and TB bar with extended elbow. Expect pt to fully recover in 2-4 weeks. Will contact pt via phone regarding d/c planning in 2 weeks. Physical Therapy Plan Next Visit Focus/Plan Next Note Type Treatment Note Next Visit Plan assess progress in 2 weeks
--- NOTE | 2019-12-05 10:42 | PT-IP ANOTE ---
called pt via phone. Pt is doing well and no discomfort noted for HEP and daily activities, except during shoveling and heavy lifting work. Educated pt to increase resistance for HEP to cont strengthen his elbow musculature. will check on him again at the end of Nov.
--- NOTE | 2020-01-02 14:01 | PT.OPDS ---
Current Diagnoses Enthesopathy, unspecified (11/17/19) Visit Care Team Role Provider Type Jeane Boss MD Attending Provider Physician Family Provider Primary Care Provider Referring Provider Specialty: Family Practice Address: [address] [place] [address], [id number] Email: [email or web address] Visit Number Visit Number 8 Discharge Summary PT-OP-T Assessment and Plan Start: 09/08/19 17:33 Freq: Status: Active Protocol: Document 01/02/20 14:00 (Rec: 01/02/20 14:01 [id number]) Physical Therapy Assessment Progress Towards Goals Progress Towards Goals Goals Met Assessment Summary Assessment Called pt via phone and he stated he has been doing really well and no discomfort noted. He is now fully returned to his functional activities such as golfing, gardening etc. Requested to be dc from therapy. Physical Therapy Plan Discharge Physical Therapy Discharge Reasons Goals Met
== END 2020-02-17 14:19 ==
LOC: PHYS 08:15
PROVIDERS: Family Provider Family Medicine; PCP Family Medicine; Referring Provider Family Medicine; Visit Provider Family Medicine
DX: M77.9 Enthesopathy, unspecified (principal)
CPT/HCPCS: 97110; 97112; 97140; 97161

== ENCOUNTER → 2020-03-12 08:00 | Outpatient (CLI) | payer MEDICARE, OTHER, SELFPAY ==
[2020-03-12 10:11] LABS: Cholesterol 186 mg/dL (140-199); HDL Cholesterol 47 mg/dL (40-60); LDL Cholesterol Calculated 86 mg/dL (<100); Triglycerides 263 mg/dL (35-150)
== END ==
PROVIDERS: Family Provider Family Medicine; PCP Family Medicine; Referring Provider Family Medicine; Visit Provider Family Medicine
DX: E78.5 Hyperlipidemia, unspecified (principal)
CPT/HCPCS: 36415; 80061

== ENCOUNTER → 2020-09-27 09:54 | Outpatient (CLI) | payer MEDICARE, OTHER, SELFPAY ==
[2020-09-27 11:58] LABS: Prostate Specific Antigen 18.2 ng/mL (0.10-4.00)
== END ==
PROVIDERS: Family Provider Family Medicine; PCP Family Medicine; Referring Provider Urology; Visit Provider Urology
DX: C61 Malignant neoplasm of prostate (principal)
CPT/HCPCS: 36415; 84153

== ENCOUNTER → 2020-10-23 11:42 | Outpatient (CLI) | payer MEDICARE, OTHER, SELFPAY ==
--- NOTE | 2020-10-23 11:45 | DI.MRI.S_ITS ---
PROCEDURE: MR PELIS WO/W CON INDICATIONS: Malignant neoplasm of prostate TECHNIQUE: Coronal HASTE, axial T1 FSE with fat saturation, 3-plane nonbreath-hold T2 FSE. After the administration of contrast, dynamic axial, delayed axial and coronal VIBE or 2-D FLASH with fat saturation through the pelvis. Optional diffusion weighted imaging and ADC may be performed. COMPARISON: None. FINDINGS: Image quality: Diffusion weighted and dynamic contrast enhanced images are diagnostic. Prostate: Gland size is 4.4 cm AP, 5.1 cm transverse and 4.5 cm craniocaudad; ellipsoid gland volume is 52.5 mL. Lesion size(s): Lesion: 1.1 x 1.3 x 1.7 cm in AP, transverse and craniocaudad dimensions, average diameter 1.4 cm. . Lesion location(s) (sector): Lesion: The lesion is located at the right posterolateral peripheral zone at the junction of the middle and lower thirds of peripheral zone. It is located at the 7-8:00 equivalent position. Lesion description: Lesion: The lesion is rounded, circumscribed, hypointense on T2 imaging, and showing evidence of extracapsular early invasion best seen on axial T2 imaging series 4, image 14, extending through the capsular margin by approximately 2-3 mm over approximately a 1 cm curvilinear AP extent along the capsular margin. T2 weighted imaging (T2WI) morphology score: Lesion 1: The lesion is less than 1.5 cm in maximal average dimension, but has imaging evidence of early extracapsular invasion. PI-RADS category 5. A transition zone lesion is not identified. Diffusion weighted imaging (DWI) morphology score: Lesion: The lesion is predominantly hypointense on ADC mapping, and hyperintense on high B value diffusion-weighted imaging, measuring greater than 1.5 cm in maximal dimension (1.7 cm craniocaudad). PI-RADS category 5. Dynamic contrast enhancement (DCE): Lesion: Early relatively intense contrast enhancement is seen throughout the lesion, greater than in adjacent structures elsewhere, and seen most prominently at the early phase of the series of dynamic contrast enhanced pulse acquisitions. This is clearly visualized on series 15, image 19, and elevated contrast enhancement persists through the series of postcontrast dynamic images. It also persists in the subsequent delayed axial fat suppressed T1 imaging series 33, image 107. Overall PI-RADS score: Lesion: PI-RADS category 4-5. The lesion is relatively small with an average diameter of 1.4 cm, and despite the visualized evidence of prosthetic capsular invasion the extent of invasion beyond the capsular margin is 2-3 mm. No evidence of adenopathy or osseous metastatic disease is seen. Genitourinary system: Bladder wall thickness is normal. Distal ureters are non distended. Bowel and peritoneum: No pathologic free pelvic fluid. Inferior colon and small bowel loops are normal in caliber. Nodes and vessels: No pelvic or inguinal adenopathy by size criteria. Iliac vessels are normal in caliber. Soft tissues: No inguinal hernias. Bones: Marrow demonstrates normal overall signal, without lesions to suggest metastases. IMPRESSION: Isolated finding of right posterolateral peripheral zone malignant-appearing 1.4 cm average diameter mass showing imaging characteristics of a high to very high likelihood of clinically significant cancer being present. This shows no evidence of regional metastatic disease but does demonstrate evidence of early capsular invasion along the prostate margin by approximately 2-3 mm over a 1 cm curvilinear course, extending into the periprosthetic fat plane. Dictated by: Phillip Marsh M.D. on 10/25/2020 at 11:38 Approved by: Phillip Marsh M.D. on 10/25/2020 at 12:30
== END ==
PROVIDERS: Family Provider Family Medicine; PCP Family Medicine; Referring Provider Urology; Visit Provider Urology
DX: C61 Malignant neoplasm of prostate (principal)
CPT/HCPCS: 72197

== ENCOUNTER → 2021-05-14 10:27 | Outpatient (CLI) | payer MEDICARE, OTHER, SELFPAY ==
[2021-05-14 13:12] LABS: Prostate Specific Antigen 0.148 ng/mL (0.10-4.00)
== END ==
PROVIDERS: Family Provider Family Medicine; PCP Family Medicine; Referring Provider Nurse Practitioner Adult Health; Visit Provider Nurse Practitioner Adult Health
DX: C61 Malignant neoplasm of prostate (principal)
CPT/HCPCS: 36415; 84153

== ENCOUNTER → 2021-07-02 10:27 | Outpatient (CLI) | payer MEDICARE, OTHER, SELFPAY ==
[2021-07-02 14:01] LABS: Prostate Specific Antigen 0.096 ng/mL (0.10-4.00)
== END ==
PROVIDERS: Family Provider Family Medicine; PCP Family Medicine; Referring Provider Urology; Visit Provider Urology
DX: C61 Malignant neoplasm of prostate (principal)
CPT/HCPCS: 36415; 84153

== ENCOUNTER → 2021-08-30 10:52 | Outpatient (CLI) | payer MEDICARE, OTHER, SELFPAY ==
[2021-08-30 12:28] LABS: Prostate Specific Antigen 0.167 ng/mL (0.10-4.00)
== END ==
PROVIDERS: Family Provider Family Medicine; PCP Family Medicine; Referring Provider Urology; Visit Provider Urology
DX: C61 Malignant neoplasm of prostate (principal)
CPT/HCPCS: 36415; 84153

== ENCOUNTER → 2021-09-03 09:39 | Outpatient (CLI) | payer MEDICARE, OTHER, SELFPAY ==
--- NOTE | 2021-09-03 09:40 | DI.US.S_ITS ---
PROCEDURE: US ABDOMEN COMPLETE INDICATIONS: Difficulty swallowing; upper abdominal pain TECHNIQUE: Real-time scanning was performed of the abdominal and retroperitoneal organs, with image documentation. COMPARISON: None. FINDINGS: Liver: Liver is of diffusely increased echogenicity, likely indicating fatty change. Gallbladder: There are 2 mobile gallstones in the gallbladder, measuring 2.4 cm and 0.9 cm respectively. There is no gallbladder wall thickening or pain on examination. Biliary ducts: Intrahepatic bile ducts are non-dilated. Extrahepatic bile duct caliber measures 2.6 mm at the common hepatic duct and 4.4 mm at the common bile duct. Normal is 6-7 mm or less in diameter, or 10 mm or less post-cholecystectomy. Pancreas: Visualized portions of the pancreas are sonographically normal. Spleen: Spleen is normal in size and homogeneous in echotexture. Kidneys: Kidneys are normal in size and echotexture. Right kidney measures 10.1 cm long; left kidney measures 10.3 cm long. No hydronephrosis or nephrolithiasis. No solid masses. Aorta: Visualized aorta is normal in caliber at less than 3 cm. Iliacs: Proximal common iliac arteries are normal in caliber at less than 2.5 cm. IVC: Intrahepatic inferior vena cava is patent. Miscellaneous: No free abdominal fluid. IMPRESSION: 1. Diffuse hepatic steatosis. 2. Cholelithiasis. Dictated by: Aki Oliveira M.D. on 09/03/2021 at 12:56 Approved by: Aki Oliveira M.D. on 09/03/2021 at 13:00
--- NOTE | 2021-09-03 09:40 | DI.RAD.S_ITS ---
PROCEDURE: FL BARIUM SWALLOW INDICATIONS: Difficulty swallowing COMPARISON: None. FINDINGS: Function: There is normal esophageal peristalsis. No elicited gastroesophageal reflux. There is normal transit of a calibrated barium tablet through the esophagus into the stomach. Swallowing reflex is normal. No laryngotracheal penetration or aspiration. There was mild pooling of liquid barium contrast material in the bilateral vallecula which was cleared with repeat swallows. Morphology: Air-contrast images demonstrate normal mucosal morphology. Single contrast views show no esophageal strictures, extrinsic mass effects, or diverticula. Limited images of the stomach demonstrate normal appearance. IMPRESSION: Normal examination. Dictated by: Ainsley Ponce MD, PhD on 09/03/2021 at 12:04 Approved by: Ainsley Ponce MD, PhD on 09/03/2021 at 12:06
== END ==
PROVIDERS: Family Provider Family Medicine; PCP Family Medicine; Referring Provider Physician Assistant; Visit Provider Physician Assistant
DX: R13.10 Dysphagia, unspecified (principal); R10.10 Upper abdominal pain, unspecified; K76.0 Fatty (change of) liver, not elsewhere classified; K80.20 Calculus of gallbladder without cholecystitis without obstruction
CPT/HCPCS: 74220; 76700

== ENCOUNTER → 2021-09-24 08:34 | Outpatient (CLI) | payer MEDICARE, OTHER, SELFPAY ==
--- NOTE | 2021-09-24 08:35 | DI.NM.S_ITS ---
PROCEDURE: NM HIDA WITH CCK PHARMACEUTICAL: 5.2 mCi Tc-99m mebrofenin IV; 1.8 mcg CCK IV. INDICATIONS: Increased upper abdominal pain; burping TECHNIQUE: Following intravenous administration of Tc-99m mebrofenin, sequential anterior abdominal images were obtained. To evaluate the contractile response of the gallbladder in response to Cholecystokinin (CCK), sincalide (0.02 ?g/kg) was administered by slow intravenous infusion approximately 60 minutes after the administration of the radiopharmaceutical. Sequential imaging was continued for 30 minutes after the start of CCK infusion. Gallbladder ejection fraction was calculated. COMPARISON: [facility], US ABDOMEN COMPLETE, 09/03/2021, 10:59. FINDINGS: Biliary scan: There is normal tracer uptake and excretion by the liver. There is normal visualization of the intrahepatic ducts, common bile duct, and gallbladder. There is normal tracer transit into the duodenum. CCK stimulation: There is mild contractile response of the gallbladder to CCK infusion. The calculated gallbladder ejection fraction is 27% ; normal values are above 35%. It has been shown that any patient abdominal pain after CCK administration is related to the rate of CCK injection, rather than to any underlying gallbladder disease (Clinical Nuclear Medicine 2012; 37: 63-70. Journal of Nuclear Medicine 2014; 55: 1-9). IMPRESSION: Mildly decreased ejection fraction. Dictated by: Paola Baca M.D. on 09/24/2021 at 15:59 Approved by: Paola Baca M.D. on 09/24/2021 at 16:02
== END ==
PROVIDERS: Family Provider Family Medicine; PCP Family Medicine; Referring Provider Physician Assistant; Visit Provider Physician Assistant
DX: R93.5 Abnormal findings on diagnostic imaging of other abdominal regions, including retroperitoneum (principal); R10.10 Upper abdominal pain, unspecified
CPT/HCPCS: 78227; A9537; J2805

== ENCOUNTER → 2021-09-30 09:56 | Outpatient (CLI) | payer MEDICARE, OTHER, SELFPAY ==
[2021-09-30 12:22] LABS: Prostate Specific Antigen 0.142 ng/mL (0.10-4.00)
== END ==
PROVIDERS: Family Provider Family Medicine; PCP Family Medicine; Referring Provider Urology; Visit Provider Urology
DX: C61 Malignant neoplasm of prostate (principal)
CPT/HCPCS: 36415; 84153

== ENCOUNTER → 2021-10-08 08:51 | Outpatient (CLI) | payer MEDICARE, OTHER, SELFPAY ==
[2021-10-08 09:57] LABS: Add Manual Diff / Slide Review NO; Basophils Absolute Auto 0 /uL (0-100); Basophils Percent Auto 0.4 % (0-2); Eosinophils Absolute Auto 100 /uL (0-450); Eosinophils Percent Auto 1.3 % (2-4); Hematocrit 41.7 % (41-53); Hemoglobin 14.4 g/dL (13.5-17.5); Lymphocytes Absolute Auto 1900 /uL (1100-4500); Lymphocytes Percent Auto 38.9 % (25-40); Mean Corpuscular HGB Conc 34.5 % (30-36); Mean Corpuscular Hemoglobin 29.8 PG (26-34); Mean Corpuscular Volume 86.5 fL (80-100); Monocytes Absolute Auto 400 /uL (0-900); Monocytes Percent Auto 8.5 % (3-14); Neutrophils Absolute Auto 2500 /uL (1500-7000); Neutrophils Percent Auto 50.9 % (50-75); Platelet Count 204 X10^3/uL (150-400); Red Blood Cell Count 4.82 X10^6/uL (4.5-5.9); Red Cell Distribution Width 14.7 % (11.6-14.8); White Blood Cell Count 4.9 X10^3/uL (4.5-11.0)
[2021-10-08 10:43] LABS: Alanine Aminotransferase 19 IU/L (<50); Albumin 4.4 g/dL (3.5-5.0); Albumin Globulin Ratio 1.7 (1.0-2.8); Alkaline Phosphatase 71 U/L (38-126); Aspartate Aminotransferase 25 IU/L (17-59); BUN Creatinine Ratio 10.2 (6-22); Bilirubin Total 0.7 mg/dL (0.2-1.3); Blood Urea Nitrogen 9 mg/dL (9-20); Calcium 9.3 mg/dL (8.4-10.2); Carbon Dioxide 29 mmol/L (22-32); Chloride 103 mmol/L (98-107); Cholesterol 139 mg/dL (140-199); Estimated Glomerular Filt Rate > 60 mL/min (>60); Globulin 2.6 g/dL (1.7-4.1); Glucose 97 mg/dL (80-110); HDL Cholesterol 52 mg/dL (40-60); HEMOLYSIS < 15 (0-50); LDL Cholesterol Calculated 57 mg/dL (<100); Potassium 4.6 mmol/L (3.4-5.1); Sodium 138 mmol/L (137-145); Triglycerides 152 mg/dL (35-150)
== END ==
PROVIDERS: Family Provider Family Medicine; PCP Family Medicine; Referring Provider Family Medicine; Visit Provider Family Medicine
DX: C61 Malignant neoplasm of prostate (principal); E78.5 Hyperlipidemia, unspecified; G47.30 Sleep apnea, unspecified
CPT/HCPCS: 36415; 80053; 80061; 85025

== ENCOUNTER → 2021-10-31 13:10 | Outpatient (CLI) | payer MEDICARE, OTHER, SELFPAY ==
[2021-10-31 15:22] LABS: Prostate Specific Antigen 0.164 ng/mL (0.10-4.00)
== END ==
PROVIDERS: Family Provider Family Medicine; PCP Family Medicine; Referring Provider Urology; Visit Provider Urology
DX: C61 Malignant neoplasm of prostate (principal)
CPT/HCPCS: 36415; 84153

== ENCOUNTER → 2021-12-23 09:48 | Outpatient (CLI) | payer MEDICARE, OTHER, SELFPAY ==
[2021-12-23 11:37] LABS: Prostate Specific Antigen 0.242 ng/mL (0.10-4.00)
== END ==
PROVIDERS: Family Provider Family Medicine; PCP Family Medicine; Referring Provider Radiology Radiation Oncology; Visit Provider Radiology Radiation Oncology
DX: C61 Malignant neoplasm of prostate (principal)
CPT/HCPCS: 36415; 84153

== ENCOUNTER → 2022-02-06 11:13 | Outpatient (CLI) | payer MEDICARE, OTHER, SELFPAY ==
--- NOTE | 2022-02-06 11:14 | DI.US.S_ITS ---
PROCEDURE: US ABDOMEN COMPLETE INDICATIONS: hypodensity left hepatic lobe seen on pet scan from [facility] TECHNIQUE: Real-time scanning was performed of the abdominal and retroperitoneal organs, with image documentation. COMPARISON: Outside Film, NM, PET NECK TO MID THIGH, 01/06/2022, 18:29. [facility], , US ABDOMEN COMPLETE, 09/03/2021, 10:59. FINDINGS: Liver: The liver demonstrates normal size. The liver demonstrates generalized mildly increased echogenicity. This decreases ultrasound sensitivity for detection of hepatic masses. There is a septated cyst seen involving the left liver that measures up to 1.5 cm. This corresponds to the hypodensity seen on the outside PET-CT. Gallbladder: Multiple mobile gallstones are seen. The gallbladder wall is not thickened, measuring 3 mm or less. No specific pericholecystic fluid is seen. The sonographic Denise sign is negative. Biliary ducts: Intrahepatic bile ducts are non-dilated. Extrahepatic bile duct caliber measures 4 mm. Normal is 6-7 mm or less in diameter, or 10 mm or less post-cholecystectomy. Pancreas: Visualized portions of the pancreas are sonographically normal. Spleen: Spleen is normal in size and demonstrates a heterogeneous appearance. No focal masses are seen. Kidneys: Kidneys are normal in size and echotexture. Right kidney measures 10.3 cm long; left kidney measures 10.2 cm long. No hydronephrosis or nephrolithiasis. No solid masses. Aorta: Visualized aorta is normal in caliber at less than 3 cm. Iliacs: Proximal common iliac arteries are normal in caliber at less than 2.5 cm. IVC: Intrahepatic inferior vena cava is patent. Miscellaneous: No free abdominal fluid. IMPRESSION: There is a septated cyst measuring 1.5 cm of corresponds well to the hypodensity seen on the outside PET-CT within the left lobe of the liver. Gallstones are seen, yet without additional sonographic signs of cholecystitis. Negative for biliary dilatation. Please correlate with physical examination findings, patient presentation, and laboratory values. The liver demonstrates increased echogenicity. This finding is nonspecific, yet it is most commonly attributed to fatty infiltration. Dictated by: Jaime Mccracken M.D. on 02/06/2022 at 14:19 Approved by: Jaime Mccracken M.D. on 02/06/2022 at 14:22
== END ==
PROVIDERS: Family Provider Family Medicine; PCP Family Medicine; Referring Provider Family Medicine; Visit Provider Family Medicine
DX: K80.20 Calculus of gallbladder without cholecystitis without obstruction (principal); K76.89 Other specified diseases of liver
CPT/HCPCS: 76700

== ENCOUNTER → 2022-05-19 11:27 | Outpatient (CLI) | payer MEDICARE, OTHER, SELFPAY ==
[2022-05-19 12:09] LABS: Influenza A - CEPHEID Flu A NEGATIVE (NEGATIVE); Influenza B - CEPHEID Flu B NEGATIVE (NEGATIVE); Respiratory Syncytial Virus Negative (Negative)
[2022-05-19 12:10] LABS: COVID-19 CEPHEID 4-PLEX PCR Negative (Negative)
== END ==
PROVIDERS: Family Provider Family Medicine; PCP Family Medicine; Visit Provider Student in an Organized Health Care Education/Training Program
DX: R05.1 Acute cough (principal); Z20.822 Contact with and (suspected) exposure to COVID-19
CPT/HCPCS: 0241U

== ENCOUNTER 2022-07-10 15:19 | Emergency (ER) | payer MEDICARE, OTHER, SELFPAY ==
[2022-07-10] VITALS (9 sets, daily range): BP systolic 136–209; BP diastolic 65–98; PULSE 68–111; RESP 9–22; TEMP 36.6; O2SAT 94–98; BMI 31.0
[2022-07-10] MEDS: ONDANSETRON 4 MG/2 ML INJ IV (15:59)
[2022-07-10 16:08] LABS: Add Manual Diff / Slide Review NO; Basophils Absolute Auto 0 /uL (0-100); Basophils Percent Auto 0.3 % (0-2); Eosinophils Absolute Auto 0 /uL (0-450); Eosinophils Percent Auto 0.4 % (2-4); Hematocrit 41.4 % (41-53); Hemoglobin 14.2 g/dL (13.5-17.5); Lymphocytes Absolute Auto 700 /uL (1100-4500); Lymphocytes Percent Auto 8.3 % (25-40); Mean Corpuscular HGB Conc 34.3 % (30-36); Mean Corpuscular Hemoglobin 29.9 PG (26-34); Mean Corpuscular Volume 87.1 fL (80-100); Monocytes Absolute Auto 600 /uL (0-900); Neutrophils Absolute Auto 6700 /uL (1500-7000); Platelet Count 210 X10^3/uL (150-400); Red Blood Cell Count 4.75 X10^6/uL (4.5-5.9); Red Cell Distribution Width 14.1 % (11.6-14.8); White Blood Cell Count 8.1 X10^3/uL (4.5-11.0)
[2022-07-10 16:25] LABS: Alanine Aminotransferase 38 IU/L (<50); Albumin 4.8 g/dL (3.5-5.0); Albumin Globulin Ratio 1.5 (1.0-2.8); Alkaline Phosphatase 108 U/L (38-126); Aspartate Aminotransferase 37 IU/L (17-59); BUN Creatinine Ratio 19.7 (6-22); Bilirubin Total 0.9 mg/dL (0.2-1.3); Blood Urea Nitrogen 14 mg/dL (9-20); Calcium 9.5 mg/dL (8.4-10.2); Carbon Dioxide 20 mmol/L (22-32); Chloride 105 mmol/L (98-107); Estimated Glomerular Filt Rate > 60 mL/min (>60); Globulin 3.3 g/dL (1.7-4.1); Glucose 152 mg/dL (80-110); HEMOLYSIS 42 (0-50); Lipase 123 U/L (23-300); Sodium 138 mmol/L (137-145); Total Protein 8.1 g/dL (6.3-8.2)
[2022-07-10 17:22] LABS: Bacteria Urine Occasional (0-1); Calcium Oxalate Crystals Urine Moderate; Culture Indicated Urine Cult Not Indicated; Mucus Urine 1+ (Negative); RBC Urine 0-1/HPF (0-5/HPF); Squamous Epithelial Cell Urine None Seen (0-5/HPF); WBC Urine 0-1/HPF (0-5/HPF)
[2022-07-10] MEDS: SODIUM CHLORIDE 0.9% 1,000 ML 1000 ML IV (19:30)
--- NOTE | 2022-07-10 19:53 | ED.NAVMDI ---
HPI - Nausea/Vomiting/Diarrhea General Chief complaint: Nausea/Vomiting/Diarrhea Stated complaint: cannot stop throwing up-increasing Time Seen by Provider: 07/10/22 19:21 Source: patient Mode of arrival: Ambulatory History of Present Illness HPI Narrative: The patient 76-year-old male history of prostate cancer with history of radiation presenting today with sudden onset nausea vomiting started at 11:45 a.m.. He says he is vomited numerous times now feeling better after being in the emergency department numerous hours no longer vomiting. He denies any flank pain. He reports that he had some lower abdominal cramping and pain. He is had 2 normal bowel movements today no fevers. Related Data Home Medications Medication Instructions Recorded Confirmed ResMed AirSense 10 03/28/21 05/19/22 omeprazole 20 mg capsule,delayed 20 mg PO DAILY 05/19/22 05/19/22 release Previous Rx's Medication Instructions Recorded sildenafil (pulm.hypertension) 20 See Rx Instructions .Route 04/02/21 mg tablet .COMPLEX #50 tabs trazodone 50 mg tablet See Rx Instructions .Route 05/02/22 .COMPLEX #90 tabs simvastatin 20 mg tablet See Rx Instructions .Route 05/26/22 .COMPLEX #90 tabs ondansetron 4 mg disintegrating 4 mg PO Q8H PRN nausea and 07/10/22 tablet vomiting #10 tabs Allergies Allergy/AdvReac Type Severity Reaction Status Date / Time No Known Drug Allergies Allergy Verified 07/10/22 15:50 Review of Systems Review of Systems ROS Unobtainable: All systems reviewed & are unremarkable except as noted in HPI and below Patient History Medical History (Updated 07/10/22 @ 21:14 by Kiki Garcia DO) Benign familial tremor Cataracts, bilateral (~2006) Chicken pox (~1953) Elevated PSA (~2013) Erectile dysfunction (~2014) Folliculitis (~2006) Fractures (~1992) Hearing deficit Hearing loss (~2001) Hemorrhoid (~1966) Measles (~1957) Neuroma (~1968) Post traumatic stress disorder (PTSD) Prostate cancer (~2014) Sleep apnea (~2007) Tinnitus (~1968) Vision disorder Surgical History Anesthesia History of biopsy History of tonsillectomy (~1949) History of vasectomy (~1980) Male circumcision (~1947) Plantar warts (~1962) [place] teeth extracted Family History Father Hypertension Heart disease Mother Hyperlipidemia Brother Cancer Sister Mental health problem Social History marital status: number of children: 2 household members: spouse lives independently: Yes caregiver/support person: No housing: house education level: college occupational status: employed Smoking Status: Never smoker second hand exposure: No alcohol intake: current substance use type: does not use Smoking Status: Never smoker alcohol intake frequency: a few times a week Substance Use Type: does not use Exam Initial Vital Signs Initial Vital Signs: Vital Signs Temperature 97.9 F 07/10/22 15:46 Pulse Rate 111 H 07/10/22 15:46 Respiratory Rate 20 07/10/22 15:46 Blood Pressure 209/98 H 07/10/22 15:46 Pulse Oximetry 95 07/10/22 15:46 Oxygen Delivery Method Room Air 07/10/22 15:46 GENERAL: Alert pleasant 76-year-old and in no acute distress. HEENT: Head atraumatic,EOMI, pupils reactive, face symmetric, moist mucous membranes CARDIOVASCULAR: Regular rate and rhythm without murmurs, rubs or gallops. RESPIRATORY: Breath sounds equal bilaterally, no wheezes rales or rhonchi. ABDOMEN: Soft, mild suprapubic lower abdominal pain no guarding no rebound : No CVA tenderness EXTREMITIES: Normal range of motion, no clubbing or edema. Neurovascularly intact NEUROLOGICAL: Alert and oriented x4. SKIN: Warm, dry, no laceration, no petechiae, no rashes or lesions. Course Orders Ordered: ED Orders 07/10/22 19:57 CT abdomen pelvis w con Stat Discontinued Medications Sodium Chloride (Normal Saline 0.9%) 1,000 mls @ 1,000 mls/hr IV BOLUS ONE Stop: 07/10/22 20:20 Last Infusion: 07/10/22 20:51 Dose: 0 mls/hr Documented By: Admin: 07/10/22 19:30 Dose: 1,000 mls/hr Documented By: ROBERT Ondansetron HCl (Ondansetron 4 Mg/2 Ml Inj) 4 mg IV NOW PRN PRN Reason: Nausea And Vomiting Last Admin: 07/10/22 15:59 Dose: 4 mg Documented By: JEFRY Ondansetron HCl (Ondansetron 4 Mg Odt Prepack) 1 bottle MISC SEEINSTR ONE Stop: 07/10/22 21:19 Last Admin: 07/10/22 21:30 Dose: 1 bottle Documented By: GC Vital Signs Vital signs: Vital Signs - 8 hr 07/10/22 21:00 07/10/22 21:00 07/10/22 21:37 Temperature 98 F Pulse Rate 68 78 Respiratory Rate 13 18 Blood Pressure 147/67 H 138/80 Pulse Oximetry 96 98 Oxygen Delivery Method Room Air MDM - Nausea/Vomiting/Diarrhea Lab Data 07/10/22 15:55 07/10/22 15:55 Labs: Lab Results 07/10/22 07/10/22 07/10/22 Range/Units 15:55 15:55 16:34 WBC 8.1 (4.5-11.0) X10^3/uL RBC 4.75 (4.5-5.9) X10^6/uL Hgb 14.2 (13.5-17.5) g/dL Hct 41.4 (41-53) % MCV 87.1 (80-100) fL MCH 29.9 (26-34) PG MCHC 34.3 (30-36) % RDW 14.1 (11.6-14.8) % Plt Count 210 (150-400) X10^3/uL Neut % (Auto) 83.0 H (50-75) % Lymph % (Auto) 8.3 L (25-40) % [place] % (Auto) 8.0 (3-14) % Eos % (Auto) 0.4 L (2-4) % Baso % (Auto) 0.3 (0-2) % Neut # (Auto) 6700 (6039-4897) /uL Lymph # (Auto) 700 L (7253-6470) /uL [place] # (Auto) 600 (0-900) /uL Eos # (Auto) 0 (0-450) /uL Baso # (Auto) 0 (0-100) /uL Sodium 138 (137-145) mmol/L Potassium 4.0 (3.4-5.1) mmol/L Chloride 105 (98-107) mmol/L Carbon Dioxide 20 L (22-32) mmol/L BUN 14 (9-20) mg/dL Creatinine 0.71 (0.66-1.25) mg/dL Estimated GFR > 60 (>60) mL/min BUN/Creatinine Ratio 19.7 (6-22) Glucose 152 H (80-110) mg/dL Calcium 9.5 (8.4-10.2) mg/dL Total Bilirubin 0.9 (0.2-1.3) mg/dL AST 37 (17-59) IU/L ALT 38 (<50) IU/L Alkaline Phosphatase 108 (38-126) U/L Total Protein 8.1 (6.3-8.2) g/dL Albumin 4.8 (3.5-5.0) g/dL Globulin 3.3 (1.7-4.1) g/dL Albumin/Globulin Ratio 1.5 (1.0-2.8) Lipase 123 (23-300) U/L Urine RBC 0-1/hpf (0-5/HPF) Urine WBC 0-1/hpf (0-5/HPF) Ur Squamous Epith Cells None seen (0-5/HPF) Calcium Oxalate Crystal Moderate H Urine Bacteria Occasional (0-1) (None) Urine Mucus 1+ H (Negative) Ur Culture Indicated? Cult not indicated Urine Dip Bedside Urine Glucose Negative Bedside Urine Bilirubin - Negative Bedside Urine Ketone ++ 40 Urine Specific [place] 1.030 Bedside Urine Occult Blood - Negative Bedside Urine Protein +/- 15 Bedside Urine Urobilinogen - Negative Bedside Urine Nitrite - Negative Bedside Urine Leukocytes - Negative Esterase Imaging Data CT scan - abdomen/pelvis: Radiologist's Impression: PROCEDURE:? CT ABDOMEN PELVIS W CON ? INDICATIONS:? vomiting hx of prostate cancer ? TECHNIQUE:? After the administration of oral and IV contrast, axial sections were acquired from the lung bases to the pubic symphysis.? Coronal and sagittal reformats were performed.? For radiation dose reduction, the following was used:? automated exposure control, adjustment of mA and/or kV according to patient size. ? COMPARISON:? Outside Film, NM, PET NECK TO MID THIGH, 01/06/2022, 18:29.? [facility], MR, MR ABDOMEN LIVER PROTOCOL, 06/03/2022, 9:46. ? FINDINGS:? Image quality:? Excellent.? ? Lung bases:? There is mild dependent atelectasis.? ? Heart:? Heart is normal in size.? There is a small hiatal hernia. ? ? ABDOMEN: Liver:? Hepatic steatosis redemonstrated.? A few small Paddock cysts are redemonstrated in the left hepatic lobe. Gallbladder:? A calcified gallstones present without gallbladder wall thickening or pericholecystic fluid. Biliary ducts:? No biliary ductal dilatation.? ? Pancreas:? Unremarkable.? ? Spleen:? Normal in size.? ? Adrenal Glands:? No adrenal nodules.? ? Kidneys and Ureters:? No hydronephrosis.? ? ? Stomach and Bowel:? Stomach, small bowel loops, and colon are normal in caliber and wall thickness.? A few scattered air-fluid levels are demonstrated within the small bowel without abnormal dilatation.? There is mild segmental wall thickening in the jejunum as well as a few scattered areas of mild edema in the small bowel mesentery.? The findings are suggestive of an enteritis.? The appendix is normal.? Peritoneum:? There is minimal free fluid in the pelvis.? No free air.? ? Ventral Wall: ? No hernia.? Abdominal Nodes:? No retroperitoneal or mesenteric adenopathy by size criteria.? Vessels:? Aorta and inferior vena cava are normal in size.? ? PELVIS: Pelvic Organs:? The prostate is surgically absent. Bladder:? Unremarkable.? ? Pelvic Nodes: No enlarged lymph nodes.? Miscellaneous: No inguinal hernias are seen. ? ? ? Bones:? Visualized osseous structures demonstrate no suspicious focal lesions. ? IMPRESSION:? ? 1. Scattered air-fluid levels in the small bowel associated with short segment mild wall thickening and minimal edema in the mesentery but without abnormal dilatation.? The findings likely represent an enteritis.? No evidence of high-grade obstruction. ? 2. Cholelithiasis without CT evidence of cholecystitis. ? 3. No definite evidence of new metastatic disease in the abdomen and pelvis. ? 4. Small hiatal hernia.? ? Dictated by: Luis Rogers M.D. on 07/10/2022 at 20:46? ECG Data Interpretation: Sinus rhythm rate 80 FL interval 144 QRS [address] changes no T-wave inversions no priors to compare MDM Narrative Medical decision making narrative: Patient is 76-year-old male history of prostate cancer presents today with sudden onset lower abdominal pain nausea vomiting. Vomiting has subsided he received Zofran and fluids. CT does not show any evidence of obstruction her other etiology. No significant leukocytosis anemia. Electrolytes are within normal limits carbon dioxide is slightly low at 20, but no evidence of BARBARA. He is also given IV fluids. Now tolerating oral fluids feeling better. Probably gastroenteritis viral syndrome. Supportive care only no need for admission Discharge Plan Departure Patient Disposition: Home Clinical Impression: Gastroenteritis Instructions: DI for Viral Gastroenteritis -- Adult Activity Restrictions/Additional Instructions: *You have been diagnosed with viral bacteria enteritis *What to do: At this time increase fluids as tolerated recommend Gatorade or Gatorade like substance *Continue to take medications as directed Zofran 4 mg every 8 hours if needed for nausea or vomiting-->SENT TO [facility] *Follow up with your primary care provider in 2-3 days or call [phone] *Return to ER if you should have inability to tolerate fluids increasing pain dizziness lightheadedness or pass or any new, worsening or concerning symptoms Prescriptions: New ondansetron 4 mg tablet,disintegrating 4 mg PO Q8H PRN (Reason: nausea and vomiting) Qty: 10 0RF No Action omeprazole 20 mg capsule,delayed release(DR/EC) 20 mg PO DAILY sildenafil (pulm.hypertension) 20 mg tablet See Rx Instructions .ROUTE .COMPLEX Qty: 50 1RF Dose Instruction: TAKE 2 1/2 TABLETS (50MG) BY MOUTH DAILY NEEDED FOR ED Rx Instructions: TAKE 2 1/2 TABLETS (50MG) BY MOUTH DAILY NEEDED FOR ED trazodone 50 mg tablet See Rx Instructions .ROUTE .COMPLEX Qty: 90 0RF Dose Instruction: take 1 tablet by mouth at bedtime Rx Instructions: take 1 tablet by mouth at bedtime simvastatin 20 mg tablet See Rx Instructions .ROUTE .COMPLEX Qty: 90 0RF Dose Instruction: take 1 tablet by mouth at bedtime Rx Instructions: take 1 tablet by mouth at bedtime (DME) ResMed AirSense 10 See Rx Instructions .Route .MEDSUPPLY Rx Instructions: CPAP Min: 6 Max: 10 DME: [facility] Referrals: Jeane Boss MD [Primary Care Provider] - Stand Alone Forms: Patient Portal/API
--- NOTE | 2022-07-10 19:57 | DI.CT.S_ITS ---
PROCEDURE: CT ABDOMEN PELVIS W CON INDICATIONS: vomiting hx of prostate cancer TECHNIQUE: After the administration of oral and IV contrast, axial sections were acquired from the lung bases to the pubic symphysis. Coronal and sagittal reformats were performed. For radiation dose reduction, the following was used: automated exposure control, adjustment of mA and/or kV according to patient size. COMPARISON: Outside Film, NM, PET NECK TO MID THIGH, 01/06/2022, 18:29. [facility], MR, MR ABDOMEN LIVER PROTOCOL, 06/03/2022, 9:46. FINDINGS: Image quality: Excellent. Lung bases: There is mild dependent atelectasis. Heart: Heart is normal in size. There is a small hiatal hernia. ABDOMEN: Liver: Hepatic steatosis redemonstrated. A few small [place] cysts are redemonstrated in the left hepatic lobe. Gallbladder: A calcified gallstones present without gallbladder wall thickening or pericholecystic fluid. Biliary ducts: No biliary ductal dilatation. Pancreas: Unremarkable. Spleen: Normal in size. Adrenal Glands: No adrenal nodules. Kidneys and Ureters: No hydronephrosis. Stomach and Bowel: Stomach, small bowel loops, and colon are normal in caliber and wall thickness. A few scattered air-fluid levels are demonstrated within the small bowel without abnormal dilatation. There is mild segmental wall thickening in the jejunum as well as a few scattered areas of mild edema in the small bowel mesentery. The findings are suggestive of an enteritis. The appendix is normal. Peritoneum: There is minimal free fluid in the pelvis. No free air. Ventral Wall: No hernia. Abdominal Nodes: No retroperitoneal or mesenteric adenopathy by size criteria. Vessels: Aorta and inferior vena cava are normal in size. PELVIS: Pelvic Organs: The prostate is surgically absent. Bladder: Unremarkable. Pelvic Nodes: No enlarged lymph nodes. Miscellaneous: No inguinal hernias are seen. Bones: Visualized osseous structures demonstrate no suspicious focal lesions. IMPRESSION: 1. Scattered air-fluid levels in the small bowel associated with short segment mild wall thickening and minimal edema in the mesentery but without abnormal dilatation. The findings likely represent an enteritis. No evidence of high-grade obstruction. 2. Cholelithiasis without CT evidence of cholecystitis. 3. No definite evidence of new metastatic disease in the abdomen and pelvis. 4. Small hiatal hernia. Dictated by: Luis Rogers M.D. on 07/10/2022 at 20:46 Approved by: Luis Rogers M.D. on 07/10/2022 at 20:54
[2022-07-10] MEDS: ONDANSETRON 4 MG ODT PREPACK 1 BOTTLE MISC (21:30)
== END 2022-07-10 21:30 | disposition home or self-care (01) ==
PROVIDERS: Emergency Medicine; Emergency Provider Emergency Medicine; Family Provider Family Medicine; PCP Family Medicine
DX: K52.9 Noninfective gastroenteritis and colitis, unspecified (principal); R10.30 Lower abdominal pain, unspecified; R11.2 Nausea with vomiting, unspecified
CPT/HCPCS: 36415; 74177; 80053; 81003; 81015; 83690; 85025; 93005; 96361; 96374; 99284; J2405; Q9967

== ENCOUNTER → 2022-09-01 17:14 | Outpatient (CLI) | payer MEDICARE, OTHER, SELFPAY ==
[2022-09-01 18:52] LABS: Prostate Specific Antigen < 0.064 ng/mL (0.10-4.00)
== END ==
PROVIDERS: Family Provider Family Medicine; PCP Family Medicine; Referring Provider Radiology Radiation Oncology; Visit Provider Radiology Radiation Oncology
DX: C61 Malignant neoplasm of prostate (principal)
CPT/HCPCS: 36415; 84153

== ENCOUNTER → 2022-10-21 14:57 | Outpatient (CLI) | payer MEDICARE, OTHER, SELFPAY ==
--- NOTE | 2022-10-21 14:59 | DI.RAD.S_ITS ---
PROCEDURE: XR HIP W PEL IF DONE RT 2V INDICATIONS: right hip pain TECHNIQUE: 2 views of the hip were acquired. COMPARISON: [facility], CT, CT ABDOMEN PELVIS W CON, 07/10/2022, 20:07. [facility], CR, XR HIP W PEL IF DONE RT 2V, 08/25/2018, 14:46. FINDINGS: Bones: Moderate bilateral hip arthrosis. No displaced fracture or dislocation. Possible iliac bone island. Soft tissues: No suspicious calcifications. IMPRESSION: Moderate bilateral hip arthrosis. If there is high concern for further derangement, consider MRI evaluation. Dictated by: Nate Madrigal M.D. on 10/21/2022 at 17:16 Approved by: Nate Madrigal M.D. on 10/21/2022 at 17:17
== END ==
PROVIDERS: Family Provider Family Medicine; PCP Family Medicine; Referring Provider Family Medicine; Visit Provider Family Medicine
DX: M25.551 Pain in right hip (principal); M16.0 Bilateral primary osteoarthritis of hip
CPT/HCPCS: 73502

== ENCOUNTER → 2022-11-17 15:24 | Outpatient (CLI) | payer MEDICARE, OTHER, SELFPAY ==
[2022-11-17 17:12] LABS: Prostate Specific Antigen < 0.064 ng/mL (0.10-4.00)
== END ==
PROVIDERS: Family Provider Family Medicine; PCP Family Medicine; Referring Provider Urology; Visit Provider Urology
DX: C61 Malignant neoplasm of prostate (principal)
CPT/HCPCS: 36415; 84153

== ENCOUNTER → 2023-03-20 07:43 | Outpatient (CLI) | payer MEDICARE, OTHER, SELFPAY ==
[2023-03-20 08:49] LABS: HEMOLYSIS < 15 (0-50); Iron 81 ug/dL (49-181)
[2023-03-20 08:59] LABS: Percent Iron Saturation 26 % (20-50); Total Iron Binding Capacity 317 ug/dL (261-462); Transferrin 275 mg/dL (206-381)
[2023-03-20 09:23] LABS: Ferritin 91 ng/mL (18-464)
== END ==
LOC: LAB 07:45
PROVIDERS: Family Provider Family Medicine; PCP Family Medicine; Referring Provider Nurse Practitioner; Visit Provider Nurse Practitioner
DX: E83.10 Disorder of iron metabolism, unspecified (principal); R25.8 Other abnormal involuntary movements
CPT/HCPCS: 36415; 82728; 83540; 83550

== ENCOUNTER → 2023-05-16 08:26 | Outpatient (CLI) | payer MEDICARE, OTHER, SELFPAY ==
[2023-05-16 11:36] LABS: Prostate Specific Antigen < 0.064 ng/mL (0.10-4.00)
== END ==
LOC: LAB 08:28
PROVIDERS: Family Provider Family Medicine; PCP Family Medicine; Referring Provider Urology; Visit Provider Urology
DX: C61 Malignant neoplasm of prostate (principal)
CPT/HCPCS: 36415; 84153

== ENCOUNTER → 2023-09-02 13:14 | Outpatient (CLI) | payer MEDICARE, OTHER, SELFPAY ==
[2023-09-02 15:02] LABS: Prostate Specific Antigen 0.083 ng/mL (0.10-4.00)
== END ==
LOC: LAB 13:15
PROVIDERS: Family Provider Family Medicine; PCP Family Medicine; Referring Provider Radiology Radiation Oncology; Visit Provider Radiology Radiation Oncology
DX: C61 Malignant neoplasm of prostate (principal)
CPT/HCPCS: 36415; 84153

== ENCOUNTER → 2023-10-15 07:12 | Outpatient (CLI) | payer MEDICARE, OTHER, SELFPAY ==
[2023-10-15 07:43] LABS: Add Manual Diff / Slide Review NO; Basophils Absolute Auto 0 /uL (0-100); Basophils Percent Auto 0.8 % (0-2); Eosinophils Absolute Auto 100 /uL (0-450); Eosinophils Percent Auto 2.7 % (2-4); Hemoglobin 13.6 g/dL (13.5-17.5); Lymphocytes Absolute Auto 1800 /uL (1100-4500); Lymphocytes Percent Auto 44.3 % (25-40); Mean Corpuscular HGB Conc 33.9 % (30-36); Mean Corpuscular Hemoglobin 29.7 PG (26-34); Mean Corpuscular Volume 87.7 fL (80-100); Monocytes Absolute Auto 400 /uL (0-900); Monocytes Percent Auto 10.8 % (3-14); Neutrophils Absolute Auto 1700 /uL (1500-7000); Neutrophils Percent Auto 41.4 % (50-75); Platelet Count 193 X10^3/uL (150-400); Red Blood Cell Count 4.57 X10^6/uL (4.5-5.9); Red Cell Distribution Width 14.7 % (11.6-14.8)
[2023-10-15 08:11] LABS: Alanine Aminotransferase 31 IU/L (<50); Albumin 4.2 g/dL (3.5-5.0); Albumin Globulin Ratio 1.8 (1.0-2.8); Alkaline Phosphatase 75 U/L (38-126); Aspartate Aminotransferase 27 IU/L (17-59); BUN Creatinine Ratio 15.7 (6-22); Bilirubin Total 0.6 mg/dL (0.2-1.3); Blood Urea Nitrogen 13 mg/dL (9-20); Calcium 9.1 mg/dL (8.4-10.2); Carbon Dioxide 24 mmol/L (22-32); Chloride 109 mmol/L (98-107); Cholesterol 150 mg/dL (140-199); Estimated Glomerular Filt Rate > 60 mL/min (>60); Globulin 2.4 g/dL (1.7-4.1); Glucose 103 mg/dL (80-110); HDL Cholesterol 50 mg/dL (40-60); HEMOLYSIS < 15 (0-50); LDL Cholesterol Calculated 76 mg/dL (<100); Sodium 141 mmol/L (137-145); Total Protein 6.6 g/dL (6.3-8.2); Triglycerides 120 mg/dL (35-150)
[2023-10-15 08:37] LABS: Prostate Specific Antigen 0.143 ng/mL (0.10-4.00)
== END ==
PROVIDERS: Family Provider Family Medicine; PCP Family Medicine; Referring Provider Family Medicine; Visit Provider Family Medicine
DX: C61 Malignant neoplasm of prostate (principal); E78.5 Hyperlipidemia, unspecified; K80.20 Calculus of gallbladder without cholecystitis without obstruction; K21.9 Gastro-esophageal reflux disease without esophagitis
CPT/HCPCS: 36415; 80053; 80061; 84153; 85025

== ENCOUNTER → 2024-06-24 07:16 | Outpatient (CLI) | payer MEDICARE, OTHER, SELFPAY ==
[2024-06-24 08:15] LABS: Alanine Aminotransferase 51 IU/L (<50); Albumin 4.4 g/dL (3.5-5.0); Albumin Globulin Ratio 1.7 (1.0-2.8); Alkaline Phosphatase 72 U/L (38-126); Aspartate Aminotransferase 36 IU/L (17-59); BUN Creatinine Ratio 16.7 (6-22); Bilirubin Total 0.7 mg/dL (0.2-1.3); Blood Urea Nitrogen 14 mg/dL (9-20); Calcium 9.7 mg/dL (8.4-10.2); Carbon Dioxide 26 mmol/L (22-32); Chloride 108 mmol/L (98-107); Cholesterol 180 mg/dL (140-199); Estimated Glomerular Filt Rate > 60 mL/min (>60); Globulin 2.6 g/dL (1.7-4.1); Glucose 96 mg/dL (70-99); HDL Cholesterol 54 mg/dL (40-60); HEMOLYSIS < 15 (0-50); LDL Cholesterol Calculated 75 mg/dL (<100); Potassium 4.5 mmol/L (3.4-5.1); Sodium 141 mmol/L (137-145); Triglycerides 256 mg/dL (35-150)
== END ==
PROVIDERS: Family Provider Family Medicine; PCP Family Medicine; Referring Provider Family Medicine; Visit Provider Family Medicine
DX: E78.5 Hyperlipidemia, unspecified (principal); E87.8 Other disorders of electrolyte and fluid balance, not elsewhere classified
CPT/HCPCS: 36415; 80053; 80061

== ENCOUNTER → 2024-08-03 14:59 | Outpatient (CLI) | payer MEDICARE, OTHER, SELFPAY ==
[2024-08-03 16:54] LABS: Prostate Specific Antigen 0.104 ng/mL (0.10-4.00)
== END ==
PROVIDERS: Internal Medicine Hematology & Oncology; Family Provider Family Medicine; PCP Family Medicine; Referring Provider Family Medicine; Visit Provider Family Medicine
DX: C61 Malignant neoplasm of prostate (principal)
CPT/HCPCS: 36415; 84153

== ENCOUNTER → 2024-10-03 07:08 | Outpatient (CLI) | payer MEDICARE, OTHER, SELFPAY ==
[2024-10-03 08:54] LABS: Cholesterol 155 mg/dL (140-199); HDL Cholesterol 45 mg/dL (40-60); Triglycerides 251 mg/dL (35-150)
== END ==
PROVIDERS: Family Provider Family Medicine; PCP Family Medicine; Referring Provider Family Medicine; Visit Provider Family Medicine
DX: E78.5 Hyperlipidemia, unspecified (principal); Z79.899 Other long term (current) drug therapy
CPT/HCPCS: 36415; 80061

== ENCOUNTER → 2024-11-11 07:24 | Outpatient (CLI) | payer MEDICARE, OTHER, SELFPAY ==
[2024-11-11 09:09] LABS: HEMOLYSIS < 15 (0-50); Iron 84 ug/dL (49-181)
[2024-11-11 09:23] LABS: Percent Iron Saturation 27 % (20-50); Total Iron Binding Capacity 315 ug/dL (261-462); Transferrin 270 mg/dL (206-381)
[2024-11-11 09:41] LABS: Prostate Specific Antigen 0.519 ng/mL (0.10-4.00)
[2024-11-11 09:44] LABS: Ferritin 79 ng/mL (18-464)
== END ==
PROVIDERS: Physician Assistant; Family Provider Family Medicine; PCP Family Medicine; Referring Provider Nurse Practitioner; Visit Provider Nurse Practitioner
DX: E83.10 Disorder of iron metabolism, unspecified (principal); C61 Malignant neoplasm of prostate; G25.81 Restless legs syndrome; G47.9 Sleep disorder, unspecified; R40.0 Somnolence
CPT/HCPCS: 36415; 82728; 83540; 83550; 84153